=== PATIENT | male | born 1965 | race Caucasian/White ===

== ENCOUNTER 2016-10-16 18:47 | Emergency (ER) | payer MEDICARE ==
[~2016-10-16] VITALS: Ht 180.3 cm; Wt 215.5 kg
[~2016-10-16 18:47] MED LIST: ALB0.5V INH; ALBU17AE23 INH; ALBU2.5V4 IH; ALBU2.5V52 INH; ALPR.5T PO; AMOX500C2 PO; AMOX875T2 PO; AMPI250C11 PO; ANTI14DR4 OT; AZIT-21 PO; AZIT250T PO; AZIT500T PO; BENZ-13 PO; BENZ200C25 PO; CARB15DR87 OT; CEPH500C PO; CIPR-17 PO; CIPR500T4 PO; CLIN300C3 PO; DIPH25CA79 PO; DIPH25TA82 PO; DOXY100C2 PO; DOXYCYCLINE 100 MG; EFFEXOR 75 MG PO; FAMO-119 PO; FAMO40TA72 PO; FEXO1TAB49 PO; FLUC100T PO; FLUC100T6 PO; FLUT1DIS28 IH; FURO20TA4 PO; FURO40TA4 PO; GFN600TCR PO; HYDR-3583 PO; HYDR-3812 PO; HYDR-757 PO; HYDROCODONE; LIRA0.6P SQ; LOSA1TAB23 PO; LOSA1TAB70 PO; METF500T4 PO; METFORMIN 500 MG; METH4TAB PO; METR500T PO; MOME15CR17 TP; MPR22T TOP; MULT-35 PO; NAPR220C11 PO; NAPR220T76; NYST30PO9 TP; PRD20T PO; PRD50T PO; PRED10TA22 PO; PRED20TA PO; RT-ALBUINH IH; SLMFT1E; SLMFT1E INH; SULF1TAB38 PO; SULFAMETHOXAZOLE; TRIMETHOPRIM; VENL150C PO; VENL150C98 PO; VITAMIN D; XANAX 0.5 MG PO
[2016-10-16] MEDS ORDERED: cloNIDine 0.2 MG (CATAPRES) TAB PO ONE (19:15)
[2016-10-16] MEDS ORDERED: RT-ALBUTEROL/IPRATROPIUM 3 ML (DUONEB) VIAL INH ONE (19:15)
--- NOTE | 2016-10-16 19:15 | ED Cough/URI ---
General Chief Complaint: Respiratory Problems Stated Complaint: COUGH, FEVER, DIARRHEA, SOB Source: patient Exam Limitations: no limitations History of Present Illness Time seen by provider: 19:13 Initial Comments To ER with a productive cough for 3 days, unmeasured fever but chills, diarrhea , shortness of breath. He's also had wheezing, generalized body aches. He states that he was recently kicked off of some version of his Medicare which has caused him difficulty in affording his losartan. His blood pressure is 183/ 111. Timing/Duration: just prior to arrival Severity/Quality: moderate Associated Symptoms: cough, nasal congestion, wheezing Allergies and Home Medications Allergies Coded Allergies: azithromycin (Verified Allergy, Intermediate, Hives, 03/31/15) Home Medications Albuterol Sulfate 2.5 Mg/3 Ml Vial.neb, 2.5 MG IH Q6H PRN for SHORTNESS OF BREATH, (Reported) Albuterol Sulfate 8.5 Gm Hfa.aer.ad, 2 PUFF IH Q4H PRN for SHORTNESS OF BREATH, #1 Ref 0 Prescribed by: NELSON LUGO on 02/16/162042 Amlodipine Besylate 5 Mg Tablet, 5 MG PO DAILY, #10 Prescribed by: CAMILLE TITUS on 10/16/16 2005 Amoxicillin 875 Mg Tablet, 875 MG PO BID, #20 Prescribed by: FUENTES YING on 05/25/162116 Hydrocodone/Acetaminophen 1 Each Tablet, 1 TAB PO Q6H PRN for SEVERE PAIN, #10 Prescribed by: DIONY DEL TORO on 03/15/16 1328 Levofloxacin 750 Mg Tablet, 750 MG PO DAILY, #5 Prescribed by: CAMILLE TITUS on 10/16/162002 Liraglutide 0.6 Mg/0.1 Ml Pen.injctr, 0.6 MG SQ DAILY, #1 Ref 5 Prescribed by: BETHANIE CAN on 04/08/15 0938 Losartan/Hydrochlorothiazide 1 Each Tablet, 1 TAB PO DAILY, (Reported) Methylprednisolone 4 Mg Tab.ds.pk, 4 MG PO UD, #1 Prescribed by: FUENTES YING on 05/25/162116 Mometasone Furoate 15 Gm Cream..g., 0 TP TID, #1 Prescribed by: FUENTES YING on 05/25/162117 Multivitamin 1 Each Tablet, 1 TAB PO DAILY, (Reported) Prednisone 20 Mg Tab, 20 MG PO DAILY PRN for SHORTNESS OF BREATH, (Reported) Venlafaxine HCl 150 Mg Cap.er.24h, 150 MG PO DAILY, (Reported) Constitutional: see HPI, chills, fever EENTM: see HPI Respiratory: see HPI, cough, short of breath, wheezing Cardiovascular: no symptoms reported Genitourinary: no symptoms reported Musculoskeletal: no symptoms reported Past Pxxonhh-Vnjaqe-Euoihp Hx Patient Social History Recent Foreign Travel: No Contact w/Someone Who Travel: No Recent Hopitalizations: No Immunizations Up To Date Tetanus Booster (TDap): Less than 5yrs Date of Pneumonia Vaccine: Mar 29, 2010 Date of Influenza Vaccine: Mar 31, 2015 Seasonal Allergies Seasonal Allergies: No Surgeries HX Surgeries: Yes (rectal abcess, l arm, urethral) Surgeries: Orthopedic, Rectal Respiratory Hx Respiratory Disorders: Yes (sarcoidosis) Respiratory Disorders: Sleep Apnea, COPD Cardiovascular Hx Cardiac Disorders: Yes Cardiac Disorders: Chronic Edema/Swelling, Hypertension Neurological Hx Neurological Disorders: Yes Neurological Disorders: Neuropathy Reproductive System Hx Reproductive Disorders: No Sexually Transmitted Disease: No HIV/AIDS: No Genitourinary Hx Genitourinary Disorders: No Gastrointestinal Hx Gastrointestinal Disorders: Yes Gastrointestinal Disorders: Gastroesophageal Reflux, Chronic Constipation Musculoskeletal Hx Musculoskeletal Disorders: Yes (SARCOIDOSIS) Musculoskeletal Disorders: Arthritis Endocrine Hx Endocrine Disorders: Yes (morbid obesity) Endocrine Disorders: Diabetes, Non-Insulin dep HEENT HX ENT Disorders: Yes HEENT Disorders: Tonsilitis Loss of Vision: Denies Hearing Impairment: Denies Cancer Hx Cancer: No Psychosocial Hx Psychiatric Problems: Yes Behavioral Health Disorders: Anxiety Integumentary HX Skin/Integumentary Disorder: No Blood Transfusions Hx Blood Disorders: No Family Medical History Significant Family History: No Pertinent Family Hx Family Medial History: Congestive heart failure 03 FATHER, Onset:20's - 25 Family history: Asthma 09 SISTER, Onset:20's - 25 Family history: Cardiovascular disease 03 FATHER, Onset:20's - 25 Family history: Hypertension 03 MOTHER, Onset:40's - 50 Family history: Thyroid disorder 03 MOTHER, Onset:50's - 60 Heart disease 03 FATHER, Onset:20's - 25 History of - respiratory disease 03 MOTHER, Onset:50's - 60 Physical Exam Vital Signs Vital Sign - Last 12Hours 10/16/16 19:09 Temp 96.8 Pulse 88 Resp 20 B/P (MAP) 186/111 Pulse Ox 96 O2 Delivery Room Air Capillary Refill : General Appearance: WD/WN, no apparent distress, obese Eyes: Bilateral Eye EOMI, Bilateral Eye Normal Inspection, Bilateral Eye PERRL HEENT: PERRL/EOMI, normal ENT inspection Neck: non-tender, full range of motion Respiratory: no respiratory distress, no accessory muscle use Cardiovascular: regular rate, rhythm, no murmur Gastrointestinal: normal bowel sounds, non tender, soft Neurologic/Psychiatric: alert, normal mood/affect, oriented x 3 Skin: normal color, warm/dry Progress/Results/Core Measures Results/Orders Lab Results Laboratory Tests Test 10/16/16 19:26 Range/Units White Blood Count 12.0 H 4.3-11.0 10^3/uL Red Blood Count 5.13 4.35-5.85 10^6/uL Hemoglobin 13.2 L 13.3-17.7 G/DL Hematocrit 41 40-54 % Mean Corpuscular Volume 79 L 80-99 FL Mean Corpuscular Hemoglobin 26 25-34 PG Mean Corpuscular Hemoglobin Concent 32 32-36 G/DL Red Cell Distribution Width 13.6 10.0-14.5 % Platelet Count 254 130-400 10^3/uL Mean Platelet Volume 10.3 7.4-10.4 FL Neutrophils (%) (Auto) 71 42-75 % Lymphocytes (%) (Auto) 18 12-44 % Monocytes (%) (Auto) 5 0-12 % Eosinophils (%) (Auto) 6 0-10 % Basophils (%) (Auto) 0 0-10 % Neutrophils # (Auto) 8.5 H 1.8-7.8 X 10^3 Lymphocytes # (Auto) 2.2 1.0-4.0 X 10^3 Monocytes # (Auto) 0.6 0.0-1.0 X 10^3 Eosinophils # (Auto) 0.7 H 0.0-0.3 10^3/uL Basophils # (Auto) 0.1 0.0-0.1 10^3/uL Sodium Level 138 135-145 MMOL/L Potassium Level 3.7 3.6-5.0 MMOL/L Chloride Level 102 98-107 MMOL/L Carbon Dioxide Level 26 21-32 MMOL/L Anion Gap 10 5-14 MMOL/L Blood Urea Nitrogen 9 7-18 MG/DL Creatinine 0.97 0.60-1.30 MG/DL Estimat Glomerular Filtration Rate > 60 BUN/Creatinine Ratio 9 Glucose Level 186 H 70-105 MG/DL Calcium Level 9.1 8.5-10.1 MG/DL My Orders Orders - CAMILLE TITUS APRN Clonidine Tablet (Catapres Tablet) (10/16/16 19:15) Albuterol/Ipra Inhalation Soln (Duoneb I (10/16/16 19:15) Svn Sm Volume Nebulizer Rt-Rfs (10/16/16 19:12) Cbc With Automated Diff (10/16/16 19:12) Basic Metabolic Panel (10/16/16 19:12) Saline Lock/Iv-Start (10/16/16 19:12) Chest Pa/Lat (2 View) (10/16/16 19:12) Ceftriaxone Injection (Rocephin Injectio (10/16/16 20:00) Medications Given in ED Current Medications Medications Dose Ordered Sig/Ceci Route Start Time Stop Time Status Last Admin Dose Admin Albuterol/ Ipratropium 3 ml ONCE ONCE INH 10/16/16 19:15 10/16/16 19:16 DC 10/16/16 19:25 3 ML Clonidine HCl 0.2 mg ONCE ONCE PO 10/16/16 19:15 10/16/16 19:16 DC 10/16/16 19:32 0.2 MG Vital Signs/I&O Vital Sign - Last 12Hours 10/16/16 10/16/16 19:09 19:25 Temp 96.8 Pulse 88 Resp 20 B/P (MAP) 186/111 Pulse Ox 96 95 O2 Delivery Room Air Departure Communication Progress Notes 2009-complete resolution of wheezing and shortness of breath with 1 DuoNeb treatment. Patient does report a history of COPD. He does have a nebulizer at home and does have an adequate supply of albuterol for this. We will give Rocephin here, then Levaquin at home. Blood pressure down to 162/104. Impression Impression: Primary Impression: Pneumonia Additional Impression: Hypertension Disposition: HOME, SELF-CARE Condition: Stable Departure-Patient Inst. Decision time for Depature: 20:02 Referrals: BETHANIE CAN DO (PCP/Family) Primary Care Physician Patient Instructions: Pneumonia, Adult (DC) Add. Discharge Instructions: 1. Antibiotics as directed 2. Return to ER for any concerns 3. Follow-up with your doctor later this week All discharge instructions reviewed with patient and/or family. Voiced understanding. Scripts Amlodipine Besylate (Norvasc) 5 Mg Tablet 5 MG PO DAILY, #10 TAB Prov: CAMILLE TITUS APRN 10/16/16 Levofloxacin (Levaquin) 750 Mg Tablet 750 MG PO DAILY, #5 TAB Prov: CAMILLE TITUS APRN 10/16/16 CAMILLE TITUS APRN October 16, 2016 19:15
[2016-10-16 19:35] LABS: BASOPHILS # (AUTO) 0.1 10^3/uL (0.0-0.1); BASOPHILS % (AUTO) 0 % (0-10); EOSINOPHILS # (AUTO) 0.7 10^3/uL (0.0-0.3); EOSINOPHILS % (AUTO) 6 % (0-10); LYMPHOCYTES # (AUTO) 2.2 X 10^3 (1.0-4.0); LYMPHOCYTES % (AUTO) 18 % (12-44); MEAN CORPUSCULAR HEMOGLOBIN 26 PG (25-34); MEAN CORPUSCULAR HGB CONC 32 G/DL (32-36); MEAN CORPUSCULAR VOLUME 79 FL (80-99); MEAN PLATELET VOLUME 10.3 FL (7.4-10.4); MONOCYTES # (AUTO) 0.6 X 10^3 (0.0-1.0); MONOCYTES % (AUTO) 5 % (0-12); NEUTROPHILS # (AUTO) 8.5 X 10^3 (1.8-7.8); NEUTROPHILS % (AUTO) 71 % (42-75); PLATELET COUNT 254 10^3/uL (130-400); RED BLOOD COUNT 5.13 10^6/uL (4.35-5.85); RED CELL DISTRIBUTION WIDTH 13.6 % (10.0-14.5)
--- NOTE | 2016-10-16 19:50 | Diagnostic Imaging Report ---
INDICATION: Cough and congestion. DISCUSSION: Two views of the chest were obtained, comparison 03/14/2016. Mild alveolar infiltrates are noted within the bilateral lung bases which could be seen with early pneumonia, pulmonary edema, or atelectasis. No pleural fluid or pneumothorax. Stable normal heart size. No osseous abnormality. IMPRESSION: 1. Subtle infiltrates within the bilateral lung bases, right greater than left. Dictated by: Dictated on workstation # [id number]
[2016-10-16 19:53] LABS: ANION GAP 10 MMOL/L (5-14); BLOOD UREA NITROGEN 9 MG/DL (7-18); BUN/CREATININE RATIO 9; CALCIUM 9.1 MG/DL (8.5-10.1); CARBON DIOXIDE 26 MMOL/L (21-32); CHLORIDE 102 MMOL/L (98-107); CREATININE SERUM 0.97 MG/DL (0.60-1.30); GFR ESTIMATED > 60; GLUCOSE 186 MG/DL (70-105); POTASSIUM 3.7 MMOL/L (3.6-5.0); SODIUM 138 MMOL/L (135-145)
[2016-10-16] MEDS ORDERED: cefTRIAXone INJECTION 1,000 MG in NS (IVPB) 50 ML IV ONE (20:00)
[2016-10-16] MEDS ORDERED: LEVO750T9 PO (20:03)
[2016-10-16] MEDS ORDERED: AMLO5TAB4 PO (20:05)
[2016-10-16 20:19] VITALS: BP 164/104
== END 2016-10-16 20:19 | disposition home or self-care (01) ==
LOC: EDUNIT# 18:47 → ER 18:48
DX: J18.9 Pneumonia, unspecified organism (principal); I10 Essential (primary) hypertension; J44.9 Chronic obstructive pulmonary disease, unspecified; E11.9 Type 2 diabetes mellitus without complications; E66.01 Morbid (severe) obesity due to excess calories; Z79.84 Long term (current) use of oral hypoglycemic drugs; Z79.899 Other long term (current) drug therapy
CPT/HCPCS: 36415; 71020; 80048; 85025; 94640; 96374

== ENCOUNTER → 2016-11-20 | Outpatient (CLI) | payer MEDICARE ==
[~2016-11-20] MED LIST changes: +AMLO5TAB4 PO; +LEVO750T9 PO
== END ==
LOC: CARD 11:25
PROVIDERS: ATTEND Nurse Practitioner Family
DX: Z00.01 Encounter for general adult medical examination with abnormal findings (principal); I10 Essential (primary) hypertension; R01.1 Cardiac murmur, unspecified
CPT/HCPCS: 93306

== ENCOUNTER 2017-08-22 12:24 | Emergency (ER) | payer MEDICARE ==
[~2017-08-22] VITALS: Ht 180.3 cm; Wt 205.0 kg
[~2017-08-22 12:24] MED LIST changes: +ACHD5005 PO; -HYDR-3812 PO; -LOSA1TAB70 PO
--- NOTE | 2017-08-22 13:03 | ED EENT ---
History of Present Illness General Chief Complaint: Oral/Throat Problems Stated Complaint: SORE THROAT,FEVER Nursing Triage Note: C/O THROAT Source: patient Exam Limitations: no limitations History of Present Illness Date Seen by Provider: Aug 22, 2017 Time Seen by Provider: 12:42 Initial Comments 51-year-old male patient presents to the emergency department with complaints of a sore throat beginning today. Also c/o a generalized pruritic rash x6-8 months. Denies changes in foods, lotions, soaps, medications,etc... Location: throat Prearrival Treatment: no prearrival treatment Modifying Factors: Worse With Other (throat pain worse with swallowing) Allergies and Home Medications Allergies Coded Allergies: azithromycin (Verified Allergy, Intermediate, Hives, 03/31/15) Home Medications Albuterol Sulfate 2.5 Mg/3 Ml Vial.neb, 2.5 MG IH Q6H PRN for SHORTNESS OF BREATH, (Reported) Albuterol Sulfate 8.5 Gm Hfa.aer.ad, 2 PUFF IH Q4H PRN for SHORTNESS OF BREATH Prescribed by: NELSON LUGO on 02/16/162042 Amlodipine Besylate 5 Mg Tablet, 5 MG PO DAILY Prescribed by: CAMILLE TITUS on 10/16/162004 Hydrocodone Bit/Acetaminophen 1 Each Tablet, 1 TAB PO Q6H PRN for SEVERE PAIN Prescribed by: DIONY DEL TORO on 03/15/16 132 Liraglutide 0.6 Mg/0.1 Ml Pen.injctr, 0.6 MG SQ DAILY Prescribed by: BETHANIE CAN on 04/08/15 0938 Losartan/Hydrochlorothiazide 1 Each Tablet, 1 TAB PO DAILY, (Reported) Methylprednisolone 4 Mg Tab.ds.pk, 4 MG PO UD Prescribed by: FUENTES YING on 05/25/162116 Mometasone Furoate 15 Gm Cream..g., 0 TP TID Prescribed by: FUENTES YING on 05/25/162117 Multivitamin 1 Each Tablet, 1 TAB PO DAILY, (Reported) Permethrin 60 Gm Cream..g., 60 GM TP UD apply as directed x1 per the systems programmer. Repeat in 10-14 days. Prescribed by: NELSON LUGO on 08/22/17 1337 Prednisone 20 Mg Tab, 20 MG PO DAILY PRN for SHORTNESS OF BREATH, (Reported) Prednisone 20 Mg Tab, 40 MG PO DAILY Prescribed by: NELSON LUGO on 08/22/17 1337 Venlafaxine HCl 150 Mg Cap.er.24h, 150 MG PO DAILY, (Reported) Patient Home Medication List Home Medication List Reviewed: Yes Review of Systems Constitutional: No chills, No fever, No malaise Eyes: No Symptoms Reported Ears: No Symptoms Reported Nose: denies congestion, denies pain, denies clear discharge, denies purulent discharge, denies serosanguinous discharge Mouth: no symptoms reported Throat: pain, denies swelling, denies neck stiffness, denies hoarse, denies aphonia, denies muffled, painful swallowing, denies difficulty with fluids Respiratory: no symptoms reported Cardiovascular: no symptoms reported Gastrointestinal: no symptoms reported Musculoskeletal: no symptoms reported Skin: see HPI, pruritus, rash Neurological: No Symptoms Reported Immunological/Allergic: no symptoms reported All Other Systems Reviewed Negative Unless Noted: Yes (Negative excepted noted.) Past Xqhfywo-Defjer-Gvbtor Hx Patient Social History Alcohol Use: Denies Use Recreational Drug Use: No Smoking Status: Never a Smoker 2nd Hand Smoke Exposure: No Recent Foreign Travel: No Contact w/Someone Who Travel: No Recent Infectious Disease Expo: No Recent Hopitalizations: No Immunizations Up To Date Tetanus Booster (TDap): Less than 5yrs Date of Pneumonia Vaccine: Mar 29, 2010 Date of Influenza Vaccine: Mar 31, 2015 Seasonal Allergies Seasonal Allergies: No Surgeries History of Surgeries: Yes (rectal abcess, urethral) Surgeries: Orthopedic, Rectal Respiratory History of Respiratory Disorde: Yes (sarcoidosis) Respiratory Disorders: Sleep Apnea, COPD Currently Using CPAP: Yes Currently Using BIPAP: No Cardiovascular History of Cardiac Disorders: Yes Cardiac Disorders: Chronic Edema/Swelling, Hypertension Neurological History of Neurological Disord: Yes Neurological Disorders: Neuropathy Reproductive System Hx Reproductive Disorders: No Sexually Transmitted Disease: No HIV/AIDS: No Genitourinary History of Genitourinary Disor: No Gastrointestinal History of Gastrointestinal Di: Yes (h/o multiple perirectal abscesses.) Gastrointestinal Disorders: Gastroesophageal Reflux, Chronic Constipation Musculoskeletal History of Musculoskeletal Dis: Yes (SARCOIDOSIS) Musculoskeletal Disorders: Arthritis Endocrine History of Endocrine Disorders: Yes (morbid obesity) Endocrine Disorders: Diabetes, Non-Insulin dep HEENT History of HEENT Disorders: No HEENT Disorders: Tonsilitis Loss of Vision: Denies Hearing Impairment: Denies Cancer History of Cancer: No Psychosocial History of Psychiatric Problem: Yes Behavioral Health Disorders: Anxiety Integumentary History of Skin or Integumenta: Yes Skin/Integumentary Disorders: Pruritis (rash and pruritis x 6-8 months) Blood Transfusions History of Blood Disorders: No Reviewed Nursing Assessment Reviewed/Agree w Nursing PMH: Yes Family Medical History Significant Family History: No Pertinent Family Hx Family Medial History: Congestive heart failure 03 FATHER, Onset: Family history: Asthma 09 SISTER, Onset:20 Family history: Cardiovascular disease 03 FATHER, Onset: Family history: Hypertension 03 MOTHER, Onset:40's - 50 Family history: Thyroid disorder 03 MOTHER, Onset:50 Heart disease 03 FATHER, Onset: History of - respiratory disease 03 MOTHER, Onset:50 Physical Exam Vital Signs Vital Signs - First Documented 08/22/17 12:35 Pulse 79 Resp 18 B/P (MAP) 161/99 (119) Pulse Ox 98 General Appearance: no apparent distress, obese, other (unkempt.) Eyes: bilateral eye normal inspection, bilateral eye PERRL, bilateral eye EOMI Ears: bilateral ear auricle normal, bilateral ear canal normal, bilateral ear TM normal Nose: normal inspection Mouth/Throat: normal mouth inspection, No excessive drooling, No tonsillar exudate, No tonsillar swelling, No trismus, No uvula swelling, No voice changes , other ((+) pharyngeal erythema) Neck: non-tender, full range of motion, supple, normal inspection Cardiovascular: regular rate, rhythm, no murmur Respiratory: lungs clear, normal breath sounds, no respiratory distress, no accessory muscle use Neurologic/Psychiatric: alert, normal mood/affect, oriented x 3 Skin: normal color, warm/dry, rash (generalized scabs and exoriations. ) Progress/Results/Core Measures Results/Orders Lab Results Laboratory Tests Test 08/22/17 12:55 Range/Units Group A Streptococcus Screen NEGATIVE NEGATIVE My Orders Orders - NELSON LUGO Rapid Strep A Screen (08/22/17 12:56) Vital Signs/I&O Vital Sign - Last 12Hours 08/22/17 08/22/17 12:35 13:59 Pulse 79 79 Resp 18 18 B/P (MAP) 161/99 (119) 161/99 (119) Pulse Ox 98 98 Blood Pressure Mean: 119 Departure Communication (Admissions) Progress Notes Laboratory findings discussed with the patient. Plan for discharge to home. Patient to follow-up with his primary care provider if no improvement in symptoms. Impression Impression: Primary Impression: Acute viral pharyngitis Additional Impression: Rash in adult Disposition: 01 HOME, SELF-CARE Condition: Improved Departure-Patient Inst. Decision time for Depature: 13:07 Referrals: [facility] (PCP/Family) Primary Care Physician Patient Instructions: Viral Pharyngitis (DC) Add. Discharge Instructions: All discharge instructions reviewed with patient and/or family. Voiced understanding. Medications as instructed. Tylenol Extra Strength over-the- counter as directed for pain. Ibuprofen 800 mg by mouth every 8 hours as needed for pain. Zzot-les-culonfy throat lozenges and Chloraseptic spray for throat pain as instructed by the systems programmer's. Warm salt water gargles as needed. Follow-up with your family practitioner for recheck as an outpatient if no improvement in symptoms. Return to the emergency department for worsened symptoms or any other concerns. Scripts Permethrin (Permethrin) 60 Gm Cream..g. 60 GM TP UD, #2 TUBE 0 Refills apply as directed x1 per the systems programmer. Repeat in 10-14 days. Prov: NELSON LUGO 08/22/17 Prednisone (Prednisone) 20 Mg Tab 40 MG PO DAILY, #10 TAB 0 Refills Prov: NELSON LUGO 08/22/17 NELSON LUGO Aug 22, 2017 13:03
[2017-08-22] MEDS ORDERED: PERM60CR4 TP (13:37)
[2017-08-22] MEDS ORDERED: PRD20T PO (13:37)
[2017-08-22 13:59] VITALS: BP 161/99
== END 2017-08-22 13:59 | disposition home or self-care (01) ==
LOC: EDUNIT# 12:24 → ER 12:26
DX: J02.8 Acute pharyngitis due to other specified organisms (principal); R21 Rash and other nonspecific skin eruption; F41.9 Anxiety disorder, unspecified; E11.40 Type 2 diabetes mellitus with diabetic neuropathy, unspecified; E66.01 Morbid (severe) obesity due to excess calories; K21.9 Gastro-esophageal reflux disease without esophagitis; R60.0 Localized edema; I10 Essential (primary) hypertension; J44.9 Chronic obstructive pulmonary disease, unspecified; G47.30 Sleep apnea, unspecified; Z79.52 Long term (current) use of systemic steroids; Z88.1 Allergy status to other antibiotic agents; Z87.2 Personal history of diseases of the skin and subcutaneous tissue; Z98.890 Other specified postprocedural states
CPT/HCPCS: 87430; 99282

== ENCOUNTER 2017-09-10 02:06 | Emergency (ER) | payer MEDICARE ==
[~2017-09-10] VITALS: Ht 180.3 cm; Wt 205.0 kg
[~2017-09-10 02:06] MED LIST changes: -METF500T4 PO; +METF500T5 PO; +PERM60CR4 TP
[2017-09-10] MEDS ORDERED: RT-epiNEPHrine (RACEMIC) 2.25% 0.5 ML VIAL ONE (02:16)
[2017-09-10] MEDS ORDERED: RT-ALBUTEROL/IPRATROPIUM 3 ML (DUONEB) VIAL ONE (02:16)
[2017-09-10] MEDS ORDERED: ROSU10TA PO (02:19)
[2017-09-10] MEDS ORDERED: GABA-486 PO (02:19)
--- NOTE | 2017-09-10 02:25 | ED Respiratory ---
General Chief Complaint: Allergic Reaction Stated Complaint: SWOLLEN LIPS Source: patient Exam Limitations: no limitations History of Present Illness Date Seen by Provider: Sep 10, 2017 Time Seen by Provider: 02:12 Initial Comments The patient presents to the ER by private conveyance with a chief complaint that he has swollen lips and tonight was getting bad enough he is having a hard time breathing through his mouth and swallowing his own secretions. He is still able to talk. He says this started a couple days ago and is progressively gotten worse. He is not on any new medications nor has he eaten anything unusual or anything he might be allergic to. He has not changed any soaps, detergents or other new fabrics. He does not have a history of angioedema ever occurring before. He says he is not on lisinopril but he does take losartan and has been on this for many years. He is not having any constitutional symptoms, earaches, fever, chills, nausea, vomiting, shortness of breath but he does have a history of COPD. Allergies and Home Medications Allergies Coded Allergies: azithromycin (Verified Allergy, Intermediate, Hives, 03/31/15) Home Medications Epinephrine 0.3 Mg/0.3 Ml Auto.injct, 0.3 MG IJ Q30M PRN for DYSPNEA Prescribed by: SABINA YANG on 09/10/17 0242 Losartan/Hydrochlorothiazide 1 Each Tablet, 1 TAB PO DAILY, (Reported) Venlafaxine HCl 150 Mg Cap.er.24h, 150 MG PO DAILY, (Reported) Patient Home Medication List Home Medication List Reviewed: Yes Review of Systems Constitutional: No chills, No fever, No malaise, No weakness EENTM: No ear discharge, No ear pain, No eye pain, No epistaxis, No nose congestion, No nose pain Respiratory: No cough, No hemoptysis, No short of breath, No stridor; wheezing Cardiovascular: No chest pain; edema (chronic lymphedema); No palpitations Gastrointestinal: No abdominal pain, No constipation, No diarrhea, No nausea, No vomiting Genitourinary: No discharge, No dysuria Musculoskeletal: No back pain, No joint pain Past Vphixfn-Bxezzs-Zuhtww Hx Patient Social History Alcohol Use: Denies Use Recreational Drug Use: No Smoking Status: Never a Smoker 2nd Hand Smoke Exposure: No Recent Foreign Travel: No Contact w/Someone Who Travel: No Recent Hopitalizations: No Immunizations Up To Date Tetanus Booster (TDap): Less than 5yrs Date of Pneumonia Vaccine: Mar 29, 2010 Date of Influenza Vaccine: Mar 31, 2015 Seasonal Allergies Seasonal Allergies: No Past Medical History Surgeries: Yes (rectal abcess, urethral) Orthopedic, Rectal Respiratory: Yes (sarcoidosis) Sleep Apnea, COPD Currently Using CPAP: Yes Currently Using BIPAP: No Cardiac: Yes Chronic Edema/Swelling, Hypertension Neurological: Yes Neuropathy Reproductive Disorders: No Sexually Transmitted Disease: No HIV/AIDS: No Genitourinary: No Gastrointestinal: Yes (h/o multiple perirectal abscesses.) Gastroesophageal Reflux, Chronic Constipation Musculoskeletal: Yes (SARCOIDOSIS) Arthritis Endocrine: Yes (morbid obesity) Diabetes, Non-Insulin dep HEENT: No Tonsilitis Loss of Vision: Denies Hearing Impairment: Denies Cancer: No Psychosocial: Yes Anxiety Integumentary: Yes Pruritis Blood Disorders: No Family Medical History Congestive heart failure 03 FATHER, Onset:20's - 25 Family history: Asthma 09 SISTER, Onset:20's - 25 Family history: Cardiovascular disease 03 FATHER, Onset:20's - 25 Family history: Hypertension 03 MOTHER, Onset:40's - 50 Family history: Thyroid disorder 03 MOTHER, Onset:50's - 60 Heart disease 03 FATHER, Onset:20's - 25 History of - respiratory disease 03 MOTHER, Onset:50's - 60 No Pertinent Family Hx Physical Exam Vital Signs Vital Signs - First Documented 09/10/17 02:10 Temp 97.4 Pulse 115 Resp 22 B/P (MAP) 132/91 (105) Pulse Ox 96 O2 Delivery Room Air Capillary Refill : General Appearance: WD/WN, no apparent distress Eyes: Bilateral Eye Normal Inspection, Bilateral Eye PERRL, Bilateral Eye EOMI HEENT: PERRL/EOMI, normal ENT inspection, TMs normal, other (tongue may be mildly enlarged however his upper and lower lips are both very swollen without any area of induration, discharge or fluctuance to indicate an abscess.) Neck: non-tender, full range of motion, supple, normal inspection Respiratory: chest non-tender, no respiratory distress, no accessory muscle use , decreased breath sounds, wheezing (few scattered bilaterally), other (there is no stridor.) Cardiovascular: normal peripheral pulses, regular rate, rhythm, no edema Gastrointestinal: normal bowel sounds, non tender, soft Extremities: non-tender, normal capillary refill, pedal edema Neurologic/Psychiatric: no motor/sensory deficits, alert, normal mood/affect, oriented x 3 Skin: other (edema bilateral lips of the face without evidence of abscess, induration or fluctuance.) Progress/Results/Core Measures Suspected Sepsis SIRS Temperature: Pulse: Respiratory Rate: Blood Pressure / Mean: Results/Orders My Orders Orders - SABINA YANG Methylprednisolone Sod Succ (Solu-Medrol (09/10/17 02:30) Diphenhydramine Injection (Benadryl Inje (09/10/17 02:30) Rt Epinephrine (Racemic Epinephrine 2.25 (09/10/17 02:30) Svn Sm Volume Nebulizer Rt-Rfs (09/10/17 02:16) Albuterol/Ipra Inhalation Soln (Duoneb I (09/10/17 02:30) Famotidine Tablet (Pepcid Tablet) (09/10/17 02:30) Loratadine Tablet (Claritin Tablet) (09/10/17 02:30) Rt Epinephrine (Racemic Epinephrine 2.25 (09/10/17 02:16) Albuterol/Ipra Inhalation Soln (Duoneb I (09/10/17 02:16) Medications Given in ED Current Medications Medications Dose Ordered Sig/Ceci Route Start Time Stop Time Status Last Admin Dose Admin Albuterol/ Ipratropium 3 ml ONCE ONCE INH 09/10/17 02:30 09/10/17 02:31 DC 09/10/17 02:31 3 ML Diphenhydramine HCl 25 mg ONCE ONCE IM 09/10/17 02:30 09/10/17 02:31 DC 09/10/17 02:25 25 MG Epinephrine 0.5 ml ONCE ONCE INH 09/10/17 02:30 09/10/17 02:31 DC 09/10/17 02:31 0.5 ML Famotidine 20 mg ONCE ONCE PO 09/10/17 02:30 09/10/17 02:31 DC 09/10/17 02:25 20 MG Loratadine 10 mg ONCE ONCE PO 09/10/17 02:30 09/10/17 02:31 DC 09/10/17 02:25 10 MG Methylprednisolone Sodium Succinate 125 mg ONCE ONCE IM 09/10/17 02:30 09/10/17 02:31 DC 09/10/17 02:25 125 MG Vital Signs/I&O 09/10/17 09/10/17 02:10 02:23 Temp 97.4 Pulse 115 Resp 22 B/P (MAP) 132/91 (105) Pulse Ox 96 96 O2 Delivery Room Air Room Air Capillary Refill : Progress Note #1: Time: 02:26 Progress Note Is not having stridor necessary but he says having a difficult time breathing through his mouth and he does have some wheezes so in addition to a DuoNeb we' ll give him some racemic epinephrine by nebulizer. We will give him some steroid , Benadryl, Zyrtec, Pepcid and reevaluate. With no new exposures suspected losartan may be the possible cause. We have encouraged him to not take his losartan until he has followed up with his primary care provider. Progress Note #2: Time: 03:02 Progress Note On reexamination the patient is no longer having any wheezing. He is able to breathe through his mouth and nose easily swallow secretions with minimal difficulty. He still has swelling in his lips. We will observe him for a short while and then allow him to go home as long as he is not getting any worse. Departure Impression Primary Impression: Angio-edema Qualified Codes: T78.3XXA - Angioneurotic edema, initial encounter Disposition: 01 HOME, SELF-CARE Condition: Improved Departure-Patient Inst. Decision time for Depature: 03:02 Referrals: [facility] [place] Primary Care Physician Patient Instructions: Anaphylaxis (DC) Add. Discharge Instructions: It is not entirely clear what has caused the swelling in your lips but it does appear to be an allergic reaction to something. If your symptoms get worse take a Benadryl 25 mg tablet and return to the ER. A prescription for an epinephrine pen has been sent to the pharmacy for you to potato picker and have on hand in case your swelling gets to the point where you are having difficulty breathing then you should inject herself with one of the pins on your way to the ER. For the next week you can take one tablet of Zyrtec, cetirizine or Claritin, loratadine daily. The steroids should kick in and about a day or so. Follow-up with your primary care provider this week or the next. Discontinue the use of your losartan until you've seen your provider and they would like you to restart it. All discharge instructions reviewed with patient and/or family. Voiced understanding. Scripts Epinephrine (Epipen 2-Satnam) 0.3 Mg/0.3 Ml Auto.injct 0.3 MG IJ Q30M PRN for DYSPNEA, #1 EACH 0 Refills Prov: SABINA YANG 09/10/17 Copy Copies To 1: GENE RAMOS DO SABINA YANG Sep 10, 2017 02:25
[2017-09-10] MEDS ORDERED: RT-ALBUTEROL/IPRATROPIUM 3 ML (DUONEB) VIAL INH ONE (02:30)
[2017-09-10] MEDS ORDERED: LORATADINE (CLARITIN) 10 MG TAB PO ONE (02:30)
[2017-09-10] MEDS ORDERED: diphenhydrAMINE 50 MG/ML INJ (BENADRYL) IM ONE (02:30)
[2017-09-10] MEDS ORDERED: RT-epiNEPHrine (RACEMIC) 2.25% 0.5 ML VIAL INH ONE (02:30)
[2017-09-10] MEDS ORDERED: FAMOTIDINE 20 MG (PEPCID) TABLET PO ONE (02:30)
[2017-09-10] MEDS ORDERED: methylPREDNISolone 125 MG (Solu-MEDROL) VIAL IM ONE (02:30)
[2017-09-10] MEDS ORDERED: EPIN0.3P3 IJ (02:42)
[2017-09-10 03:07] VITALS: BP 99/47
== END 2017-09-10 03:07 | disposition home or self-care (01) ==
LOC: EDUNIT# 02:06 → ER 02:08
DX: T78.3XXA Angioneurotic edema, initial encounter (principal); K21.9 Gastro-esophageal reflux disease without esophagitis; E66.01 Morbid (severe) obesity due to excess calories; J44.9 Chronic obstructive pulmonary disease, unspecified; G47.30 Sleep apnea, unspecified; I10 Essential (primary) hypertension; E11.40 Type 2 diabetes mellitus with diabetic neuropathy, unspecified; F41.9 Anxiety disorder, unspecified; Z87.2 Personal history of diseases of the skin and subcutaneous tissue; Z87.09 Personal history of other diseases of the respiratory system; Z87.19 Personal history of other diseases of the digestive system; Z68.44 Body mass index [BMI] 60.0-69.9, adult
CPT/HCPCS: 94640; 96372; 99284

== ENCOUNTER 2018-06-27 21:36 | Emergency (ER) | payer MEDICARE ==
[~2018-06-27] VITALS: Ht 180.3 cm; Wt 204.1 kg
[~2018-06-27 21:36] MED LIST changes: -BENZ-13 PO; +BENZ100C18 PO; +EPIN0.3P3 IJ; +GABA-486 PO; +HYDR-4226 PO; -HYDR-757 PO; +METF-397 PO; -METF500T5 PO; +ROSU10TA PO
--- OUTSIDE RECORDS SUMMARY | 2018-06-27 21:41 | XMS REPORT ---
Author Author ISAACANGELIQUE Organization [facility] Address [address] [place] [address] Care Team Providers Care Neurophysiology Tech Name Role Phone GRAYANGELIQUE Olivo Unavailable PROBLEMS Type Condition ICD9-CM Code LNO11-GD Code Onset Dates Condition Status SNOMED Code Problem Type 2 diabetes mellitus with hyperglycemia E11.65 Active 04124311 Problem Anxiety disorder, unspecified F41.9 Active 984857576 Problem Balanitis N48.1 Active 08142641 Problem Low HDL (under 40) E78.6 Active 604591156 Problem Elevated serum creatinine R79.89 Active 871674920 Problem Elevated LDL cholesterol level E78.00 Active 995099359 Problem Seasonal allergic rhinitis, unspecified trigger J30.2 Active 241775993 Problem Polyneuropathy associated with underlying disease G63 Active 694570934 Problem Cardiac murmur R01.1 Active 61417138 Problem Personal history of sarcoidosis Z86.2 Active 260067285 Problem Essential hypertension I10 Active 52513376 Problem Morbid obesity due to excess calories E66.01 Active 912463455 ALLERGIES No Information ENCOUNTERS Encounter Location Date Diagnosis [place] [address] [place] [address]759- 2887 Nov, Polyneuropathy associated with underlying disease G63 [facility] [id number] [place] [address] 91546- 8072 Oct, [facility] [address] [place] [id number] [place] [address] 72610- 6273 September, [place] [address] [place] [address] [id number] [place] [address] 61758- 9982 Aug, Essential hypertension I10 ; Anxiety disorder, unspecified F41.9 ; Type 2 diabetes mellitus with hyperglycemia E11.65 ; Seasonal allergic rhinitis, unspecified trigger J30.2 ; Polyneuropathy associated with underlying disease G63 and BMI 60.0-69.9, adult Z68.44 [place] [address] [place] [address] 21519- 3688 Aug, [place] [address] [place] [address] [id number] [place] [address] 30345- 3314 Aug, Anxiety disorder, unspecified F41.9 [place] [address] [id number] [place] [address] 39322- 0622 Jul, [place] [address] [place] [address] [id number] [place] [address] 56738- 8117 May, Type 2 diabetes mellitus with hyperglycemia E11.65 ; Essential hypertension I10 ; Morbid obesity due to excess calories E66.01 ; Elevated LDL cholesterol level E78.00 ; Polyneuropathy associated with underlying disease G63 ; BMI 60.0-69.9, adult Z68.44 ; Anxiety disorder, unspecified F41.9 and Encounter for immunization Z23 [place] [address] [id number] [place] [address] 41345- 8189 Apr, [facility] [id number] [place] [address] [phone] Apr, Dental examination Z01.20 [place] [address] [place] [address] [id number] [place] [address] 47088- 0115 Mar, BMI 60.0-69.9, adult Z68.44 [place] [address] [place] [address] [id number] [place] [address] 72795- 2616 Feb, Type 2 diabetes mellitus with hyperglycemia E11.65 ; Essential hypertension I10 ; Morbid obesity due to excess calories E66.01 ; Elevated serum creatinine R79.89 and Polyneuropathy associated with underlying disease G63 [place] [address] [address] [id number] [place] [address] 10505- 0327 Jan, [place] [address] [place] [id number] [place] [address] 59016- 5441 Jan, Elevated serum creatinine R79.89 [place] [address] [place] [address] Jan, Type 2 diabetes mellitus with hyperglycemia E11.65 [place] [address], [place] [address] Jan, Anxiety disorder, unspecified F41.9 [place] [address] [address] Jan, [place] [address] [place] [id number] [place] [address] 61047- 4820 Jan, Type 2 diabetes mellitus with hyperglycemia E11.65 [place] [address] [place] [address] 34969- 4280 Nov, [place] [address] [place] [id number] [place] [address] 66975- 5053 Nov, Type 2 diabetes mellitus with hyperglycemia E11.65 [place] [address] [place] [id number] [place] [address] 83321- 9011 Nov, [place] [address] [address] Nov, Type 2 diabetes mellitus with hyperglycemia E11.65 ; Essential hypertension I10 ; Low HDL (under 40) E78.6 ; Morbid obesity due to excess calories E66.01 ; Allergic contact dermatitis, unspecified trigger L23.9 and Dietary counseling Z71.3 [place] [address] [address] Nov, [place] [address] [address] Oct, Morbid obesity due to excess calories E66.01 ; Essential hypertension I10 ; Cardiac murmur R01.1 and Personal history of sarcoidosis Z86.2 [place] [address] [address] 13 Oct, 2016 Encounter for routine adult health examination with abnormal findings Z00.01 ; Morbid obesity due to excess calories E66.01 ; Essential hypertension I10 ; Balanitis N48.1 ; Anxiety disorder, unspecified F41.9 ; Cardiac murmur R01.1 and Personal history of sarcoidosis Z86.2 [facility] [address] [facility] [id number] [place] [address] September, Atypical pneumonia J18.9 and Essential hypertension I10 IMMUNIZATIONS No Known Immunizations SOCIAL HISTORY Never Assessed REASON FOR VISIT Requesting refill PLAN OF CARE VITAL SIGNS MEDICATIONS Unknown Medications RESULTS No Results PROCEDURES No Known procedures INSTRUCTIONS MEDICATIONS ADMINISTERED No Known Medications MEDICAL (GENERAL) HISTORY Type Description Date Medical History chronic bronchitis Medical History pre -diabetec Medical History asthma Medical History sarcoidosis- Dx by Dr. Hancock in [place]- in 1989 Medical History ASCVD risk factor 9.5% Medical History Echo 10/2016--EF 50-55% Medical History COPD Surgical History left wrist and elbow surgery Surgical History lipoma removed from left leg Surgical History perirectal abscess removed Hospitalization History for COPD Hospitalization History for Pneumonia Hospitalization History mediastinoscopy and bronchoscopy in 1989 Hospitalization History [facility] [place]- Sore Throat and Fever 08/22/2017
--- OUTSIDE RECORDS SUMMARY | 2018-06-27 21:41 | XMS REPORT ---
Author Author ISAACANGELIQUE Organization [facility] Address [address] [place] [address] Care Team Providers Care Donkey Doctor Name Role Phone ANGELIQUE GRAY Unavailable PROBLEMS Type Condition ICD9-CM Code UPX75-IZ Code Onset Dates Condition Status SNOMED Code Problem Type 2 diabetes mellitus with hyperglycemia E11.65 Active 46019760 Problem Anxiety disorder, unspecified F41.9 Active 386185835 Problem Balanitis N48.1 Active 08514499 Problem Low HDL (under 40) E78.6 Active 899145007 Problem Elevated serum creatinine R79.89 Active 418139369 Problem Elevated LDL cholesterol level E78.00 Active 687047555 Problem Seasonal allergic rhinitis, unspecified trigger J30.2 Active 578680735 Problem Polyneuropathy associated with underlying disease G63 Active 423293500 Problem Cardiac murmur R01.1 Active 96489838 Problem Personal history of sarcoidosis Z86.2 Active 557777540 Problem Essential hypertension I10 Active 33314391 Problem Morbid obesity due to excess calories E66.01 Active 165432971 ALLERGIES No Information ENCOUNTERS Encounter Location Date Diagnosis [place] [address] [place] [address] 29713- 1144 Nov, Polyneuropathy associated with underlying disease G63 [facility] [address] [place] [address] 21578- 3561 Oct, [facility] [address] [place] [id number] [place] [address] 60972- 1619 September, [place] [address] [place] [id number] [place] [address] 84079- 6110 Aug, Essential hypertension I10 ; Anxiety disorder, unspecified F41.9 ; Type 2 diabetes mellitus with hyperglycemia E11.65 ; Seasonal allergic rhinitis, unspecified trigger J30.2 ; Polyneuropathy associated with underlying disease G63 and BMI 60.0-69.9, adult Z68.44 [place] [address] [place] [address] 99426- 9620 Aug, [place] [address] [place] [id number] [place] [address] 50066- 9338 Aug, Anxiety disorder, unspecified F41.9 [place] [address] [place] [id number] [place] [address] 03928- 4187 Jul, [place] [address] [place] [id number] [place] [address] 25704- 6157 May, Type 2 diabetes mellitus with hyperglycemia E11.65 ; Essential hypertension I10 ; Morbid obesity due to excess calories E66.01 ; Elevated LDL cholesterol level E78.00 ; Polyneuropathy associated with underlying disease G63 ; BMI 60.0-69.9, adult Z68.44 ; Anxiety disorder, unspecified F41.9 and Encounter for immunization Z23 [place] [address] [place] [id number] [place] [address] 86896- 0668 Apr, [facility] [address] [id number] [place] [address] [phone] Apr, Dental examination Z01.20 [place] [address] [place] [id number] [place] [address] 05621- 5805 Mar, BMI 60.0-69.9, adult Z68.44 [place] [address] [place] [id number] [place] [address] 75079- 3421 Feb, Type 2 diabetes mellitus with hyperglycemia E11.65 ; Essential hypertension I10 ; Morbid obesity due to excess calories E66.01 ; Elevated serum creatinine R79.89 and Polyneuropathy associated with underlying disease G63 [place] [address] [place] [id number] [place] [address] 21523- 2068 Jan, [place] [address] [place] [id number] [place] [address] 91504- 8325 Jan, Elevated serum creatinine R79.89 [place] [address] [place] [address] 8472 Jan, Type 2 diabetes mellitus with hyperglycemia E11.65 [place] [address] [place] [address] Jan, Anxiety disorder, unspecified F41.9 [place] [address] [place] [address] 0[address] Jan, [place] [address] [place] [id number] [place] [address] 33910- 4181 Jan, Type 2 diabetes mellitus with hyperglycemia E11.65 [place] [address] [place] [address] 71221- 9801 Nov, [place] [address] [place] [id number] [place] [address] 91924- 6627 Nov, Type 2 diabetes mellitus with hyperglycemia E11.65 [place] [address] [place] [id number] [place] [address] 05984- 6041 Nov, [place] [address] [address] Nov, Type 2 diabetes mellitus with hyperglycemia E11.65 ; Essential hypertension I10 ; Low HDL (under 40) E78.6 ; Morbid obesity due to excess calories E66.01 ; Allergic contact dermatitis, unspecified trigger L23.9 and Dietary counseling Z71.3 [place] [address] [place] [address] Nov, [place] [address] [place] [address] Oct, Morbid obesity due to excess calories E66.01 ; Essential hypertension I10 ; Cardiac murmur R01.1 and Personal history of sarcoidosis Z86.2 [place] [address] [place] [address] 13 Oct, 2016 Encounter for routine adult health examination with abnormal findings Z00.01 ; Morbid obesity due to excess calories E66.01 ; Essential hypertension I10 ; Balanitis N48.1 ; Anxiety disorder, unspecified F41.9 ; Cardiac murmur R01.1 and Personal history of sarcoidosis Z86.2 [facility] [address] [facility] [id number] [place] [address] September, Atypical pneumonia J18.9 and Essential hypertension I10 IMMUNIZATIONS No Known Immunizations SOCIAL HISTORY Never Assessed REASON FOR VISIT Refill request PLAN OF CARE VITAL SIGNS MEDICATIONS Medication Instructions Dosage Frequency Start Date End Date Duration Status Gabapentin 100 mg Orally 3 times a day 2 capsule 8h Feb, 30 days Active RESULTS No Results PROCEDURES No Known procedures INSTRUCTIONS MEDICATIONS ADMINISTERED No Known Medications MEDICAL (GENERAL) HISTORY Type Description Date Medical History chronic bronchitis Medical History pre -diabetec Medical History asthma Medical History sarcoidosis- Dx by Dr. Hancock in [place]- in 1989 Medical History ASCVD risk factor 9.5% Medical History Echo 10/2016--EF 50-55% Medical History COPD Surgical History left wrist and elbow surgery Surgical History lipoma removed from left leg Surgical History perirectal abscess removed Hospitalization History for COPD Hospitalization History for Pneumonia Hospitalization History mediastinoscopy and bronchoscopy in 1989 Hospitalization History [facility] [place]- Sore Throat and Fever 08/22/2017
--- OUTSIDE RECORDS SUMMARY | 2018-06-27 21:41 | XMS REPORT ---
Author Author ISAACELVISANGELIQUE Organization [facility] Address [address] [place] [address] Care Team Providers Care Hair Spinner Name Role Phone GRAYANGELIQUE Olivo Unavailable PROBLEMS Type Condition ICD9-CM Code [id number] Code Onset Dates Condition Status SNOMED Code Problem Type 2 diabetes mellitus with hyperglycemia E11.65 Active 86291443 Problem Anxiety disorder, unspecified F41.9 Active 402565246 Problem Balanitis N48.1 Active 48418142 Problem Low HDL (under 40) E78.6 Active 729967658 Problem Elevated serum creatinine R79.89 Active 349699764 Problem Elevated LDL cholesterol level E78.00 Active 236090419 Problem Seasonal allergic rhinitis, unspecified trigger J30.2 Active 140213941 Problem Polyneuropathy associated with underlying disease G63 Active 833543702 Problem Cardiac murmur R01.1 Active 69165451 Problem Personal history of sarcoidosis Z86.2 Active 380917111 Problem Essential hypertension I10 Active 39498422 Problem Morbid obesity due to excess calories E66.01 Active 736051818 ALLERGIES No Information ENCOUNTERS Encounter Location Date Diagnosis [place] [id number] [place] [address] 46848- 2264 Dec, [facility] [address] [place] [address] 39717- 5990 Nov, Polyneuropathy associated with underlying disease G63 [facility] [address] [place] [id number] [place] [address] 34282- 9370 Oct, [facility] [id number] [place] [address] 63857- 7674 September, [facility] [id number] [place] [address] 99429- 2584 Aug, Essential hypertension I10 ; Anxiety disorder, unspecified F41.9 ; Type 2 diabetes mellitus with hyperglycemia E11.65 ; Seasonal allergic rhinitis, unspecified trigger J30.2 ; Polyneuropathy associated with underlying disease G63 and BMI 60.0-69.9, adult Z68.44 [place] [address] [id number] [place] [address] 74068- 4342 Aug, [place] [address] [address] [id number] [place] [address] 53012- 0319 Aug, Anxiety disorder, unspecified F41.9 [place] [address] [place] [id number] [place] [address] 64585- 8451 Jul, [place] [address] 10440- 1814 May, Type 2 diabetes mellitus with hyperglycemia E11.65 ; Essential hypertension I10 ; Morbid obesity due to excess calories E66.01 ; Elevated LDL cholesterol level E78.00 ; Polyneuropathy associated with underlying disease G63 ; BMI 60.0-69.9, adult Z68.44 ; Anxiety disorder, unspecified F41.9 and Encounter for immunization Z23 [place] [id number] [place] [address] 61998- 9565 Apr, [facility] [address] [place] [id number] [place] [address] [phone] Apr, Dental examination Z01.20 [place] [id number] [place] [address] 80974- 4199 Mar, BMI 60.0-69.9, adult Z68.44 [place] [address] [address] [id number] [place] [address] 55532- 3820 Feb, Type 2 diabetes mellitus with hyperglycemia E11.65 ; Essential hypertension I10 ; Morbid obesity due to excess calories E66.01 ; Elevated serum creatinine R79.89 and Polyneuropathy associated with underlying disease G63 [place] [address] [place] [id number] [place] [address] 74204- 6295 Jan, [facility] [address] 96774- 9075 Jan, Elevated serum creatinine R79.89 [place] [address] [address] 0889 Jan, Type 2 diabetes mellitus with hyperglycemia E11.65 [place] [address] [address] 3[address] Jan, Anxiety disorder, unspecified F41.9 [place] [address] [place] [id number] [place] [address] 75189- 2646 Jan, [place] [address] [place] [address] 35892- 8856 Jan, Type 2 diabetes mellitus with hyperglycemia E11.65 [place] [address] [place] [id number] [place] [address] 47740- 6443 Nov, [place] [address] [place] [id number] [place] [address] 49700- 9793 Nov, Type 2 diabetes mellitus with hyperglycemia E11.65 [place] [address] [address] 3861 Nov, [place] [address] [place] [id number] [place] [address] 25750- 4847 Nov, Type 2 diabetes mellitus with hyperglycemia E11.65 ; Essential hypertension I10 ; Low HDL (under 40) E78.6 ; Morbid obesity due to excess calories E66.01 ; Allergic contact dermatitis, unspecified trigger L23.9 and Dietary counseling Z71.3 [place] [address] [address] 5522 Nov, [place] [address] [place] [id number] [place] [address] 15011- 7457 Oct, Morbid obesity due to excess calories E66.01 ; Essential hypertension I10 ; Cardiac murmur R01.1 and Personal history of sarcoidosis Z86.2 [place] [address] [address] 9458 13 Oct, 2016 Encounter for routine adult health examination with abnormal findings Z00.01 ; Morbid obesity due to excess calories E66.01 ; Essential hypertension I10 ; Balanitis N48.1 ; Anxiety disorder, unspecified F41.9 ; Cardiac murmur R01.1 and Personal history of sarcoidosis Z86.2 [facility] [address] [facility] [id number] [place] [address] September, Atypical pneumonia J18.9 and Essential hypertension I10 IMMUNIZATIONS No Known Immunizations SOCIAL HISTORY Never Assessed REASON FOR VISIT Requests return call PLAN OF CARE VITAL SIGNS MEDICATIONS Unknown Medications RESULTS No Results PROCEDURES No Known procedures INSTRUCTIONS MEDICATIONS ADMINISTERED No Known Medications MEDICAL (GENERAL) HISTORY Type Description Date Medical History chronic bronchitis Medical History pre -diabetec Medical History asthma Medical History sarcoidosis- Dx by Dr. Hancock in [place]- in 1989 Medical History ASCVD risk factor 9.5% Medical History Echo 10/2016--EF 50-55% Medical History COPD Surgical History left wrist and elbow surgery Surgical History lipoma removed from left leg Surgical History perirectal abscess removed Hospitalization History for COPD Hospitalization History for Pneumonia Hospitalization History mediastinoscopy and bronchoscopy in 1989 Hospitalization History [facility] [place]- Sore Throat and Fever 08/22/2017
--- OUTSIDE RECORDS SUMMARY | 2018-06-27 21:41 | XMS REPORT ---
Author Author EDWARD KELLER [facility] Address [address] [place] [address] Care Team Providers Care Estimator And Drafter Name Role Phone TIM KELLERTA Unavailable PROBLEMS Type Condition ICD9-CM Code GZA27-LY Code Onset Dates Condition Status SNOMED Code Problem Type 2 diabetes mellitus with hyperglycemia E11.65 Active 59101590 Problem Anxiety disorder, unspecified F41.9 Active 084669970 Problem Balanitis N48.1 Active 90328149 Problem Low HDL (under 40) E78.6 Active 006607590 Problem Elevated serum creatinine R79.89 Active 915937177 Problem Elevated LDL cholesterol level E78.00 Active 445343369 Problem Seasonal allergic rhinitis, unspecified trigger J30.2 Active 768860052 Problem Polyneuropathy associated with underlying disease G63 Active 748032542 Problem Cardiac murmur R01.1 Active 28141635 Problem Personal history of sarcoidosis Z86.2 Active 839088048 Problem Essential hypertension I10 Active 21318581 Problem Morbid obesity due to excess calories E66.01 Active 791698328 ALLERGIES Substance Reaction Event Type Date Status Azithromycin hives Drug Allergy Mar, Active ENCOUNTERS Encounter Location Date Diagnosis [facility] [address] [place] [address] 45330- 0291 Mar, Bronchitis J40 and BMI 60.0-69.9, adult Z68.44 [facility] [address] [place] [address] 51961- 8578 Feb, Anxiety disorder, unspecified F41.9 and Essential hypertension I10 [facility] [address] [place] [address] 68915- 5831 Nov, Polyneuropathy associated with underlying disease G63 [facility] [address] [place] [address] 74307- 5041 Oct, [place] [address] [place] [address] 26008- 3139 September, [place] [id number] [place] [address] 41293- 2314 Aug, Essential hypertension I10 ; Anxiety disorder, unspecified F41.9 ; Type 2 diabetes mellitus with hyperglycemia E11.65 ; Seasonal allergic rhinitis, unspecified trigger J30.2 ; Polyneuropathy associated with underlying disease G63 and BMI 60.0-69.9, adult Z68.44 [place] [address] [place] [id number] [place] [address] 47062- 6664 Aug, [place] [id number] [place] [address] 17168- 7476 Aug, Anxiety disorder, unspecified F41.9 [place] [id number] [place] [address] 27784- 5806 Jul, [place] [id number] [place] [address] 47062- 2331 May, Type 2 diabetes mellitus with hyperglycemia E11.65 ; Essential hypertension I10 ; Morbid obesity due to excess calories E66.01 ; Elevated LDL cholesterol level E78.00 ; Polyneuropathy associated with underlying disease G63 ; BMI 60.0-69.9, adult Z68.44 ; Anxiety disorder, unspecified F41.9 and Encounter for immunization Z23 [place] [id number] [place] [address] 83742- 3788 Apr, [facility] [address] [place] [address] [phone] Apr, Dental examination Z01.20 [place] [id number] [place] [address] 94502- 5685 Mar, BMI 60.0-69.9, adult Z68.44 [address] [place] [address] 86211- 7271 Feb, Type 2 diabetes mellitus with hyperglycemia E11.65 ; Essential hypertension I10 ; Morbid obesity due to excess calories E66.01 ; Elevated serum creatinine R79.89 and Polyneuropathy associated with underlying disease G63 [place] [address] [place] [address] 34554- 1795 Jan, [facility] [address] [id number] [place] [address] 97450- 1019 Jan, Elevated serum creatinine R79.89 [place] [address] [place] [id number] [place] [address] 20607- 2957 Jan, Type 2 diabetes mellitus with hyperglycemia E11.65 [place] [address] [place] [address] 07388- 9500 Jan, Anxiety disorder, unspecified F41.9 [place] [address] [place] [id number] [place] [address] 92736- 6808 Jan, [place] [address] [place] [id number] [place] [address] 71777- 9265 Jan, Type 2 diabetes mellitus with hyperglycemia E11.65 [place] [address] [place] [id number] [place] [address] 45849- 0239 Nov, [place] [address] [place] [id number] [place] [address] 62665- 3795 Nov, Type 2 diabetes mellitus with hyperglycemia E11.65 [place] [address] [place] [address] 06209- 4526 Nov, [place] [address] [place] [id number] [place] [address] 63874- 9496 Nov, Type 2 diabetes mellitus with hyperglycemia E11.65 ; Essential hypertension I10 ; Low HDL (under 40) E78.6 ; Morbid obesity due to excess calories E66.01 ; Allergic contact dermatitis, unspecified trigger L23.9 and Dietary counseling Z71.3 [place] [address] [place] [address] 35511- 2018 Nov, [place] [address] [place] [id number] [place] [address] 00340- 9511 Oct, Morbid obesity due to excess calories E66.01 ; Essential hypertension I10 ; Cardiac murmur R01.1 and Personal history of sarcoidosis Z86.2 [facility] [address] [facility] [id number] [place] [address]- 164[address] 13 Oct, 2016 Encounter for routine adult health examination with abnormal findings Z00.01 ; Morbid obesity due to excess calories E66.01 ; Essential hypertension I10 ; Balanitis N48.1 ; Anxiety disorder, unspecified F41.9 ; Cardiac murmur R01.1 and Personal history of sarcoidosis Z86.2 [facility] [address] [facility] [id number] [place] [address] September, Atypical pneumonia J18.9 and Essential hypertension I10 IMMUNIZATIONS No Known Immunizations SOCIAL HISTORY Never Assessed REASON FOR VISIT Wet cough, chills, diaphoresis x 2 days. [email or web address] PL[facility] OF CARE Activity Details Follow Up if not improving with PCP or reg follow up Reason:cough VITAL SIGNS Height 71 in 2018-04-17 Weight 460 lbs 2018-04-17 Temperature 98.3 degrees Fahrenheit 2018-04-17 Heart Rate 92 bpm 2018-04-17 Respiratory Rate 32 2018-04-17 BMI 64.15 kg/m2 2018-04-17 Blood pressure systolic 134 mmHg 2018-04-17 Blood pressure diastolic 80 mmHg 2018-04-17 MEDICATIONS Medication Instructions Dosage Frequency Start Date End Date Duration Status MethylPREDNISolone 4 MG Orally as directed as directed Mar, Active Xanax XR 0.5 MG Orally as directed Active Flonase 50 MCG/ACT Nasally Once a day 1 spray in each nostril 24h 18 Aug, 2017 30 day(s) Active Glucocard Expression Test - In Vitro 2 times a day as directed 12h Nov, Active Gabapentin 100 mg Orally 3 times a day 2 capsule 8h 10 Feb, 2017 30 days Active Januvia 25 MG TAKE ONE TABLET BY MOUTH ONCE DAILY 90 Active Albuterol Sulfate HFA Active Pen Iro[place]ois 30G X 5 MM as directed 12h Jan, Active Venlafaxine HCl ER 150 MG TAKE ONE CAPSULE BY MOUTH ONCE DAILY WITH FOOD Active Victoza 18 MG/3ML INJECT 1.2 MG SUBCUTANEOUSLY ONCE DAILY 45 Active Advil Active Lisinopril-Hydrochlorothiazide 20-25 MG Orally Once a day 1 tablet 24h Aug, 90 days Active Effexor XR 150 mg Orally Once a day 1 capsule with food 24h Active RESULTS No Results PROCEDURES Procedure Date Ordered Result Body Site [facility] VISIT ESTABLISHED PATIENT Apr 17, 2018 INSTRUCTIONS MEDICATIONS ADMINISTERED No Known Medications MEDICAL (GENERAL) HISTORY Type Description Date Medical History chronic bronchitis Medical History pre -diabetec Medical History asthma Medical History sarcoidosis- Dx by Dr. Hancock in [place]- in 1989 Medical History ASCVD risk factor 9.5% Medical History Echo 10/2016--EF 50-55% Medical History COPD Surgical History left wrist and elbow surgery Surgical History lipoma removed from left leg Surgical History perirectal abscess removed Hospitalization History for COPD Hospitalization History for Pneumonia Hospitalization History mediastinoscopy and bronchoscopy in 1989 Hospitalization History ED [employer]- Sore Throat and Fever 08/22/2017 Hospitalization History [facility] ED- Swollen Lips 09/10/2017
--- OUTSIDE RECORDS SUMMARY | 2018-06-27 21:41 | XMS REPORT | Clinical Summary ---
Author Author [facility] Organization [facility] Address Unknown Phone Unavailable Care Team Providers Care Activity Director Name Role Phone Meliton Woodson MD Unavailable Source Comments Some departments are not documenting in the electronic medical record. If you do not see the information that you expected, contact Release of Information in the Health Information Management department at [phone] for further assistance in locating additional records.[facility] Allergies Comments Active Allergy Reactions Severity Noted Date Azithromycin HIVES Medium 08/31/2016 Medications End Date Status Medication Sig Dispensed Refills Start Date Active venlafaxine XR (EFFEXOR Take 150 mg 0 XR) 150 mg capsule by mouth daily. Take with food. Active losartan-hydrochlorothiaz Take 1 Tab by 0 felisa (HYZAAR) 100-25 mg mouth every tablet morning. Active ALPRAZOLAM (XANAX PO) Take 0.5 mg 0 by mouth as Needed. Active prednisone (DELTASONE) 10 Take 10 mg by 0 mg tablet mouth as Needed. Active clobetasol (TEMOVATE) Apply BID 60 g 1 0.05 % topical 7 creamIndications: Phimosis Active Problems Problem Noted Date Phimosis 09/03/2016 Last Assessment & Plan: Clobetasol cream Follow-up with Dr. Woodson in 3 months Family history of prostate cancer 09/03/2016 Last Assessment & Plan: Hold on PSA testing at this time Family History Medical History Relation Name Comments Cancer Maternal Grandmother Cancer Other Diabetes Other Stroke Paternal Grandmother Relation Name Status Comments Maternal Grandmother Other Paternal Grandmother Social History Date Tobacco Use Types Packs/Day Years Used Never Smoker Alcohol Use Drinks/Week oz/Week Comments Yes 0 Standard 0.0 drinks or equivalent Sex Assigned at Date Recorded Not on file Industry Job Start Date Occupation Not on file Not on file Not on file Travel End Travel History Travel Start No recent travel history available. Last Filed Vital Signs Time Taken Vital Sign Reading 08/31/2016 8:50 AM CDT Blood Pressure 148/72 08/31/2016 8:50 AM CDT Pulse 102 - Temperature - - Respiratory Rate - - Oxygen Saturation - - Inhaled Oxygen - Concentration 08/31/2016 8:50 AM CDT Weight 215.9 kg (476 lb) 08/31/2016 8:50 AM CDT Height 180.3 cm (5' 11") 08/31/2016 8:50 AM CDT Body Mass Index 66.39 Plan of Treatment Health Maintenance Due Date Last Done Comments PHYSICAL (COMPREHENSIVE) 1973 EXAM HIV SCREENING 1981 DTAP/TDAP VACCINES (1 - 1984 Tdap) COLORECTAL CANCER 2016 SCREENING SHINGLES RECOMBINANT 2016 VACCINE (1 of 2) INFLUENZA VACCINE 12/26/2017 Results Not on filefrom Last 3 Months
--- OUTSIDE RECORDS SUMMARY | 2018-06-27 21:42 | XMS REPORT ---
Author Author ANGELIQUE GRAY Organization [facility] Address [address] [place] [address] Care Team Providers Care Training Development Specialist Name Role Phone GRAYANGELIQUE Olivo Unavailable PROBLEMS Type Condition ICD9-CM Code [id number] Code Onset Dates Condition Status SNOMED Code Problem Type 2 diabetes mellitus with hyperglycemia E11.65 Active 28513075 Problem Anxiety disorder, unspecified F41.9 Active 121092897 Problem Balanitis N48.1 Active 93912871 Problem Low HDL (under 40) E78.6 Active 617660868 Problem Elevated serum creatinine R79.89 Active 903627633 Problem Elevated LDL cholesterol level E78.00 Active 509616657 Problem Seasonal allergic rhinitis, unspecified trigger J30.2 Active 229890578 Problem Polyneuropathy associated with underlying disease G63 Active 400497141 Problem Cardiac murmur R01.1 Active 73018977 Problem Personal history of sarcoidosis Z86.2 Active 727375006 Problem Essential hypertension I10 Active 67305175 Problem Morbid obesity due to excess calories E66.01 Active 154104858 ALLERGIES No Information ENCOUNTERS Encounter Location Date Diagnosis [place] [address] [place] [address] 53219- 8991 September, [facility] [address] [place] [id number] [place] [address] 10656- 2673 Aug, Essential hypertension I10 ; Anxiety disorder, unspecified F41.9 ; Type 2 diabetes mellitus with hyperglycemia E11.65 ; Seasonal allergic rhinitis, unspecified trigger J30.2 ; Polyneuropathy associated with underlying disease G63 and BMI 60.0-69.9, adult Z68.44 [facility] [address] [place] [address] 57168- 1183 Aug, [place] [address] [place] [id number] [place] [address] 17107- 7575 Aug, Anxiety disorder, unspecified F41.9 [facility] [address] [place] [id number] [place] [address] 97488- 5607 Jul, [place] [address] [place] [id number] [place] [address] 55244- 5353 May, Type 2 diabetes mellitus with hyperglycemia E11.65 ; Essential hypertension I10 ; Morbid obesity due to excess calories E66.01 ; Elevated LDL cholesterol level E78.00 ; Polyneuropathy associated with underlying disease G63 ; BMI 60.0-69.9, adult Z68.44 ; Anxiety disorder, unspecified F41.9 and Encounter for immunization Z23 [place] [address] [place] [id number] [place] [address] 54412- 4809 Apr, [facility] [address] [place] [id number] [place] [address] [id number] Apr, Dental examination Z01.20 [place] [address] [place] [id number] [place] [address] 75456- 6889 Mar, BMI 60.0-69.9, adult Z68.44 [place] [address] [place] [id number] [place] [address] 06537- 3844 Feb, Type 2 diabetes mellitus with hyperglycemia E11.65 ; Essential hypertension I10 ; Morbid obesity due to excess calories E66.01 ; Elevated serum creatinine R79.89 and Polyneuropathy associated with underlying disease G63 [place] [address] [place] [id number] [place] [address] 08427- 1961 Jan, [place] [address] [place] [id number] [place] [address] 88508- 5336 Jan, Elevated serum creatinine R79.89 [place] [address] [place] [id number] [place] [address] 00807- 8718 Jan, Type 2 diabetes mellitus with hyperglycemia E11.65 [place] [address] [place] [id number] [place] [address] 19747- 3827 Jan, Anxiety disorder, unspecified F41.9 [place] [address], [place] [address]- 6181 Jan, [place] [address] [place] [id number] [place] [address] 07567- 7263 Jan, Type 2 diabetes mellitus with hyperglycemia E11.65 [place] [address] [place] [id number] [place] [address] 35784- 4032 Nov, [place] [address] [place] [id number] [place] [address] 47999- 0583 Nov, Type 2 diabetes mellitus with hyperglycemia E11.65 [place] [address] [place] [id number] [place] [address] 44648- 1998 Nov, [place] [address] [place] [id number] [place] [address] 93407- 4089 Nov, Type 2 diabetes mellitus with hyperglycemia E11.65 ; Essential hypertension I10 ; Low HDL (under 40) E78.6 ; Morbid obesity due to excess calories E66.01 ; Allergic contact dermatitis, unspecified trigger L23.9 and Dietary counseling Z71.3 [place] [address] [place] [id number] [place] [address] 68371- 8696 Nov, [place] [address] [place] [id number] [place] [address] 35200- 4973 Oct, Morbid obesity due to excess calories E66.01 ; Essential hypertension I10 ; Cardiac murmur R01.1 and Personal history of sarcoidosis Z86.2 [place] [address], [place] [address] 6763 Oct, Encounter for routine adult health examination with abnormal findings Z00.01 ; Morbid obesity due to excess calories E66.01 ; Essential hypertension I10 ; Balanitis N48.1 ; Anxiety disorder, unspecified F41.9 ; Cardiac murmur R01.1 and Personal history of sarcoidosis Z86.2 [facility] [address], [place] [address] September, Atypical pneumonia J18.9 and Essential hypertension I10 IMMUNIZATIONS No Known Immunizations SOCIAL HISTORY Never Assessed REASON FOR VISIT per lab results PLAN OF CARE VITAL SIGNS MEDICATIONS Unknown Medications RESULTS No Results PROCEDURES No Known procedures INSTRUCTIONS MEDICATIONS ADMINISTERED No Known Medications MEDICAL (GENERAL) HISTORY Type Description Date Medical History chronic bronchitis Medical History pre -diabetec Medical History asthma Medical History sarcoidosis- Dx by Dr. Hancock in [place]- in 1989 Medical History ASCVD risk factor 9.5% Medical History Echo 10/2016--EF 50-55% Medical History COPD Surgical History left wrist and elbow surgery Surgical History lipoma removed from left leg Surgical History perirectal abscess removed Hospitalization History for COPD Hospitalization History for Pneumonia Hospitalization History mediastinoscopy and bronchoscopy in 1989 Hospitalization History [facility] [place]- Sore Throat and Fever 08/22/2017
--- OUTSIDE RECORDS SUMMARY | 2018-06-27 21:42 | XMS REPORT ---
Author Author JULIANA MEJIA Organization [facility] Address [address] [place] [address] Care Team Providers Care Certified Surgical Technologist Name Role Phone JULIANA MEJIA Unavailable PROBLEMS Type Condition ICD9-CM Code WOR67-UY Code Onset Dates Condition Status SNOMED Code Problem Type 2 diabetes mellitus with hyperglycemia E11.65 Active 41701263 Problem Anxiety disorder, unspecified F41.9 Active 093580298 Problem Balanitis N48.1 Active 76340716 Problem Low HDL (under 40) E78.6 Active 842448694 Problem Elevated serum creatinine R79.89 Active 675970376 Problem Elevated LDL cholesterol level E78.00 Active 920701186 Problem Seasonal allergic rhinitis, unspecified trigger J30.2 Active 601490213 Problem Polyneuropathy associated with underlying disease G63 Active 296952882 Problem Cardiac murmur R01.1 Active 42135480 Problem Personal history of sarcoidosis Z86.2 Active 907595860 Problem Essential hypertension I10 Active 74820947 Problem Morbid obesity due to excess calories E66.01 Active 108400024 ALLERGIES Substance Reaction Event Type Date Status Azithromycin hives Drug Allergy Aug, Active ENCOUNTERS Encounter Location Date Diagnosis [facility] [id number] [place] [address] 46652- 4346 Dec, [facility] [id number] [place] [address] 76926- 2678 Nov, Polyneuropathy associated with underlying disease G63 [facility] [id number] [place] [address] 96589- 6230 Oct, [facility] [id number] [place] [address] 88036- 5009 September, [facility] [id number] [place] [address] 95835- 0233 Aug, Essential hypertension I10 ; Anxiety disorder, unspecified F41.9 ; Type 2 diabetes mellitus with hyperglycemia E11.65 ; Seasonal allergic rhinitis, unspecified trigger J30.2 ; Polyneuropathy associated with underlying disease G63 and BMI 60.0-69.9, adult Z68.44 [place] [id number] [place] [address] 05589- 3936 Aug, [place] [address] [address] Aug, Anxiety disorder, unspecified F41.9 [place] [address] 9[address]16- 8316 Jul, [place] [address] 22[address]- 2666 May, Type 2 diabetes mellitus with hyperglycemia E11.65 ; Essential hypertension I10 ; Morbid obesity due to excess calories E66.01 ; Elevated LDL cholesterol level E78.00 ; Polyneuropathy associated with underlying disease G63 ; BMI 60.0-69.9, adult Z68.44 ; Anxiety disorder, unspecified F41.9 and Encounter for immunization Z23 [address] [address] Apr, [facility] [id number] [place] [id number] Apr, Dental examination Z01.[address] 82502- 2178 Mar, BMI 60.0-69.9, adult Z68.44 [place] [id number] [place] [address] 44843- 2564 Feb, Type 2 diabetes mellitus with hyperglycemia E11.65 ; Essential hypertension I10 ; Morbid obesity due to excess calories E66.01 ; Elevated serum creatinine R79.89 and Polyneuropathy associated with underlying disease G63 [place] [id number] [place] [address] 84323- 4891 Jan, [place] [address] [address] Jan, Elevated serum creatinine R79.89 [place] [id number] [place] [address] 90163- 2552 Jan, Type 2 diabetes mellitus with hyperglycemia E11.65 [place] [address] [place] [address] 67024- 6041 Jan, Anxiety disorder, unspecified F41.9 [place] [id number] [place] [address] 00148- 8356 Jan, [place] [id number] [place] [address] 29244- 9804 Jan, Type 2 diabetes mellitus with hyperglycemia E11.65 [place] [id number] [place] [address] 18144- 7288 Nov, [place] [id number] [place] [address] 94312- 3838 Nov, Type 2 diabetes mellitus with hyperglycemia E11.65 [place] [address] [place] [address] 06099- 5026 Nov, [place] [address] [place] [address] 98704- 7425 Nov, Type 2 diabetes mellitus with hyperglycemia E11.65 ; Essential hypertension I10 ; Low HDL (under 40) E78.6 ; Morbid obesity due to excess calories E66.01 ; Allergic contact dermatitis, unspecified trigger L23.9 and Dietary counseling Z71.3 [place] [address] [address] Nov, [place] [id number] [place] [address] 39772- 9993 Oct, Morbid obesity due to excess calories E66.01 ; Essential hypertension I10 ; Cardiac murmur R01.1 and Personal history of sarcoidosis Z86.2 [place] [address] [place] [address] 58759- 5714 13 Oct, 2016 Encounter for routine adult health examination with abnormal findings Z00.01 ; Morbid obesity due to excess calories E66.01 ; Essential hypertension I10 ; Balanitis N48.1 ; Anxiety disorder, unspecified F41.9 ; Cardiac murmur R01.1 and Personal history of sarcoidosis Z86.2 [facility] [address] [facility] [id number] [address] September, Atypical pneumonia J18.9 and Essential hypertension I10 IMMUNIZATIONS No Known Immunizations SOCIAL HISTORY Never Assessed REASON FOR VISIT ER followup/blood pressure -- shannan gilbert PLAN OF CARE Activity Details Follow Up 10/11 w/ PCP Reason:DM VITAL SIGNS Height 71 in 2017-09-12 Weight 459.0 lbs 2017-09-12 Temperature 98.0 degrees Fahrenheit 2017-09-12 Heart Rate 88 bpm 2017-09-12 Respiratory Rate 24 2017-09-12 BMI 64.01 kg/m2 2017-09-12 Blood pressure systolic 146 mmHg 2017-09-12 Blood pressure diastolic 92 mmHg 2017-09-12 MEDICATIONS Medication Instructions Dosage Frequency Start Date End Date Duration Status Victoza 18 MG/3ML Subcutaneous Once a day 1.2mg 24h Active Januvia 25 MG Orally Once a day 1 tablet 24h Nov, Active Flonase 50 MCG/ACT Nasally Once a day 1 spray in each nostril 24h Aug, 30 day(s) Active Pen [place] 30G X 5 MM as directed 12h Jan, Active Albuterol Sulfate HFA Active Lisinopril-Hydrochlorothiazide 20-25 MG Orally Once a day 1 tablet 24h Aug, 90 days Active Xanax XR 0.5 MG Orally as directed Active Gabapentin 100 mg Orally 3 times a day 2 capsule 8h 10 Feb, 2017 Active Advil Active Glucocard Expression Test - In Vitro 2 times a day as directed 12h Nov, Active Effexor XR 150 MG Orally Once a day 1 capsule with food 24h Active Venlafaxine HCl ER 150 MG TAKE ONE CAPSULE BY MOUTH ONCE DAILY WITH FOOD Active RESULTS No Results PROCEDURES Procedure Date Ordered Result Body Site [facility] VISIT ESTABLISHED PATIENT September 12, 2017 INSTRUCTIONS MEDICATIONS ADMINISTERED No Known Medications MEDICAL (GENERAL) HISTORY Type Description Date Medical History chronic bronchitis Medical History pre -diabetec Medical History asthma Medical History sarcoidosis- Dx by Dr. Hancock in [place]- in 1989 Medical History ASCVD risk factor 9.5% Medical History Echo 10/2016--EF 50-55% Medical History COPD Surgical History left wrist and elbow surgery Surgical History lipoma removed from left leg Surgical History perirectal abscess removed Hospitalization History for COPD Hospitalization History for Pneumonia Hospitalization History mediastinoscopy and bronchoscopy in 1989 Hospitalization History [facility] [place]- Sore Throat and Fever 08/22/2017
--- OUTSIDE RECORDS SUMMARY | 2018-06-27 21:42 | XMS REPORT ---
Author Author ANGELIQUE GRAY Organization [facility] [place] Address [address] [place] [address] Care Team Providers Care Sound Tester Name Role Phone GRAYANGELIQUE Olivo Unavailable PROBLEMS Type Condition ICD9-CM Code [id number] Code Onset Dates Condition Status SNOMED Code Problem Type 2 diabetes mellitus with hyperglycemia E11.65 Active 60682930 Problem Anxiety disorder, unspecified F41.9 Active 905418361 Problem Balanitis N48.1 Active 09665762 Problem Low HDL (under 40) E78.6 Active 953670390 Problem Elevated serum creatinine R79.89 Active 346529448 Problem Elevated LDL cholesterol level E78.00 Active 651639869 Problem Seasonal allergic rhinitis, unspecified trigger J30.2 Active 685720804 Problem Polyneuropathy associated with underlying disease G63 Active 326395184 Problem Cardiac murmur R01.1 Active 24536991 Problem Personal history of sarcoidosis Z86.2 Active 900525586 Problem Essential hypertension I10 Active 73321457 Problem Morbid obesity due to excess calories E66.01 Active 375527145 ALLERGIES No Information ENCOUNTERS Encounter Location Date Diagnosis [place] [address] [place] [address] 95095- 8717 Oct, [facility] [place] [id number] [place] [address] 17300- 5215 September, [place] [id number] [place] [address] 52688- 4127 Aug, Essential hypertension I10 ; Anxiety disorder, unspecified F41.9 ; Type 2 diabetes mellitus with hyperglycemia E11.65 ; Seasonal allergic rhinitis, unspecified trigger J30.2 ; Polyneuropathy associated with underlying disease G63 and BMI 60.0-69.9, adult Z68.44 [place] [id number] [place] [address] 28700- 9990 Aug, [facility] [place] [address] [address] Aug, Anxiety disorder, unspecified F41.9 [facility] [place] [address] [place] [address] 72821- 4537 Jul, [facility] [place] [id number] [place] [address] 58134- 6854 May, Type 2 diabetes mellitus with hyperglycemia E11.65 ; Essential hypertension I10 ; Morbid obesity due to excess calories E66.01 ; Elevated LDL cholesterol level E78.00 ; Polyneuropathy associated with underlying disease G63 ; BMI 60.0-69.9, adult Z68.44 ; Anxiety disorder, unspecified F41.9 and Encounter for immunization Z23 [place] [address] [address]- [address] Apr, [facility] [id number] [place] [address] [id number] Apr, Dental examination Z01.20 [place] [id number] [place] [address] 74956- 0218 Mar, BMI 60.0-69.9, adult Z68.44 [facility] [place] [address] [address]- [address] Feb, Type 2 diabetes mellitus with hyperglycemia E11.65 ; Essential hypertension I10 ; Morbid obesity due to excess calories E66.01 ; Elevated serum creatinine R79.89 and Polyneuropathy associated with underlying disease G63 [facility] [place] [address] [address]- 4[address] Jan, [place] [id number] [place] [address] 33797- 6150 Jan, Elevated serum creatinine R79.89 [place] [address] [address]- 0287 Jan, Type 2 diabetes mellitus with hyperglycemia E11.65 [place] [id number] [address]- 1265 Jan, Anxiety disorder, unspecified F41.9 [place] [address] [place] [address] 94640- 6339 Jan, [facility] [place] [id number] [place] [address] 54192- 4246 Jan, Type 2 diabetes mellitus with hyperglycemia E11.65 [place] [id number] [place] [address] 12677- 1200 Nov, [place] [id number] [place] [address] 39235- 5931 Nov, Type 2 diabetes mellitus with hyperglycemia E11.65 [place] [id number] [place] [address] 96007- 4917 Nov, [place] [id number] [place] [address] 98207- 4447 Nov, Type 2 diabetes mellitus with hyperglycemia E11.65 ; Essential hypertension I10 ; Low HDL (under 40) E78.6 ; Morbid obesity due to excess calories E66.01 ; Allergic contact dermatitis, unspecified trigger L23.9 and Dietary counseling Z71.3 [place] [address] [place] [address] 63060- 5464 Nov, [place] [address] [place] [address] 97603- 4973 Oct, Morbid obesity due to excess calories E66.01 ; Essential hypertension I10 ; Cardiac murmur R01.1 and Personal history of sarcoidosis Z86.2 [place] [address] [address]- [address] 13 Oct, 2016 Encounter for routine adult health examination with abnormal findings Z00.01 ; Morbid obesity due to excess calories E66.01 ; Essential hypertension I10 ; Balanitis N48.1 ; Anxiety disorder, unspecified F41.9 ; Cardiac murmur R01.1 and Personal history of sarcoidosis Z86.2 [facility] [address] [address] September, Atypical pneumonia J18.9 and Essential hypertension I10 IMMUNIZATIONS No Known Immunizations SOCIAL HISTORY Never Assessed REASON FOR VISIT Phone Call PLAN OF CARE VITAL SIGNS MEDICATIONS Unknown Medications RESULTS No Results PROCEDURES No Known procedures INSTRUCTIONS MEDICATIONS ADMINISTERED No Known Medications MEDICAL (GENERAL) HISTORY Type Description Date Medical History chronic bronchitis Medical History pre -diabetec Medical History asthma Medical History sarcoidosis- Dx by Dr. Hancock in [place]- in 1989 Medical History ASCVD risk factor 9.5% Medical History Echo 10/2016--EF 50-55% Medical History COPD Surgical History left wrist and elbow surgery Surgical History lipoma removed from left leg Surgical History perirectal abscess removed Hospitalization History for COPD Hospitalization History for Pneumonia Hospitalization History mediastinoscopy and bronchoscopy in 1989 Hospitalization History [facility] [place]- Sore Throat and Fever 08/22/2017
--- OUTSIDE RECORDS SUMMARY | 2018-06-27 21:42 | XMS REPORT ---
Author Author ANGELIQUE GRAY Organization [facility] [place] Address [address] [place] [address] Care Team Providers Care Residential Door Installer Name Role Phone GRAYANGELIQUE Olivo Unavailable PROBLEMS Type Condition ICD9-CM Code [id number] Code Onset Dates Condition Status SNOMED Code Problem Elevated LDL cholesterol level E78.00 Active 850083446 Problem Balanitis N48.1 Active 56006227 Problem Type 2 diabetes mellitus with hyperglycemia E11.65 Active 98749075 Problem Low HDL (under 40) E78.6 Active 894827174 Problem Elevated serum creatinine R79.89 Active 945897321 Problem Polyneuropathy associated with underlying disease G63 Active 186409464 Problem Essential hypertension I10 Active 55834454 Problem Personal history of sarcoidosis Z86.2 Active 799923642 Problem Anxiety disorder, unspecified F41.9 Active 335502068 Problem Morbid obesity due to excess calories E66.01 Active 313394168 Problem Cardiac murmur R01.1 Active 64449904 ALLERGIES No Information ENCOUNTERS Encounter Location Date Diagnosis [facility] [place] [id number] [place] [address] 79836- 0063 Jul, [facility] [place] [id number] [place] [address] 36394- 6510 May, Type 2 diabetes mellitus with hyperglycemia E11.65 ; Essential hypertension I10 ; Morbid obesity due to excess calories E66.01 ; Elevated LDL cholesterol level E78.00 ; Polyneuropathy associated with underlying disease G63 ; BMI 60.0-69.9, adult Z68.44 ; Anxiety disorder, unspecified F41.9 and Encounter for immunization Z23 [facility] [place] [id number] [place] [address] 05188- 9722 Apr, [facility] [address] [id number] Apr, Dental examination Z01.20 [place] [address] [address]- [address] Mar, BMI 60.0-69.9, adult Z68.44 [place] [id number] [place] [address] 61694- 2430 Feb, Type 2 diabetes mellitus with hyperglycemia E11.65 ; Essential hypertension I10 ; Morbid obesity due to excess calories E66.01 ; Elevated serum creatinine R79.89 and Polyneuropathy associated with underlying disease G63 [place] [id number] [place] [address] 22465- 4357 Jan, [place] [id number] [place] [address] 74261- 5459 Jan, Elevated serum creatinine R79.89 [place] [id number] [place] [address] 49334- 1381 Jan, Type 2 diabetes mellitus with hyperglycemia E11.65 [place] [address] [place] [address] 11510- 6806 Jan, Anxiety disorder, unspecified F41.9 [place] [id number] [place] [address] 62788- 2254 Jan, [place] [address] [address]- 5161 Jan, Type 2 diabetes mellitus with hyperglycemia E11.65 [place] [id number] [place] [address] 13498- 4696 Nov, [place] [address] [place] [address] 54529- 8481 Nov, Type 2 diabetes mellitus with hyperglycemia E11.65 [place] [address] [address]- [address] Nov, [place] [address] [address]- 6537 Nov, Type 2 diabetes mellitus with hyperglycemia E11.65 ; Essential hypertension I10 ; Low HDL (under 40) E78.6 ; Morbid obesity due to excess calories E66.01 ; Allergic contact dermatitis, unspecified trigger L23.9 and Dietary counseling Z71.3 [facility] [place] [address] [address]- 4105 Nov, [address] [place] [address] 78806- 0100 Oct, Morbid obesity due to excess calories E66.01 ; Essential hypertension I10 ; Cardiac murmur R01.1 and Personal history of sarcoidosis Z86.2 [address] [place] [address] 54998- 7556 13 Oct, 2016 Encounter for routine adult health examination with abnormal findings Z00.01 ; Morbid obesity due to excess calories E66.01 ; Essential hypertension I10 ; Balanitis N48.1 ; Anxiety disorder, unspecified F41.9 ; Cardiac murmur R01.1 and Personal history of sarcoidosis Z86.2 [facility] [address] [address] September, Atypical pneumonia J18.9 and Essential hypertension [...] History sarcoidosis- Dx by Dr. Hancock in [place]- in 1989 Medical History ASCVD risk factor 9.5% Medical History Echo 10/2016--EF 50-55% Medical History COPD Surgical History left wrist and elbow surgery Surgical History lipoma removed from left leg Surgical History perirectal abscess removed Hospitalization History for COPD Hospitalization History for Pneumonia Hospitalization History mediastinoscopy and bronchoscopy in 1989
--- OUTSIDE RECORDS SUMMARY | 2018-06-27 21:42 | XMS REPORT ---
Author Author ANGELIQUE GRAY Organization [facility] Address [address] [place] [address] Care Team Providers Care Freight Booker Name Role Phone GRAYANGELIQUE Olvio Unavailable PROBLEMS Type Condition ICD9-CM Code VML38-EP Code Onset Dates Condition Status SNOMED Code Problem Type 2 diabetes mellitus with hyperglycemia E11.65 Active 38313652 Problem Anxiety disorder, unspecified F41.9 Active 591748600 Problem Balanitis N48.1 Active 02331674 Problem Low HDL (under 40) E78.6 Active 337755797 Problem Elevated serum creatinine R79.89 Active 821885530 Problem Elevated LDL cholesterol level E78.00 Active 020342598 Problem Seasonal allergic rhinitis, unspecified trigger J30.2 Active 821193635 Problem Polyneuropathy associated with underlying disease G63 Active 217456229 Problem Cardiac murmur R01.1 Active 11140243 Problem Personal history of sarcoidosis Z86.2 Active 743830881 Problem Essential hypertension I10 Active 47473649 Problem Morbid obesity due to excess calories E66.01 Active 256493536 ALLERGIES Substance Reaction Event Type Date Status Azithromycin hives Drug Allergy May, Active ENCOUNTERS Encounter Location Date Diagnosis [place] [id number] [address] September, [facility] [address] [place] [address]1285- [address] Aug, Essential hypertension I10 ; Anxiety disorder, unspecified F41.9 ; Type 2 diabetes mellitus with hyperglycemia E11.65 ; Seasonal allergic rhinitis, unspecified trigger J30.2 ; Polyneuropathy associated with underlying disease G63 and BMI 60.0-69.9, adult Z68.44 [facility] [id number] [address] Aug, [facility] [id number] [address] Aug, Anxiety disorder, unspecified F41.9 [facility] [id number] [place] [address] 97207- 3769 Jul, [place] [address] [id number] [place] [address] 48414- 2036 May, Type 2 diabetes mellitus with hyperglycemia E11.65 ; Essential hypertension I10 ; Morbid obesity due to excess calories E66.01 ; Elevated LDL cholesterol level E78.00 ; Polyneuropathy associated with underlying disease G63 ; BMI 60.0-69.9, adult Z68.44 ; Anxiety disorder, unspecified F41.9 and Encounter for immunization Z23 [place] [address] [place] [address] 82991- 2346 Apr, [facility] [id number] [place] [id number] Apr, Dental examination Z01.20 [place] [address] [id number] [place] [address] 93236- 5994 Mar, BMI 60.0-69.9, adult Z68.44 [place] [address] [place] [address] 21383- 8994 Feb, Type 2 diabetes mellitus with hyperglycemia E11.65 ; Essential hypertension I10 ; Morbid obesity due to excess calories E66.01 ; Elevated serum creatinine R79.89 and Polyneuropathy associated with underlying disease G63 [place] [address] [address] Jan, [place] [address] [place] [address] 54490- 4655 Jan, Elevated serum creatinine R79.89 [place] [address] [place] [address] 83790- 3754 Jan, Type 2 diabetes mellitus with hyperglycemia E11.65 [place] [address] [id number] [place] [address] 77725- 4217 Jan, Anxiety disorder, unspecified F41.9 [place] [address] [address] Jan, [place] [address] [place] [address] 37733- 0136 Jan, Type 2 diabetes mellitus with hyperglycemia E11.65 [place] [address] [place] [address] 43382- 0926 Nov, [place] [address] [address] [id number] [place] [address] 41382- 7104 Nov, Type 2 diabetes mellitus with hyperglycemia E11.65 [place] [id number] [place] [address] 23525- 8406 Nov, [place] [address] [id number] [place] [address] 20950- 5680 Nov, Type 2 diabetes mellitus with hyperglycemia E11.65 ; Essential hypertension I10 ; Low HDL (under 40) E78.6 ; Morbid obesity due to excess calories E66.01 ; Allergic contact dermatitis, unspecified trigger L23.9 and Dietary counseling Z71.3 [place] [address] [place] [address] 49561- 6667 Nov, [place] [address] [place] [address] 92869- 7371 Oct, Morbid obesity due to excess calories E66.01 ; Essential hypertension I10 ; Cardiac murmur R01.1 and Personal history of sarcoidosis Z86.2 [place] [address] [address] 13 Oct, 2016 Encounter for routine adult health examination with abnormal findings Z00.01 ; Morbid obesity due to excess calories E66.01 ; Essential hypertension I10 ; Balanitis N48.1 ; Anxiety disorder, unspecified F41.9 ; Cardiac murmur R01.1 and Personal history of sarcoidosis Z86.2 [facility] [address] [address] September, Atypical pneumonia J18.9 and Essential hypertension I10 IMMUNIZATIONS Vaccine Route Administration Date Status FLULAVAL QUAD (6 MO AND UP) 2017 IM Intramuscular May 29, 2017 Administered ZOSTER (ZOSTAVAX) SC Subcutaneous May 29, 2017 Administered SOCIAL HISTORY Never Assessed REASON FOR VISIT Diabetes: follow up, continues to have difficulty with left knee pain marisa alvarez , Needs refill on effexor, Needs new social security form to continue to get Victoza PLAN OF CARE Activity Details Follow Up 3 Months Reason:CHM/DM VITAL SIGNS Height 71 in 2017-05-29 Weight 456.5 lbs 2017-05-29 Temperature 99.2 degrees Fahrenheit 2017-05-29 Heart Rate 80 bpm 2017-05-29 Respiratory Rate 22 2017-05-29 BMI 63.66 kg/m2 2017-05-29 Blood pressure systolic 122 mmHg 2017-05-29 Blood pressure diastolic 74 mmHg 2017-05-29 MEDICATIONS Medication Instructions Dosage Frequency Start Date End Date Duration Status Glucocard Expression Test - In Vitro 2 times a day as directed 12h Nov, 90 days Active Albuterol Sulfate HFA Active Advil Active Victoza 18 MG/3ML Subcutaneous Once a day 1.2mg 24h 30 days Active Losartan Potassium-HCTZ 100-25 MG Orally Once a day 1 tablet 24h Not-Taking Januvia 25 MG Orally Once a day 1 tablet 24h Nov, Active Losartan Potassium-HCTZ 100-25 MG Orally Once a day 1 tablet 24h September, 90 days Active Contrave 8-90 MG Orally Twice a day 1 tab daily x 1 week, 1 tab bid x 1 wk, 2 tabs in evening and 1 in am x 1 week, then 2 tabs bid 12h May, Jun, 30 day(s) Active Pen Jack[place] 30G X 5 MM as directed 12h Jan, Active Xanax XR 0.5 MG Orally as directed Active Effexor XR 150 MG Orally Once a day 1 capsule with food 24h 90 days Active Gabapentin 100 mg Orally 3 times a day 2 capsule 8h 10 Feb, 2017 90 days Active RESULTS No Results PROCEDURES Procedure Date Ordered Result Body Site [facility] VISIT ESTABLISHED PATIENT May 29, 2017 ZOSTER (ZOSTAVAX) May 29, 2017 FLULAVAL QUAD (6 MO AND UP) 2016May 29, 2017 IMMUNIZATION ADMIN, EACH ADD (please include units) May 29, 2017 SINGLE IMMUNIZATION ADMIN May 29, 2017 INSTRUCTIONS MEDICATIONS ADMINISTERED No Known Medications MEDICAL (GENERAL) HISTORY Type Description Date Medical History chronic bronchitis Medical History pre -diabetec Medical History asthma Medical History sarcoidosis- Dx by Dr. Hancock in [place]- in 1989 Medical History ASCVD risk factor 9.5% Medical History Echo 10/2016--EF 50-55% Medical History COPD Surgical History left wrist and elbow surgery Surgical History lipoma removed from left leg Surgical History perirectal abscess removed Hospitalization History for COPD Hospitalization History for Pneumonia Hospitalization History mediastinoscopy and bronchoscopy in 1989 Hospitalization History [facility] [place]- Sore Throat and Fever 08/22/2017
--- OUTSIDE RECORDS SUMMARY | 2018-06-27 21:42 | XMS REPORT ---
Author Author ANGELIQUE GRAY Organization [facility] Address [address] [place] [address] Care Team Providers Care Community Liaison Name Role Phone GRAYANGELIQUE Olivo Unavailable PROBLEMS Type Condition ICD9-CM Code FGH08-EX Code Onset Dates Condition Status SNOMED Code Problem Type 2 diabetes mellitus with hyperglycemia E11.65 Active 05793521 Problem Anxiety disorder, unspecified F41.9 Active 554762243 Problem Balanitis N48.1 Active 23337799 Problem Low HDL (under 40) E78.6 Active 819411170 Problem Elevated serum creatinine R79.89 Active 244303327 Problem Elevated LDL cholesterol level E78.00 Active 379978049 Problem Seasonal allergic rhinitis, unspecified trigger J30.2 Active 113976926 Problem Polyneuropathy associated with underlying disease G63 Active 053626070 Problem Cardiac murmur R01.1 Active 29681914 Problem Personal history of sarcoidosis Z86.2 Active 523747641 Problem Essential hypertension I10 Active 18337292 Problem Morbid obesity due to excess calories E66.01 Active 006564982 ALLERGIES No Information ENCOUNTERS Encounter Location Date Diagnosis [place] [address] [place] [address] 58933[address] September, [facility] [id number] [place] [address] 21962- 7667 Aug, Essential hypertension I10 ; Anxiety disorder, unspecified F41.9 ; Type 2 diabetes mellitus with hyperglycemia E11.65 ; Seasonal allergic rhinitis, unspecified trigger J30.2 ; Polyneuropathy associated with underlying disease G63 and BMI 60.0-69.9, adult Z68.44 [facility] [address] [place] [address] 77022- 1832 Aug, [place] [address] [place] [id number] [place] [address] 17029- 3250 Aug, Anxiety disorder, unspecified F41.9 [facility] [id number] [place] [address] 53651- 6728 Jul, [place] [address] [place] [id number] [place] [address] 62023- 6169 May, Type 2 diabetes mellitus with hyperglycemia E11.65 ; Essential hypertension I10 ; Morbid obesity due to excess calories E66.01 ; Elevated LDL cholesterol level E78.00 ; Polyneuropathy associated with underlying disease G63 ; BMI 60.0-69.9, adult Z68.44 ; Anxiety disorder, unspecified F41.9 and Encounter for immunization Z23 [place] [address] [id number] [place] [address] 83097- 2704 Apr, [facility] [address] [place] [id number] [place] [address] [phone] Apr, Dental examination Z01.20 [place] [address] [place] [id number] [place] [address] 06763- 1671 Mar, BMI 60.0-69.9, adult Z68.44 [place] [address] [id number] [place] [address] 65975- 7036 Feb, Type 2 diabetes mellitus with hyperglycemia E11.65 ; Essential hypertension I10 ; Morbid obesity due to excess calories E66.01 ; Elevated serum creatinine R79.89 and Polyneuropathy associated with underlying disease G63 [place] [address] [id number] [place] [address] 70863- 1521 Jan, [place] [address] [id number] [place] [address] 01748- 4895 Jan, Elevated serum creatinine R79.89 [place] [address] [id number] [place] [address] 75599- 9346 Jan, Type 2 diabetes mellitus with hyperglycemia E11.65 [place] [address] [id number] [place] [address] 81909- 4320 Jan, Anxiety disorder, unspecified F41.9 [place] [address] [address] Jan, [place] [address] [id number] [place] [address] 83367- 8075 Jan, Type 2 diabetes mellitus with hyperglycemia E11.65 [place] [address] [id number] [place] [address] 33475- 0281 Nov, [place] [address] [id number] [place] [address] 67443- 7142 Nov, Type 2 diabetes mellitus with hyperglycemia E11.65 [place] [address] [id number] [place] [address] 51700- 3025 Nov, [place] [address] [id number] [place] [address] 62112- 4206 Nov, Type 2 diabetes mellitus with hyperglycemia E11.65 ; Essential hypertension I10 ; Low HDL (under 40) E78.6 ; Morbid obesity due to excess calories E66.01 ; Allergic contact dermatitis, unspecified trigger L23.9 and Dietary counseling Z71.3 [place] [address] [id number] [place] [address] 86141- 3450 Nov, [place] [address] [id number] [place] [address] 35593- 4569 Oct, Morbid obesity due to excess calories E66.01 ; Essential hypertension I10 ; Cardiac murmur R01.1 and Personal history of sarcoidosis Z86.2 [place] [address], [place] [address] Oct, Encounter for routine adult health examination with abnormal findings Z00.01 ; Morbid obesity due to excess calories E66.01 ; Essential hypertension I10 ; Balanitis N48.1 ; Anxiety disorder, unspecified F41.9 ; Cardiac murmur R01.1 and Personal history of sarcoidosis Z86.2 [facility] [address] [address] September, Atypical pneumonia J18.9 and Essential hypertension I10 IMMUNIZATIONS No Known Immunizations SOCIAL HISTORY Never Assessed REASON FOR VISIT Weight check---[place],[facility] PLAN OF CARE VITAL SIGNS Height 71 in 2017-02-19 Weight 464.7 lbs 2017-02-19 BMI 64.81 kg/m2 2017-02-19 MEDICATIONS Medication Instructions Dosage Frequency Start Date End Date Duration Status Losartan Potassium-HCTZ 100-25 MG Orally Once a day 1 tablet 24h September, 90 days Active Glucocard Expression Test - In Vitro 2 times a day as directed 12h Nov, 90 days Active Xanax XR 0.5 MG Orally as directed Active Effexor XR 150 MG Orally Once a day 1 capsule with food 24h 90 days Active Advil Active Albuterol Sulfate HFA Active Pen [place] 30G X 5 MM as directed 12h Jan, 90 days Active Victoza 18 MG/3ML Subcutaneous Once a day 1.2mg 24h 90 days Active Januvia 25 MG Orally Once a day 1 tablet 24h Nov, 90 days Active RESULTS No Results PROCEDURES No Known procedures INSTRUCTIONS MEDICATIONS ADMINISTERED No Known Medications MEDICAL (GENERAL) HISTORY Type Description Date Medical History chronic bronchitis Medical History pre -diabetec Medical History asthma Medical History sarcoidosis- Dx by Dr. Hancock in [place]- in 1989 Medical History ASCVD risk factor 9.5% Medical History Echo 10/2016--EF 50-55% Medical History COPD Surgical History left wrist and elbow surgery Surgical History lipoma removed from left leg Surgical History perirectal abscess removed Hospitalization History for COPD Hospitalization History for Pneumonia Hospitalization History mediastinoscopy and bronchoscopy in 1989 Hospitalization History ED [place]- Sore Throat and Fever 08/22/2017
--- OUTSIDE RECORDS SUMMARY | 2018-06-27 21:42 | XMS REPORT ---
Author Author ISAACELVISANGELIQUE Organization [facility] Address [address] [place] [address] Care Team Providers Care Data Entry Representative Name Role Phone GRAYANGELIQUE Olivo Unavailable PROBLEMS Type Condition ICD9-CM Code TKF69-QM Code Onset Dates Condition Status SNOMED Code Problem Type 2 diabetes mellitus with hyperglycemia E11.65 Active 72234593 Problem Anxiety disorder, unspecified F41.9 Active 012158117 Problem Balanitis N48.1 Active 04857398 Problem Low HDL (under 40) E78.6 Active 823331808 Problem Elevated serum creatinine R79.89 Active 066637289 Problem Elevated LDL cholesterol level E78.00 Active 405197741 Problem Seasonal allergic rhinitis, unspecified trigger J30.2 Active 652226999 Problem Polyneuropathy associated with underlying disease G63 Active 236452199 Problem Cardiac murmur R01.1 Active 15499897 Problem Personal history of sarcoidosis Z86.2 Active 609840655 Problem Essential hypertension I10 Active 45474817 Problem Morbid obesity due to excess calories E66.01 Active 691874489 ALLERGIES No Information ENCOUNTERS Encounter Location Date Diagnosis [place] [id number] [place] [address] 82314- 4504 Dec, [facility] [address] [place] [address] 90881- 8791 Nov, Polyneuropathy associated with underlying disease G63 [facility] [address] [place] [address] 91666- 1838 Oct, [facility] [id number] [place] [address] 50578- 4526 September, [facility] [id number] [place] [address] 28850- 5587 Aug, Essential hypertension I10 ; Anxiety disorder, unspecified F41.9 ; Type 2 diabetes mellitus with hyperglycemia E11.65 ; Seasonal allergic rhinitis, unspecified trigger J30.2 ; Polyneuropathy associated with underlying disease G63 and BMI 60.0-69.9, adult Z68.44 [place] [id number] [place] [address] 40093- 9979 Aug, [place] [address] [address] [id number] [place] [address] 17616- 1663 Aug, Anxiety disorder, unspecified F41.9 [place] [address] [address] [id number] [place] [address] 06642- 5449 Jul, [place] [address] 18817- 9442 May, Type 2 diabetes mellitus with hyperglycemia E11.65 ; Essential hypertension I10 ; Morbid obesity due to excess calories E66.01 ; Elevated LDL cholesterol level E78.00 ; Polyneuropathy associated with underlying disease G63 ; BMI 60.0-69.9, adult Z68.44 ; Anxiety disorder, unspecified F41.9 and Encounter for immunization Z23 [place] [id number] [place] [address] 62648- 2738 Apr, [facility] [address] [id number] [place] [address] [id number] Apr, Dental examination Z01.20 [place] [id number] [place] [address] 86896- 0020 Mar, BMI 60.0-69.9, adult Z68.44 [place] [id number] [place] [address] 36173- 7849 Feb, Type 2 diabetes mellitus with hyperglycemia E11.65 ; Essential hypertension I10 ; Morbid obesity due to excess calories E66.01 ; Elevated serum creatinine R79.89 and Polyneuropathy associated with underlying disease G63 [place] [address] [id number] [place] [address] 54725- 2216 Jan, [facility] [address] 89338- 2437 Jan, Elevated serum creatinine R79.89 [place] [address] [address]- 1621 Jan, Type 2 diabetes mellitus with hyperglycemia E11.65 [place] [address] [address]- 9172 Jan, Anxiety disorder, unspecified F41.9 [place] [address] [id number] [place] [address] 60765- 1424 Jan, [place] [address] [place] [address] 11636- 7781 Jan, Type 2 diabetes mellitus with hyperglycemia E11.65 [place] [address] [id number] [place] [address] 28483- 6245 Nov, [place] [address] [id number] [place] [address] 71857- 7744 Nov, Type 2 diabetes mellitus with hyperglycemia E11.65 [place] [address] [address]- 4443 Nov, [place] [address] [address] [id number] [place] [address] 21797- 1603 Nov, Type 2 diabetes mellitus with hyperglycemia E11.65 ; Essential hypertension I10 ; Low HDL (under 40) E78.6 ; Morbid obesity due to excess calories E66.01 ; Allergic contact dermatitis, unspecified trigger L23.9 and Dietary counseling Z71.3 [place] [address] [address]- 6827 Nov, [place] [address] [id number] [place] [address] 12440- 4301 Oct, Morbid obesity due to excess calories E66.01 ; Essential hypertension I10 ; Cardiac murmur R01.1 and Personal history of sarcoidosis Z86.2 [place] [address] [address]- [address] 13 Oct, 2016 Encounter for routine adult health examination with abnormal findings Z00.01 ; Morbid obesity due to excess calories E66.01 ; Essential hypertension I10 ; Balanitis N48.1 ; Anxiety disorder, unspecified F41.9 ; Cardiac murmur R01.1 and Personal history of sarcoidosis Z86.2 [facility] [address] [facility] [id number] [place] [address] September, Atypical pneumonia J18.9 and Essential hypertension I10 IMMUNIZATIONS No Known Immunizations SOCIAL HISTORY Never Assessed REASON FOR VISIT med refill PLAN OF CARE VITAL SIGNS MEDICATIONS Unknown Medications RESULTS No Results PROCEDURES No Known procedures INSTRUCTIONS MEDICATIONS ADMINISTERED No Known Medications MEDICAL (GENERAL) HISTORY Type Description Date Medical History chronic bronchitis Medical History pre -diabetec Medical History asthma Medical History sarcoidosis- Dx by Dr. Hancock in [place]- in 1989 Medical History ASCVD risk factor 9.5% Medical History Echo 10/2016--EF 50-55% Medical History COPD Surgical History left wrist and elbow surgery Surgical History lipoma removed from left leg Surgical History perirectal abscess removed Hospitalization History for COPD Hospitalization History for Pneumonia Hospitalization History mediastinoscopy and bronchoscopy in 1989 Hospitalization History [facility] [place]- Sore Throat and Fever 08/22/2017
--- OUTSIDE RECORDS SUMMARY | 2018-06-27 21:42 | XMS REPORT ---
Author Author ANGELIQUE GRAY Organization [facility] Address [address] [place] [address] Care Team Providers Care Superintendent [employer] Name Role Phone GRAYANGELIQUE Olivo Unavailable PROBLEMS Type Condition ICD9-CM Code NGE61-ZA Code Onset Dates Condition Status SNOMED Code Problem Type 2 diabetes mellitus with hyperglycemia E11.65 Active 15733474 Problem Anxiety disorder, unspecified F41.9 Active 913498694 Problem Balanitis N48.1 Active 87063699 Problem Low HDL (under 40) E78.6 Active 111518037 Problem Elevated serum creatinine R79.89 Active 412567914 Problem Elevated LDL cholesterol level E78.00 Active 103159591 Problem Seasonal allergic rhinitis, unspecified trigger J30.2 Active 673562194 Problem Polyneuropathy associated with underlying disease G63 Active 446278624 Problem Cardiac murmur R01.1 Active 33528040 Problem Personal history of sarcoidosis Z86.2 Active 167030706 Problem Essential hypertension I10 Active 43392630 Problem Morbid obesity due to excess calories E66.01 Active 477963772 ALLERGIES No Information ENCOUNTERS Encounter Location Date Diagnosis [place] [id number] [place] [address] 78437- 8766 Oct, [facility] [address] [id number] [place] [address] 74111- 3057 September, [place] [address] [place] [id number] [place] [address] 53211- 1232 Aug, Essential hypertension I10 ; Anxiety disorder, unspecified F41.9 ; Type 2 diabetes mellitus with hyperglycemia E11.65 ; Seasonal allergic rhinitis, unspecified trigger J30.2 ; Polyneuropathy associated with underlying disease G63 and BMI 60.0-69.9, adult Z68.44 [place] [address] [place] [id number] [place] [address] 97242- 4298 Aug, [facility] [id number] [address] Aug, Anxiety disorder, unspecified F41.9 [facility] [address] [place] [address] 91677- 9388 Jul, [facility] [id number] [place] [address] 00559- 0220 May, Type 2 diabetes mellitus with hyperglycemia E11.65 ; Essential hypertension I10 ; Morbid obesity due to excess calories E66.01 ; Elevated LDL cholesterol level E78.00 ; Polyneuropathy associated with underlying disease G63 ; BMI 60.0-69.9, adult Z68.44 ; Anxiety disorder, unspecified F41.9 and Encounter for immunization Z23 [place] [address] [address] Apr, [facility] [id number] [place] [address] [id number] Apr, Dental examination Z01.20 [place] [address] [address] [id number] [place] [address] 29895- 8963 Mar, BMI 60.0-69.9, adult Z68.44 [facility] [address] [address] Feb, Type 2 diabetes mellitus with hyperglycemia E11.65 ; Essential hypertension I10 ; Morbid obesity due to excess calories E66.01 ; Elevated serum creatinine R79.89 and Polyneuropathy associated with underlying disease G63 [facility] [address] [address] Jan, [place] [address] [place] [address] [id number] [place] [address] 88352- 3224 Jan, Elevated serum creatinine R79.89 [place] [address] [address] 6060 Jan, Type 2 diabetes mellitus with hyperglycemia E11.65 [place] [id number] [address] Jan, Anxiety disorder, unspecified F41.9 [place] [address] [place] [address] 16907- 6659 Jan, [facility] [id number] [place] [address] 94034- 4947 Jan, Type 2 diabetes mellitus with hyperglycemia E11.65 [place] [address] [address] [id number] [place] [address] 09675- 7719 Nov, [place] [address] [place] [address] [id number] [place] [address] 05174- 1568 Nov, Type 2 diabetes mellitus with hyperglycemia E11.65 [place] [address] [address] [id number] [place] [address] 75847- 0101 Nov, [place] [address] [address] [id number] [place] [address] 76537- 5790 Nov, Type 2 diabetes mellitus with hyperglycemia E11.65 ; Essential hypertension I10 ; Low HDL (under 40) E78.6 ; Morbid obesity due to excess calories E66.01 ; Allergic contact dermatitis, unspecified trigger L23.9 and Dietary counseling Z71.3 [place] [address] [place] [address] 36615- 9769 Nov, [place] [address] [place] [address] 56457- 2194 Oct, Morbid obesity due to excess calories E66.01 ; Essential hypertension I10 ; Cardiac murmur R01.1 and Personal history of sarcoidosis Z86.2 [place] [address] [address] 13 Oct, 2016 Encounter for routine adult health examination with abnormal findings Z00.01 ; Morbid obesity due to excess calories E66.01 ; Essential hypertension I10 ; Balanitis N48.1 ; Anxiety disorder, unspecified F41.9 ; Cardiac murmur R01.1 and Personal history of sarcoidosis Z86.2 [facility] [address] [address] September, Atypical pneumonia J18.9 and Essential hypertension I10 IMMUNIZATIONS No Known Immunizations SOCIAL HISTORY Never Assessed REASON FOR VISIT medication refill PLAN OF CARE VITAL SIGNS MEDICATIONS Medication Instructions Dosage Frequency Start Date End Date Duration Status Effexor XR 150 MG Orally Once a day 1 capsule with food 24h 90 days Active RESULTS No Results PROCEDURES No Known procedures INSTRUCTIONS MEDICATIONS ADMINISTERED No Known Medications MEDICAL (GENERAL) HISTORY Type Description Date Medical History chronic bronchitis Medical History pre -diabetec Medical History asthma Medical History sarcoidosis- Dx by Dr. Hancock in [place]- in 1989 Medical History ASCVD risk factor 9.5% Medical History Echo 10/2016--EF 50-55% Medical History COPD Surgical History left wrist and elbow surgery Surgical History lipoma removed from left leg Surgical History perirectal abscess removed Hospitalization History for COPD Hospitalization History for Pneumonia Hospitalization History mediastinoscopy and bronchoscopy in 1989 Hospitalization History [facility] [place]- Sore Throat and Fever 08/22/2017
--- OUTSIDE RECORDS SUMMARY | 2018-06-27 21:43 | XMS REPORT ---
Author Author ANGELIQUE GRAY Organization [facility] Address [address] [place] [address] Care Team Providers Care Professor Of Environmental Science Name Role Phone GRAYANGELIQUE Olivo Unavailable PROBLEMS Type Condition ICD9-CM Code PME08-ZA Code Onset Dates Condition Status SNOMED Code Problem Elevated LDL cholesterol level E78.00 Active 365010950 Problem Balanitis N48.1 Active 26089260 Problem Type 2 diabetes mellitus with hyperglycemia E11.65 Active 08787836 Problem Low HDL (under 40) E78.6 Active 284193931 Problem Elevated serum creatinine R79.89 Active 435790204 Problem Polyneuropathy associated with underlying disease G63 Active 856468198 Problem Essential hypertension I10 Active 54482679 Problem Personal history of sarcoidosis Z86.2 Active 815637586 Problem Anxiety disorder, unspecified F41.9 Active 304087653 Problem Morbid obesity due to excess calories E66.01 Active 371258029 Problem Cardiac murmur R01.1 Active 63530606 ALLERGIES No Information ENCOUNTERS Encounter Location Date Diagnosis [facility] [id number] [place] [address] 84520- 1615 Jul, [facility] [id number] [place] [address] 27828- 7586 May, Type 2 diabetes mellitus with hyperglycemia E11.65 ; Essential hypertension I10 ; Morbid obesity due to excess calories E66.01 ; Elevated LDL cholesterol level E78.00 ; Polyneuropathy associated with underlying disease G63 ; BMI 60.0-69.9, adult Z68.44 ; Anxiety disorder, unspecified F41.9 and Encounter for immunization Z23 [facility] [id number] [place] [address] 01680- 9392 Apr, [facility] [address] [id number] Apr, Dental examination Z01.20 [place] [address] [address] 8745 Mar, BMI 60.0-69.9, adult Z68.44 [place] [address] [id number] [place] [address] 16553- 9511 Feb, Type 2 diabetes mellitus with hyperglycemia E11.65 ; Essential hypertension I10 ; Morbid obesity due to excess calories E66.01 ; Elevated serum creatinine R79.89 and Polyneuropathy associated with underlying disease G63 [place] [id number] [place] [address] 30485- 0948 Jan, [place] [id number] [place] [address] 48598- 3183 Jan, Elevated serum creatinine R79.89 [place] [address] [id number] [place] [address] 67666- 2210 Jan, Type 2 diabetes mellitus with hyperglycemia E11.65 [place] [address] [place] [address] 43101- 1818 Jan, Anxiety disorder, unspecified F41.9 [place] [address] [place] [id number] [place] [address] 27763- 6826 Jan, [place] [address] [address]- 0439 Jan, Type 2 diabetes mellitus with hyperglycemia E11.65 [place] [address] [place] [id number] [place] [address] 40808- 6632 Nov, [place] [address] [place] [address] 56175- 3153 Nov, Type 2 diabetes mellitus with hyperglycemia E11.65 [place] [address] [address]- 2057 Nov, [place] [address] [address]- 7920 Nov, Type 2 diabetes mellitus with hyperglycemia E11.65 ; Essential hypertension I10 ; Low HDL (under 40) E78.6 ; Morbid obesity due to excess calories E66.01 ; Allergic contact dermatitis, unspecified trigger L23.9 and Dietary counseling Z71.3 [facility] [address] [address]- 3767 Nov, [address] [place] [address] 55715- 4611 Oct, Morbid obesity due to excess calories E66.01 ; Essential hypertension I10 ; Cardiac murmur R01.1 and Personal history of sarcoidosis Z86.[address] [place] [address] 75726- 0803 13 Oct, 2016 Encounter for routine adult health examination with abnormal findings Z00.01 ; Morbid obesity due to excess calories E66.01 ; Essential hypertension I10 ; Balanitis N48.1 ; Anxiety disorder, unspecified F41.9 ; Cardiac murmur R01.1 and Personal history of sarcoidosis Z86.2 [facility] [address] [address] September, Atypical pneumonia J18.9 and Essential hypertension [...] History sarcoidosis- Dx by Dr. Hancock in [place]- in 1989 Medical History ASCVD risk factor 9.5% Medical History Echo 10/2016--EF 50-55% Medical History COPD Surgical History left wrist and elbow surgery Surgical History lipoma removed from left leg Surgical History perirectal abscess removed Hospitalization History for COPD Hospitalization History for Pneumonia Hospitalization History mediastinoscopy and bronchoscopy in 1989
--- OUTSIDE RECORDS SUMMARY | 2018-06-27 21:43 | XMS REPORT ---
Author Author ANGELIQUE GRAY Organization [facility] Address [address] [place] [address] Care Team Providers Care Art Glass Setter Name Role Phone GRAYANGELIQUE Olivo Unavailable PROBLEMS Type Condition ICD9-CM Code HER45-SF Code Onset Dates Condition Status SNOMED Code Problem Type 2 diabetes mellitus with hyperglycemia E11.65 Active 81223054 Problem Anxiety disorder, unspecified F41.9 Active 470083743 Problem Balanitis N48.1 Active 41788493 Problem Low HDL (under 40) E78.6 Active 962201414 Problem Elevated serum creatinine R79.89 Active 800597374 Problem Elevated LDL cholesterol level E78.00 Active 323916975 Problem Seasonal allergic rhinitis, unspecified trigger J30.2 Active 094943089 Problem Polyneuropathy associated with underlying disease G63 Active 159109918 Problem Cardiac murmur R01.1 Active 15188155 Problem Personal history of sarcoidosis Z86.2 Active 018396888 Problem Essential hypertension I10 Active 22574130 Problem Morbid obesity due to excess calories E66.01 Active 969745091 ALLERGIES No Information ENCOUNTERS Encounter Location Date Diagnosis [place] [address] [place] [address] 24305- 5231 September, [facility] [address] [place] [id number] [place] [address] 57347- 5120 Aug, Essential hypertension I10 ; Anxiety disorder, unspecified F41.9 ; Type 2 diabetes mellitus with hyperglycemia E11.65 ; Seasonal allergic rhinitis, unspecified trigger J30.2 ; Polyneuropathy associated with underlying disease G63 and BMI 60.0-69.9, adult Z68.44 [facility] [address] [place] [address] 38695- 7170 Aug, [place] [address] [place] [id number] [place] [address] 12699- 7077 Aug, Anxiety disorder, unspecified F41.9 [facility] [address] [id number] [place] [address] 29671- 7880 Jul, [place] [address] [place] [id number] [place] [address] 04669- 5655 May, Type 2 diabetes mellitus with hyperglycemia E11.65 ; Essential hypertension I10 ; Morbid obesity due to excess calories E66.01 ; Elevated LDL cholesterol level E78.00 ; Polyneuropathy associated with underlying disease G63 ; BMI 60.0-69.9, adult Z68.44 ; Anxiety disorder, unspecified F41.9 and Encounter for immunization Z23 [place] [address] [place] [id number] [place] [address] 62289- 5403 Apr, [facility] [address] [place] [address] [id number] [place] [address] [id number] Apr, Dental examination Z01.20 [place] [address] [place] [address] [id number] [place] [address] 16078- 8014 Mar, BMI 60.0-69.9, adult Z68.44 [place] [address] [place] [id number] [place] [address] 22903- 5314 Feb, Type 2 diabetes mellitus with hyperglycemia E11.65 ; Essential hypertension I10 ; Morbid obesity due to excess calories E66.01 ; Elevated serum creatinine R79.89 and Polyneuropathy associated with underlying disease G63 [place] [address] [place] [id number] [place] [address] 01227- 9264 Jan, [place] [address] [place] [id number] [place] [address] 30384- 0681 Jan, Elevated serum creatinine R79.89 [place] [address] [address] [id number] [place] [address] 72003- 4569 Jan, Type 2 diabetes mellitus with hyperglycemia E11.65 [place] [address] [place] [id number] [place] [address] 12881- 7125 Jan, Anxiety disorder, unspecified F41.9 [place] [address], [place] [address]- 2331 Jan, [place] [address] [address] [id number] [place] [address] 24329- 6757 Jan, Type 2 diabetes mellitus with hyperglycemia E11.65 [place] [address] [address] [id number] [place] [address] 65452- 2720 Nov, [place] [address] [address] [id number] [place] [address] 89409- 0606 Nov, Type 2 diabetes mellitus with hyperglycemia E11.65 [place] [address] [address] [id number] [place] [address] 65048- 2044 Nov, [place] [address] [address] [id number] [place] [address] 39440- 0301 Nov, Type 2 diabetes mellitus with hyperglycemia E11.65 ; Essential hypertension I10 ; Low HDL (under 40) E78.6 ; Morbid obesity due to excess calories E66.01 ; Allergic contact dermatitis, unspecified trigger L23.9 and Dietary counseling Z71.3 [place] [address] [id number] [place] [address] 38028- 8579 Nov, [place] [address] [address] [id number] [place] [address] 76657- 2795 Oct, Morbid obesity due to excess calories E66.01 ; Essential hypertension I10 ; Cardiac murmur R01.1 and Personal history of sarcoidosis Z86.2 [place] [address], [place] [address]- 6372 Oct, Encounter for routine adult health examination with abnormal findings Z00.01 ; Morbid obesity due to excess calories E66.01 ; Essential hypertension I10 ; Balanitis N48.1 ; Anxiety disorder, unspecified F41.9 ; Cardiac murmur R01.1 and Personal history of sarcoidosis Z86.[address] [facility] [address], [place] [address] September, Atypical pneumonia J18.9 and Essential hypertension [...] History sarcoidosis- Dx by Dr. Hancock in [place]- in 1989 Medical History ASCVD risk factor 9.5% Medical History Echo 10/2016--EF 50-55% Medical History COPD Surgical History left wrist and elbow surgery Surgical History lipoma removed from left leg Surgical History perirectal abscess removed Hospitalization History for COPD Hospitalization History for Pneumonia Hospitalization History mediastinoscopy and bronchoscopy in 1989 Hospitalization History [facility] [place]- Sore Throat and Fever 08/22/2017
--- OUTSIDE RECORDS SUMMARY | 2018-06-27 21:43 | XMS REPORT ---
Author Author AZULEMY JERRY [facility] Address Unknown Care Team Providers Care Sales Order Coordinator Name Role Phone EMY YODER Unavailable PROBLEMS Type Condition ICD9-CM Code [id number] Code Onset Dates Condition Status SNOMED Code Problem Type 2 diabetes mellitus with hyperglycemia E11.65 Active 45365022 Problem Anxiety disorder, unspecified F41.9 Active 958237223 Problem Balanitis N48.1 Active 35686448 Problem Low HDL (under 40) E78.6 Active 981380018 Problem Elevated serum creatinine R79.89 Active 380729014 Problem Elevated LDL cholesterol level E78.00 Active 193557352 Problem Seasonal allergic rhinitis, unspecified trigger J30.2 Active 877992771 Problem Polyneuropathy associated with underlying disease G63 Active 817412037 Problem Cardiac murmur R01.1 Active 99426371 Problem Personal history of sarcoidosis Z86.2 Active 223692438 Problem Essential hypertension I10 Active 26009914 Problem Morbid obesity due to excess calories E66.01 Active 679191101 ALLERGIES Substance Reaction Event Type Date Status Azithromycin hives Drug Allergy Apr, Active ENCOUNTERS Encounter Location Date Diagnosis [place] [id number] [place] [address] 69469- 1354 September, [place] [address] [place] [id number] [place] [address] 26978- 8585 Aug, Essential hypertension I10 ; Anxiety disorder, unspecified F41.9 ; Type 2 diabetes mellitus with hyperglycemia E11.65 ; Seasonal allergic rhinitis, unspecified trigger J30.2 ; Polyneuropathy associated with underlying disease G63 and BMI 60.0-69.9, adult Z68.44 [place] [address] [place] [address] 32143- 2906 Aug, [place] [address] [place] [id number] [place] [address] 21746- 4896 Aug, Anxiety disorder, unspecified F41.9 [facility] [address] [id number] [place] [address] 94049- 6267 Jul, [place] [address] [address] [id number] [place] [address] 60057- 6824 May, Type 2 diabetes mellitus with hyperglycemia E11.65 ; Essential hypertension I10 ; Morbid obesity due to excess calories E66.01 ; Elevated LDL cholesterol level E78.00 ; Polyneuropathy associated with underlying disease G63 ; BMI 60.0-69.9, adult Z68.44 ; Anxiety disorder, unspecified F41.9 and Encounter for immunization Z23 [place] [address] [place] [id number] [place] [address] 17104- 8699 Apr, [facility] [id number] [place] [address] [id number] Apr, Dental examination Z01.20 [place] [address] [place] [address] [id number] [place] [address] 36852- 6684 Mar, BMI 60.0-69.9, adult Z68.44 [place] [address] [place] [id number] [place] [address] 84916- 3046 Feb, Type 2 diabetes mellitus with hyperglycemia E11.65 ; Essential hypertension I10 ; Morbid obesity due to excess calories E66.01 ; Elevated serum creatinine R79.89 and Polyneuropathy associated with underlying disease G63 [place] [address] [place] [id number] [place] [address] 84441- 0510 Jan, [place] [address] [place] [id number] [place] [address] 55128- 9831 Jan, Elevated serum creatinine R79.89 [place] [address] [place] [id number] [place] [address] 80518- 9869 Jan, Type 2 diabetes mellitus with hyperglycemia E11.65 [place] [address] [place] [id number] [place] [address] 73851- 5760 Jan, Anxiety disorder, unspecified F41.9 [place] [address], [place] [address] Jan, [place] [address] [place] [id number] [place] [address] 19660- 4479 Jan, Type 2 diabetes mellitus with hyperglycemia E11.65 [place] [address] [place] [address] 48034- 3196 Nov, [place] [address] [place] [id number] [place] [address] 50097- 2276 Nov, Type 2 diabetes mellitus with hyperglycemia E11.65 [place] [address] [place] [id number] [place] [address] 42657- 6790 Nov, [place] [address] [place] [id number] [place] [address] 73592- 1260 Nov, Type 2 diabetes mellitus with hyperglycemia E11.65 ; Essential hypertension I10 ; Low HDL (under 40) E78.6 ; Morbid obesity due to excess calories E66.01 ; Allergic contact dermatitis, unspecified trigger L23.9 and Dietary counseling Z71.3 [place] [address] [place] [id number] [place] [address] 18371- 4666 Nov, [place] [address] [place] [id number] [place] [address] 91429- 6170 Oct, Morbid obesity due to excess calories E66.01 ; Essential hypertension I10 ; Cardiac murmur R01.1 and Personal history of sarcoidosis Z86.2 [place] [address], [place] [address] Oct, Encounter for routine adult health examination with abnormal findings Z00.01 ; Morbid obesity due to excess calories E66.01 ; Essential hypertension I10 ; Balanitis N48.1 ; Anxiety disorder, unspecified F41.9 ; Cardiac murmur R01.1 and Personal history of sarcoidosis Z86.2 [facility] [address], [place] [address] September, Atypical pneumonia J18.9 and Essential hypertension I10 IMMUNIZATIONS No Known Immunizations SOCIAL HISTORY Never Assessed REASON FOR VISIT STEFANI PLAN OF CARE Activity Details Follow Up 1 Week Reason:TE #8 and #9 VITAL SIGNS Height 71 in 2017-05-08 Blood pressure systolic 128 mmHg 2017-05-08 Blood pressure diastolic 72 mmHg 2017-05-08 MEDICATIONS Medication Instructions Dosage Frequency Start Date End Date Duration Status Glucocard Expression Test - In Vitro 2 times a day as directed 12h Nov, 90 days Active Effexor XR 150 MG Orally Once a day 1 capsule with food 24h 90 days Active Pen [place] 30G X 5 MM as directed 12h Jan, 90 days Active Losartan Potassium-HCTZ 100-25 MG Orally Once a day 1 tablet 24h September, 90 days Active Xanax XR 0.5 MG Orally as directed Active Albuterol Sulfate HFA Active Januvia 25 MG Orally Once a day 1 tablet 24h Nov, 30 days Active Losartan Potassium-HCTZ 100-25 MG Orally Once a day 1 tablet 24h Not-Taking Advil Active Gabapentin 100 mg Orally 3 times a day 1 capsule 8h 10 Feb, 2017 90 days Active Victoza 18 MG/3ML Subcutaneous Once a day 1.2mg 24h 30 days Active RESULTS No Results PROCEDURES Procedure Date Ordered Result Body Site LTD ORAL EVALUATION - PROBLEM FOCUS May 08, 2017 INTRAORL-PERIAPICAL 1 FILM [id number] May 08, 2017 INSTRUCTIONS MEDICATIONS ADMINISTERED No Known Medications MEDICAL (GENERAL) HISTORY Type Description Date Medical History chronic bronchitis Medical History pre -diabetec Medical History asthma Medical History sarcoidosis- Dx by Dr. Hancock in [place]- in 1989 Medical History ASCVD risk factor 9.5% Medical History Echo 10/2016--EF 50-55% Medical History COPD Surgical History left wrist and elbow surgery Surgical History lipoma removed from left leg Surgical History perirectal abscess removed Hospitalization History for COPD Hospitalization History for Pneumonia Hospitalization History mediastinoscopy and bronchoscopy in 1989 Hospitalization History [facility]- Sore Throat and Fever 08/22/2017
--- OUTSIDE RECORDS SUMMARY | 2018-06-27 21:43 | XMS REPORT ---
Author Author ANGELIQUE GRAY Organization [facility] Address [address] [place] [address] Care Team Providers Care Windows Security Engineer Name Role Phone GRAYANGELIQUE Olivo Unavailable PROBLEMS Type Condition ICD9-CM Code [id number] Code Onset Dates Condition Status SNOMED Code Problem Elevated LDL cholesterol level E78.00 Active 007465626 Problem Balanitis N48.1 Active 04598750 Problem Type 2 diabetes mellitus with hyperglycemia E11.65 Active 25992262 Problem Low HDL (under 40) E78.6 Active 146944064 Problem Elevated serum creatinine R79.89 Active 454311655 Problem Polyneuropathy associated with underlying disease G63 Active 169053888 Problem Essential hypertension I10 Active 86060184 Problem Personal history of sarcoidosis Z86.2 Active 165883873 Problem Anxiety disorder, unspecified F41.9 Active 279210331 Problem Morbid obesity due to excess calories E66.01 Active 830611746 Problem Cardiac murmur R01.1 Active 54966848 ALLERGIES No Information ENCOUNTERS Encounter Location Date Diagnosis [facility] [address] [place] [id number] [place] [address] 48371- 4620 Jul, [facility] [address] [place] [id number] [place] [address] 90988- 2307 May, Type 2 diabetes mellitus with hyperglycemia E11.65 ; Essential hypertension I10 ; Morbid obesity due to excess calories E66.01 ; Elevated LDL cholesterol level E78.00 ; Polyneuropathy associated with underlying disease G63 ; BMI 60.0-69.9, adult Z68.44 ; Anxiety disorder, unspecified F41.9 and Encounter for immunization Z23 [facility] [address] [place] [id number] [place] [address] 53928- 1139 Apr, [facility] [address] [id number] Apr, Dental examination Z01.20 [place] [address], [place] [address] Mar, BMI 60.0-69.9, adult Z68.44 [place] [address] [place] [address] [id number] [place] [address] 42161- 1217 Feb, Type 2 diabetes mellitus with hyperglycemia E11.65 ; Essential hypertension I10 ; Morbid obesity due to excess calories E66.01 ; Elevated serum creatinine R79.89 and Polyneuropathy associated with underlying disease G63 [place] [address] [place] [id number] [place] [address] 56879- 9218 Jan, [place] [address] [place] [id number] [place] [address] 63526- 8282 Jan, Elevated serum creatinine R79.89 [place] [address] [place] [id number] [place] [address] 15468- 1250 Jan, Type 2 diabetes mellitus with hyperglycemia E11.65 [place] [address] [place] [address] 25554- 4445 Jan, Anxiety disorder, unspecified F41.9 [place] [address] [place] [address] [id number] [place] [address] 63147- 6853 Jan, [place] [address], [place] [address]- 4036 Jan, Type 2 diabetes mellitus with hyperglycemia E11.65 [place] [address] [place] [id number] [place] [address] 80621- 2846 Nov, [place] [address] [place] [address] 93979- 3596 Nov, Type 2 diabetes mellitus with hyperglycemia E11.65 [place] [address], [place] [address]- 3105 Nov, [place] [address], [place] [address]- 1446 Nov, Type 2 diabetes mellitus with hyperglycemia E11.65 ; Essential hypertension I10 ; Low HDL (under 40) E78.6 ; Morbid obesity due to excess calories E66.01 ; Allergic contact dermatitis, unspecified trigger L23.9 and Dietary counseling Z71.3 [facility] [address], [place] [address]- [address] Nov, [address] [place] [address] 52960- 7644 Oct, Morbid obesity due to excess calories E66.01 ; Essential hypertension I10 ; Cardiac murmur R01.1 and Personal history of sarcoidosis Z86.2 [address] [place] [address] 86254- 8726 13 Oct, 2016 Encounter for routine adult health examination with abnormal findings Z00.01 ; Morbid obesity due to excess calories E66.01 ; Essential hypertension I10 ; Balanitis N48.1 ; Anxiety disorder, unspecified F41.9 ; Cardiac murmur R01.1 and Personal history of sarcoidosis Z86.2 [facility] [address], [place] [address] September, Atypical pneumonia J18.9 and Essential hypertension I10 IMMUNIZATIONS No Known Immunizations SOCIAL HISTORY Never Assessed REASON FOR VISIT lab order PLAN OF CARE VITAL SIGNS MEDICATIONS Unknown Medications RESULTS No Results PROCEDURES No Known procedures INSTRUCTIONS MEDICATIONS ADMINISTERED No Known Medications MEDICAL (GENERAL) HISTORY Type Description Date Medical History chronic bronchitis Medical History pre -diabetec Medical History asthma Medical History sarcoidosis- Dx by Dr. Hancock in [place]- in 1989 Medical History ASCVD risk factor 9.5% Medical History Echo 10/2016--EF 50-55% Medical History COPD Surgical History left wrist and elbow surgery Surgical History lipoma removed from left leg Surgical History perirectal abscess removed Hospitalization History for COPD Hospitalization History for Pneumonia Hospitalization History mediastinoscopy and bronchoscopy in 1989
--- OUTSIDE RECORDS SUMMARY | 2018-06-27 21:43 | XMS REPORT ---
Author Author ANGELIQUE GRAY Organization [facility] Address [address] [place] [address] Care Team Providers Care Loop Cutter Name Role Phone GRAYANGELIQUE Olivo Unavailable PROBLEMS Type Condition ICD9-CM Code [id number] Code Onset Dates Condition Status SNOMED Code Problem Type 2 diabetes mellitus with hyperglycemia E11.65 Active 52132537 Problem Anxiety disorder, unspecified F41.9 Active 266172413 Problem Balanitis N48.1 Active 73007549 Problem Low HDL (under 40) E78.6 Active 265970759 Problem Elevated serum creatinine R79.89 Active 708135809 Problem Elevated LDL cholesterol level E78.00 Active 788259164 Problem Seasonal allergic rhinitis, unspecified trigger J30.2 Active 299894283 Problem Polyneuropathy associated with underlying disease G63 Active 702409099 Problem Cardiac murmur R01.1 Active 43239634 Problem Personal history of sarcoidosis Z86.2 Active 723094073 Problem Essential hypertension I10 Active 43113261 Problem Morbid obesity due to excess calories E66.01 Active 610763968 ALLERGIES No Information ENCOUNTERS Encounter Location Date Diagnosis [place] [address] [place] [address] 37789- 9390 September, [facility] [address] [id number] [place] [address] 51802- 1566 Aug, Essential hypertension I10 ; Anxiety disorder, unspecified F41.9 ; Type 2 diabetes mellitus with hyperglycemia E11.65 ; Seasonal allergic rhinitis, unspecified trigger J30.2 ; Polyneuropathy associated with underlying disease G63 and BMI 60.0-69.9, adult Z68.44 [facility] [address] [place] [address] 15531- 3816 Aug, [place] [address] [place] [id number] [place] [address] 37757- 7636 Aug, Anxiety disorder, unspecified F41.9 [facility] [address] [place] [id number] [place] [address] 59341- 4775 Jul, [place] [address] [place] [id number] [place] [address] 81044- 9925 May, Type 2 diabetes mellitus with hyperglycemia E11.65 ; Essential hypertension I10 ; Morbid obesity due to excess calories E66.01 ; Elevated LDL cholesterol level E78.00 ; Polyneuropathy associated with underlying disease G63 ; BMI 60.0-69.9, adult Z68.44 ; Anxiety disorder, unspecified F41.9 and Encounter for immunization Z23 [place] [address] [place] [id number] [place] [address] 92059- 4825 Apr, [facility] [address] [id number] [place] [address] [id number] Apr, Dental examination Z01.20 [place] [address] [place] [id number] [place] [address] 10936- 6274 Mar, BMI 60.0-69.9, adult Z68.44 [place] [address] [place] [id number] [place] [address] 95700- 5629 Feb, Type 2 diabetes mellitus with hyperglycemia E11.65 ; Essential hypertension I10 ; Morbid obesity due to excess calories E66.01 ; Elevated serum creatinine R79.89 and Polyneuropathy associated with underlying disease G63 [place] [address] [place] [id number] [place] [address] 52735- 1840 Jan, [place] [address] [id number] [place] [address] 39021- 6945 Jan, Elevated serum creatinine R79.89 [place] [address] [place] [id number] [place] [address] 83973- 3584 Jan, Type 2 diabetes mellitus with hyperglycemia E11.65 [place] [address] [place] [id number] [place] [address] 71065- 2142 Jan, Anxiety disorder, unspecified F41.9 [place] [address], [place] [address]- 2778 Jan, [place] [address] [id number] [place] [address] 19063- 8143 Jan, Type 2 diabetes mellitus with hyperglycemia E11.65 [place] [address] [id number] [place] [address] 13748- 6925 Nov, [place] [address] [place] [id number] [place] [address] 04741- 5386 Nov, Type 2 diabetes mellitus with hyperglycemia E11.65 [place] [address] [place] [id number] [place] [address] 46473- 1431 Nov, [place] [address] [place] [id number] [place] [address] 88460- 7414 Nov, Type 2 diabetes mellitus with hyperglycemia E11.65 ; Essential hypertension I10 ; Low HDL (under 40) E78.6 ; Morbid obesity due to excess calories E66.01 ; Allergic contact dermatitis, unspecified trigger L23.9 and Dietary counseling Z71.3 [place] [address] [id number] [place] [address] 24980- 8671 Nov, [place] [address] [place] [id number] [place] [address] 51496- 4971 Oct, Morbid obesity due to excess calories E66.01 ; Essential hypertension I10 ; Cardiac murmur R01.1 and Personal history of sarcoidosis Z86.2 [place] [address], [place] [address] 6751 Oct, Encounter for routine adult health examination with abnormal findings Z00.01 ; Morbid obesity due to excess calories E66.01 ; Essential hypertension I10 ; Balanitis N48.1 ; Anxiety disorder, unspecified F41.9 ; Cardiac murmur R01.1 and Personal history of sarcoidosis Z86.2 [facility] IN [facility] [address], [place] [address] September, Atypical pneumonia J18.9 and Essential hypertension I10 IMMUNIZATIONS No Known Immunizations SOCIAL HISTORY Never Assessed REASON FOR VISIT Weight check PLAN OF CARE VITAL SIGNS Height 71 in 2017-05-25 Weight 457.4 lbs 2017-05-25 BMI 63.79 kg/m2 2017-05-25 MEDICATIONS Unknown Medications RESULTS No Results PROCEDURES No Known procedures INSTRUCTIONS MEDICATIONS ADMINISTERED No Known Medications MEDICAL (GENERAL) HISTORY Type Description Date Medical History chronic bronchitis Medical History pre -diabetec Medical History asthma Medical History sarcoidosis- Dx by Dr. Hancock in [place]- in 1989 Medical History ASCVD risk factor 9.5% Medical History Echo 10/2016--EF 50-55% Medical History COPD Surgical History left wrist and elbow surgery Surgical History lipoma removed from left leg Surgical History perirectal abscess removed Hospitalization History for COPD Hospitalization History for Pneumonia Hospitalization History mediastinoscopy and bronchoscopy in 1989 Hospitalization History [facility] [place]- Sore Throat and Fever 08/22/2017
--- OUTSIDE RECORDS SUMMARY | 2018-06-27 21:43 | XMS REPORT ---
Author Author ANGELIQUE GRAY Organization [facility] Address [address] [place] [address] Care Team Providers Care Receiving Team Member Name Role Phone GRAYANGELIQUE Olivo Unavailable PROBLEMS Type Condition ICD9-CM Code [id number] Code Onset Dates Condition Status SNOMED Code Problem Type 2 diabetes mellitus with hyperglycemia E11.65 Active 57147493 Problem Anxiety disorder, unspecified F41.9 Active 168049820 Problem Balanitis N48.1 Active 44406176 Problem Low HDL (under 40) E78.6 Active 871919423 Problem Elevated serum creatinine R79.89 Active 325343172 Problem Elevated LDL cholesterol level E78.00 Active 086011794 Problem Seasonal allergic rhinitis, unspecified trigger J30.2 Active 534113729 Problem Polyneuropathy associated with underlying disease G63 Active 140840008 Problem Cardiac murmur R01.1 Active 40214096 Problem Personal history of sarcoidosis Z86.2 Active 311203281 Problem Essential hypertension I10 Active 77608456 Problem Morbid obesity due to excess calories E66.01 Active 770854348 ALLERGIES No Information ENCOUNTERS Encounter Location Date Diagnosis [place] [id number] [place] [address] 24818- 8242 September, [facility] [id number] [place] [address] 87724- 3652 Aug, Essential hypertension I10 ; Anxiety disorder, unspecified F41.9 ; Type 2 diabetes mellitus with hyperglycemia E11.65 ; Seasonal allergic rhinitis, unspecified trigger J30.2 ; Polyneuropathy associated with underlying disease G63 and BMI 60.0-69.9, adult Z68.44 [facility] [address] [place] [address] 44562- 0709 Aug, [place] [address] [place] [id number] [place] [address] 16152- 1454 Aug, Anxiety disorder, unspecified F41.9 [facility] [id number] [place] [address] 62493- 4617 Jul, [place] [address] [id number] [place] [address] 35198- 5513 May, Type 2 diabetes mellitus with hyperglycemia E11.65 ; Essential hypertension I10 ; Morbid obesity due to excess calories E66.01 ; Elevated LDL cholesterol level E78.00 ; Polyneuropathy associated with underlying disease G63 ; BMI 60.0-69.9, adult Z68.44 ; Anxiety disorder, unspecified F41.9 and Encounter for immunization Z23 [place] [address] [id number] [place] [address] 22844- 2462 Apr, [facility] [id number] [place] [address] [phone] Apr, Dental examination Z01.20 [place] [address] [id number] [place] [address] 42106- 6196 Mar, BMI 60.0-69.9, adult Z68.44 [place] [address] [id number] [place] [address] 33028- 2587 Feb, Type 2 diabetes mellitus with hyperglycemia E11.65 ; Essential hypertension I10 ; Morbid obesity due to excess calories E66.01 ; Elevated serum creatinine R79.89 and Polyneuropathy associated with underlying disease G63 [place] [address] [id number] [place] [address] 90564- 9465 Jan, [place] [address] [id number] [place] [address] 52961- 5553 Jan, Elevated serum creatinine R79.89 [place] [address] [id number] [place] [address] 56918- 0733 Jan, Type 2 diabetes mellitus with hyperglycemia E11.65 [place] [address] [id number] [place] [address] 93957- 6147 Jan, Anxiety disorder, unspecified F41.9 [place] [address] [address] 7[address] Jan, [place] [address] [id number] [place] [address] 02876- 2555 Jan, Type 2 diabetes mellitus with hyperglycemia E11.65 [place] [address] [address] [id number] [place] [address] 09796- 4649 Nov, [place] [address] [id number] [place] [address] 40154- 9260 Nov, Type 2 diabetes mellitus with hyperglycemia E11.65 [place] [address] [id number] [place] [address] 39848- 0421 Nov, [place] [address] [id number] [place] [address] 61857- 9313 Nov, Type 2 diabetes mellitus with hyperglycemia E11.65 ; Essential hypertension I10 ; Low HDL (under 40) E78.6 ; Morbid obesity due to excess calories E66.01 ; Allergic contact dermatitis, unspecified trigger L23.9 and Dietary counseling Z71.3 [place] [address] [id number] [place] [address] 42904- 8588 Nov, [place] [address] [id number] [place] [address] 77661- 1853 Oct, Morbid obesity due to excess calories E66.01 ; Essential hypertension I10 ; Cardiac murmur R01.1 and Personal history of sarcoidosis Z86.2 [place] [address] [address] Oct, Encounter for routine adult health examination with abnormal findings Z00.01 ; Morbid obesity due to excess calories E66.01 ; Essential hypertension I10 ; Balanitis N48.1 ; Anxiety disorder, unspecified F41.9 ; Cardiac murmur R01.1 and Personal history of sarcoidosis Z86.2 [facility] [address] [address] September, Atypical pneumonia J18.9 and Essential hypertension I10 IMMUNIZATIONS No Known Immunizations SOCIAL HISTORY Never Assessed REASON FOR VISIT Refill request/unable to contact PLAN OF CARE VITAL SIGNS MEDICATIONS Unknown Medications RESULTS No Results PROCEDURES No Known procedures INSTRUCTIONS MEDICATIONS ADMINISTERED No Known Medications MEDICAL (GENERAL) HISTORY Type Description Date Medical History chronic bronchitis Medical History pre -diabetec Medical History asthma Medical History sarcoidosis- Dx by Dr. Hancock in [place]- in 1989 Medical History ASCVD risk factor 9.5% Medical History Echo 10/2016--EF 50-55% Medical History COPD Surgical History left wrist and elbow surgery Surgical History lipoma removed from left leg Surgical History perirectal abscess removed Hospitalization History for COPD Hospitalization History for Pneumonia Hospitalization History mediastinoscopy and bronchoscopy in 1989 Hospitalization History [facility] [place]- Sore Throat and Fever 08/22/2017
--- OUTSIDE RECORDS SUMMARY | 2018-06-27 21:43 | XMS REPORT ---
Author Author SRINIVAS VU Organization [facility] Address [address] [place] [address] Care Team Providers Care Welding Machine Assembler Name Role Phone JERMAIN VUICE Unavailable PROBLEMS Type Condition ICD9-CM Code WGG21-CH Code Onset Dates Condition Status SNOMED Code Problem Elevated LDL cholesterol level E78.00 Active 552174116 Problem Balanitis N48.1 Active 49958671 Problem Type 2 diabetes mellitus with hyperglycemia E11.65 Active 00010740 Problem Low HDL (under 40) E78.6 Active 847032318 Problem Elevated serum creatinine R79.89 Active 522860825 Problem Polyneuropathy associated with underlying disease G63 Active 064036553 Problem Essential hypertension I10 Active 37964649 Problem Personal history of sarcoidosis Z86.2 Active 661479994 Problem Anxiety disorder, unspecified F41.9 Active 367380746 Problem Morbid obesity due to excess calories E66.01 Active 632136348 Problem Cardiac murmur R01.1 Active 44559665 ALLERGIES Substance Reaction Event Type Date Status Azithromycin hives Drug Allergy September, Active SOCIAL HISTORY Never Assessed PLAN OF CARE Activity Details Follow Up prn Reason: VITAL SIGNS Height 71 in 2016-10-17 Weight 482.8 lbs 2016-10-17 Temperature 97.7 degrees Fahrenheit 2016-10-17 Heart Rate 80 bpm 2016-10-17 Respiratory Rate 24 2016-10-17 Oximetry on room air:97 % 2016-10-17 BMI 67.33 kg/m2 2016-10-17 Blood pressure systolic 168 mmHg 2016-10-17 Blood pressure diastolic 106 mmHg 2016-10-17 MEDICATIONS Medication Instructions Dosage Frequency Start Date End Date Duration Status Losartan Potassium-HCTZ 100-25 MG Orally Once a day 1 tablet 24h September, 30 day(s) Active Levofloxacin 750 MG Orally Once a day 1 tablet 24h September, September, 5 days Active Victoza 18 MG/3ML Subcutaneous Once a day 0.2 ml 24h Active Effexor XR 150 MG Orally Once a day 1 capsule with food 24h Active RESULTS No Results PROCEDURES Procedure Date Ordered Result Body Site NEBULIZER TREATMENT 2016-10-17 N/A MEASURE BLOOD OXYGEN LEVEL October 17, 2016 [facility] VISIT NEW PATIENT October 17, 2016 NEB/MDI RX INITIAL October 17, 2016 IMMUNIZATIONS No Known Immunizations MEDICAL (GENERAL) HISTORY Type Description Date Medical History COPD Medical History chronic bronchitis Medical History pre -diabetec Medical History asthma Medical History sarcoidosis- Dx by Dr. Hancock in [place]- in 1989 Medical History ASCVD risk factor 9.5% Medical History Echo 10/2016--EF 50-55% Surgical History left wrist and elbow surgery Surgical History lipoma removed from left leg Surgical History perirectal abscess removed Hospitalization History for COPD Hospitalization History for Pneumonia Hospitalization History mediastinoscopy and bronchoscopy in 1989
--- OUTSIDE RECORDS SUMMARY | 2018-06-27 21:43 | XMS REPORT ---
Author Author ANGELIQUE GRAY Organization [facility] Address [address] [place] [address] Care Team Providers Care Knife Sharpener Name Role Phone GRAYANGELIQUE Olivo Unavailable PROBLEMS Type Condition ICD9-CM Code EPK93-WR Code Onset Dates Condition Status SNOMED Code Problem Type 2 diabetes mellitus with hyperglycemia E11.65 Active 00622775 Problem Anxiety disorder, unspecified F41.9 Active 663335992 Problem Balanitis N48.1 Active 03044536 Problem Low HDL (under 40) E78.6 Active 338159634 Problem Elevated serum creatinine R79.89 Active 991121074 Problem Elevated LDL cholesterol level E78.00 Active 369726186 Problem Seasonal allergic rhinitis, unspecified trigger J30.2 Active 082013915 Problem Polyneuropathy associated with underlying disease G63 Active 896312258 Problem Cardiac murmur R01.1 Active 47828381 Problem Personal history of sarcoidosis Z86.2 Active 703893233 Problem Essential hypertension I10 Active 57720342 Problem Morbid obesity due to excess calories E66.01 Active 271643635 ALLERGIES No Information ENCOUNTERS Encounter Location Date Diagnosis [place] [address] [place] [address] 63366- 7083 September, [facility] [address] [id number] [place] [address] 48522- 8465 Aug, Essential hypertension I10 ; Anxiety disorder, unspecified F41.9 ; Type 2 diabetes mellitus with hyperglycemia E11.65 ; Seasonal allergic rhinitis, unspecified trigger J30.2 ; Polyneuropathy associated with underlying disease G63 and BMI 60.0-69.9, adult Z68.44 [facility] [address] [place] [address] 98940- 8921 Aug, [place] [address] [place] [id number] [place] [address] 84531- 3087 Aug, Anxiety disorder, unspecified F41.9 [facility] [id number] [place] [address] 51794- 4969 Jul, [place] [address] [place] [address] [id number] [place] [address] 33514- 0099 May, Type 2 diabetes mellitus with hyperglycemia E11.65 ; Essential hypertension I10 ; Morbid obesity due to excess calories E66.01 ; Elevated LDL cholesterol level E78.00 ; Polyneuropathy associated with underlying disease G63 ; BMI 60.0-69.9, adult Z68.44 ; Anxiety disorder, unspecified F41.9 and Encounter for immunization Z23 [place] [address] [place] [id number] [place] [address] 48876- 7037 Apr, [facility] [id number] [place] [address] [phone] Apr, Dental examination Z01.20 [place] [address] [address] [id number] [place] [address] 17608- 9981 Mar, BMI 60.0-69.9, adult Z68.44 [place] [address] [place] [address] [id number] [place] [address] 76626- 5216 Feb, Type 2 diabetes mellitus with hyperglycemia E11.65 ; Essential hypertension I10 ; Morbid obesity due to excess calories E66.01 ; Elevated serum creatinine R79.89 and Polyneuropathy associated with underlying disease G63 [place] [address] [address] [id number] [place] [address] 35587- 6232 Jan, [place] [address] [place] [address] [id number] [place] [address] 49666- 8039 Jan, Elevated serum creatinine R79.89 [place] [address] [place] [id number] [place] [address] 59317- 1625 Jan, Type 2 diabetes mellitus with hyperglycemia E11.65 [place] [address] [place] [id number] [place] [address] 52600- 1117 Jan, Anxiety disorder, unspecified F41.9 [place] [address] [address]- 7499 Jan, [place] [address] [place] [id number] [place] [address] 59361- 3853 Jan, Type 2 diabetes mellitus with hyperglycemia E11.65 [place] [address] [place] [id number] [place] [address] 37157- 3145 Nov, [place] [address] [address] [id number] [place] [address] 49813- 3254 Nov, Type 2 diabetes mellitus with hyperglycemia E11.65 [place] [address] [id number] [place] [address] 38787- 0712 Nov, [place] [address] [address] [id number] [place] [address] 83948- 6544 Nov, Type 2 diabetes mellitus with hyperglycemia E11.65 ; Essential hypertension I10 ; Low HDL (under 40) E78.6 ; Morbid obesity due to excess calories E66.01 ; Allergic contact dermatitis, unspecified trigger L23.9 and Dietary counseling Z71.3 [place] [address] [place] [id number] [place] [address] 45691- 5856 Nov, [place] [address] [place] [address] [id number] [place] [address] 02152- 6974 Oct, Morbid obesity due to excess calories E66.01 ; Essential hypertension I10 ; Cardiac murmur R01.1 and Personal history of sarcoidosis Z86.2 [place] [address] [address]- 7093 Oct, Encounter for routine adult health examination with abnormal findings Z00.01 ; Morbid obesity due to excess calories E66.01 ; Essential hypertension I10 ; Balanitis N48.1 ; Anxiety disorder, unspecified F41.9 ; Cardiac murmur R01.1 and Personal history of sarcoidosis Z86.2 [facility] [address] [address] September, Atypical pneumonia J18.9 and Essential hypertension I10 IMMUNIZATIONS No Known Immunizations SOCIAL HISTORY Never Assessed REASON FOR VISIT PALS PLAN OF CARE VITAL SIGNS MEDICATIONS Medication Instructions Dosage Frequency Start Date End Date Duration Status Victoza 18 MG/3ML Subcutaneous Once a day 1.2mg 24h 90 days Active Pen [place] 30G X 5 MM as directed 12h Jan, 90 days Active Januvia 25 MG Orally Once a day 1 tablet 24h Nov, 90 days Active RESULTS No Results PROCEDURES No Known procedures INSTRUCTIONS MEDICATIONS ADMINISTERED No Known Medications MEDICAL (GENERAL) HISTORY Type Description Date Medical History chronic bronchitis Medical History pre -diabetec Medical History asthma Medical History sarcoidosis- Dx by Dr. Hancock in [place]- in 1989 Medical History ASCVD risk factor 9.5% Medical History Echo 10/2016--EF 50-55% Medical History COPD Surgical History left wrist and elbow surgery Surgical History lipoma removed from left leg Surgical History perirectal abscess removed Hospitalization History for COPD Hospitalization History for Pneumonia Hospitalization History mediastinoscopy and bronchoscopy in 1989 Hospitalization History [facility] [place]- Sore Throat and Fever 08/22/2017
--- OUTSIDE RECORDS SUMMARY | 2018-06-27 21:43 | XMS REPORT ---
Author Author ANGELIQUE GRAY Organization [facility] Address [address] [place] [address] Care Team Providers Care Assistant Shift Supervisor Name Role Phone GRAYANGELIQUE Olivo Unavailable PROBLEMS Type Condition ICD9-CM Code VAT51-JV Code Onset Dates Condition Status SNOMED Code Problem Type 2 diabetes mellitus with hyperglycemia E11.65 Active 02037680 Problem Anxiety disorder, unspecified F41.9 Active 364672963 Problem Balanitis N48.1 Active 98781110 Problem Low HDL (under 40) E78.6 Active 440827724 Problem Elevated serum creatinine R79.89 Active 718367640 Problem Elevated LDL cholesterol level E78.00 Active 087755552 Problem Seasonal allergic rhinitis, unspecified trigger J30.2 Active 182307920 Problem Polyneuropathy associated with underlying disease G63 Active 342356591 Problem Cardiac murmur R01.1 Active 79696959 Problem Personal history of sarcoidosis Z86.2 Active 604268243 Problem Essential hypertension I10 Active 32588225 Problem Morbid obesity due to excess calories E66.01 Active 463984460 ALLERGIES No Information ENCOUNTERS Encounter Location Date Diagnosis [place] [address] [place] [address] 24084- 4100 September, [facility] [id number] [place] [address] 30815- 2224 Aug, Essential hypertension I10 ; Anxiety disorder, unspecified F41.9 ; Type 2 diabetes mellitus with hyperglycemia E11.65 ; Seasonal allergic rhinitis, unspecified trigger J30.2 ; Polyneuropathy associated with underlying disease G63 and BMI 60.0-69.9, adult Z68.44 [facility] [address] [place] [address] 83016- 9589 Aug, [place] [address] [id number] [place] [address] 25072- 4690 Aug, Anxiety disorder, unspecified F41.9 [facility] [id number] [place] [address] 54237- 7773 Jul, [place] [id number] [place] [address] 77812- 0447 May, Type 2 diabetes mellitus with hyperglycemia E11.65 ; Essential hypertension I10 ; Morbid obesity due to excess calories E66.01 ; Elevated LDL cholesterol level E78.00 ; Polyneuropathy associated with underlying disease G63 ; BMI 60.0-69.9, adult Z68.44 ; Anxiety disorder, unspecified F41.9 and Encounter for immunization Z23 [place] [id number] [place] [address] 40741- 5067 Apr, [facility] [id number] [place] [address] [phone] Apr, Dental examination Z01.20 [place] [address] [id number] [place] [address] 50101- 7552 Mar, BMI 60.0-69.9, adult Z68.44 [place] [address] [id number] [place] [address] 67121- 5617 Feb, Type 2 diabetes mellitus with hyperglycemia E11.65 ; Essential hypertension I10 ; Morbid obesity due to excess calories E66.01 ; Elevated serum creatinine R79.89 and Polyneuropathy associated with underlying disease G63 [place] [id number] [place] [address] 31196- 7833 Jan, [place] [id number] [place] [address] 35540- 4672 Jan, Elevated serum creatinine R79.89 [place] [id number] [place] [address] 41125- 1980 Jan, Type 2 diabetes mellitus with hyperglycemia E11.65 [place] [id number] [place] [address] 79141- 4339 Jan, Anxiety disorder, unspecified F41.9 [place] [address] [address]- 9167 Jan, [place] [id number] [place] [address] 46469- 7262 Jan, Type 2 diabetes mellitus with hyperglycemia E11.65 [place] [address] [id number] [place] [address] 52603- 6077 Nov, [place] [id number] [place] [address] 89571- 1881 Nov, Type 2 diabetes mellitus with hyperglycemia E11.65 [place] [id number] [place] [address] 50929- 5661 Nov, [place] [id number] [place] [address] 75887- 6685 Nov, Type 2 diabetes mellitus with hyperglycemia E11.65 ; Essential hypertension I10 ; Low HDL (under 40) E78.6 ; Morbid obesity due to excess calories E66.01 ; Allergic contact dermatitis, unspecified trigger L23.9 and Dietary counseling Z71.3 [place] [id number] [place] [address] 03458- 4540 Nov, [place] [id number] [place] [address] 56702- 4501 Oct, Morbid obesity due to excess calories E66.01 ; Essential hypertension I10 ; Cardiac murmur R01.1 and Personal history of sarcoidosis Z86.2 [place] [address] [address]- 7158 Oct, Encounter for routine adult health examination with abnormal findings Z00.01 ; Morbid obesity due to excess calories E66.01 ; Essential hypertension I10 ; Balanitis N48.1 ; Anxiety disorder, unspecified F41.9 ; Cardiac murmur R01.1 and Personal history of sarcoidosis Z86.2 [facility] [address] [address] September, Atypical pneumonia J18.9 and Essential hypertension I10 IMMUNIZATIONS No Known Immunizations SOCIAL HISTORY Never Assessed REASON FOR VISIT Lab (walk-in) PLAN OF CARE VITAL SIGNS MEDICATIONS Unknown Medications RESULTS Name Result Date Reference Range MICROALBUMIN, URINE (IN HOUSE) MICROALBUMIN Lot # [id number] Exp date 02/24/18 Clarity clear Color dark yellow ALB 30 CRE 200 A:C (IN HOUSE) <30 Control Control Lot # [id number] Exp date 12/25/17 CMP 2017-01-26 Glucose, Serum 106 65-99 BUN 16 6-24 Creatinine, Serum 1.29 0.76-1.27 eGFR If NonAfricn Am 64 >59 eGFR If Africn Am 74 >59 BUN/Creatinine Ratio 12 9-20 Sodium, Serum 137 134-144 Potassium, Serum 3.9 3.5-5.2 Chloride, Serum 95 96-106 Carbon Dioxide, Total 29 18-29 Calcium, Serum 9.2 8.7-10.2 Protein, Total, Serum 7.2 6.0-8.5 Albumin, Serum 3.7 3.5-5.5 Globulin, Total 3.5 1.5-4.5 A/G Ratio 1.1 1.2-2.2 Bilirubin, Total 0.3 0.0-1.2 Alkaline Phosphatase, S 67 39-117 AST (SGOT) 14 0-40 ALT (SGPT) 13 0-44 PROCEDURES Procedure Date Ordered Result Body Site MICROALBUMIN, SEMIQUANT Jan 26, 2017 LAB NOT BILLED BY [facility] Jan 26, 2017 VENIPUNCT, ROUTINE* Jan 26, 2017 INSTRUCTIONS MEDICATIONS ADMINISTERED No Known Medications MEDICAL (GENERAL) HISTORY Type Description Date Medical History chronic bronchitis Medical History pre -diabetec Medical History asthma Medical History sarcoidosis- Dx by Dr. Hancock in [place]- in 1989 Medical History ASCVD risk factor 9.5% Medical History Echo 10/2016--EF 50-55% Medical History COPD Surgical History left wrist and elbow surgery Surgical History lipoma removed from left leg Surgical History perirectal abscess removed Hospitalization History for COPD Hospitalization History for Pneumonia Hospitalization History mediastinoscopy and bronchoscopy in 1989 Hospitalization History [facility] [place]- Sore Throat and Fever 08/22/2017
--- OUTSIDE RECORDS SUMMARY | 2018-06-27 21:44 | XMS REPORT ---
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 Name Role Phone GRAYANGELIQUE Olivo Unavailable PROBLEMS Type Condition ICD9-CM Code XLH50-XB Code Onset Dates Condition Status SNOMED Code Problem Elevated LDL cholesterol level E78.00 Active 589503409 Problem Balanitis N48.1 Active 76618123 Problem Type 2 diabetes mellitus with hyperglycemia E11.65 Active 28049151 Problem Low HDL (under 40) E78.6 Active 239461844 Problem Elevated serum creatinine R79.89 Active 235152400 Problem Polyneuropathy associated with underlying disease G63 Active 492097075 Problem Essential hypertension I10 Active 89322055 Problem Personal history of sarcoidosis Z86.2 Active 037610824 Problem Anxiety disorder, unspecified F41.9 Active 146804095 Problem Morbid obesity due to excess calories E66.01 Active 273228758 Problem Cardiac murmur R01.1 Active 73541451 ALLERGIES No Information ENCOUNTERS Encounter Location Date Diagnosis [facility] [place] [id number] [place] [address] May, Type 2 diabetes mellitus with hyperglycemia E11.65 ; Essential hypertension I10 ; Morbid obesity due to excess calories E66.01 ; Elevated LDL cholesterol level E78.00 ; Polyneuropathy associated with underlying disease G63 ; BMI 60.0-69.9, adult Z68.44 ; Anxiety disorder, unspecified F41.9 and Encounter for immunization Z23 [facility] [place] [id number] [place] [address] Apr, [facility] [id number] [place] [phone] Apr, Dental examination Z01.20 [facility] [place] [id number] [place] [address] Mar, BMI 60.0-69.9, adult Z68.44 [place] [address] [place] [address]2565- [address] Feb, Type 2 diabetes mellitus with hyperglycemia E11.65 ; Essential hypertension I10 ; Morbid obesity due to excess calories E66.01 ; Elevated serum creatinine R79.89 and Polyneuropathy associated with underlying disease G63 [place] [id number] [place] [address]- [address] Jan, [place] [id number] [place] [address] 33822- 47[address] Jan, Elevated serum creatinine R79.89 [place] [id number] [place] [address] 56205- 6402 Jan, Type 2 diabetes mellitus with hyperglycemia E11.65 [place] [id number] [place] [address] 52799- 2638 Jan, Anxiety disorder, unspecified F41.9 [place] [id number] [place] [address] 82999- 4184 Jan, [place] [id number] [place] [address] 58922- [address]60 Jan, Type 2 diabetes mellitus with hyperglycemia E11.65 [place] [id number] [place] [address] 93112- 9265 Nov, [place] [id number] [place] [address] 65745- 7636 Nov, Type 2 diabetes mellitus with hyperglycemia E11.65 [place] [address] [place] [address] 35778- 3502 Nov, [place] [address] [place] [address] 75421- 4753 Nov, Type 2 diabetes mellitus with hyperglycemia E11.65 ; Essential hypertension I10 ; Low HDL (under 40) E78.6 ; Morbid obesity due to excess calories E66.01 ; Allergic contact dermatitis, unspecified trigger L23.9 and Dietary counseling Z71.3 [facility] [place] [id number] [address] Nov, [place] [id number] [place] [address] [phone] Oct, Morbid obesity due to excess calories E66.01 ; Essential hypertension I10 ; Cardiac murmur R01.1 and Personal history of sarcoidosis Z86.2 [place] [address] [place] [address] 78125- [address] 13 Oct, 2016 Encounter for routine adult health examination with abnormal findings Z00.01 ; Morbid obesity due to excess calories E66.01 ; Essential hypertension I10 ; Balanitis N48.1 ; Anxiety disorder, unspecified F41.9 ; Cardiac murmur R01.1 and Personal history of sarcoidosis Z86.2 [facility] [id number] [address] September, Atypical pneumonia J18.9 and Essential hypertension I10 IMMUNIZATIONS No Known Immunizations SOCIAL HISTORY Never Assessed REASON FOR VISIT Lab (walk-in) PLAN OF CARE VITAL SIGNS MEDICATIONS No Known Medications RESULTS No Results PROCEDURES Procedure Date Ordered Result Body Site LAB NOT BILLED BY [facility] November 16, 2016 GLYCATED HEMOGLOBIN TEST November 16, 2016 VENIPUNCT, ROUTINE* November 16, 2016 INSTRUCTIONS MEDICATIONS ADMINISTERED No Known Medications MEDICAL (GENERAL) HISTORY Type Description Date Medical History chronic bronchitis Medical History pre -diabetec Medical History asthma Medical History sarcoidosis- Dx by Dr. Hancock in [place]- in 1989 Medical History ASCVD risk factor 9.5% Medical History Echo 10/2016--EF 50-55% Medical History COPD Surgical History left wrist and elbow surgery Surgical History lipoma removed from left leg Surgical History perirectal abscess removed Hospitalization History for COPD Hospitalization History for Pneumonia Hospitalization History mediastinoscopy and bronchoscopy in 1989
--- OUTSIDE RECORDS SUMMARY | 2018-06-27 21:48 | XMS REPORT | Continuity of Care Document ---
Author Author [facility] Organization [facility] Address Unknown Phone Unavailable Allergies Active Description Code Type Severity Reaction Onset Reported/Identified Relationship to Patient Clinical Status Yes No Known Drug Allergies [id number] Drug Allergy Mild N/A 07/10/2009 Yes No Known Drug Allergies [id number] Drug Allergy Unknown N/A 03/30/2015 Yes azithromycin [id number] Drug Allergy Moderate Hives 03/31/2015 Medications There is no data. Problems Date Dx Coded Attending Type Code Diagnosis Diagnosed By 08/31/2010 Ot 041.4 E. COLI INFECT NOS 08/31/2010 Ot 250.00 DIAB KENNETH WO COMPL, TYPE II OR UNSPEC TY 08/31/2010 Ot 278.01 MORBID OBESITY 08/31/2010 Ot 566 ANAL RECTAL ABSCESS 08/31/2010 Ot 780.57 UNSPECIFIED SLEEP APNEA 08/31/2010 Ot V85.41 BODY MASS INDEX 40.0-44.9, ADULT 11/02/2010 Ot 916.4 INSECT BITE HIP LEG 11/02/2010 Ot E000.8 OTHER EXTERNAL CAUSE STATUS 11/02/2010 Ot E849.0 ACCIDENT IN HOME 11/02/2010 Ot E906.4 NONVENOM ARTHROPOD BITE 12/11/2010 Ot 041.00 BACTERIAL INFEC DUE TO UNSPECIFIED STREP 12/11/2010 Ot 041.11 METHICILLIN SUSCEPTIBLE STAPHYLOCOCCUS A 12/11/2010 Ot 041.4 E. COLI INFECT NOS 12/11/2010 Ot 041.6 PROTEUS INFECTION NOS 12/11/2010 Ot 135 SARCOIDOSIS 12/11/2010 Ot 250.60 DIAB W NEURO MANIFEST, TYPE II OR UNSPEC 12/11/2010 Ot 278.01 MORBID OBESITY 12/11/2010 Ot 311 DEPRESSIVE DISORDER NEC 12/11/2010 Ot 357.2 NEUROPATHY IN DIABETES 12/11/2010 Ot 493.90 ASTHMA, UNSPECIFIED 12/11/2010 Ot 682.2 CELLULITIS OF TRUNK 12/11/2010 Ot 780.57 UNSPECIFIED SLEEP APNEA 12/11/2010 Ot V85.43 BODY MASS INDEX 50.0-59.9, ADULT 04/11/2011 Ot 135 SARCOIDOSIS 04/11/2011 Ot 250.00 DIAB KENNETH WO COMPL, TYPE II OR UNSPEC TY 04/11/2011 Ot 278.01 MORBID OBESITY 04/11/2011 Ot 300.00 ANXIETY STATE NOS 04/11/2011 Ot 311 DEPRESSIVE DISORDER NEC 04/11/2011 Ot 327.23 OBSTRUCTIVE SLEEP APNEA (ADULT) (PEDIATR 04/11/2011 Ot 338.4 CHRONIC PAIN SYNDROME 04/11/2011 Ot 466.0 ACUTE BRONCHITIS 04/11/2011 Ot 493.90 ASTHMA, UNSPECIFIED 04/11/2011 Ot 704.8 HAIR DISEASES NEC 04/11/2011 Ot 786.59 CHEST PAIN NEC 04/11/2011 Ot V12.04 PERSONAL HIST OF METHICILLIN RESISTANT S 04/11/2011 Ot V85.43 BODY MASS INDEX 50.0-59.9, ADULT 12/03/2011 Ot 300.00 ANXIETY STATE NOS 12/03/2011 Ot V68.1 ISSUE REPEAT PRESCRIPT 04/04/2012 Ot 466.0 ACUTE BRONCHITIS 04/04/2012 Ot 786.05 SHORTNESS OF BREATH 05/12/2012 Ot 133.0 SCABIES 05/12/2012 Ot 782.1 NONSPECIF SKIN ERUPT NEC 05/19/2012 Ot 784.2 SWELLING IN HEAD NECK 05/19/2012 Ot 995.1 ANGIONEUROTIC EDEMA 10/22/2012 JOE MONTOYA, GARY [place] Ot 380.4 IMPACTED CERUMEN 05/30/2013 BETHANIE CAN DO Ot 038.9 SEPTICEMIA NOS 05/30/2013 BETHANIE CAN DO Ot 135 SARCOIDOSIS 05/30/2013 BETHANIE CAN DO Ot 250.60 DIAB W NEURO MANIFEST, TYPE II OR UNSPEC 05/30/2013 BETHANIE CAN DO Ot 278.01 MORBID OBESITY 05/30/2013 BETHANIE CAN DO Ot 285.9 ANEMIA NOS 05/30/2013 BETHANIE CAN DO Ot 311 DEPRESSIVE DISORDER NEC 05/30/2013 BETHANIE CAN DO Ot 327.23 OBSTRUCTIVE SLEEP APNEA (ADULT) (PEDIATR 05/30/2013 BETHANIE CAN DO Ot 357.2 NEUROPATHY IN DIABETES 05/30/2013 BETHANIE CAN DO Ot 401.9 HYPERTENSION NOS 05/30/2013 BETHANIE CAN DO Ot 493.92 ASTHMA, UNSPECIFIED, W (ACUTE) EXACERBAT 05/30/2013 BETHANIE CAN DO Ot 680.9 CARBUNCLE NOS 05/30/2013 BETHANIE CAN DO Ot 682.2 CELLULITIS OF TRUNK 05/30/2013 BETHANIE CAN DO Ot 682.6 CELLULITIS OF LEG 05/30/2013 BETHANIE CAN DO Ot 995.91 SEPSIS 05/30/2013 BETHANIE CAN DO, Ot V04.81 ND FOR PROPHYLACTIC VACCIN AND INOCULATI 05/30/2013 BETHANIE CAN DO, Ot V12.04 PERSONAL HIST OF METHICILLIN RESISTANT S 05/30/2013 BETHANIE CAN DO, Ot V85.44 BODY MASS INDEX 60.0-69.9, ADULT 04/13/2014 RUPALI MONTOYA, ANT Jimenez Ot 465.9 ACUTE URI NOS 04/13/2014 ANT ZAPIEN MD Ot 709.9 SKIN DISORDER NOS 04/13/2014 ANT ZAPIEN MD Ot 786.2 COUGH 10/23/2014 NELSON PADILLA Ot 388.70 10/23/2014 NELSON PADILLA Ot 465.9 01/29/2015 FUENTES YING DO Ot 784.2 03/26/2015 CAMILLE TITUS APRN Ot S89.92XA UNSPECIFIED INJURY OF LEFT LOWER LEG, IN 03/26/2015 CAMILLE TITUS APRN Ot W01.0XXA FALL SAME LEV FROM SLIP/TRIP W/O STRIKE 03/26/2015 CAMILLE TITUS APRN Ot Y99.8 OTHER EXTERNAL CAUSE STATUS 03/28/2015 WILLARD SANTIAGO MD, Ot J06.9 ACUTE UPPER RESPIRATORY INFECTION, UNSPE 03/28/2015 WILLARD SANTIAGO MD, Ot J40 BRONCHITIS, NOT SPECIFIED ACUTE OR CH 03/31/2015 BETHANIE CAN DO Ot B37.2 CANDIDIASIS OF SKIN AND NAIL 03/31/2015 BETHANIE CAN DO, Ot D86.9 SARCOIDOSIS, UNSPECIFIED 03/31/2015 BETHANIE CAN DO Ot E11.9 TYPE 2 DIABETES MELLITUS WITHOUT COMPLIC 03/31/2015 BETHANIE CAN DO Ot E66.01 MORBID (SEVERE) OBESITY DUE TO EXCESS CA 03/31/2015 BETHANIE CAN DO, Ot F32.9 MAJOR DEPRESSIVE DISORDER, SINGLE EPISOD 03/31/2015 BETHANIE CAN DO, Ot G47.33 OBSTRUCTIVE SLEEP APNEA (ADULT) (PEDIATR 03/31/2015 BETHANIE CAN DO Ot I10 ESSENTIAL (PRIMARY) HYPERTENSION 03/31/2015 BETHANIE CAN DO, Ot J40 BRONCHITIS, NOT SPECIFIED ACUTE OR CH 03/31/2015 BETHANIE CAN DO Ot L50.0 ALLERGIC URTICARIA 03/31/2015 BETHANIE CAN DO, Ot M19.90 UNSPECIFIED OSTEOARTHRITIS, UNSPECIFIED 03/31/2015 BETHANIE CAN DO, Ot Z23 ENCOUNTER FOR IMMUNIZATION 03/31/2015 BETHANIE CAN DO, Ot Z68.44 BODY MASS INDEX (BMI) 60.0-69.9, ADULT 04/08/2015 BETHANIE CAN DO, Ot B37.2 CANDIDIASIS OF SKIN AND NAIL 04/08/2015 BETHANIE CAN DO, Ot D86.9 SARCOIDOSIS, UNSPECIFIED 04/08/2015 BETHANIE CAN DO Ot E11.65 TYPE 2 DIABETES MELLITUS WITH HYPERGLYCE 04/08/2015 BETHANIE CAN DO Ot E66.01 MORBID (SEVERE) OBESITY DUE TO EXCESS CA 04/08/2015 BETHANIE CAN DO, Ot F32.9 MAJOR DEPRESSIVE DISORDER, SINGLE EPISOD 04/08/2015 BETHANIE CAN DO, Ot G47.33 OBSTRUCTIVE SLEEP APNEA (ADULT) (PEDIATR 04/08/2015 BETHANIE CAN DO Ot I10 ESSENTIAL (PRIMARY) HYPERTENSION 04/08/2015 BETHANIE CAN DO, Ot J40 BRONCHITIS, NOT SPECIFIED ACUTE OR CH 04/08/2015 BETHANIE CAN DO, Ot L50.0 ALLERGIC URTICARIA 04/08/2015 BETHANIE CAN DO, Ot M19.90 UNSPECIFIED OSTEOARTHRITIS, UNSPECIFIED 04/08/2015 BETHANIE CAN DO, Ot T36.3X5A ADVERSE EFFECT OF MACROLIDES, INITIAL EN 04/08/2015 BETHANIE CAN DO, Ot T38.0X5A ADVERSE EFFECT OF GLUCOCORT/SYNTH ANALOG 08/08/2015 IAM MONTOYA, BAUTISTA Fowler Ot D86.9 SARCOIDOSIS, UNSPECIFIED 08/08/2015 IAM MONTOYA, BAUTISTA S Ot E11.9 TYPE 2 DIABETES MELLITUS WITHOUT COMPLIC 08/08/2015 IAM MONTOYA, BAUTISTA Fowler Ot J44.9 CHRONIC OBSTRUCTIVE PULMONARY DISEASE, U 08/08/2015 IAM MONTOYA, BAUTISTA S Ot L50.0 ALLERGIC URTICARIA 08/08/2015 IAM MONTOYA, BAUTISTA Fowler Ot N48.1 BALANITIS 08/10/2015 IAM MONTOYA, BAUTISTA S Ot D86.9 08/10/2015 IAM MONTOYA, BAUTISTA S Ot E11.9 08/10/2015 IAM MONTOYA, BAUTISTA Fowler Ot J44.9 08/10/2015 IAM MONTOYA, BAUTISTA S Ot L50.0 08/10/2015 IAM MONTOYA, BAUTISTA S Ot N48.1 09/02/2015 IAM MONTOYA, BAUTISTA S Ot D86.9 09/02/2015 IAM MONTOYA, BAUTISTA Fowler Ot E11.9 09/02/2015 IAM MONTOYA, BAUTISTA Fowler Ot J44.9 09/02/2015 IAM MONTOYA, BAUTISTA Fowler Ot L50.0 09/02/2015 IAM MONTOYA, BAUTISTA Fowler Ot N48.1 10/27/2015 Ot 566 12/14/2015 PHYLLIS MELVIN MD Ot B37.2 CANDIDIASIS OF SKIN AND NAIL 12/14/2015 PHYLLIS MELVIN MD Ot E11.9 TYPE 2 DIABETES MELLITUS WITHOUT COMPLIC 12/14/2015 PHYLLIS MELVIN MD Ot E66.01 MORBID (SEVERE) OBESITY DUE TO EXCESS CA 12/14/2015 PHYLLIS MELVIN MD Ot M25.561 PAIN IN RIGHT KNEE 12/15/2015 PHYLLIS MELVIN MD Ot B37.2 CANDIDIASIS OF SKIN AND NAIL 12/15/2015 PHYLLIS MELVIN MD Ot E11.9 TYPE 2 DIABETES MELLITUS WITHOUT COMPLIC 12/15/2015 PHYLLIS MELVIN MD Ot E66.01 MORBID (SEVERE) OBESITY DUE TO EXCESS CA 12/15/2015 PHYLLIS MELVIN MD Ot M25.561 PAIN IN RIGHT KNEE 02/16/2016 NELSON PADILLA Ot E11.9 TYPE 2 DIABETES MELLITUS WITHOUT COMPLIC 02/16/2016 NELSON PADILLA Ot I10 ESSENTIAL (PRIMARY) HYPERTENSION 02/16/2016 BRITTNEY PA, NELSON L Ot J02.9 ACUTE PHARYNGITIS, UNSPECIFIED 02/16/2016 NELSON PADILLA Ot J20.9 ACUTE BRONCHITIS, UNSPECIFIED 02/16/2016 NELSON PADILLA Ot J44.9 CHRONIC OBSTRUCTIVE PULMONARY DISEASE, U 02/16/2016 NELSON PADILLA Ot R09.81 NASAL CONGESTION 02/16/2016 NELSON PADILLA Ot Z79.899 OTHER FORM WORKER (CURRENT) DRUG THERAPY 02/17/2016 NELSON PADILLA Ot E11.9 TYPE 2 DIABETES MELLITUS WITHOUT COMPLIC 02/17/2016 NELSON PADILLA Ot I10 ESSENTIAL (PRIMARY) HYPERTENSION 02/17/2016 NELSON PADILLA Ot J02.9 ACUTE PHARYNGITIS, UNSPECIFIED 02/17/2016 NELSON PADILLA Ot J20.9 ACUTE BRONCHITIS, UNSPECIFIED 02/17/2016 NELSON PADILLA Ot J44.9 CHRONIC OBSTRUCTIVE PULMONARY DISEASE, U 02/17/2016 NELSON PADILLA Ot R09.81 NASAL CONGESTION 02/17/2016 NELSON PADILLA Ot Z79.899 OTHER FORM WORKER (CURRENT) DRUG THERAPY 02/17/2016 CAMILLE TITUS APRN Ot E11.9 TYPE 2 DIABETES MELLITUS WITHOUT COMPLIC 02/17/2016 CAMILLE TITUS APRN Ot I10 ESSENTIAL (PRIMARY) HYPERTENSION 02/17/2016 CAMILLE TITUS APRN Ot J44.0 CHRONIC OBSTRUCTIVE PULMON DISEASE W ACU 02/17/2016 CAMILLE TITUS APRN Ot L50.0 ALLERGIC URTICARIA 02/17/2016 CAMILLE TITUS APRN Ot R22.0 LOCALIZED SWELLING, MASS AND LUMP, HEAD 02/17/2016 CAMILLE TITUS APRN Ot T78.40XA ALLERGY, UNSPECIFIED, INITIAL ENCOUNTER 02/17/2016 CAMILLE TITUS APRN Ot Z79.899 OTHER FORM WORKER (CURRENT) DRUG THERAPY 02/18/2016 CAMILLE TITUS APRN Ot E11.9 TYPE 2 DIABETES MELLITUS WITHOUT COMPLIC 02/18/2016 CAMILLE TITUS APRN Ot I10 ESSENTIAL (PRIMARY) HYPERTENSION 02/18/2016 CAMILLE TITUS APRN Ot J44.0 CHRONIC OBSTRUCTIVE PULMON DISEASE W ACU 02/18/2016 TITUS, PETER J PETROLEUM SAMPLER Ot L50.0 ALLERGIC URTICARIA 02/18/2016 CAMILLE TITUS PETROLEUM SAMPLER Ot R22.0 LOCALIZED SWELLING, MASS AND LUMP, HEAD 02/18/2016 CAMILLE TITUS PETROLEUM SAMPLER Ot T78.40XA ALLERGY, UNSPECIFIED, INITIAL ENCOUNTER 02/18/2016 CAMILLE TITUS APRN Ot Z79.899 OTHER FORM WORKER (CURRENT) DRUG THERAPY 02/18/2016 CAMILLE TITUS PETROLEUM SAMPLER Ot E11.9 TYPE 2 DIABETES MELLITUS WITHOUT COMPLIC 02/18/2016 CAMILLE TITUS PETROLEUM SAMPLER Ot I10 ESSENTIAL (PRIMARY) HYPERTENSION 02/18/2016 CAMILLE TITUS PETROLEUM SAMPLER Ot J44.0 CHRONIC OBSTRUCTIVE PULMON DISEASE W ACU 02/18/2016 CAMILLE TITUS APRN Ot L50.0 ALLERGIC URTICARIA 02/18/2016 CAMILLE TITUS PETROLEUM SAMPLER Ot R22.0 LOCALIZED SWELLING, MASS AND LUMP, HEAD 02/18/2016 CAMILLE TITUS APRN Ot T78.40XA ALLERGY, UNSPECIFIED, INITIAL ENCOUNTER 02/18/2016 CAMILLE TITUS PETROLEUM SAMPLER Ot Z79.899 OTHER [facility]DC (CURRENT) DRUG THERAPY 02/23/2016 CAMILLE TITUS PETROLEUM SAMPLER Ot E11.9 TYPE 2 DIABETES MELLITUS WITHOUT COMPLIC 02/23/2016 CAMILLE TITUS PETROLEUM SAMPLER Ot I10 ESSENTIAL (PRIMARY) HYPERTENSION 02/23/2016 CAMILLE TITUS PETROLEUM SAMPLER Ot J44.0 CHRONIC OBSTRUCTIVE PULMON DISEASE W ACU 02/23/2016 CAMILLE TIUTS APRN Ot L50.0 ALLERGIC URTICARIA 02/23/2016 CAMILLE TITUS PETROLEUM SAMPLER Ot R22.0 LOCALIZED SWELLING, MASS AND LUMP, HEAD 02/23/2016 CAMILLE TITUS PETROLEUM SAMPLER Ot T78.40XA ALLERGY, UNSPECIFIED, INITIAL ENCOUNTER 02/23/2016 CAMILLE TITUS PETROLEUM SAMPLER Ot Z79.899 OTHER FORM WORKER (CURRENT) DRUG THERAPY 03/15/2016 WILLARD SANTIAGO MD Ot D86.9 SARCOIDOSIS, UNSPECIFIED 03/15/2016 WILLARD SANTIAGO MD Ot E11.9 TYPE 2 DIABETES MELLITUS WITHOUT COMPLIC 03/15/2016 WILLARD SANTIAGO MD Ot E66.01 MORBID (SEVERE) OBESITY DUE TO EXCESS CA 03/15/2016 WILLARD SANTIAGO MD Ot G47.33 OBSTRUCTIVE SLEEP APNEA (ADULT) (PEDIATR 03/15/2016 WILLARD SANTIAGO MD Ot G89.29 OTHER CHRONIC PAIN 03/15/2016 WILLARD SANTIAGO MD Ot I10 ESSENTIAL (PRIMARY) HYPERTENSION 03/15/2016 WILLARD SANTIAGO MD Ot J44.9 CHRONIC OBSTRUCTIVE PULMONARY DISEASE, U 03/15/2016 WILLARD SANTIAGO MD Ot K21.9 GASTRO-ESOPHAGEAL REFLUX DISEASE WITHOUT 03/15/2016 WILLARD SANTIAGO MD Ot M79.661 PAIN IN RIGHT LOWER LEG 03/15/2016 WILLARD SANTIAGO MD, Ot M79.662 PAIN IN LEFT LOWER LEG 03/15/2016 WILLARD SANTIAGO MD Ot R06.00 DYSPNEA, UNSPECIFIED 03/15/2016 WILLARD SANTIAGO MD Ot R07.9 CHEST PAIN, UNSPECIFIED 03/15/2016 WILLARD SANTIAGO MD Ot Z23 ENCOUNTER FOR IMMUNIZATION 03/15/2016 WILLARD SANTIAGO MD Ot Z68.44 BODY MASS INDEX (BMI) 60.0-69.9, ADULT 05/25/2016 STEPAN DO, FUENTES K Ot E66.01 MORBID (SEVERE) OBESITY DUE TO EXCESS CA 05/25/2016 STEPAN DO, FUENTES K Ot I10 ESSENTIAL (PRIMARY) HYPERTENSION 05/25/2016 STEPAN DO, FUENTES K Ot J02.9 ACUTE PHARYNGITIS, UNSPECIFIED 05/25/2016 STEPAN DO FUENTES K Ot J44.9 CHRONIC OBSTRUCTIVE PULMONARY DISEASE, U 05/25/2016 STEPAN DO, FUENTES K Ot L30.9 DERMATITIS, UNSPECIFIED 05/25/2016 STEPAN DO, FUENTES K Ot Z79.899 OTHER FORM WORKER (CURRENT) DRUG THERAPY 05/26/2016 STEPAN DO, FUENTES K Ot E66.01 MORBID (SEVERE) OBESITY DUE TO EXCESS CA 05/26/2016 STEPAN DO, FUENTES K Ot I10 ESSENTIAL (PRIMARY) HYPERTENSION 05/26/2016 STEPAN DO, FUNETES K Ot J02.9 ACUTE PHARYNGITIS, UNSPECIFIED 05/26/2016 STEPAN DO, FUENTES K Ot J44.9 CHRONIC OBSTRUCTIVE PULMONARY DISEASE, U 05/26/2016 STEPAN DO, FUENTES K Ot L30.9 DERMATITIS, UNSPECIFIED 05/26/2016 FUENTES YING DO Ot Z79.899 OTHER [facility] (CURRENT) DRUG THERAPY 05/27/2016 FUENTES YING DO Ot E66.01 MORBID (SEVERE) OBESITY DUE TO EXCESS CA 05/27/2016 FUENTES YING DO Ot I10 ESSENTIAL (PRIMARY) HYPERTENSION 05/27/2016 FUENTES YING DO Ot J02.9 ACUTE PHARYNGITIS, UNSPECIFIED 05/27/2016 STEPAN FUENTES WATT Ot J44.9 CHRONIC OBSTRUCTIVE PULMONARY DISEASE, U 05/27/2016 FUENTES YING DO Ot L30.9 DERMATITIS, UNSPECIFIED 05/27/2016 FUENTES YING DO Ot Z79.899 OTHER FORM WORKER (CURRENT) DRUG THERAPY 05/28/2016 Ot 566 ANAL RECTAL ABSCESS 05/28/2016 Ot 569.42 ANAL OR RECTAL PAIN 10/16/2016 CAMILLE TITUS APRN Ot E11.9 TYPE 2 DIABETES MELLITUS WITHOUT COMPLIC 10/16/2016 CAMILLE TITUS APRN Ot E66.01 MORBID (SEVERE) OBESITY DUE TO EXCESS CA 10/16/2016 CAMILLE TITUS APRN Ot I10 ESSENTIAL (PRIMARY) HYPERTENSION 10/16/2016 CAMILLE TITUS APRN Ot J18.9 PNEUMONIA, UNSPECIFIED ORGANISM 10/16/2016 CAMILLE TITUS APRN Ot J44.9 CHRONIC OBSTRUCTIVE PULMONARY DISEASE, U 10/16/2016 CAMILLE TITUS APRN Ot R05 COUGH 10/16/2016 CAMILLE TITUS APRN Ot Z79.84 FORM WORKER (CURRENT) USE OF ORAL HYPOGLYC 10/16/2016 CAMILLE TITUS APRN Ot Z79.899 OTHER FORM WORKER (CURRENT) DRUG THERAPY 10/18/2016 CAMILLE TITUS APRN Ot E11.9 TYPE 2 DIABETES MELLITUS WITHOUT COMPLIC 10/18/2016 CAMILLE TITUS APRN Ot E66.01 MORBID (SEVERE) OBESITY DUE TO EXCESS CA 10/18/2016 CAMILLE TITUS APRN Ot I10 ESSENTIAL (PRIMARY) HYPERTENSION 10/18/2016 CAMILLE TITUS APRN Ot J18.9 PNEUMONIA, UNSPECIFIED ORGANISM 10/18/2016 CAMILLE TITUS APRN Ot J44.9 CHRONIC OBSTRUCTIVE PULMONARY DISEASE, U 10/18/2016 CAMILLE ITTUS APRN Ot R05 COUGH 10/18/2016 CAMILLE TITUS PETROLEUM SAMPLER Ot Z79.84 FDC (CURRENT) USE OF ORAL HYPOGLYC 10/18/2016 CAMILLE TITUS PETROLEUM SAMPLER Ot Z79.899 OTHER FDC (CURRENT) DRUG THERAPY 12/14/2016 ANGELIQUE GRAY PETROLEUM SAMPLER Ot I10 ESSENTIAL (PRIMARY) HYPERTENSION 12/14/2016 ANGELIQUE GRAY PETROLEUM SAMPLER Ot R01.1 CARDIAC MURMUR, UNSPECIFIED 12/14/2016 ANGELIQUE GRAY PETROLEUM SAMPLER Ot Z00.01 ENCOUNTER FOR GENERAL ADULT MEDICAL EXAM 12/26/2016 Ot 566 ANAL RECTAL ABSCESS 12/26/2016 Ot 569.42 ANAL OR RECTAL PAIN 02/25/2017 Ot 566 ANAL RECTAL ABSCESS 02/25/2017 Ot 569.42 ANAL OR RECTAL PAIN 08/22/2017 NELSON PADILLA Ot E11.40 TYPE 2 DIABETES MELLITUS WITH DIABETIC N 08/22/2017 NELSON PADILLA Ot E66.01 MORBID (SEVERE) OBESITY DUE TO EXCESS CA 08/22/2017 NELSON PADILLA Ot F41.9 ANXIETY DISORDER, UNSPECIFIED 08/22/2017 NELSON PADILLA Ot G47.30 SLEEP APNEA, UNSPECIFIED 08/22/2017 NELSON PADILLA Ot I10 ESSENTIAL (PRIMARY) HYPERTENSION 08/22/2017 NELSON PADILLA Ot J02.8 ACUTE PHARYNGITIS DUE TO OTHER SPECIFIED 08/22/2017 NELSON PADILLA Ot J44.9 CHRONIC OBSTRUCTIVE PULMONARY DISEASE, U 08/22/2017 NELSON PADILLA Ot K21.9 GASTRO-ESOPHAGEAL REFLUX DISEASE WITHOUT 08/22/2017 NELSON PADILLA Ot R07.0 PAIN IN THROAT 08/22/2017 NELSON PADILLA Ot R21 RASH AND OTHER NONSPECIFIC SKIN ERUPTION 08/22/2017 NELSON PADILLA Ot R60.0 LOCALIZED EDEMA 08/22/2017 NELSON PADILLA Ot Z79.52 FORM WORKER (CURRENT) USE OF SYSTEMIC STER 08/22/2017 NELSON PADILLA Ot Z87.2 PERSONAL HISTORY OF DISEASES OF THE SKIN 08/22/2017 NELSON PADILLA Ot Z88.1 ALLERGY STATUS TO OTHER ANTIBIOTIC AGENT 08/22/2017 NELSON PADILLA Ot Z98.890 OTHER SPECIFIED POSTPROCEDURAL STATES 08/24/2017 NELSON PADILLA Ot E11.40 TYPE 2 DIABETES MELLITUS WITH DIABETIC N 08/24/2017 NELSON PADILLA Ot E66.01 MORBID (SEVERE) OBESITY DUE TO EXCESS CA 08/24/2017 NELSON PADILLA Ot F41.9 ANXIETY DISORDER, UNSPECIFIED 08/24/2017 NELSON PADILLA Ot G47.30 SLEEP APNEA, UNSPECIFIED 08/24/2017 NELSON PADILLA Ot I10 ESSENTIAL (PRIMARY) HYPERTENSION 08/24/2017 NELSON PADILLA Ot J02.8 ACUTE PHARYNGITIS DUE TO OTHER SPECIFIED 08/24/2017 NELSON PADILLA Ot J44.9 CHRONIC OBSTRUCTIVE PULMONARY DISEASE, U 08/24/2017 NELSON PADILLA Ot K21.9 GASTRO-ESOPHAGEAL REFLUX DISEASE WITHOUT 08/24/2017 NELSON PADILLA Ot R07.0 PAIN IN THROAT 08/24/2017 NELSON PADILLA Ot R21 RASH AND OTHER NONSPECIFIC SKIN ERUPTION 08/24/2017 NELSON PADILLA Ot R60.0 LOCALIZED EDEMA 08/24/2017 NELSON PADILLA Ot Z79.52 FORM WORKER (CURRENT) USE OF SYSTEMIC STER 08/24/2017 NELSON PADILLA Ot Z87.2 PERSONAL HISTORY OF DISEASES OF THE SKIN 08/24/2017 NELSON PADILLA Ot Z88.1 ALLERGY STATUS TO OTHER ANTIBIOTIC AGENT 08/24/2017 NELSON PADILLA Ot Z98.890 OTHER SPECIFIED POSTPROCEDURAL STATES 09/10/2017 ANGELIQUE GRAY APRN Ot I10 ESSENTIAL (PRIMARY) HYPERTENSION 09/10/2017 ANGELIQUE GRAY PETROLEUM SAMPLER Ot R01.1 CARDIAC MURMUR, UNSPECIFIED 09/10/2017 ANGELIQUE GRAY APRN Ot Z00.01 ENCOUNTER FOR GENERAL ADULT MEDICAL EXAM 09/10/2017 SABINA YANG MD Ot E11.40 TYPE 2 DIABETES MELLITUS WITH DIABETIC N 09/10/2017 SABINA YANG MD Ot E66.01 MORBID (SEVERE) OBESITY DUE TO EXCESS CA 09/10/2017 SABINA YANG MD Ot F41.9 ANXIETY DISORDER, UNSPECIFIED 09/10/2017 SABINA YANG MD Ot G47.30 SLEEP APNEA, UNSPECIFIED 09/10/2017 SABINA YANG MD Ot I10 ESSENTIAL (PRIMARY) HYPERTENSION 09/10/2017 SABINA YANG MD Ot J44.9 CHRONIC OBSTRUCTIVE PULMONARY DISEASE, U 09/10/2017 SABINA YANG MD Ot K21.9 GASTRO-ESOPHAGEAL REFLUX DISEASE WITHOUT 09/10/2017 SABINA YANG MD Ot R22.0 LOCALIZED SWELLING, MASS AND LUMP, HEAD 09/10/2017 SABINA YANG MD Ot T78.3XXA ANGIONEUROTIC EDEMA, INITIAL ENCOUNTER 09/10/2017 SABINA YANG MD Ot Z68.44 BODY MASS INDEX (BMI) 60.0-69.9, ADULT 09/10/2017 SABINA YANG MD Ot Z87.09 PERSONAL HISTORY OF OTHER DISEASES OF 09/10/2017 SABINA YANG MD Ot Z87.19 PERSONAL HISTORY OF OTHER DISEASES OF 09/10/2017 SABINA YANG MD Ot Z87.2 PERSONAL HISTORY OF DISEASES OF THE SKIN 09/12/2017 SABINA YANG MD Ot E11.40 TYPE 2 DIABETES MELLITUS WITH DIABETIC N 09/12/2017 SABINA YANG MD Ot E66.01 MORBID (SEVERE) OBESITY DUE TO EXCESS CA 09/12/2017 SABINA YANG MD Ot F41.9 ANXIETY DISORDER, UNSPECIFIED 09/12/2017 SABINA YANG MD Ot G47.30 SLEEP APNEA, UNSPECIFIED 09/12/2017 SABINA YANG MD Ot I10 ESSENTIAL (PRIMARY) HYPERTENSION 09/12/2017 SABINA YANG MD Ot J44.9 CHRONIC OBSTRUCTIVE PULMONARY DISEASE, U 09/12/2017 SABINA YANG MD Ot K21.9 GASTRO-ESOPHAGEAL REFLUX DISEASE WITHOUT 09/12/2017 SABINA YANG MD Ot R22.0 LOCALIZED SWELLING, MASS AND LUMP, HEAD 09/12/2017 SABINA YANG MD Ot T78.3XXA ANGIONEUROTIC EDEMA, INITIAL ENCOUNTER 09/12/2017 SABINA YANG MD Ot Z68.44 BODY MASS INDEX (BMI) 60.0-69.9, ADULT 09/12/2017 SABINA YANG MD Ot Z87.09 PERSONAL HISTORY OF OTHER DISEASES OF 09/12/2017 CELIA MONTOYA, SABINA Moreno Ot Z87.19 PERSONAL HISTORY OF OTHER DISEASES OF 09/12/2017 CELIA MONTOYA, SABINA Moreno Ot Z87.2 PERSONAL HISTORY OF DISEASES OF THE SKIN Procedures Code Description Performed By Performed On 48.81 PERIRECTAL INCISION 08/28/2010 86.04 12/09/2010 Results Test Result Range Complete blood count (CBC) with automated white blood cell (WBC) differential - 02/16/16 19:36 Blood leukocytes automated count (number/volume) 12.9 10*3/uL 4.3-11.0 Blood erythrocytes automated count (number/volume) 5.18 10*6/uL 4.35-5.85 Venous blood hemoglobin measurement (mass/volume) 13.2 g/dL 13.3-17.7 Blood hematocrit (volume fraction) 41 % 40-54 Automated erythrocyte mean corpuscular volume 79 [foz_us] 80-99 Automated erythrocyte mean corpuscular hemoglobin (mass per erythrocyte) 26 pg 25-34 Automated erythrocyte mean corpuscular hemoglobin concentration measurement ( mass/volume) 32 g/dL 32-36 Automated erythrocyte distribution width ratio 14.7 % 10.0-14.5 Automated blood platelet count (count/volume) 274 10*3/uL 130-400 Automated blood platelet mean volume measurement 10.0 [foz_us] 7.4-10.4 Automated blood neutrophils/100 leukocytes 79 % 42-75 Automated blood lymphocytes/100 leukocytes 11 % 12-44 Blood monocytes/100 leukocytes 6 % 0-12 Automated blood eosinophils/100 leukocytes 5 % 0-10 Automated blood basophils/100 leukocytes 0 % 0-10 Blood neutrophils automated count (number/volume) 10.2 10*3 1.8-7.8 Blood lymphocytes automated count (number/volume) 1.4 10*3 1.0-4.0 Blood monocytes automated count (number/volume) 0.7 10*3 0.0-1.0 Automated eosinophil count 0.6 10*3/uL 0.0-0.3 Automated blood basophil count (count/volume) 0.0 10*3/uL 0.0-0.1 Comprehensive metabolic panel - 02/16/16 19:36 Serum or plasma sodium measurement (moles/volume) 138 mmol/L 135-145 Serum or plasma potassium measurement (moles/volume) 3.7 mmol/L 3.6-5.0 Serum or plasma chloride measurement (moles/volume) 103 mmol/L 98-107 Carbon dioxide 24 mmol/L 21-32 Serum or plasma anion gap determination (moles/volume) 11 mmol/L 5-14 Serum or plasma urea nitrogen measurement (mass/volume) 10 mg/dL 7-18 Serum or plasma creatinine measurement (mass/volume) 1.06 mg/dL 0.60-1.30 Serum or plasma urea nitrogen/creatinine mass ratio 9 NRG Serum or plasma creatinine measurement with calculation of estimated glomerular filtration rate > NRG Serum or plasma glucose measurement (mass/volume) 175 mg/dL 70-105 Serum or plasma calcium measurement (mass/volume) 9.3 mg/dL 8.5-10.1 Serum or plasma total bilirubin measurement (mass/volume) 0.4 mg/dL 0.1-1.0 Serum or plasma alkaline phosphatase measurement (enzymatic activity/volume) 68 U/L 40-136 Serum or plasma aspartate aminotransferase measurement (enzymatic activity/ volume) 11 U/L 5-34 Serum or plasma alanine aminotransferase measurement (enzymatic activity/volume ) 11 U/L 0-55 Serum or plasma protein measurement (mass/volume) 7.5 g/dL 6.4-8.2 Serum or plasma albumin measurement (mass/volume) 3.7 g/dL 3.2-4.5 Serum or plasma C reactive protein measurement (mass/volume) - 02/16/16 19:36 Serum or plasma C reactive protein measurement (mass/volume) 2.61 mg /dL 0.00-0.50 Complete blood count (CBC) with automated white blood cell (WBC) differential - 02/17/16 15:33 Blood leukocytes automated count (number/volume) 18.0 10*3/uL 4.3-11.0 Blood erythrocytes automated count (number/volume) 5.46 10*6/uL 4.35-5.85 Venous blood hemoglobin measurement (mass/volume) 14.1 g/dL 13.3-17.7 Blood hematocrit (volume fraction) 43 % 40-54 Automated erythrocyte mean corpuscular volume 79 [foz_us] 80-99 Automated erythrocyte mean corpuscular hemoglobin (mass per erythrocyte) 26 pg 25-34 Automated erythrocyte mean corpuscular hemoglobin concentration measurement ( mass/volume) 33 g/dL 32-36 Automated erythrocyte distribution width ratio 14.9 % 10.0-14.5 Automated blood platelet count (count/volume) 294 10*3/uL 130-400 Automated blood platelet mean volume measurement 9.9 [foz_us] 7.4-10.4 Automated blood neutrophils/100 leukocytes 93 % 42-75 Automated blood lymphocytes/100 leukocytes 4 % 12-44 Blood monocytes/100 leukocytes 2 % 0-12 Automated blood eosinophils/100 leukocytes 1 % 0-10 Automated blood basophils/100 leukocytes 0 % 0-10 Blood neutrophils automated count (number/volume) 16.7 10*3 1.8-7.8 Blood lymphocytes automated count (number/volume) 0.8 10*3 1.0-4.0 Blood monocytes automated count (number/volume) 0.3 10*3 0.0-1.0 Automated eosinophil count 0.1 10*3/uL 0.0-0.3 Automated blood basophil count (count/volume) 0.0 10*3/uL 0.0-0.1 Whole blood basic metabolic panel - 02/17/16 15:33 Serum or plasma sodium measurement (moles/volume) 136 mmol/L 135-145 Serum or plasma potassium measurement (moles/volume) 4.4 mmol/L 3.6-5.0 Serum or plasma chloride measurement (moles/volume) 101 mmol/L 98-107 Carbon dioxide 22 mmol/L 21-32 Serum or plasma anion gap determination (moles/volume) 13 mmol/L 5-14 Serum or plasma urea nitrogen measurement (mass/volume) 12 mg/dL 7-18 Serum or plasma creatinine measurement (mass/volume) 1.06 mg/dL 0.60-1.30 Serum or plasma urea nitrogen/creatinine mass ratio 11 NRG Serum or plasma creatinine measurement with calculation of estimated glomerular filtration rate > NRG Serum or plasma glucose measurement (mass/volume) 160 mg/dL 70-105 Serum or plasma calcium measurement (mass/volume) 9.8 mg/dL 8.5-10.1 Blood manual differential performed detection - 02/17/16 15:33 Blood monocytes/100 leukocytes 1 % NRG Manual blood segmented neutrophils/100 leukocytes 90 % NRG Blood band neutrophils/100 leukocytes 1 % NRG Manual blood lymphocytes/100 leukocytes 7 % NRG Manual eosinophils/100 leukocytes in nose 0 % NRG Manual blood basophils/100 leukocytes 1 % NRG Blood erythrocyte morphology finding identification NORMAL NRG Complete blood count (CBC) with automated white blood cell (WBC) differential - 03/14/16 19:12 Blood leukocytes automated count (number/volume) 9.6 10*3/uL 4.3-11.0 Blood erythrocytes automated count (number/volume) 4.76 10*6/uL 4.35-5.85 Venous blood hemoglobin measurement (mass/volume) 12.4 g/dL 13.3-17.7 Blood hematocrit (volume fraction) 38 % 40-54 Automated erythrocyte mean corpuscular volume 80 [foz_us] 80-99 Automated erythrocyte mean corpuscular hemoglobin (mass per erythrocyte) 26 pg 25-34 Automated erythrocyte mean corpuscular hemoglobin concentration measurement ( mass/volume) 33 g/dL 32-36 Automated erythrocyte distribution width ratio 14.8 % 10.0-14.5 Automated blood platelet count (count/volume) 270 10*3/uL 130-400 Automated blood platelet mean volume measurement 9.8 [foz_us] 7.4-10.4 Automated blood neutrophils/100 leukocytes 69 % 42-75 Automated blood lymphocytes/100 leukocytes 19 % 12-44 Blood monocytes/100 leukocytes 6 % 0-12 Automated blood eosinophils/100 leukocytes 6 % 0-10 Automated blood basophils/100 leukocytes 0 % 0-10 Blood neutrophils automated count (number/volume) 6.7 10*3 1.8-7.8 Blood lymphocytes automated count (number/volume) 1.8 10*3 1.0-4.0 Blood monocytes automated count (number/volume) 0.6 10*3 0.0-1.0 Automated eosinophil count 0.5 10*3/uL 0.0-0.3 Automated blood basophil count (count/volume) 0.0 10*3/uL 0.0-0.1 Comprehensive metabolic panel - 03/14/16 19:12 Serum or plasma sodium measurement (moles/volume) 138 mmol/L 135-145 Serum or plasma potassium measurement (moles/volume) 3.7 mmol/L 3.6-5.0 Serum or plasma chloride measurement (moles/volume) 99 mmol/L 98-107 Carbon dioxide 30 mmol/L 21-32 Serum or plasma anion gap determination (moles/volume) 9 mmol/L 5-14 Serum or plasma urea nitrogen measurement (mass/volume) 11 mg/dL 7-18 Serum or plasma creatinine measurement (mass/volume) 0.95 mg/dL 0.60-1.30 Serum or plasma urea nitrogen/creatinine mass ratio 12 NRG Serum or plasma creatinine measurement with calculation of estimated glomerular filtration rate > NRG Serum or plasma glucose measurement (mass/volume) 107 mg/dL 70-105 Serum or plasma calcium measurement (mass/volume) 9.4 mg/dL 8.5-10.1 Serum or plasma total bilirubin measurement (mass/volume) 0.3 mg/dL 0.1-1.0 Serum or plasma alkaline phosphatase measurement (enzymatic activity/volume) 66 U/L 40-136 Serum or plasma aspartate aminotransferase measurement (enzymatic activity/ volume) 11 U/L 5-34 Serum or plasma alanine aminotransferase measurement (enzymatic activity/volume ) 13 U/L 0-55 Serum or plasma protein measurement (mass/volume) 6.9 g/dL 6.4-8.2 Serum or plasma albumin measurement (mass/volume) 3.5 g/dL 3.2-4.5 Magnesium - 03/14/16 19:12 Magnesium 1.8 mg/dL 1.8-2.4 Serum or plasma troponin i.cardiac measurement (mass/volume) - 03/14/16 19:12 Serum or plasma troponin i.cardiac measurement (mass/volume) < ng/ mL <0.30 PT panel in platelet poor plasma by coagulation assay - 03/14/16 19:12 Prothrombin time (PT) in platelet poor plasma by coagulation assay 13.7 s 12.2-14.7 INR in platelet poor plasma or blood by coagulation assay 1.1 0.8-1.4 Activated partial thromboplastin time (aPTT) in platelet poor plasma bycoagulation assay - 03/14/16 19:12 Activated partial thromboplastin time (aPTT) in platelet poor plasma bycoagulation assay 31 s 24-35 Serum or plasma C reactive protein measurement (mass/volume) - 03/14/16 19:12 Serum or plasma C reactive protein measurement (mass/volume) 1.70 mg /dL 0.00-0.50 Fibrin D-dimer FEU measurement in platelet poor plasma (mass/volume) - 19:12 Fibrin D-dimer FEU measurement in platelet poor plasma (mass/volume) 1.07 ug/mL 0.00-0.49 Myoglobin, serum - 03/14/16 19:12 Myoglobin, serum 35.6 ng/mL 10.0-92.0 Lipase - 03/14/16 19:12 Lipase 34 U/L 8-78 Serum or plasma lithium measurement (moles/volume) - 03/14/16 19:12 BNP level 24.0 pg/mL <100.0 Serum or plasma troponin i.cardiac measurement (mass/volume) - 03/15/16 00:30 Serum or plasma troponin i.cardiac measurement (mass/volume) < ng/ mL <0.30 Lipid 1996 panel - 03/15/16 03:30 Serum or plasma triglyceride measurement (mass/volume) 80 mg/dL <150 Serum or plasma cholesterol measurement (mass/volume) 126 mg/dL < 200 Serum or plasma cholesterol in HDL measurement (mass/volume) 26 mg/ dL 40-60 Cholesterol in LDL [mass/volume] in serum or plasma by direct assay 88 mg/dL 1-129 Serum or plasma cholesterol in VLDL measurement (mass/volume) 16 mg/ dL 5-40 Capillary blood glucose measurement by glucometer (mass/volume) - 03/15/16 09: 55 Capillary blood glucose measurement by glucometer (mass/volume) 134 mg/dL 70-110 Capillary blood glucose measurement by glucometer (mass/volume) - 03/15/16 12: 12 Capillary blood glucose measurement by glucometer (mass/volume) 158 mg/dL 70-110 Streptococcus pyogenes antigen detection - 05/25/16 20:49 Streptococcus pyogenes antigen detection NEGATIVE NEGATIVE Bacterial throat culture - 05/25/16 20:49 Bacterial throat culture [facility] Complete blood count (CBC) with automated white blood cell (WBC) differential - 10/16/16 19:26 Blood leukocytes automated count (number/volume) 12.0 10*3/uL 4.3-11.0 Blood erythrocytes automated count (number/volume) 5.13 10*6/uL 4.35-5.85 Venous blood hemoglobin measurement (mass/volume) 13.2 g/dL 13.3-17.7 Blood hematocrit (volume fraction) 41 % 40-54 Automated erythrocyte mean corpuscular volume 79 [foz_us] 80-99 Automated erythrocyte mean corpuscular hemoglobin (mass per erythrocyte) 26 pg 25-34 Automated erythrocyte mean corpuscular hemoglobin concentration measurement ( mass/volume) 32 g/dL 32-36 Automated erythrocyte distribution width ratio 13.6 % 10.0-14.5 Automated blood platelet count (count/volume) 254 10*3/uL 130-400 Automated blood platelet mean volume measurement 10.3 [foz_us] 7.4-10.4 Automated blood neutrophils/100 leukocytes 71 % 42-75 Automated blood lymphocytes/100 leukocytes 18 % 12-44 Blood monocytes/100 leukocytes 5 % 0-12 Automated blood eosinophils/100 leukocytes 6 % 0-10 Automated blood basophils/100 leukocytes 0 % 0-10 Blood neutrophils automated count (number/volume) 8.5 10*3 1.8-7.8 Blood lymphocytes automated count (number/volume) 2.2 10*3 1.0-4.0 Blood monocytes automated count (number/volume) 0.6 10*3 0.0-1.0 Automated eosinophil count 0.7 10*3/uL 0.0-0.3 Automated blood basophil count (count/volume) 0.1 10*3/uL 0.0-0.1 Whole blood basic metabolic panel - 10/16/16 19:26 Serum or plasma sodium measurement (moles/volume) 138 mmol/L 135-145 Serum or plasma potassium measurement (moles/volume) 3.7 mmol/L 3.6-5.0 Serum or plasma chloride measurement (moles/volume) 102 mmol/L 98-107 Carbon dioxide 26 mmol/L 21-32 Serum or plasma anion gap determination (moles/volume) 10 mmol/L 5-14 Serum or plasma urea nitrogen measurement (mass/volume) 9 mg/dL 7-18 Serum or plasma creatinine measurement (mass/volume) 0.97 mg/dL 0.60-1.30 Serum or plasma urea nitrogen/creatinine mass ratio 9 NRG Serum or plasma creatinine measurement with calculation of estimated glomerular filtration rate > NRG Serum or plasma glucose measurement (mass/volume) 186 mg/dL 70-105 Serum or plasma calcium measurement (mass/volume) 9.1 mg/dL 8.5-10.1 CBC With Differential/Platelet - 11/16/16 10:47 WBC 9.0 x10E3/uL 3.4-10.8 RBC 5.18 x10E6/uL 4.14-5.80 Hemoglobin 13.1 g/dL 12.6-17.7 Hematocrit 40.9 % 37.5-51.0 MCV 79 fL 79-97 MCH 25.3 pg 26.6-33.0 MCHC 32.0 g/dL 31.5-35.7 RDW 14.0 % 12.3-15.4 Platelets 292 x10E3/uL 150-379 Neutrophils 67 % Lymphs 22 % Monocytes 5 % Eos 5 % Basos 1 % Neutrophils (Absolute) 6.0 x10E3/uL 1.4-7.0 Lymphs (Absolute) 2.0 x10E3/uL 0.7-3.1 Monocytes(Absolute) 0.4 x10E3/uL 0.1-0.9 Eos (Absolute) 0.5 x10E3/uL 0.0-0.4 Baso (Absolute) 0.1 x10E3/uL 0.0-0.2 Immature Granulocytes 0 % Immature Grans (Abs) 0.0 x10E3/uL 0.0-0.1 Comp. Metabolic Panel (14) - 11/16/16 10:47 Glucose, Serum 275 mg/dL 65-99 BUN 13 mg/dL 6-24 Creatinine, Serum 1.00 mg/dL 0.76-1.27 eGFR If NonAfricn Am 88 mL/min/1.73 >59 eGFR If Africn Am 102 mL/min/1.73 >59 BUN/Creatinine Ratio 13 9-20 Sodium, Serum 135 mmol/L 134-144 Potassium, Serum 3.7 mmol/L 3.5-5.2 Chloride, Serum 92 mmol/L 96-106 Carbon Dioxide, Total 27 mmol/L 18-29 Calcium, Serum 9.0 mg/dL 8.7-10.2 Protein, Total, Serum 7.0 g/dL 6.0-8.5 Albumin, Serum 3.6 g/dL 3.5-5.5 Globulin, Total 3.4 g/dL 1.5-4.5 A/G Ratio 1.1 1.2-2.2 Bilirubin, Total 0.3 mg/dL 0.0-1.2 Alkaline Phosphatase, S 82 IU/L 39-117 AST (SGOT) 14 IU/L 0-40 ALT (SGPT) 8 IU/L 0-44 Lipid Panel - 11/16/16 10:47 Cholesterol, Total 166 mg/dL 100-199 Triglycerides 144 mg/dL 0-149 HDL Cholesterol 34 mg/dL >39 VLDL Cholesterol Efren 29 mg/dL 5-40 LDL Cholesterol Calc 103 mg/dL 0-99 Hemoglobin A1c - 11/16/16 10:47 Hemoglobin A1c 8.9 % 4.8-5.6 Thyroid [place] Profile - 11/16/16 10:47 TSH 0.838 uIU/mL 0.450-4.500 Magnesium, Serum - 11/16/16 10:47 Magnesium, Serum 1.8 mg/dL 1.6-2.3 Comp. Metabolic Panel (14) - 12/05/16 12:13 Glucose, Serum 186 mg/dL 65-99 BUN 23 mg/dL 6-24 Creatinine, Serum 1.81 mg/dL 0.76-1.27 eGFR If NonAfricn Am 43 mL/min/1.73 >59 eGFR If Africn Am 49 mL/min/1.73 >59 BUN/Creatinine Ratio 13 9-20 Sodium, Serum 134 mmol/L 134-144 Potassium, Serum 4.1 mmol/L 3.5-5.2 Chloride, Serum 93 mmol/L 96-106 Carbon Dioxide, Total 20 mmol/L 18-29 Calcium, Serum 9.6 mg/dL 8.7-10.2 Protein, Total, Serum 7.1 g/dL 6.0-8.5 Albumin, Serum 3.9 g/dL 3.5-5.5 Globulin, Total 3.2 g/dL 1.5-4.5 A/G Ratio 1.2 1.2-2.2 Bilirubin, Total 0.7 mg/dL 0.0-1.2 Alkaline Phosphatase, S 72 IU/L 39-117 AST (SGOT) 17 IU/L 0-40 ALT (SGPT) 17 IU/L 0-44 Comp. Metabolic Panel (14) - 01/26/17 13:51 Glucose, Serum 106 mg/dL 65-99 BUN 16 mg/dL 6-24 Creatinine, Serum 1.29 mg/dL 0.76-1.27 eGFR If NonAfricn Am 64 mL/min/1.73 >59 eGFR If Africn Am 74 mL/min/1.73 >59 BUN/Creatinine Ratio 12 9-20 Sodium, Serum 137 mmol/L 134-144 Potassium, Serum 3.9 mmol/L 3.5-5.2 Chloride, Serum 95 mmol/L 96-106 Carbon Dioxide, Total 29 mmol/L 18-29 Calcium, Serum 9.2 mg/dL 8.7-10.2 Protein, Total, Serum 7.2 g/dL 6.0-8.5 Albumin, Serum 3.7 g/dL 3.5-5.5 Globulin, Total 3.5 g/dL 1.5-4.5 A/G Ratio 1.1 1.2-2.2 Bilirubin, Total 0.3 mg/dL 0.0-1.2 Alkaline Phosphatase, S 67 IU/L 39-117 AST (SGOT) 14 IU/L 0-40 ALT (SGPT) 13 IU/L 0-44 CMP - 01/26/17 13:51 Glucose, Serum 106 mg/dL 65-99 BUN 16 mg/dL 6-24 Creatinine, Serum 1.29 mg/dL 0.76-1.27 eGFR If NonAfricn Am 64 mL/min/1.73 >59 eGFR If Africn Am 74 mL/min/1.73 >59 BUN/Creatinine Ratio 12 9-20 Sodium, Serum 137 mmol/L 134-144 Potassium, Serum 3.9 mmol/L 3.5-5.2 Chloride, Serum 95 mmol/L 96-106 Carbon Dioxide, Total 29 mmol/L 18-29 Calcium, Serum 9.2 mg/dL 8.7-10.2 Protein, Total, Serum 7.2 g/dL 6.0-8.5 Albumin, Serum 3.7 g/dL 3.5-5.5 Globulin, Total 3.5 g/dL 1.5-4.5 A/G Ratio 1.1 1.2-2.2 Bilirubin, Total 0.3 mg/dL 0.0-1.2 Alkaline Phosphatase, S 67 IU/L 39-117 AST (SGOT) 14 IU/L 0-40 ALT (SGPT) 13 IU/L 0-44 Comp. Metabolic Panel (14) - 03/06/17 11:51 Glucose, Serum 132 mg/dL 65-99 BUN 19 mg/dL 6-24 Creatinine, Serum 1.01 mg/dL 0.76-1.27 eGFR If NonAfricn Am 86 mL/min/1.73 >59 eGFR If Africn Am 100 mL/min/1.73 >59 BUN/Creatinine Ratio 19 9-20 Sodium, Serum 139 mmol/L 134-144 Potassium, Serum 4.2 mmol/L 3.5-5.2 Chloride, Serum 101 mmol/L 96-106 Carbon Dioxide, Total 28 mmol/L 18-29 Calcium, Serum 9.1 mg/dL 8.7-10.2 Protein, Total, Serum 7.0 g/dL 6.0-8.5 Albumin, Serum 3.4 g/dL 3.5-5.5 Globulin, Total 3.6 g/dL 1.5-4.5 A/G Ratio 0.9 1.2-2.2 Bilirubin, Total 0.2 mg/dL 0.0-1.2 Alkaline Phosphatase, S 66 IU/L 39-117 AST (SGOT) 12 IU/L 0-40 ALT (SGPT) 11 IU/L 0-44 CMP - 03/06/17 11:51 Glucose, Serum 132 mg/dL 65-99 BUN 19 mg/dL 6-24 Creatinine, Serum 1.01 mg/dL 0.76-1.27 eGFR If NonAfricn Am 86 mL/min/1.73 >59 eGFR If Africn Am 100 mL/min/1.73 >59 BUN/Creatinine Ratio 19 9-20 Sodium, Serum 139 mmol/L 134-144 Potassium, Serum 4.2 mmol/L 3.5-5.2 Chloride, Serum 101 mmol/L 96-106 Carbon Dioxide, Total 28 mmol/L 18-29 Calcium, Serum 9.1 mg/dL 8.7-10.2 Protein, Total, Serum 7.0 g/dL 6.0-8.5 Albumin, Serum 3.4 g/dL 3.5-5.5 Globulin, Total 3.6 g/dL 1.5-4.5 A/G Ratio 0.9 1.2-2.2 Bilirubin, Total 0.2 mg/dL 0.0-1.2 Alkaline Phosphatase, S 66 IU/L 39-117 AST (SGOT) 12 IU/L 0-40 ALT (SGPT) 11 IU/L 0-44 Streptococcus pyogenes antigen detection - 08/22/17 12:55 Streptococcus pyogenes antigen detection NEGATIVE NEGATIVE Bacterial throat culture - 08/22/17 12:55 Bacterial throat culture NBS NRG Encounters ACCT No. Visit Date/Time Discharge Status Pt. Type Provider Facility Loc./Unit Complaint [id number] 09/10/2017 02:08:00 09/10/2017 03:07:00 DIS Emergency SABINA YANG MD [facility] ER SWOLLEN LIPS [id number] 08/22/2017 12:26:00 08/22/2017 13:59:00 DIS Emergency NELSON PADILLA [facility] ER SORE THROAT,FEVER [id number] 11/20/2016 11:25:00 11/20/2016 23:59:59 CLS Outpatient ANGELIQUE GRAY PETROLEUM SAMPLER [facility] CARD ESSENTIAL HTN I10, CARDIAC MURMUR R01.1 [id number] 10/16/2016 18:48:00 10/16/2016 20:19:00 DIS Emergency CAMILLE TITUS APRN [facility] ER COUGH, FEVER, DIARRHEA, SOB [id number] 05/25/2016 19:21:00 05/25/2016 21:37:00 DIS Emergency FUENTES YING DO [facility] ER SWOLLEN THROAT [id number] 03/14/2016 21:53:00 03/15/2016 14:30:00 DIS Inpatient JACK MONTOYA, WILLARD Singh [facility] ICU CP,ELEVATED D-DIMER [id number] 02/17/2016 15:25:00 02/17/2016 18:08:00 DIS Emergency CAMILLE TITUS APRN [facility] ER SWOLLEN FACE,BRONCHITIS [id number] 02/16/2016 18:34:00 02/16/2016 21:16:00 DIS Emergency NELSON PADILLA [facility] ER THROAT PAIN [id number] 12/13/2015 23:58:00 12/14/2015 01:36:00 DIS Emergency PHYLLIS MELVIN MD [facility] ER KNEE DOWN NUMBNESS, RASH/PAIN [id number] 08/08/2015 14:46:00 08/08/2015 17:54:00 DIS Emergency IAM MONTOYA, BAUTISTA Fowler [facility] ER FACIAL SWELLING/ALLERGIC REACTION [id number] 04/07/2015 06:00:00 04/08/2015 11:07:00 DIS Inpatient BETHANIE CAN DO [facility] 4TH HYPOGLYCEMIA,ACUTE RENAL INSUFFICIENCY [id number] 03/30/2015 11:53:00 03/31/2015 12:10:00 DIS Inpatient BETHANIE CAN DO [facility] 4TH REACTION TO MEDICATION [id number] 03/28/2015 12:28:00 03/28/2015 14:15:00 DIS Emergency WILLARD SANTIAGO MD [facility] ER SOA COUGHING [id number] 03/26/2015 11:11:00 03/26/2015 12:35:00 DIS Emergency CAMILLE TITUS APRN [facility] ER FALL/LEFT KNEE PAIN [id number] 01/29/2015 02:28:00 01/29/2015 03:48:00 DIS Emergency FUENTES YING DO [facility] ER [id number] 10/23/2014 20:21:00 10/23/2014 21:09:00 DIS Emergency NELSON PADILLA [facility] ER [id number] 04/13/2014 00:23:00 04/13/2014 00:54:00 DIS Emergency ANT ZAPIEN MD [facility] ER COUGH, CHILLS [id number] 05/23/2013 08:33:00 05/30/2013 13:20:00 DIS Inpatient BETHANIE CAN DO [facility] 4TH CELLULITIS [id number] 10/22/2012 23:12:00 10/22/2012 23:51:00 DIS Emergency GARY DIAZ MD [facility] ER WAX IN EARS [id number] 06/27/2018 21:37:00 ACT Emergency CAMILLE TITUS APRN [facility] ER THROAT PAIN,COUGH,CHILLS [id number] 05/19/2012 13:43:00 Document Registration [id number] 05/12/2012 21:57:00 Document Registration [id number] 04/04/2012 00:11:00 Document Registration [id number] 12/02/2011 23:11:00 Document Registration [id number] 04/09/2011 03:21:00 Document Registration [id number] 12/09/2010 12:53:00 Document Registration [id number] 11/01/2010 23:19:00 Document Registration [id number] 08/26/2010 18:16:00 Document Registration [id number] 08/25/2010 19:20:00 Document Registration [id number] 07/06/2007 18:35:00 Document Registration [id number] 11/17/2016 14:10:00 Document Registration [id number] 01/27/2017 08:07:00 Document Registration [id number] 12/06/2016 09:11:00 Document Registration [id number] 03/07/2017 10:09:00 Document Registration [id number] 04/17/2018 13:40:00 04/17/2018 23:59:59 [facility] ANGELIQUE GRAY [facility] [id number] 03/06/2017 10:00:00 Document Registration [id number] 01/26/2017 13:40:00 Document Registration
[2018-06-27] MEDS ORDERED: CEFU500T63 PO (21:53)
--- NOTE | 2018-06-27 21:53 | ED General ---
General Stated Complaint: THROAT PAIN,COUGH,CHILLS Source of Information: Patient Exam Limitations: No Limitations History of Present Illness Date Seen by Provider: Jun 27, 2018 Time Seen by Provider: 21:50 Initial Comments To ER with sore throat, chills, nonproductive cough, nausea and diarrhea that started last night. Timing/Duration: 1-2 Days Severity: Moderate Associated Systoms: Cough, Fever/Chills, Malaise, Nausea/Vomiting Allergies and Home Medications Allergies Coded Allergies: azithromycin (Verified Allergy, Intermediate, Hives, 03/31/15) Home Medications Epinephrine 0.3 Mg/0.3 Ml Auto.injct, 0.3 MG IJ Q30M PRN for DYSPNEA Prescribed by: SABINA YANG on 09/10/17 0242 Losartan/Hydrochlorothiazide 1 Each Tablet, 1 TAB PO DAILY, (Reported) Venlafaxine HCl 150 Mg Cap.er.24h, 150 MG PO DAILY, (Reported) Patient Home Medication List Home Medication List Reviewed: Yes Review of Systems Review of Systems Constitutional: see HPI, chills, fever, malaise EENTM: throat pain Respiratory: see HPI, cough Cardiovascular: no symptoms reported Gastrointestinal: diarrhea, nausea Genitourinary: no symptoms reported Musculoskeletal: no symptoms reported Skin: no symptoms reported Psychiatric/Neurological: No Symptoms Reported Past Rhynjuy-Pysubr-Fwxaws Hx Patient Social History 2nd Hand Smoke Exposure: No Recent Foreign Travel: No Contact w/Someone Who Travel: No Recent Hopitalizations: No Immunizations Up To Date Tetanus Booster (TDap): Less than 5yrs Date of Pneumonia Vaccine: Mar 29, 2010 Date of Influenza Vaccine: Mar 31, 2015 Seasonal Allergies Seasonal Allergies: No Past Medical History Surgeries: Yes (rectal abcess, urethral) Orthopedic, Rectal Respiratory: Yes (sarcoidosis) Sleep Apnea, COPD Currently Using CPAP: Yes Currently Using BIPAP: No Cardiac: Yes Chronic Edema/Swelling, Hypertension Neurological: Yes Neuropathy Reproductive Disorders: No Sexually Transmitted Disease: No HIV/AIDS: No Genitourinary: No Gastrointestinal: Yes (h/o multiple perirectal abscesses.) Gastroesophageal Reflux, Chronic Constipation Musculoskeletal: Yes (SARCOIDOSIS) Arthritis Endocrine: Yes (morbid obesity) Diabetes, Non-Insulin dep HEENT: No Tonsilitis Loss of Vision: Denies Hearing Impairment: Denies Cancer: No Psychosocial: Yes Anxiety Integumentary: Yes Pruritis Blood Disorders: No Family Medical History Congestive heart failure 03 FATHER, Onset:20's - Family history: Asthma 09 SISTER, Onset:20's - 25 Family history: Cardiovascular disease 03 FATHER, Onset:20's - 25 Family history: Hypertension 03 MOTHER, Onset:40's - 50 Family history: Thyroid disorder 03 MOTHER, Onset:50's - 60 Heart disease 03 FATHER, Onset:20's - 25 History of - respiratory disease 03 MOTHER, Onset:50's - 60 No Pertinent Family Hx Physical Exam Vital Signs Capillary Refill : Height, Weight, BMI Height: 5'11.00" Weight: 452lbs. 0oz. 205.013719gm; 65.5 BMI Method:Stated General Appearance: No Apparent Distress, Chronically ill, Obese Eyes: Bilateral Eye Normal Inspection, Bilateral Eye PERRL, Bilateral Eye EOMI HEENT: PERRL/EOMI, Tonsillar Enlargement (both tonsils are somewhat large, the left is asymmetrically larger than the right. However the soft palate just anterior to the tonsil itself is without erythema. There is no uvular deviation. There is some lymphadenopathy mostly on the left. There is no hot potato voice.), Other (tympanic membrane obscured by cerumen bilaterally) Neck: Full Range of Motion, Normal Inspection, Lymphadenopathy (L) Respiratory: No Accessory Muscle Use, No Respiratory Distress Cardiovascular: Regular Rate, Rhythm, Normal Peripheral Pulses Gastrointestinal: Normal Bowel Sounds, Non Tender, Soft Neurologic/Psychiatric: Alert, Oriented x3, No Motor/Sensory Deficits Skin: Normal Color, Warm/Dry Progress/Results/Core Measures Suspected Sepsis SIRS Temperature: Pulse: Respiratory Rate: Blood Pressure / Mean: Results/Orders My Orders Orders - CAMILLE TITUS APRN Chest Pa/Lat (2 View) (06/27/18 21:40) Influenza A And B Antigens (06/27/18 21:40) Rapid Strep A Screen (06/27/18 21:40) Amoxicillin/Clavulanate Tablet (Augmenti (06/27/18 22:00) Dexamethasone Injection (Decadron Inject (06/27/18 22:00) Vital Signs/I&O Capillary Refill : Departure Impression Primary Impression: Tonsillitis Disposition: 01 HOME, SELF-CARE Condition: Stable Departure-Patient Inst. Decision time for Depature: 21:52 Referrals: [facility] (PCP/Family) Primary Care Physician Patient Instructions: Sore Throat in Adults Add. Discharge Instructions: 1. Antibiotics as directed. Return to ER for any worsening swelling or pain in the throat, high fevers. Follow-up with your doctor next week for recheck. Antibiotics as directed. Scripts Cefuroxime Axetil (Cefuroxime) 500 Mg Tablet 500 MG PO BID, #14 TAB Prov: CAMILLE TITUS APRN 06/27/18 Work/School Note: Work Release Form Date Seen in the Emergency Department: Jun 27, 2018 Return to Work: Jun 29, 2018 CAMILLE TITUS APRN Jun 27, 2018 21:53
[2018-06-27] MEDS ORDERED: AUGMENTIN 875 MG TAB (AMOXICILLIN/CLAVULANATE) PO SCH (22:00)
[2018-06-27] MEDS ORDERED: DEXAMETHASONE 10 MG/ML (DECADRON) 1 ML VIAL IM ONE (22:00)
[2018-06-27 22:32] VITALS: BP 0/0
--- NOTE | 2018-06-28 07:13 | Diagnostic Imaging Report ---
INDICATION: Throat pain, cough. TECHNIQUE: Two view chest 9:57 PM CORRELATION STUDY: 10/16/2016 FINDINGS: Heart size and mediastinum configuration stable. Lung ceballos remain relatively clear. Mild degenerative changes with mild bridging osteophyte thoracic spine. IMPRESSION: 1. No radiographic evidence for acute abnormality of the chest. Dictated by: Dictated on workstation # [id number]
== END 2018-06-27 22:32 | disposition home or self-care (01) ==
LOC: EDUNIT# 21:36 → ER 21:37
DX: J03.90 Acute tonsillitis, unspecified (principal); G47.30 Sleep apnea, unspecified; J44.9 Chronic obstructive pulmonary disease, unspecified; I10 Essential (primary) hypertension; K21.9 Gastro-esophageal reflux disease without esophagitis; E11.40 Type 2 diabetes mellitus with diabetic neuropathy, unspecified; E66.01 Morbid (severe) obesity due to excess calories; F41.9 Anxiety disorder, unspecified; Z87.19 Personal history of other diseases of the digestive system; Z88.1 Allergy status to other antibiotic agents; Z98.890 Other specified postprocedural states; Z82.49 Family history of ischemic heart disease and other diseases of the circulatory system; Z68.44 Body mass index [BMI] 60.0-69.9, adult
CPT/HCPCS: 71046; 87430; 87804

== ENCOUNTER 2018-10-27 22:57 | Emergency (ER) | payer MEDICARE ==
[~2018-10-27] VITALS: Ht 180.3 cm; Wt 204.1 kg
[~2018-10-27 22:57] MED LIST changes: +CEFU500T63 PO; -ROSU10TA PO; +ROSU10TA22 PO
--- OUTSIDE RECORDS SUMMARY | 2018-10-27 23:03 | XMS REPORT | Clinical Summary ---
Author Author [facility] Organization [facility] Address Unknown Phone Unavailable Care Team Providers Care Regulatory Scientist Name Role Phone Meliton Woodson MD Unavailable Source Comments Some departments are not documenting in the electronic medical record. If you d o not see the information that you expected, contact Release of Information in [facility] [employer] Information Management department at [phone] for further assistan ce in locating additional records.[facility] Allergies Comments Active Allergy Reactions Severity Noted [...] 2016 VACCINE (1 of 2) INFLUENZA VACCINE 02/25/2019 Results Not on filefrom Last 3 Months
--- NOTE | 2018-10-27 23:36 | ED Integumentary General ---
General Chief Complaint: General Problems/Pain Stated Complaint: UTI Source: patient Exam Limitations: no limitations History of Present Illness Date Seen by Provider: Oct 27, 2018 Time Seen by Provider: 22:57 Initial Comments Patient presents to ER by private conveyance with chief complaint of painful skin. His is because of his weight and he urinates he cannot get his penis out and therefore just urinates on himself and when it hits his skin he says it sierra. He says he has a little bit of stinging when he urinates in the urethra. No fevers or chills but he has had nausea and vomiting and diarrhea for the past week and his been using Pepto-Bismol and Imodium to control it. He has a history of chronic Balantitis and has not been on antibiotics or had any powders prescribed. Allergies and Home Medications Allergies Coded Allergies: azithromycin (Verified Allergy, Intermediate, Hives, 03/31/15) Home Medications Cefuroxime Axetil 500 Mg Tablet, 500 MG PO BID Prescribed by: CAMILLE TITUS on 06/27/18 2153 Epinephrine 0.3 Mg/0.3 Ml Auto.injct, 0.3 MG IJ Q30M PRN for DYSPNEA Prescribed by: SABINA YANG on 09/10/17 0242 Losartan/Hydrochlorothiazide 1 Each Tablet, 1 TAB PO DAILY, (Reported) Venlafaxine HCl 150 Mg Cap.er.24h, 150 MG PO DAILY, (Reported) Patient Home Medication List Home Medication List Reviewed: Yes Review of Systems Review of Systems Constitutional: No chills, No diaphoresis EENTM: No ear discharge, No ear pain Respiratory: No cough, No short of breath Cardiovascular: No chest pain, No edema Gastrointestinal: No abdominal pain, No constipation, No diarrhea Genitourinary: No discharge; dysuria Past Bnuiiez-Puowcz-Jbgmwa Hx Patient Social History Alcohol Use: Denies Use Recreational Drug Use: No Smoking Status: Never a Smoker 2nd Hand Smoke Exposure: No Recent Foreign Travel: No Contact w/Someone Who Travel: No Recent Hopitalizations: No Immunizations Up To Date Tetanus Booster (TDap): Less than 5yrs Date of Pneumonia Vaccine: Mar 29, 2010 Date of Influenza Vaccine: Mar 31, 2015 Seasonal Allergies Seasonal Allergies: No Past Medical History Surgeries: Yes (rectal abcess, urethral) Orthopedic, Rectal Respiratory: Yes (sarcoidosis) Sleep Apnea, COPD Currently Using CPAP: Yes Currently Using BIPAP: No Cardiac: Yes Chronic Edema/Swelling, Hypertension Neurological: Yes Neuropathy Reproductive Disorders: No Sexually Transmitted Disease: No HIV/AIDS: No Genitourinary: No Gastrointestinal: Yes (h/o multiple perirectal abscesses.) Gastroesophageal Reflux, Chronic Constipation Musculoskeletal: Yes (SARCOIDOSIS) Arthritis Endocrine: Yes (morbid obesity) Diabetes, Non-Insulin dep HEENT: No Tonsilitis Loss of Vision: Denies Hearing Impairment: Denies Cancer: No Psychosocial: Yes Anxiety Integumentary: Yes Pruritis Blood Disorders: No Family Medical History Congestive heart failure 03 FATHER, Onset:20's - Family history: Asthma 09 SISTER, Onset:20's - 25 Family history: Cardiovascular disease 03 FATHER, Onset:20's - Family history: Hypertension 03 MOTHER, Onset:40's - 50 Family history: Thyroid disorder 03 MOTHER, Onset:50's - 60 Heart disease 03 FATHER, Onset:20's - 25 History of - respiratory disease 03 MOTHER, Onset:50's - 60 No Pertinent Family Hx Physical Exam Vital Signs Vital Signs - First Documented 10/27/18 23:05 Temp 98.1 Pulse 97 Resp 18 B/P (MAP) 138/95 (109) Capillary Refill : General Appearance: WD/WN, no apparent distress HEENT: normal ENT inspection, pharynx normal Neck: full range of motion, normal inspection Cardiovascular: normal peripheral pulses, regular rate, rhythm Respiratory: no respiratory distress, no accessory muscle use Extremities: normal range of motion, normal capillary refill Skin: other (moist, macerated, superficial breakdown under the pannus and left medial thigh approximately size of a quarter. pannus approximately 15 cm wide by 4 cm at the greatest diameter.) Progress/Results/Core Measures Results/Orders Lab Results Laboratory Tests Test 10/27/18 23:53 Range/Units Urine Color YELLOW Urine Clarity CLEAR Urine pH 5 5-9 Urine Specific [place] 1.020 1.016-1.022 Urine Protein 2+ H NEGATIVE Urine Glucose (UA) NEGATIVE NEGATIVE Urine Ketones NEGATIVE NEGATIVE Urine Nitrite NEGATIVE NEGATIVE Urine Bilirubin NEGATIVE NEGATIVE Urine Urobilinogen NORMAL NORMAL MG/DL Urine Leukocyte Esterase 2+ H NEGATIVE Urine RBC (Auto) 1+ H NEGATIVE Urine RBC 0-2 /HPF Urine WBC 0-2 /HPF Urine Squamous Epithelial Cells 5-10 /HPF Urine Crystals NONE /LPF Urine Bacteria TRACE /HPF Urine Casts PRESENT /LPF Urine Hyaline Casts 0-2 H /LPF Urine Mucus MODERATE H /LPF Urine Culture Indicated NO My Orders Orders - SABINA YANG Ua Culture If Indicated (10/27/18 23:09) Vital Signs/I&O 10/27/18 23:05 Temp 98.1 Pulse 97 Resp 18 B/P (MAP) 138/95 (109) Progress Progress Note : Time: 23:35 Progress Note Patient has some minor excoriations and maceration of the skin under his pannus as well as a little bit on his left inner thigh. The scrotum appears to be intact. Penis is withdrawn and there is some rotation swelling looks to be chronic in the skin surrounding the penis but the glans cannot be assessed. Plan to put him on nystatin powder and teach him about driving his skin. We can Recommend him for referral to urology but for now we need to get his skin under control. He's going to try and produce a urine specimen for UA. Departure Impression Primary Impression: Yeast infection of the skin Disposition: 01 HOME, SELF-CARE Condition: Stable Departure-Patient Inst. Referrals: [facility] (PCP/Family) Primary Care Physician LINDY FONSECA MD Patient Instructions: Fungal Skin Rash (DC) Add. Discharge Instructions: Keep the skin very dry. Use Tylenol as and sprinkle a light dusting of the nystatin powder under your belly and between your thighs 4 times a day for the next 2 weeks. Follow-up this week with primary care for reevaluation see whether or not he w ould benefit from a wound care consult. If you have concerns about balanitis you can follow-up with urology by calling for an appointment. If your urine grows out bacteria we'll call off antibiotics for you. All discharge instructions reviewed with patient and/or family. Voiced understanding. Scripts Ondansetron (Ondansetron Odt) 4 Mg Tab.rapdis 4 MG PO Q6H PRN for NAUSEA/VOMITING, #8 TAB 0 Refills Prov: SABINA YANG 10/28/18 Cephalexin (Keflex) 500 Mg Capsule 500 MG PO QID for 7 Days, #28 CAP 0 Refills Prov: SABINA YANG 10/28/18 Nystatin (Nystatin) 1 Each Powder.ea. 1 EACH MC QID for 14 Days, #1 UNIT 0 Refills Prov: SABINA YANG 10/28/18 SABINA YANG Oct 27, 2018 23:36
[2018-10-28 00:12] LABS: CLARITY,URINE CLEAR; COLOR,URINE YELLOW; PH,URINE 5 (5-9)
[2018-10-28 00:13] LABS: BACTERIA,URINE TRACE /HPF; BILIRUBIN,URINE NEGATIVE (NEGATIVE); GLUCOSE, URINE (UA) NEGATIVE (NEGATIVE); KETONES,URINE NEGATIVE (NEGATIVE); LEUKOCYTE ESTERASE ,URINE 2+ (NEGATIVE); NITRITE,URINE NEGATIVE (NEGATIVE); PROTEIN,URINE 2+ (NEGATIVE); RBC,URINE 0-2 /HPF; UROBILINOGEN,URINE NORMAL (NORMAL); WBC,URINE 0-2 /HPF
[2018-10-28 00:14] LABS: HYALINE CASTS, URINE 0-2 /LPF
[2018-10-28] MEDS ORDERED: ONDA4TAB11 PO (00:28)
[2018-10-28] MEDS ORDERED: NYST1POW22 MC (00:28)
[2018-10-28] MEDS ORDERED: CEPH-507 PO (00:28)
[2018-10-28 00:35] VITALS: BP 100/74
== END 2018-10-28 00:35 | disposition home or self-care (01) ==
LOC: EDUNIT# 22:57 → ER 22:59
DX: B37.2 Candidiasis of skin and nail (principal); G47.30 Sleep apnea, unspecified; J44.9 Chronic obstructive pulmonary disease, unspecified; I10 Essential (primary) hypertension; E11.40 Type 2 diabetes mellitus with diabetic neuropathy, unspecified; K21.9 Gastro-esophageal reflux disease without esophagitis; E66.01 Morbid (severe) obesity due to excess calories; F41.9 Anxiety disorder, unspecified; D86.9 Sarcoidosis, unspecified; Z98.890 Other specified postprocedural states; Z88.1 Allergy status to other antibiotic agents; Z82.49 Family history of ischemic heart disease and other diseases of the circulatory system; Z87.19 Personal history of other diseases of the digestive system
CPT/HCPCS: 81000; 99282

== ENCOUNTER 2019-12-02 19:22 | Emergency (ER) | payer MEDICARE ==
[~2019-12-02] VITALS: Ht 180 cm; Wt 207.3 kg
[~2019-12-02 19:22] MED LIST changes: +CEPH-507 PO; -MOME15CR17 TP; +MOME15CR8 TP; +NYST1POW22 MC; +ONDA4TAB11 PO
[2019-12-02 19:40] VITALS: BP 141/96
[2019-12-02] MEDS ORDERED: cefTRIAXone 1,000 MG/2.86 ml vial (IM ONLY) IM STA (19:44)
[2019-12-02] MEDS ORDERED: ACETAMINOPHEN 500 MG TAB (TYLENOL) PO ONE (19:45)
[2019-12-02] MEDS ORDERED: LIDOCAINE 1% INJ 20 ML 20 ML VIAL INJ ONE (19:45)
--- NOTE | 2019-12-02 19:52 | ED Integumentary General ---
General Chief Complaint: General Problems/Pain Stated Complaint: RECTAL ABCESS, FEVER Nursing Triage Note: Pt to RM 7 via WC with c/o rectal pain. PT states he has Hx of pararectal abscesses. Source: patient Exam Limitations: no limitations History of Present Illness Date Seen by Provider: Dec 02, 2019 Time Seen by Provider: 19:30 Initial Comments Patient presents ER by private conveyance from home with chief complaint of the past day or so feeling increasing pain and swelling at the lower portion of his rectum. He says he had an abscess there in the past and Dr. Streeter had to jey it. He is not having any fevers chills nausea vomiting diarrhea or constipation. He did call [facility] and they put him on antibiotics today. He was told they got worse to come out here. He is not taking anything for the pain. No warm compresses Tylenol or ibuprofen etc. Allergies and Home Medications Allergies Coded Allergies: azithromycin (Verified Allergy, Intermediate, Hives, 03/31/15) Home Medications Cefuroxime Axetil 500 Mg Tablet, 500 MG PO BID Prescribed by: CAMILLE TITUS on 06/27/182152 Cephalexin 500 Mg Capsule, 500 MG PO QID Prescribed by: SABINA YANG on 10/28/18 0028 Epinephrine 0.3 Mg/0.3 Ml Auto.injct, 0.3 MG IJ Q30M PRN for DYSPNEA Prescribed by: SABINA YANG on 09/10/17 0242 Losartan/Hydrochlorothiazide 1 Each Tablet, 1 TAB PO DAILY, (Reported) Nystatin 1 Each Powder.ea., 1 EACH MC QID Prescribed by: SABINA YANG on 10/28/188 Ondansetron 4 Mg Tab.rapdis, 4 MG PO Q6H PRN for NAUSEA/VOMITING Prescribed by: SABINA YANG on 10/28/18 0028 Venlafaxine HCl 150 Mg Cap.er.24h, 150 MG PO DAILY, (Reported) Patient Home Medication List Home Medication List Reviewed: Yes Review of Systems Review of Systems Constitutional: No chills, No diaphoresis EENTM: No ear discharge, No ear pain Respiratory: No cough, No short of breath Cardiovascular: No chest pain, No edema Gastrointestinal: No abdominal pain, No nausea Genitourinary: No discharge, No dysuria All Other Systems Reviewed Negative Unless Noted: Yes Past Njskaxa-Gqpunh-Iugfew Hx Patient Social History Alcohol Use: Denies Use Recreational Drug Use: No Smoking Status: Never a Smoker 2nd Hand Smoke Exposure: No Recent Foreign Travel: No Contact w/Someone Who Travel: No Recent Infectious Disease Expo: No Recent Hopitalizations: No Immunizations Up To Date Tetanus Booster (TDap): Less than 5yrs Date of Pneumonia Vaccine: Mar 29, 2010 Date of Influenza Vaccine: Mar 31, 2015 Seasonal Allergies Seasonal Allergies: No Past Medical History Surgeries: Yes (rectal abcess, urethral) Orthopedic, Rectal Respiratory: Yes (sarcoidosis) Sleep Apnea, COPD Currently Using CPAP: Yes Currently Using BIPAP: No Cardiac: Yes Chronic Edema/Swelling, Hypertension Neurological: Yes Neuropathy Reproductive Disorders: No Sexually Transmitted Disease: No HIV/AIDS: No Genitourinary: No Gastrointestinal: Yes (h/o multiple perirectal abscesses.) Gastroesophageal Reflux, Chronic Constipation Musculoskeletal: Yes (SARCOIDOSIS) Arthritis Endocrine: Yes (morbid obesity) Diabetes, Non-Insulin dep HEENT: No Tonsilitis Loss of Vision: Denies Hearing Impairment: Denies Cancer: No Psychosocial: Yes Anxiety Integumentary: Yes Pruritis Blood Disorders: No Family Medical History Congestive heart failure 03 FATHER, Onset:20's - 25 Family history: Asthma 09 SISTER, Onset:20's - 25 Family history: Cardiovascular disease 03 FATHER, Onset:20's - 25 Family history: Hypertension 03 MOTHER, Onset:40's - 50 Family history: Thyroid disorder 03 MOTHER, Onset:50's - 60 Heart disease 03 FATHER, Onset:20's - 25 History of - respiratory disease 03 MOTHER, Onset:50's - 60 No Pertinent Family Hx Physical Exam Vital Signs Vital Signs - First Documented 12/02/19 19:40 Temp 37.0 Pulse 98 Resp 21 B/P (MAP) 141/96 (111) Pulse Ox 98 O2 Delivery Room Air Capillary Refill : Less Than 3 Seconds General Appearance: WD/WN, mild distress HEENT: PERRL/EOMI, normal ENT inspection, TMs normal Neck: full range of motion, supple, normal inspection Cardiovascular: normal peripheral pulses, regular rate, rhythm Respiratory: lungs clear, normal breath sounds, no respiratory distress, no accessory muscle use Gastrointestinal: normal bowel sounds, non tender, soft Skin: normal color, warm/dry, other (skin of the posterior portion of his perineum is mildly tender on the left side without erythema, induration or fluctuance palpable. No mass could be palpated. No evidence of pointing.) Progress/Results/Core Measures Results/Orders My Orders Orders - SABINA YANG Ceftriaxone For Im Use (Rocephin For Im (12/02/19 19:44) Lidocaine 1% Inj 20 Ml (Xylocaine 1% Inj (12/02/19 19:45) Acetaminophen Tablet (Tylenol Tablet) (12/02/19 19:45) Vital Signs/I&O 12/02/19 19:40 Temp 37.0 Pulse 98 Resp 21 B/P (MAP) 141/96 (111) Pulse Ox 98 O2 Delivery Room Air Blood Pressure Mean: 111 Progress Progress Note : Time: 19:49 Progress [address] We did place bedside ultrasound on the soft tissue and could not find any fluid collection to be lanced. Suspect he may have the beginnings of cellulitis or even an abscess however it is not mature enough to drain at this time. Plan to changes antibiotics up and have him follow-up in 2-3 days with general surgery. Departure Impression Primary Impression: Abscess or cellulitis of perineum Disposition: 01 HOME, SELF-CARE Condition: Stable Departure-Patient Inst. Decision time for Depature: 19:50 Referrals: RISSA HATHAWAY DAVID F MD (PCP/Family) Primary Care Physician Patient Instructions: Cellulitis (Skin Infection), Adult (DC) Add. Discharge Instructions: There may be an abscess that shows up in the next few days but there is not anything I can drain today. Stop taking the antibiotics prescribed and start taking the Bactrim DS one tablet twice a day for the next week. Plan to follow up in 2-[address] Hathaway, General Surgery for reexamination of your perineum. Return to the ER sooner if you begin to experience fevers, vomiting or other worrisome symptoms. Apply a warm, moist washcloth to the area every 1-2 hours as needed for pain relief. Tylenol 1000 mg every 8 hours as necessary for pain. Ibuprofen 600 mg every 8 hours as necessary for pain. If you still have severe, intractable pain you may use one tablet of hydrocodone every 6 hours as necessary. Hydrocodone will cause drowsiness and constipation. Do not mix with alcohol. Constipation can be treated with MiraLAX 1 capful in 6- 8 ounces of water 2 or 3 times a day as necessary. All discharge instructions reviewed with patient and/or family. Voiced understanding. Scripts Hydrocodone/Acetaminophen (Hydrocodone-Acetamin 5-325 mg) 1 Each Tablet 1 EACH PO Q6H PRN for PAIN-BREAKTHROUGH, #8 TAB 0 Refills Prov: SABINA YANG 12/02/19 Sulfamethoxazole/Trimethoprim (Bactrim Ds Tablet) 1 Each Tablet 1 EACH PO BID for 7 Days, #14 TAB 0 Refills Prov: SABINA YANG 12/02/19 Work/School Note: Work Release Form Date Seen in the Emergency Department: Dec 02, 2019 Return to Work: Dec 08, 2019 Restrictions: No Restrictions Copy Copies To 1: RISSA HATHAWAY DO SABINA YANG Dec 02, 2019 19:52
[2019-12-02] MEDS ORDERED: HYDR-83 PO (19:54)
[2019-12-02] MEDS ORDERED: SULF1TAB35 PO (19:54)
[2019-12-05] MEDS ORDERED: CEFD300C3 PO (11:38)
== END 2019-12-02 20:02 | disposition home or self-care (01) ==
LOC: EDUNIT# 19:22 → ER 19:24
DX: L03.315 Cellulitis of perineum (principal); L02.215 Cutaneous abscess of perineum; I10 Essential (primary) hypertension; E11.40 Type 2 diabetes mellitus with diabetic neuropathy, unspecified; E66.01 Morbid (severe) obesity due to excess calories; F41.9 Anxiety disorder, unspecified; Z88.1 Allergy status to other antibiotic agents; Z82.49 Family history of ischemic heart disease and other diseases of the circulatory system; Z68.44 Body mass index [BMI] 60.0-69.9, adult
CPT/HCPCS: 99284

== ENCOUNTER 2019-12-03 10:27 | Inpatient (IN) | payer MEDICARE ==
[~2019-12-03] VITALS: Ht 180.3 cm; Wt 204.1 kg
[~2019-12-03 10:27] MED LIST changes: +HYDR-83 PO; +SULF1TAB35 PO
--- NOTE | 2019-12-03 11:06 | ED Integumentary General ---
General Chief Complaint: Skin/Wound Problems Stated Complaint: ABSCESS, SEEN LAST NIGHT Nursing Triage Note: TO ED PER W/C REPORTS HAS ABSCESS IN BUTTOCKS AREA WAS GIVEN IM REPORTS PAIN AND THINKS THAT HE SURG. ON IT. Source: patient Exam Limitations: no limitations History of Present Illness Date Seen by Provider: Dec 03, 2019 Time Seen by Provider: 11:05 Initial Comments This 89 pound gentleman presents to ER with concerns for perirectal abscess because of perirectal pain and swelling for 2 days. He was seen here last night, no fluid collection was seen on bedside ultrasound, antibiotics were initiated. Comes back today with worsening pain. Timing/Duration: constant Severity: moderate Associated Symptoms: denies symptoms Allergies and Home Medications Allergies Coded Allergies: azithromycin (Verified Allergy, Intermediate, Hives, 03/31/15) Home Medications Cefuroxime Axetil 500 Mg Tablet, 500 MG PO BID Prescribed by: CAMILLE TITUS on 06/27/182152 Cephalexin 500 Mg Capsule, 500 MG PO QID Prescribed by: SABINA YANG on 10/28/1827 Epinephrine 0.3 Mg/0.3 Ml Auto.injct, 0.3 MG IJ Q30M PRN for DYSPNEA Prescribed by: SABINA YANG on 09/10/17 0242 Hydrocodone/Acetaminophen 1 Each Tablet, 1 EACH PO Q6H PRN for PAIN-BREAKTHROUGH Prescribed by: SABINA YANG on 12/02/191953 Losartan/Hydrochlorothiazide 1 Each Tablet, 1 TAB PO DAILY, (Reported) Nystatin 1 Each Powder.ea., 1 EACH MC QID Prescribed by: SABINA YANG on 10/28/1827 Ondansetron 4 Mg Tab.rapdis, 4 MG PO Q6H PRN for NAUSEA/VOMITING Prescribed by: SABINA YANG on 10/28/1827 Sulfamethoxazole/Trimethoprim 1 Each Tablet, 1 EACH PO BID Prescribed by: SABINA YANG on 12/02/191953 Venlafaxine HCl 150 Mg Cap.er.24h, 150 MG PO DAILY, (Reported) Patient Home Medication List Home Medication List Reviewed: Yes Review of Systems Review of Systems Constitutional: see HPI EENTM: see HPI Respiratory: no symptoms reported Cardiovascular: no symptoms reported Musculoskeletal: no symptoms reported Skin: see HPI Psychiatric/Neurological: No Symptoms Reported Endocrine: No Symptoms Reported Hematologic/Lymphatic: No Symptoms Reported Past Gtuxwpg-Rtzvso-Bebsha Hx Patient Social History Alcohol Use: Denies Use Recreational Drug Use: No 2nd Hand Smoke Exposure: No Recent Foreign Travel: No Contact w/Someone Who Travel: No Recent Infectious Disease Expo: No Recent Hopitalizations: No Immunizations Up To Date Tetanus Booster (TDap): Less than 5yrs Date of Pneumonia Vaccine: Mar 29, 2010 Date of Influenza Vaccine: Mar 31, 2015 Seasonal Allergies Seasonal Allergies: No Past Medical History Surgeries: Yes (rectal abcess, urethral) Orthopedic, Rectal Respiratory: Yes (sarcoidosis) Sleep Apnea, COPD Currently Using CPAP: Yes Currently Using BIPAP: No Cardiac: Yes Chronic Edema/Swelling, Hypertension Neurological: Yes Neuropathy Reproductive Disorders: No Sexually Transmitted Disease: No HIV/AIDS: No Genitourinary: No Gastrointestinal: Yes (h/o multiple perirectal abscesses.) Gastroesophageal Reflux, Chronic Constipation Musculoskeletal: Yes (SARCOIDOSIS) Arthritis Endocrine: Yes (morbid obesity) Diabetes, Non-Insulin dep HEENT: No Tonsilitis Loss of Vision: Denies Hearing Impairment: Denies Cancer: No Psychosocial: Yes Anxiety Integumentary: Yes Pruritis Blood Disorders: No Family Medical History Congestive heart failure 03 FATHER, Onset:20's - 25 Family history: Asthma 09 SISTER, Onset:20's - 25 Family history: Cardiovascular disease 03 FATHER, Onset:20's - 25 Family history: Hypertension 03 MOTHER, Onset:40's - 50 Family history: Thyroid disorder 03 MOTHER, Onset:50's - 60 Heart disease 03 FATHER, Onset:20's - 25 History of - respiratory disease 03 MOTHER, Onset:50's - 60 No Pertinent Family Hx Physical Exam Vital Signs Vital Signs - First Documented 12/03/19 10:29 Temp 37.2 Pulse 91 Resp 18 B/P (MAP) 144/87 (106) O2 Delivery Room Air Capillary Refill : Less Than 3 Seconds General Appearance: WD/WN, no apparent distress HEENT: PERRL/EOMI, normal ENT inspection Respiratory: no respiratory distress, no accessory muscle use Neurologic/Psychiatric: alert, normal mood/affect, oriented x 3 Skin: normal color, warm/dry Skin Problem Character: other (there is some perineal induration anterior to the anus without obvious fluctuance. Will have ultrasound, reevaluate this to see if there is any fluid collection that can be drained.) Progress/Results/Core Measures Results/Orders Lab Results Laboratory Tests Test 12/03/19 11:29 Range/Units White Blood Count 15.2 H 4.3-11.0 10^3/uL Red Blood Count 4.79 4.35-5.85 10^6/uL Hemoglobin 12.5 L 13.3-17.7 G/DL Hematocrit 39 L 40-54 % Mean Corpuscular Volume 81 80-99 FL Mean Corpuscular Hemoglobin 26 25-34 PG Mean Corpuscular Hemoglobin Concent 32 32-36 G/DL Red Cell Distribution Width 14.2 10.0-14.5 % Platelet Count 238 130-400 10^3/uL Mean Platelet Volume 10.1 7.4-10.4 FL Neutrophils (%) (Auto) 80 H 42-75 % Lymphocytes (%) (Auto) 9 L 12-44 % Monocytes (%) (Auto) 7 0-12 % Eosinophils (%) (Auto) 4 0-10 % Basophils (%) (Auto) 0 0-10 % Neutrophils # (Auto) 12.2 H 1.8-7.8 X 10^3 Lymphocytes # (Auto) 1.4 1.0-4.0 X 10^3 Monocytes # (Auto) 1.0 0.0-1.0 X 10^3 Eosinophils # (Auto) 0.5 H 0.0-0.3 10^3/uL Basophils # (Auto) 0.1 0.0-0.1 10^3/uL Sodium Level 135 135-145 MMOL/L Potassium Level 4.1 3.6-5.0 MMOL/L Chloride Level 100 98-107 MMOL/L Carbon Dioxide Level 23 21-32 MMOL/L Anion Gap 12 5-14 MMOL/L Blood Urea Nitrogen 12 7-18 MG/DL Creatinine 1.10 0.60-1.30 MG/DL Estimat Glomerular Filtration Rate > 60 BUN/Creatinine Ratio 11 Glucose Level 135 H 70-105 MG/DL Lactic Acid Level 0.92 0.50-2.00 MMOL/L Calcium Level 9.5 8.5-10.1 MG/DL My Orders Orders - CAMILLE TITUS [employer] Cbc With Automated Diff (12/03/19 10:46) Basic Metabolic Panel (12/03/19 10:46) Ed Iv/Invasive Line Start (12/03/19 10:46) Us Soft Tissue Unlisted [id number] (12/03/19 10:57) Hydrocodone/Apap 5/325 Tablet (Lortab 5 (12/03/19 11:15) Fentanyl Injection (Sublimaze Injection (12/03/19 11:30) Piperacillin Sodium/Tazobactam (Zosyn Vi (12/03/19 11:30) Blood Culture (12/03/19 11:18) Lactic Acid Analyzer (12/03/19 11:18) Lidocaine/Epi 2% 1:100,000 (Xylocaine/Ep (12/03/19 11:30) Manual Differential (12/03/19 11:29) Fentanyl Injection (Sublimaze Injection (12/03/19 12:15) Medications Given in ED Current Medications Medications Dose Ordered Sig/Ceci Route Start Time Stop Time Status Last Admin Dose Admin Fentanyl Citrate 50 mcg ONCE ONCE IVP 12/03/19 11:30 12/03/19 11:31 DC 12/03/19 11:32 50 MCG Vital Signs/I&O 12/03/19 10:29 Temp 37.2 Pulse 91 Resp 18 B/P (MAP) 144/87 (106) O2 Delivery Room Air Blood Pressure Mean: 106 Departure Communication (Admissions) Time/Spoke to Admitting Phy: 12:[address] Jin and Dr. Renteria, we'll admit. Family Conversation NAME: REYNOLD BOGGS MED REC#: [id number] PT STATUS: REG ER : 1965 PHYSICIAN: CAMILLE TITUS APRN ADMIT DATE: 12/03/19/ER Draft Date of Exam:12/03/19 SOFT TISSUE UNLISTED [id number] INDICATION: Redness and swelling of the perineum. TECHNIQUE: Multiple Real-time grayscale sonographic images were obtained of the perineum. CORRELATION STUDY: None. FINDINGS: Imaging over the area of concern demonstrates a somewhat elongated complex multiseptated predominantly fluid collection to be present. This measures approximately 7.7 x 4.5 x 3.9 cm. A definitive fistulous connection does not appear to be present. IMPRESSION: Complex fluid collection of the perineum. This finding is nonspecific but does raise concern for a potential abscess. Consideration for CT imaging of the pelvis, preferably with contrast, would be recommended to exclude potential fistula or hernia defect. Dictated on workstation # [id number] Dict: 12/03/19 1130 Trans: 12/03/19 1134 [id number] Interpreted by: JIM HERNANDEZ DO Electronically signed by: [id number]-ultrasound does show fluid collection rather large. I spoke with Dr. Jin he'll be over to see the patient. Patient would like a phone so that he can notify his mom with whom he lives that he will likely be admitted and his who lives in the [facility]. 1221-Dr. Jin has been here to see the patient, he discussed risks of the bedside incision and drainage of perianal/perirectal abscess which patient and agrees with. We did this, a very large amount of foul-smelling purulent material expressed. Wound cavity was irrigated with saline and packed with half-inch plain gauze Impression Primary Impression: Perineal abscess Disposition: ADMITTED INPATIENT Condition: Stable Admissions Decision to Admit Reason: Admit from ER (General) Decision to Admit/Date: Dec 03, 2019 Time/Decision to Admit Time: 12:25 Departure-Patient Inst. Referrals: ACE CARTER MD (PCP/Family) Primary Care Physician CAMILLE TITUS APRN Dec 03, 2019 11:06
[2019-12-03] MEDS ORDERED: HYDROcodone/APAP 5 MG/325 MG (LORTAB) TAB PO ONE (11:15)
[2019-12-03] MEDS ORDERED: PIPERACILLIN SODIUM/TAZOBACTAM 4.5 GM in NS (IVPB) 100 ML IV ONE (11:30)
[2019-12-03] MEDS ORDERED: fentaNYL INJECTION 100 MCG/2 ML AMP IVP ONE ×2 (11:30→12:15)
[2019-12-03] MEDS ORDERED: LIDOCAINE/EPI 2% 1:100,00 (XYLOCAINE) 20 ML VIAL INJ ONE (11:30)
--- NOTE | 2019-12-03 11:34 | Diagnostic Imaging Report ---
INDICATION: Redness and swelling of the perineum. TECHNIQUE: Multiple Real-time grayscale sonographic images were obtained of the perineum. CORRELATION STUDY: None. FINDINGS: Imaging over the area of concern demonstrates a somewhat elongated complex multiseptated predominantly fluid collection to be present. This measures approximately 7.7 x 4.5 x 3.9 cm. A definitive fistulous connection does not appear to be present. IMPRESSION: Complex fluid collection of the perineum. This finding is nonspecific but does raise concern for a potential abscess. Consideration for CT imaging of the pelvis, preferably with contrast, would be recommended to exclude potential fistula or hernia defect. Dictated by: Dictated on workstation # [id number]
[2019-12-03 11:39] LABS: BASOPHILS # (AUTO) 0.1 10^3/uL (0.0-0.1); BASOPHILS % (AUTO) 0 % (0-10); EOSINOPHILS # (AUTO) 0.5 10^3/uL (0.0-0.3); EOSINOPHILS % (AUTO) 4 % (0-10); HEMATOCRIT 39 % (40-54); HEMOGLOBIN 12.5 G/DL (13.3-17.7); LYMPHOCYTES # (AUTO) 1.4 X 10^3 (1.0-4.0); LYMPHOCYTES % (AUTO) 9 % (12-44); MEAN CORPUSCULAR HEMOGLOBIN 26 PG (25-34); MEAN CORPUSCULAR HGB CONC 32 G/DL (32-36); MEAN CORPUSCULAR VOLUME 81 FL (80-99); MEAN PLATELET VOLUME 10.1 FL (7.4-10.4); MONOCYTES % (AUTO) 7 % (0-12); NEUTROPHILS # (AUTO) 12.2 X 10^3 (1.8-7.8); NEUTROPHILS % (AUTO) 80 % (42-75); PLATELET COUNT 238 10^3/uL (130-400); RED CELL DISTRIBUTION WIDTH 14.2 % (10.0-14.5); WHITE BLOOD COUNT 15.2 10^3/uL (4.3-11.0)
[2019-12-03 11:55] LABS: CHLORIDE 100 MMOL/L (98-107); POTASSIUM 4.1 MMOL/L (3.6-5.0); SODIUM 135 MMOL/L (135-145)
[2019-12-03 11:56] LABS: CALCIUM 9.5 MG/DL (8.5-10.1)
[2019-12-03 11:57] LABS: GLUCOSE 135 MG/DL (70-105)
[2019-12-03 11:58] LABS: CARBON DIOXIDE 23 MMOL/L (21-32)
--- NOTE | 2019-12-03 12:00 | NUR ---
DR HATHAWAY HERE TO ROOM TO DO I&D OF BUTTOCKS. CULTURE OBTAINED AND SENT TO LAB
[2019-12-03 12:01] LABS: GFR ESTIMATED > 60
--- NOTE | 2019-12-03 12:01 | NUR ---
LAB HERE TO DRAW BLOOD CULTURE
[2019-12-03 12:02] LABS: BUN/CREATININE RATIO 11
--- NOTE | 2019-12-03 12:26 | NUR ---
LAB REMANS HERE TO OBTAIN BLOOD CULTURE.
--- NOTE | 2019-12-03 12:34 | NUR ---
CON'T TO WAIT ON LAB TO OBTAIN 2ND BLOOD CULTURE.
[2019-12-03 12:42] LABS: BAND NEUTROPHILS 0 %; NEUTROPHILS % (MANUAL) 86 %
[2019-12-03 12:43] LABS: BASOPHILS % (MANUAL) 1 %; EOSINOPHILS % (MANUAL) 5 %; LYMPHOCYTES % (MANUAL) 5 %; MONOCYTES % (MANUAL) 3 %; RBC MORPH NORMAL
--- NOTE | 2019-12-03 13:07 | Consultation - Surgery ---
History of Present Illness History of Present Illness Patient Consulted On(fatoumata/time) 12/03/19 13:07 Date Seen by Provider: Dec 03, 2019 Time Seen by Provider: 12:00 History of Present Illness consult requested for perirectal abscess by Dr. Renteria. 53 year old male to er with history of multiple perirectal abscesses, he has had about 8 incision and drainages previously he states. Patient states he has been having issues since about the november. Discomfort in the perirectal area. Slight swelling and started having increasing pain yesterday and was seen in the emergency dept. He was started on antibiotics, but now having increasing pain and u/s showing complex abscess. Denies fever swets chills shortness of breath or chest pain WBC 15 k Unable to get CT scan due to patient size. Allergies and Home Medications Allergies Coded Allergies: azithromycin (Verified Allergy, Intermediate, Hives, 03/31/15) Home Medications Cefuroxime Axetil 500 Mg Tablet, 500 MG PO BID Prescribed by: CAMILLE TITUS on 06/27/182152 Cephalexin 500 Mg Capsule, 500 MG PO QID Prescribed by: SABINA YANG on 10/28/1827 Epinephrine 0.3 Mg/0.3 Ml Auto.injct, 0.3 MG IJ Q30M PRN for DYSPNEA Prescribed by: SABINA YANG on 09/10/17241 Hydrocodone/Acetaminophen 1 Each Tablet, 1 EACH PO Q6H PRN for PAIN-BREAKTHROUGH Prescribed by: SABINA YANG on 12/02/191953 Losartan/Hydrochlorothiazide 1 Each Tablet, 1 TAB PO DAILY, (Reported) Nystatin 1 Each Powder.ea., 1 EACH MC QID Prescribed by: SABINA YANG on 10/28/1827 Ondansetron 4 Mg Tab.rapdis, 4 MG PO Q6H PRN for NAUSEA/VOMITING Prescribed by: SABINA YANG on 10/28/1827 Sulfamethoxazole/Trimethoprim 1 Each Tablet, 1 EACH PO BID Prescribed by: SABINA YANG on 12/02/191953 Venlafaxine HCl 150 Mg Cap.er.24h, 150 MG PO DAILY, (Reported) Patient Home Medication List Home Medication List Reviewed: Yes Past Qbksvct-Uafnfw-Pifxbw Hx Patient Social History Alcohol Use: Denies Use Recreational Drug Use: No 2nd Hand Smoke Exposure: No Recent Foreign Travel: No Contact w/Someone Who Travel: No Recent Infectious Disease Expo: No Recent Hopitalizations: No Immunizations Up To Date Tetanus Booster (TDap): Less than 5yrs Date of Pneumonia Vaccine: Mar 29, 2010 Date of Influenza Vaccine: Mar 31, 2015 Seasonal Allergies Seasonal Allergies: No Surgeries History of Surgeries: Yes (rectal abcess, urethral) Surgeries: Orthopedic, Rectal Respiratory History of Respiratory Disorde: Yes (sarcoidosis) Respiratory Disorders: Sleep Apnea, COPD Cardiovascular History of Cardiac Disorders: Yes Cardiac Disorders: Chronic Edema/Swelling, Hypertension Neurological History of Neurological Disord: Yes Neurological Disorders: Neuropathy Reproductive System Hx Reproductive Disorders: No Sexually Transmitted Disease: No HIV/AIDS: No Genitourinary History of Genitourinary Disor: No Gastrointestinal History of Gastrointestinal Di: Yes (h/o multiple perirectal abscesses.) Gastrointestinal Disorders: Gastroesophageal Reflux, Chronic Constipation Musculoskeletal History of Musculoskeletal Dis: Yes (SARCOIDOSIS) Musculoskeletal Disorders: Arthritis Endocrine History of Endocrine Disorders: Yes (morbid obesity) Endocrine Disorders: Diabetes, Non-Insulin dep HEENT History of HEENT Disorders: No HEENT Disorders: Tonsilitis Loss of Vision: Denies Hearing Impairment: Denies Cancer History of Cancer: No Psychosocial History of Psychiatric Problem: Yes Behavioral Health Disorders: Anxiety Integumentary History of Skin or Integumenta: Yes Skin/Integumentary Disorders: Pruritis Blood Transfusions History of Blood Disorders: No Family Medical History Significant Family History: No Pertinent Family Hx Family Medial History: Congestive heart failure 03 FATHER, Onset:20's - 25 Family history: Asthma 09 SISTER, Onset:20's - 25 Family history: Cardiovascular disease 03 FATHER, Onset:20's - 25 Family history: Hypertension 03 MOTHER, Onset:40's - 50 Family history: Thyroid disorder 03 MOTHER, Onset:50's - 60 Heart disease 03 FATHER, Onset:20's - 25 History of - respiratory disease 03 MOTHER, Onset:50's - 60 Review of Systems-General Constitutional: No chills, No diaphoresis EENTM: no symptoms reported; No blurred vision, No vision loss Respiratory: No cough, No dyspnea on exertion Cardiovascular: No chest pain; edema Gastrointestinal: No abdominal pain, No nausea, No vomiting Genitourinary: pain (perirectal) Skin: change in color (erythema perirectal); No rash Psychiatric/Neurological: Denies Anxiety, Denies Depressed All Other Systems Reviewed Negative Unless Noted: Yes (Negative excepted noted.) Physical Exam-General Problems Physical Exam Vital Signs Vital Signs - First Documented 12/03/19 10:29 Temp 37.2 Pulse 91 Resp 18 B/P (MAP) 144/87 (106) O2 Delivery Room Air Capillary Refill : Less Than 3 Seconds General Appearance: no apparent distress (laying in bed) HEENT: PERRL/EOMI, normal ENT inspection Neck: non-tender, supple, normal inspection Respiratory: chest non-tender, no respiratory distress, no accessory muscle use Cardiovascular: regular rate, rhythm; No no edema (b/l lower ext) Gastrointestinal: non tender, soft Rectal: tenderness (large amount of induration, swelling and erythema anterior to anus, fluctuant), other Back: normal inspection, no CVA tenderness Extremities: non-tender, normal inspection, pedal edema Neurologic/Psychiatric: double cut sawyer II-XII nml as tested, no motor/sensory deficits, alert, normal mood/affect, oriented x 3 Skin: normal color (variable pigmentation), warm/dry Lymphatic: no adenopathy Data Review Labs Laboratory Tests 12/03/19 11:29: White Blood Count 15.2H, Red Blood Count 4.79, Hemoglobin 12.5L, Hematocrit 39L, Mean Corpuscular Volume 81, Mean Corpuscular Hemoglobin 26, Mean Corpuscular Hemoglobin Concent 32, Red Cell Distribution Width 14.2, Platelet Count 238, Mean Platelet Volume 10.1, Neutrophils (%) (Auto) 80H, Lymphocytes (%) (Auto) 9L , Monocytes (%) (Auto) 7, Eosinophils (%) (Auto) 4, Basophils (%) (Auto) 0, Neutrophils # (Auto) 12.2H, Lymphocytes # (Auto) 1.4, Monocytes # (Auto) 1.0, Eosinophils # (Auto) 0.5H, Basophils # (Auto) 0.1, Neutrophils % (Manual) 86, Lymphocytes % (Manual) 5, Monocytes % (Manual) 3, Eosinophils % (Manual) 5, Basophils % (Manual) 1, Band Neutrophils 0, Blood Morphology Comment NORMAL, Sodium Level 135, Potassium Level 4.1, Chloride Level 100, Carbon Dioxide Level 23, Anion Gap 12, Blood Urea Nitrogen 12, Creatinine 1.10, Estimat Glomerular Filtration Rate > 60, BUN/Creatinine Ratio 11, Glucose Level 135H, Lactic Acid Level 0.92, Calcium Level 9.5 Assessment/Plan Assessment/Plan Assessment/Plan perirectal abscess leukocytosis morbid obesity patient with u/s showing complex abscess perirectal. unable to get ct scan due to body habitus we discussed risks and benefits of drainage of perirectal abscess which he understands and wishes to proceed. obtain culture need daily irrigation and packing IV abx RISSA HATHAWAY DO Dec 03, 2019 13:07
--- NOTE | 2019-12-03 13:30 | NUR ---
REYNOLD BOGGS admitted to room 417-1, with an admitting diagnosis of Perirectal Abscess, on 12/03/19 from er via w/c, accompanied by er staff.REYNOLD BOGGS introduce to surroundings, call light, bed controls, phone, TV, temperature control, lights, meal times, smoking policy, visitor policy, side rail policy, bathrooms and showers. Patient Rights given to patient in the handbook. REYNOLD BOGGS verbalizes understanding that [facility] is not responsible for the loss or damage to any personal effects or valuables that are kept in the patients posession during their hospitalization. The following Patient Care Plans were discussed with the pt: Discharge Planning, PAIN, HIGH RISK FL VOL DEFICIT, HIGH RISK INFECTION, HIGH RISK INJURY, AND IMP SKIN INTEGRITY. REYNOLD BOGGS verbalizes understanding of Interdisciplinary Patient Education. Patient and/or family were informed about the Rapid Response Team and its purpose. PT CAME TO FLOOR FROM ER WITH SL IN L UPPER ARM -- REPORT FROM TAMMY AT 1329
[2019-12-03 13:43] VITALS: BP 118/59
[2019-12-03] MEDS ORDERED: CATHETER FLUSH 10 ML SYR IV PRN (13:45)
[2019-12-03] MEDS ORDERED: ONDANSETRON 4 MG/2 ML (SDV) Z0FRAN IV PRN (13:45)
[2019-12-03] MEDS ORDERED: ACETAMINOPHEN 325 MG TABLET PO PRN (13:45)
[2019-12-03] MEDS ORDERED: HYDROmorphone 2 MG/ML VIAL (DILAUDID) IV PRN (13:45)
--- OUTSIDE RECORDS SUMMARY | 2019-12-03 14:53 | XMS REPORT ---
Author Author Geovanna CARTER Organization [facility] Address [address] [place] [address] Care Team Providers Care Tangled Yarn Worker Name Role Phone ACE CARTER Unavailable PROBLEMS Type Condition ICD9-CM Code MUZ17-NC Code Onset Dates Condition S tatus SNOMED Code Problem Elevated LDL cholesterol level E78.00 Active 874749910 Problem Low HDL (under 40) E78.6 Active 3 12008704 Problem Type 2 diabetes mellitus with hyperglycemia E11.65 Active 09062228 Problem Morbid obesity due to excess calories E66.01 Active 532026147 Problem Elevated serum creatinine R79.89 Acti ve 241087051 Problem Cardiac murmur R01.1 Active 36787 006 Problem Anxiety disorder, unspecified F41.9 Active 755771377 Problem Essential hypertension I10 Active 91624011 Problem Polyneuropathy in diseases classified elsewhere G6 3 Active 907258846 Problem Personal history of sarcoidosis Z86.2 Active 542807728 Problem Dyslipidemia E78.5 Active 8146654 07 Problem Balanitis N48.1 Active 85763187 Problem Polyneuropathy associated with underlying disease G63 Active 982261581 Problem Seasonal allergic rhinitis, unspecified trigger J3 0.2 Active 377240355 Problem Anxiety F41.9 Active 84942844 Problem Diabetes E11.9 Active 918519408 ALLERGIES No Information ENCOUNTERS Encounter Location Date Diagnosis [address] [id number] Oct, Anxiety disorder, unspecified F41.9 [facility] [address] [id number] [address] [place] [id number] Oct, Dental examination Z01.20 an d Dental caries K02.9 [facility] [address] [facility] [id number] [address] [place] [phone] Oct, [facility] [address] [facility] [id number] [address] [place] [phone] September, Dyslipidemia E78.5 [facility] [address] [facility] [id number] [address] [place] [phone] September, Polyneuropathy in diseases c lassified elsewhere G63 [facility] [address] [facility] [id number] [address] [place] [phone] September, Encounter for Medicare abdon l wellness exam Z00.00 ; Polyneuropathy associated with underlying disease G63 ; Balanitis N48.1 ; Morbid obesity due to excess calories E66.01 ; Type 2 diabetes mellitus with hyperglycemia E11.65 ; Low HDL (under 40) E78.6 ; Elevated LDL cholesterol level E78.00 ; Morbid obesity E66.01 ; Encounter for immunization Z23 and Routine adult health maintenance Z00.00 [place] [address] [place] [id number] [address] [place] [phone] Jul, Essential hypertension I10 [facility] [address] [place] [id number] [address] [place] [phone] Jul, Anxiety disorder, unspecifie d F41.9 [place] [address] [place] [id number] [address] [place] [phone] Jun, Diabetes E11.9 ; Anxiety F41 .9 ; Morbid obesity due to excess calories E66.01 and BMI 60.0-69.9, adult Z68.44 [facility] [address] [place] [phone] Jun, Anxiety disorder, unspecifie d F41.9 and Essential hypertension I10 [facility] [address] [place] [id number] [address] [place] [phone] Mar, Bronchitis J40 and BMI 60.0- 69.9, adult Z68.44 [facility] [address] [place] [id number] [address] [place] [phone] Feb, Anxiety disorder, unspecifie d F41.9 and Essential hypertension I10 [place] [address] [place] [id number] [address] [place] [phone] Nov, Polyneuropathy associated wi th underlying disease G63 [facility] [address] [place] [id number] [address] [place] [phone] Oct, [facility] [address] [place] [id number] [place] [phone] September, [facility] [address] [address] Aug, Essential hypertension I10 ; Anxiety disorder, unspecified F41.9 ; Type 2 diabetes mellitus with hyperglycemia E11.65 ; Seasonal allergic rhinitis, unspecified trigger J30.2 ; Polyneuropathy associated with underlying disease G63 and BMI 60.0-69.9, adult Z68.44 [place] [address] [place] [id number] [address] [place] [phone] Aug, [place] [address] [phone] Aug, Anxiety disorder, unspecifie d F41.9 [place] [address] [place] [phone] Jul, [place] [address] [place] [id number] [address] [place] [phone] May, Type 2 diabetes mellitus wit h hyperglycemia E11.65 ; Essential hypertension I10 ; Morbid obesity due to excess calories E66.01 ; Elevated LDL cholesterol level E78.00 ; Polyneuropathy associated with underlying disease G63 ; BMI 60.0-69.9, adult Z68.44 ; Anxiety disorder, unspecified F41.9 and Encounter for immunization Z23 [facility] [address] [facility] [id number] [address] [place] [phone] Apr, [facility] [address] [facility] [id number] [address] [place] [phone] Apr, Dental examination Z01.20 [facility] [address] [place] [id number] [address] [place] [phone] Mar, BMI 60.0-69.9, adult Z68.44 [place] [address] [facility] [id number] [address] [place] [phone] Feb, Type 2 diabetes mellitus wit h hyperglycemia E11.65 ; Essential hypertension I10 ; Morbid obesity due to excess calories E66.01 ; Elevated serum creatinine R79.89 and Polyneuropathy associated with underlying disease G63 [place] [address] [facility] [id number] [address] [place] [phone] Jan, [place] [address] [facility] [id number] [address] [place] [phone] Jan, Elevated serum creatinine R7 9.89 [place] [address] [facility] [id number] [address] [place] [phone] Jan, Type 2 diabetes mellitus wit h hyperglycemia E11.65 [place] [address] [facility] [id number] [address] [place] [phone] Jan, Anxiety disorder, unspecifie d F41.9 [place] [address] [facility] [id number] [address] [place] [phone] Jan, [place] [address] [facility] [id number] [address] [place] [phone] Jan, Type 2 diabetes mellitus wit h hyperglycemia E11.65 [place] [address] [facility] [id number] [address] [place] [phone] Nov, [place] [address] [facility] [id number] [address] [place] [phone] Nov, Type 2 diabetes mellitus wit h hyperglycemia E11.65 [place] [address] [facility] [id number] [address] [place] [phone] Nov, [place] [address] [facility] [id number] [address] [place] [phone] Nov, Type 2 diabetes mellitus wit h hyperglycemia E11.65 ; Essential hypertension I10 ; Low HDL (under 40) E78.6 ; Morbid obesity due to excess calories E66.01 ; Allergic contact dermatitis, unspecified trigger L23.9 and Dietary counseling Z71.3 [facility] [address] [facility] [id number] [address] [place] [phone] Nov, [place] [address] [facility] [id number] [address] [place] [phone] Oct, Morbid obesity due to excess calories E66.01 ; Essential hypertension I10 ; Cardiac murmur R01.1 and Personal history of sarcoidosis Z86.2 [place] [address] [facility] [id number] [address] [place] [phone] 13 Oct, 2016 Encounter for routine adult health examination with abnormal findings Z00.01 ; Morbid obesity due to excess calories E66.01 ; Essential hypertension I10 ; Balanitis N48.1 ; Anxiety disorder, unspecified F41.9 ; Cardiac murmur R01.1 and Personal history of sarcoidosis Z86.2 [facility] [address] [facility] [id number] [address] [place] [phone] September, Atypical pneumonia J18.9 and Essential hypertension I10 IMMUNIZATIONS No Known Immunizations SOCIAL HISTORY Never Assessed REASON FOR VISIT Medication refill request PLAN OF CARE VITAL SIGNS MEDICATIONS Medication Instructions Dosage Frequency Start Date End Date Duration S tatus Venlafaxine HCl ER 150 MG TAKE ONE CAPSULE BY MOUTH ONCE D AILY WITH FOOD 30 days Active RESULTS No Results PROCEDURES No Known procedures INSTRUCTIONS MEDICATIONS ADMINISTERED No Known Medications MEDICAL (GENERAL) HISTORY Type Description Date Medical History chronic bronchitis Medical History pre -diabetec Medical History asthma Medical History sarcoidosis- Dx by Dr. Hancock in [place]- in 1989 Medical History ASCVD risk factor 9.5% Medical History Echo 10/2016--EF 50-55% Medical History COPD Medical History ER visit for bowelenitits/ hives and swe lling in throat Medical History pt takes loramax for HBP Surgical History left wrist and elbow surgery Surgical History lipoma removed from left leg Surgical History perirectal abscess removed Hospitalization History for COPD Hospitalization History for Pneumonia Hospitalization History mediastinoscopy and bronchoscopy in 1989 Hospitalization History [facility]- Sore Throat and Fev er 08/22/2017 Hospitalization History [facility] ED- Swollen Lips 2017
--- OUTSIDE RECORDS SUMMARY | 2019-12-03 14:53 | XMS REPORT | Clinical Summary ---
Author Author [facility] Organization [facility] Address Unknown Phone Unavailable Care Team Providers Care Dragsaw Operator Name Role Phone Meliton Woodson MD Unavailable Source Comments Some departments are not documenting in the electronic medical record. If you d o not see the information that you expected, contact Release of Information in [facility] [employer] Information Management department at [phone] for further assistan ce in locating additional records.[facility] Allergies Comments Active Allergy Reactions Severity Noted [...] Clobetasol cream Follow-up with Dr. Woodson in [address] [place] [address] Family history of prostate cancer 09/03/2016 Last Assessment & Plan: Hold on PSA testing at this time Family History Medical History Relation Name Comments Cancer Maternal Grandmother Cancer Other Diabetes Other Stroke Paternal Grandmother Relation Name Status Comments Maternal Grandmother Other Paternal Grandmother Social History Date Tobacco Use Types Packs/Day Years Used Never Smoker Drinks/Week oz/Week Comments Alcohol Use 0 Standard drinks or equivalent 0.0 Yes Sex Assigned at Date Recorded Not on file Industry Job Start Date Occupation Not on file Not on file Not on file Travel End Travel History Travel Start No recent travel history available. Last Filed Vital Signs Reading Time Taken Comments Vital Sign 148/72 08/31/2016 8:50 AM CDT Blood Pressure 102 08/31/2016 8:50 AM CDT Pulse - - Temperature - - Respiratory Rate - - Oxygen Saturation - - Inhaled Oxygen Concentration 215.9 kg (476 lb) 08/31/2016 8:50 AM CDT Weight 180.3 cm (5' 11") 08/31/2016 8:50 AM CDT Height 66.39 08/31/2016 8:50 AM CDT Body Mass Index Plan of Treatment Health Maintenance Due Date Last Done Comments HIV SCREENING 1981 DTAP/TDAP VACCINES (1 - 1984 Tdap) HEPATITIS C SCREENING 1984 PHYSICAL (COMPREHENSIVE) 1984 EXAM COLORECTAL CANCER 2016 SCREENING SHINGLES RECOMBINANT 2016 VACCINE (1 of 2) INFLUENZA VACCINE 02/26/2020 Results Not on filefrom Last 3 Months
--- OUTSIDE RECORDS SUMMARY | 2019-12-03 14:53 | XMS REPORT ---
Author Author Geovanna CARTER Organization [facility] Address [address] [place] [address] Care Team Providers Care Veneer Taper Name Role Phone ACE CARTER Unavailable PROBLEMS Type Condition ICD9-CM Code TWT74-DM Code Onset Dates Condition S tatus SNOMED Code Problem Type 2 diabetes mellitus with hyperglycemia E11.65 Active 62852001 Problem Low HDL (under 40) E78.6 Active 3 96455347 Problem Elevated LDL cholesterol level E78.00 Active 432924346 Problem Morbid obesity due to excess calories E66.01 Active 837162808 Problem Elevated serum creatinine R79.89 Acti ve 095777679 Problem Cardiac murmur R01.1 Active 16858 006 Problem Personal history of sarcoidosis Z86.2 Active 910247717 Problem Essential hypertension I10 Active 88661962 Problem Polyneuropathy associated with underlying disease G63 Active 257888642 Problem Seasonal allergic rhinitis, unspecified trigger J3 0.2 Active 841337504 Problem Other chronic pain G89.29 Active 8 3927938 Problem Anxiety disorder, unspecified F41.9 Active 325463849 Problem COPD exacerbation J44.1 Active 19 6533826 Problem Balanitis N48.1 Active 71134256 Problem Diabetes E11.9 Active 476654861 Problem Anxiety F41.9 Active 45344263 Problem Polyneuropathy in diseases classified elsewhere G6 3 Active 270970673 Problem Dyslipidemia E78.5 Active 5562156 07 ALLERGIES No Information ENCOUNTERS Encounter Location Date Diagnosis [facility] [address] [id number] [place] [address] Mar, [facility] [address] [id number] [place] [address] Mar, Follicular acne L70.8 ; Essential hypert ension I10 and Polyneuropathy in diseases classified elsewhere G63 [facility] [address] [facility] [id number] [address] [address] Feb, COPD exacerbation J44.1 [place] [id number] [place] [address] Feb, [place] [address] [address] Feb, Encounter for immunization Z23 [place] [address] [address] Feb, Diabetes E11.9 ; Essential hypertension I10 ; Pain in left knee M25.562 ; Other chronic pain G89.29 and Vesicular dermatitis L30.8 [place] [address] [place] [address] Oct, Anxiety disorder, unspecifie d F41.9 [facility] [address] [facility] [place] [id number] Oct, Dental examination Z01.20 and Dental car ies K02.9 [place] [id number] [place] [address] Oct, [place] [address] [address] September, Dyslipidemia E78.5 [place] [address] [address] September, Polyneuropathy in diseases classified el sewhere G63 [place] [id number] [place] [address] September, Encounter for Medicare annual wellness e xam Z00.00 ; Polyneuropathy associated with underlying disease G63 ; Balanitis N48.1 ; Morbid obesity due to excess calories E66.01 ; Type 2 diabetes mellitus with hyperglycemia E11.65 ; Low HDL (under 40) E78.6 ; Elevated LDL cholesterol level E78.00 ; Morbid obesity E66.01 ; Encounter for immunization Z23 and Routine adult health maintenance Z00.00 [place] [address] [address] Jul, Essential hypertension I10 [place] [address] [address] Jul, Anxiety disorder, unspecified F41.9 [place] [address] [address] Jun, Diabetes E11.9 ; Anxiety F41.9 ; Morbid obesity due to excess calories E66.01 and BMI 60.0-69.9, adult Z68.44 [facility] [address] [facility] [id number] [address] [place] [address] Jun, Anxiety disorder, unspecifie d F41.9 and Essential hypertension I10 [place] [address] [address] Mar, Bronchitis J40 and BMI 60.0-69.9, adult Z68.44 [place] [address] [address] Feb, Anxiety disorder, unspecified F41.9 and Essential hypertension I10 [place] [address] [address] Nov, Polyneuropathy associated with underlyin g disease G63 [place] [address] [address] Oct, [place] [address] [address] September, [place] [address] [address] Aug, Essential hypertension I10 ; Anxiety dis order, unspecified F41.9 ; Type 2 diabetes mellitus with hyperglycemia E11.65 ; Seasonal allergic rhinitis, unspecified trigger J30.2 ; Polyneuropathy associated with underlying disease G63 and BMI 60.0-69.9, adult Z68.44 [place] [address] [address] Aug, [place] [address] [address] Aug, Anxiety disorder, unspecified F41.9 [facility] [id number] [place] [address] Jul, [place] [address] [address] May, Type 2 diabetes mellitus with hyperglyce bacilio E11.65 ; Essential hypertension I10 ; Morbid obesity due to excess calories E66.01 ; Elevated LDL cholesterol level E78.00 ; Polyneuropathy associated with underlying disease G63 ; BMI 60.0-69.9, adult Z68.44 ; Anxiety disorder, unspecified F41.9 and Encounter for immunization Z23 [place] [address] [address] Apr, [facility] [address] [facility] [place] [id number] Apr, Dental examination Z01.20 [place] [address] [address] Mar, BMI 60.0-69.9, adult Z68.44 [place] [address] [address] Feb, Type 2 diabetes mellitus with hyperglyce bacilio E11.65 ; Essential hypertension I10 ; Morbid obesity due to excess calories E66.01 ; Elevated serum creatinine R79.89 and Polyneuropathy associated with underlying disease G63 [place] [address] [address] Jan, [place] [address] [address] Jan, Elevated serum creatinine R79.89 [place] [address] [address] Jan, Type 2 diabetes mellitus with hyperglyce bacilio E11.65 [place] [address] [address] Jan, Anxiety disorder, unspecified F41.9 [facility] [address] [address] Jan, [place] [address] [address] Jan, Type 2 diabetes mellitus with hyperglyce bacilio E11.65 [place] [address] [address] Nov, [place] [address] [address] Nov, Type 2 diabetes mellitus with hyperglyce bacilio E11.65 [place] [address] [address] Nov, [address] [address] Nov, Type 2 diabetes mellitus with hyperglyce bacilio E11.65 ; Essential hypertension I10 ; Low HDL (under 40) E78.6 ; Morbid obesity due to excess calories E66.01 ; Allergic contact dermatitis, unspecified trigger L23.9 and Dietary counseling Z71.[address] [address] Nov, [address] [address] Oct, Morbid obesity due to excess calories E6 6.01 ; Essential hypertension I10 ; Cardiac murmur R01.1 and Personal history of sarcoidosis Z86.2 [place] [id number] [place] [address] 13 Oct, 2016 Encounter for routine adult health exami [facility] with abnormal findings Z00.01 ; Morbid obesity due to excess calories E66.01 ; Essential hypertension I10 ; Balanitis N48.1 ; Anxiety disorder, unspecified F41.9 ; Cardiac murmur R01.1 and Personal history of sarcoidosis Z86.2 [facility] [address] [facility] [id number] [address] [place] [address] September, Atypical pneumonia J18.9 and Essential hypertension I10 IMMUNIZATIONS No Known Immunizations SOCIAL HISTORY Never Assessed REASON FOR VISIT Medication refill PLAN OF CARE VITAL SIGNS MEDICATIONS Medication Instructions Dosage Frequency Start Date End Date Duration S tatus Lisinopril-Hydrochlorothiazide 20-25 MG Orally Once a day 1 tablet 24h Aug, Active Januvia 25 MG TAKE ONE TABLET BY MOUTH ONCE DAILY 30 day(s) Active RESULTS No Results PROCEDURES No Known procedures INSTRUCTIONS MEDICATIONS ADMINISTERED No Known Medications MEDICAL (GENERAL) HISTORY Type Description Date Medical History chronic bronchitis Medical History pre -diabetec Medical History asthma Medical History sarcoidosis- Dx by Dr. Hancock in [place]- in 1989 Medical History ASCVD risk factor [...] and bronchoscopy in 1989 Hospitalization History [facility]- Sore Throat and Fev er 08/22/2017 Hospitalization History [facility] ED- Swollen Lips 2017
--- OUTSIDE RECORDS SUMMARY | 2019-12-03 14:53 | XMS REPORT ---
Author Author [facility] ReferralMD [facility] Emergency Department [place] [facility] Address [address] [place] [address] Care Team Providers Care Wheel Worker Name Role Phone BETHANIE CAN Unavailable GRAY, ANGELIQUE Unavailable GRAY, ANGELIQUE Unavailable GRAY, ANGELIQUE Unavailable GRAY, ANGELIQUE Unavailable GRAY, ANGELIQUE Unavailable GRAY, ANGELIQUE Unavailable EMY YODER Unavailable GRAY, ANGELIQUE Unavailable GRAY, ANGELIQUE Unavailable GRAY, ANGELIQUE Unavailable GRAY, ANGELIQUE Unavailable GRAY, ANGELIQUE Unavailable JULIANA MEJIA Unavailable GRAY, ANGELIQUE Unavailable GRAY, ANGELIQUE Unavailable CAMILLE TITUS APRN Unavailable Unavailable WILLARD SANTIAGO MD Unavailable Unavailable WILLARD SANTIAGO MD Unavailable Unavailable BETHANIE CAN DO Unavailable Unavailable DIONY DEL TORO DO Unavailable Unavailable OLEGARIO MONTOYA, PHYLLIS Maurice Unavailable Unavailable IAM MONTOYA, BAUTISTA Fowler Unavailable Unavailable GRAY, ANGELIQUE Unavailable NELSON PADILLA Unavailable Unavailable STEPAN DOFUENTES Unavailable Unavailable GRAY, ANGELIQUE R [facility]END[facility] IN[facility] Unavailable Unavailable GENE RAMOS Unavailable EDWARD KELLER Unavailable [facility] PCP [phone] JOE MONTOYA, GARY Madera Unavailable Unavailable CINDI MONTOYA, ORLANDO M Unavailable Unavailable RUPALI MONTOYA, ANT Jimenez Unavailable Unavailable TRAV MONTOYA, LIANE M Unavailable Unavailable SESAR MONTOYA, ITZEL [place] Unavailable Unavailable JOE MONTOYA, MARY Maurice Unavailable Unavailable ACE CARTER Unavailable ACE CARTER Unavailable Unavailable SABINA YANG Unavailable Unavailable ACE CARTER Unavailable Unavailable Unavailable SABINA YANG MD Unavailable Unavailable OLEGARIO MONTOYA, PHYLLIS Maurice Unavailable Unavailable CAMILLE TITUS APRN Unavailable Unavailable NELSON PADILLA Unavailable Unavailable Unavailable Unavailable Unavailable Unavailable Unavailable Unavailable Unavailable Unavailable Unavailable Unavailable Allergies The data below is from unstructured sources Allergen Type Severity Reaction Status Last Updated No Known Drug Allergies Active 07/10/09 Allergen Type Severity Reaction Last Updated No Known Drug Allergies 07/10/09 No Information Encounters Encounter Date Encounter Type Encounter Diagnosis Care Provider Facility Start: Emergency department PHYLLIS MELVIN MD [facility] 12-03-2019 patient visit [facility] Start: Emergency department SABINA YANG MD [facility] 12-02-2019 patient visit [facility] End: 12-02-2019 [facility] Start: Patient encounter ACE Александр [facility] 08-10-2019 procedure [facility] Start: Telephone encounter ACE [facility] 04-18-2019 Start: [facility] Other acne ACE CARTER [facility] 04-17-2019 Start: Patient encounter NA [facility] 04-17-2019 procedure [facility] ([id number]) Start: Patient encounter ACE CARTER [facility] 03-26-2019 procedure [facility] ([id number]) Start: [facility] Chronic obstructive [facility] RADHA [facility] 03-26-2019 CARE pulmonary disease CARE with (acute) exacerbation Start: Telephone encounter ACE [facility] 03-21-2019 Start: Patient encounter NA [facility] 02-28-2019 procedure [facility] ([id number]) Start: [facility] for [facility] 02-28-2019 immunization Start: [facility] Type 2 diabetes [facility] 02-28-2019 mellitus without complications Start: Telephone encounter [facility] DON[facility] EMY 11-15-2018 unspecified MAIN End: 11-15-2018 Start: Patient encounter ACE CARTER [facility] 11-05-2018 procedure [facility] ([id number]) Start: [facility] Encounter for dental YASMANI MANRIQUE [facility] 11-05-2018 DENTAL examination and DENTAL cleaning without End: abnormal findings 11-05-2018 Start: Patient encounter ACE CARTER [facility] 11-05-2018 procedure [facility] ([id number]) Start: Telephone encounter ACE [facility] 10-28-2018 End: 10-28-2018 Start: Emergency department SABINA YANG MD [facility] V yulissa Ruiz 10-27-2018 patient visit [facility] End: 10-27-2018 Start: Patient encounter SABINA CHAUDHARI [facility] 10-27-2018 procedure [facility] ([id number]) Start: Telephone encounter Hyperlipidemia, ACE CARTER [facility] 10-22-2018 unspecified End: 10-22-2018 Start: Patient encounter Encounter for general ACE FERNANDEZ [facility] 10-18-2018 procedure adult medical examination without End: abnormal findings 10-18-2018 Start: Telephone encounter Polyneuropathy in ACE CARTER [facility] 10-18-2018 diseases classified elsewhere End: 10-18-2018 Start: Telephone encounter Essential (primary) ACE FERNANDEZ [facility] 08-23-2018 hypertension End: 08-23-2018 Start: Telephone encounter Anxiety disorderACE [facility] 08-16-2018 unspecified End: 08-16-2018 Start: [facility] Type 2 diabetes ACE CARTER [facility] 07-18-2018 mellitus without complications End: 07-18-2018 Start: Telephone encounter Anxiety disorder, [facility] 06-28-2018 unspecified CARE End: 06-28-2018 Start: Emergency department CAMILLE TITUS Not Available ([id number]) 06-27-2018 patient visit End: 06-27-2018 Start: Patient encounter ANGELIQUE Cruz [facility] 04-17-2018 procedure [facility] ([id number]) Start: [facility] Bronchitis, not EDWARD ARIANNA [facility] 04-17-2018 specified as acute or chronic End: 04-17-2018 Start: Telephone encounter Anxiety disorder, GENE RAMOS [facility] 03-06-2018 unspecified End: 03-06-2018 Start: Emergency department 09-10-2017 patient visit End: 09-10-2017 Start: Patient encounter NA NA Not Availab le ([id number]) 09-10-2017 procedure Start: Emergency department NA NA Not Avai lable ([id number]) 08-22-2017 patient visit End: 08-22-2017 Start: Patient encounter 08-22-2017 procedure Start: Emergency department NELSON GROVE VC [facility] 08-22-2017 patient visit [facility] End: 08-22-2017 Start: Patient encounter ANGELIQUE GRAY Not Availab le ([id number]) 11-20-2016 procedure Start: Emergency department CAMILLE TITUS Not Avai lable ([id number]) 10-16-2016 patient visit End: 10-16-2016 Start: Patient encounter CAMILLE TITUS Not Availab le ([id number]) 10-16-2016 procedure Start: Emergency department CAMILLE TITUS APRN [facility] 10-16-2016 patient visit [facility] End: 10-16-2016 Start: Evaluation and WILLARD SANTIAGO MD Not Availabl e ([id number]) 03-14-2016 management of inpatient End: 03-15-2016 Start: Emergency department PHYLLIS MELVIN MD Not Available ([id number]) 12-14-2015 patient visit End: 12-14-2015 Start: Emergency department PHYLLIS MELVIN MD V [facility] 12-13-2015 patient visit [facility] End: 12-13-2015 Start: Evaluation and BETHANIE CAN DO Not Avail able ([id number]) 05-23-2013 management of inpatient End: 05-30-2013 Start: Emergency department WILLARD SANTIAGO MD Not Av ailable ([id number]) 05-19-2012 patient visit End: 05-19-2012 Start: Emergency department GARY DIAZ MD Not [place] ([id number]) 05-12-2012 patient visit End: 05-12-2012 Start: Emergency department PHYLLIS MELVIN MD Not Available ([id number]) 04-04-2012 patient visit End: 04-04-2012 Start: Emergency department GARY DIAZ MD Not [place] ([id number]) 12-03-2011 patient visit End: 12-03-2011 Start: Evaluation and LIANE RAVI MD Not Avai lable ([id number]) 08-26-2010 management of inpatient End: 08-31-2010 Start: Patient encounter FUENTES YING DO Not Availab le ([id number]) 08-25-2010 procedure Patient encounter [facility] procedure [facility] ([id number]) Encounter for general [facility] adult medical Other Phone: [facility] examination without [place] ([id number]) abnormal findings Medical Equipment Procedure Code Equipment Code Equipment Original Equipment Iden tifier Dates Text as directed Start: 02-16-2017 Goals No Information Immunizations Immunizatio Immunization Notes Care Provider Facility n Date 02-28-2019 influenza, high dose NA [facility] seasonal, [facility] preservative-free [facility] ([id number]) 02-28-2019 influenza, seasonal, NA NA [facility] injectable [facility] ([id number]) 02-28-2019 pneumococcal NA [facility] polysaccharide [facility] - vaccine, 23 valent [facility] ([id number]) 10-18-2018 tetanus toxoid, [facility] - toxoid, and acellular [facility] pertussis vaccine, ([id number]) adsorbed 03-15-2016 influenza virus [facility] vaccine, split virus Work Phone: Hospital ([id number]) (incl. purified surface antigen) Interventions No Information Medications Medication Drug Dates Sig Sig (Original) Class(es) (Normalized) Albuterol (Proventil End: Albuterol (Prove ntil Inh) 17 Gm Aerosol, Inh) 17 Gm Aerosol, 2 12-09-2010 2 Puff Respirat ory (Inhalation) As Puff Respiratory Needed Discontinued (Inhalation) (1 source) Albuterol Sulfate End: Albuterol Sulfate ( Proair Hfa) 8.5 Gm (Proair Hfa) 8.5 Gm 03-15-2016 Hfa.aer.ad, 1-2 P uff Respiratory Hfa.aer.ad, 1-2 Puff (Inhalation) Discontinued Respiratory (Inhalation) (1 source) Albuterol Sulfate Start: Albuterol Sulfate ( Proair Hfa) 8.5 Gm (Proair Hfa) 8.5 Gm 02-16-2016 Hfa.aer.ad, 2 Puf f Respiratory Hfa.aer.ad, 2 Puff (Inhalation) Every 4HRS as needed for Respiratory (Inhalation) End: Shortness Of Breath 02/16/16 (1 source) 09-10-2017 Discontinued amLODIPine 5 mg oral Dihydropyr Start: Amlodipin e Besylate (Norvasc) 5 Mg tablet idine 10-16-2016 Tablet, 5 Mg Or al Daily 10/16/16 (1 source) Calcium Discontinued Channel End: Chris 09-10-2017 Ampicillin (Ampicillin End: take 2 capsules Ampic illin (Ampicillin Cap) 250 Mg Cap) 250 Mg Capsule, 2 12-09-2010 by mouth three Capsul e, 2 Each Oral Three Times A Day Each Oral times daily Discontinued (1 source) Antipyrine/Benzocaine Start: Antipyrine/Barrington ocaine (Antipyrine-Benzocaine 10-23-2014 (Antipyrine-Be nzocaine Otic Yaritza) 14 Ml Otic Yaritza) 14 Ml Drops, 4 Drops, 4 Drops Auricular (Otic) Four Drops Auricular (Otic) End: Times Daily as needed for Pain 10/23/14 (1 source) 01-29-2015 Discontinued Bactrim Ds Generic , Not End: Bactrim Ds G eneric , Not Applicable Applicable 01-26-2009 Discontinued (1 source) Carbamide Peroxide Start: Carbamide Peroxide (Debrox) 15 Ml Drops, (Debrox) 15 Ml Drops, 5 10-22-2012 5 Drops Auric ular (Otic) Twice A Day Drops Auricular (Otic) 10/22/12 Discontinued (1 source) End: 05-22-2013 cefuroxime 500 mg oral Cephalospo Start: take 1 tablet C efuroxime Axetil (Cefuroxime) 500 Mg tablet rin 06-27-2018 by mouth twice Tablet 500 Mg ORAL Twice A Day 14 Tab (1 source) Antibacter daily 06/27/18 ial Cephalexin Monohydrate Start: Cephalexin Mon ohydrate (Cephalexin) 500 (Cephalexin) 500 Mg 01-27-2009 Mg Capsule, 1 Eac h Oral Four Times Daily Capsule, 1 Each Oral 01/27/09 Discontinued (1 source) End: 07-10-2009 Clindamycin Hcl (Cleocin Start: Clindamycin Hcl (Cleocin Hcl) 300 Mg Hcl) 300 Mg Capsule, 1 08-25-2010 Capsule, 1 Eac h Oral Four Times Daily Each Oral 08/25/10 Discontinued (1 source) End: 04-09-2011 Doxicycline 100 Mg , Not End: Doxicycline 100 Mg , Not Applicable Applicable 01-26-2009 Discontinued (1 source) Doxycycline Hyclate 100 Start: Doxycycline H yclate 100 Mg Capsule, 1 Mg Capsule, 1 Each Oral 04-04-2012 Each Oral Twi ce A Day 04/04/12 (1 source) Discontinued End: 05-12-2012 [id number] 0.3 ml alpha-Adre Start: Epinephrine ( Epipen 2-Satnam) 0.3 Mg/0.3 Ml EPINEPHrine 1 mg/ml nergic 09-10-2017 Auto.injct 0.3 Mg INTRAVENOUS Every 30 auto-injector Agonist, Minutes as needed f or Dyspnea 1 Each (1 source) beta-Adren 09/10/17 ergic Agonist, Catecholam ine Fexofenadine/Pseudoephed Start: Fexofenadine /Pseudoephedrine (Trini-D rine (Trini-D 12 Hour 10-23-2014 12 Hour Table t) 1 Each Tab.sr.12h, 1 Tablet) 1 Each Each Oral Twice A Day as needed for Tab.sr.12h, 1 Each Oral End: Congestion Discontinued (1 source) 01-29-2015 Hydrocodone 5 , Not End: Hydrocodone 5 , N ot Applicable Applicable 01-26-2009 Discontinued (1 source) levoFLOXacin 750 mg oral Quinolone Start: Levof loxacin (Levaquin) 750 Mg Tablet, tablet Antimicrob 10-16-2016 750 Mg Oral Shirley ly 10/16/16 Discontinued (1 source) ial End: 08-22-2017 Losartan/Hydrochlorothia End: Losartan/Hyd rochlorothiazide zide (Losartan-Hctz 03-30-2015 (Losartan-Hctz 10 0-25 Mg Tab) 1 Each 100-25 Mg Tab) 1 Each Tablet, 1 Tab Oral Daily Di scontinued Tablet, 1 Tab Oral (1 source) Metformin 500 Mg , Not End: Metformin 500 Mg , Not Applicable Applicable 01-26-2009 Discontinued (1 source) Metronidazole (Flagyl End: Metronidazole ( Flagyl 500 Mg) 500 Mg 500 Mg) 500 Mg Tab, 1 04-09-2011 Tab, 1 Each Ora l Every 8HRS Discontinued Each Oral (1 source) Metronidazole 500 Mg End: Metronidazole 50 0 Mg Tablet, 1 Each Oral Tablet, 1 Each Oral 12-09-2010 Three Times A Day Discontinued (1 source) Multivitamin (Daily End: Multivitamin (Shirley ly Multiple Vitamin) 1 Multiple Vitamin) 1 Each 09-10-2017 Each Tablet, 1 Tab Oral Daily Tablet, 1 Tab Oral Discontinued (1 source) Naproxen Sodium (Aleve) End: Naproxen Sodi um (Aleve) 220 Mg Tablet, 220 Mg Tablet, Not 08-26-2010 Not Applicable Dis continued Applicable (1 source) permethrin 50 mg/ml Pyrethroid Start: Permethrin 60 Gm Cream..g., 60 Gm topical cream 08-22-2017 Topical As Directed 08/22/17 (1 source) Discontinued End: 09-10-2017 rosuvastatin calcium 10 HMG-CoA mg oral tablet Reductase (1 source) Inhibitor Salmeterol Start: take 1 puff(s) Salmeterol Xina foate/Fluticasone (Advair Xinafoate/Fluticasone 05-30-2013 by inhalation 100 Mcg /50 Mcg 60's) 1 Disk Inhp, 1 Puff (Advair 100 Mcg/50 Mcg twice daily Respiratory(Inhalation) Twi ce A Day 60's) 1 Disk Inhp, 1 End: 05/30/13 Discont inued Puff 01-29-2015 Respiratory(Inhalation) (1 source) Salmeterol End: take 1 puff(s) Salmeterol Xina foate/Fluticasone (Advair Xinafoate/Fluticasone 04-04-2012 by inhalation 100 Mcg /50 Mcg) 1 Diskus Inhp, 1 Puff (Advair 100 Mcg/50 Mcg) once daily as Respiratory( Inhalation) Daily as needed 1 Diskus Inhp, 1 Puff needed Discontinued Respiratory(Inhalation) (2 sources) End: 08-25-2010 take 1 Salmeterol puff(s) by Xinafoate/Flut inhalation icasone twice (Advair 100 daily Mcg/50 Mcg) 1 Diskus Inhp, 1 Puff Respiratory(In halation) Twice A Day Discontinued Salmeterol End: Salmeterol Xinafoat e/Fluticasone (Advair Xinafoate/Fluticasone 12-09-2010 100 Mcg/50 Mcg) 1 Diskus Inhp, Not (Advair 100 Mcg/50 Mcg) Applicable As Needed Disc ontinued 1 Diskus Inhp, Not Applicable (1 source) Trimethoprim/Sulfamethox Start: Trimethoprim /Sulfamethoxazole (Bactrim azole (Bactrim Ds) 1 Ea 11-02-2010 Ds) 1 Ea Tabl et, 1 Ea Oral Twice A Day Tablet, 1 Ea Oral 11/02/10 Discontinued (1 source) End: 04-09-2011 Venlafaxine Hcl (Effexor Start: Venlafaxine Hcl (Effexor Xr) 150 Mg Xr) 150 Mg Cap.sr.24h, 1 12-02-2011 Cap.sr.24h, 1 Each Oral Daily 12/02/11 Each Oral Discontinued (1 source) End: 05-12-2012 Vitamin D 50,000 Uni , End: Vitamin D 50,0 00 Uni , Not Applicable Not Applicable 01-26-2009 Discontinued (1 source) Payers The data below is from unstructured sources Payer Name Policy Number Subscriber Name Relationship [employer] [id number] Geovanna Zavaleta Self / Same As Patient Plan of Treatment Date Care Activity Detail Author Start: Diagnostic radiography of X-ray of chest, PA a nd [place] [facility] 06-27-2018 chest, combined PA and lateral views [facility] ([id number]) lateral Problems Active Problems Problem Problem Date Last Documented Episodic/Chr Provider Classificati Recorded Date onic on Anal and Abscess of anal and rectal regions Episodic FUENTES STEPAN DO rectal ; Translations: [ANAL RECTA L conditions ABSCESS] (6 sources) Asthma Asthma, unspecified type, with Chronic BETHANIE (acute) exacerbation ; PAMELLA WATT (3 sources) Translations: [Asthma, unsp ecified type, unspecified] Diabetes Type 2 diabetes mellitus without 12-03-2019 Chroni c LIANE mellitus complications ; Translations: BHASKAR NHAUER without [Diabetes mellitus without mention MD complication of complication, type II or (20 sources) unspecified type, not state d as uncontrolled] E Codes: Fall on same level from slipping, Episodic CAMILLE TITUS Fall tripping and stumbling with out (1 source) subsequent striking against object, initial encounter E Codes: Other external cause status Episodic CAMILLE TITUS Unspecified (1 source) Esophageal Gastro-esophageal reflux disease 12-03-2019 Chroni c WILLARD disorders without esophagitis JACK MONTOYA (16 sources) Genitourinar Dysuria 12-03-2019 Episodic SABINA CELIA y symptoms and ill-defined conditions (4 sources) Mood Major depressive disorder, single Chronic BETHANIE disorders episode, unspecified ; PAMELLA WATT (6 sources) Translations: [Depressive d isorder, not elsewhere classified] Osteoarthrit Unspecified osteoarthritis, Chronic BETHANIE is unspecified site PAMELLA WATT (3 sources) 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 12-03-2019 Epi sodic NELSON aftercare steroids BRITTNEY GROVE (5 sources) Other Other retirement (current) drug 12-03-2019 Episodic NELSON aftercare therapy BRITTNEY GROVE (14 sources) Other 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 (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) use of oral 12-03-2019 Episodi c PETER TITUS aftercare hypoglycemic drugs [facility] (4 sources) Other Personal history of other diseases 12-03-2019 Episodic gastrointest of the digestive system inal disorders (8 sources) Other Angioneurotic edema, initial Episodi c injuries and encounter conditions due to external causes (3 sources) Other Unspecified injury of left lower Episodic PETER TITUS injuries and leg, initial encounter conditions due to external causes (1 source) Other lower Personal history of other diseases E pisodic respiratory of the respiratory system disease (3 sources) Other lower Cough 12-03-2019 Episodic PETER TITUS respiratory [facility] disease (4 sources) Other Other chronic pain ; Translations: Chronic WILLARD nervous [ - Other chronic pain G89.29] ABRAHAM ARVIZU MD system disorders (4 sources) Other Chronic pain syndrome Chronic WILLIA M nervous PAMELLA WATT system disorders (1 source) Other Chronic pain ; Translations: [Other Chronic ACE nervous chronic pain] HUERTER system Other Phone: disorders [phone] (1 source) 3 Other Pain in right knee 12-03-2019 Episodic PHYLLIS non-traumati OLEGARIO marcelino joint disorders (7 sources) Other Body Mass Index 60.0-69.9, adult Chronic BETHANIE nutritional; CAN DO endocrine; and metabolic disorders (2 sources) Other Morbid obesity Chronic LIANE nutritional; TRAV endocrine; MD and metabolic disorders (4 sources) Other Body Mass Index 40.0-44.9, adult Chronic LIANE nutritional; EARLENHAUER endocrine; MD and metabolic disorders (1 source) Other Body Mass Index 50.0-59.9, adult Chronic BETHANIE nutritional; CAN DO endocrine; and metabolic disorders (1 source) Other skin Localized swelling, mass and lump, Episodic PETER TITUS disorders head (8 sources) Other skin Personal history of diseases of the 12-03-2019 Epi sodic NELSON disorders skin and subcutaneous tissue BRITTNEY GROVE (8 sources) Other skin Rash and other nonspecific skin 12-03-2019 Episodi c NELSON disorders eruption BRITTNEY GROVE (5 sources) Other upper Pain in throat 12-03-2019 Episodic NELSON respiratory BRITTNEY GROVE disease (6 sources) Residual Sleep apnea, unspecified ; 12-03-2019 Chronic NELSON codes; Translations: [BODY MASS INDEX MART IN PA unclassified (BMI) 60.0-69.9, ADULT] (9 sources) Residual Obstructive sleep apnea (adult) Chronic BETHANIE codes; (pediatric) ; Translations: [BODY S ULLIVAN DO unclassified MASS INDEX (BMI) 60.0-69.9, ADULT] (6 sources) Residual Obstructive sleep apnea Chronic WILL CEDRIC codes; (adult)(pediatric) CAN DO unclassified (3 sources) Residual Unspecified sleep apnea Chronic ZUNILDA E codes; TRAV estradaified (1 source) Residual Localized edema ; Translations: 12-03-2019 Episodi c NELSON codes; [SLEEP APNEA, UNSPECIFIED] BRITTNEY [place] unclassified (5 sources) Residual Other specified postprocedural 12-03-2019 Episodic NELSON codes; states BRITTNEY GROVE unclassified (10 sources) Residual Family history of ischemic heart 12-03-2019 Episod ic PETER TITUS codes; disease and other diseases of the unclassified circulatory system (5 sources) Unclassified COMMUNITY (6 sources) [facility] Work Phone: Past or Other Problems Problem Problem Date Last Documented Episodic/Chr Provider Classificati Recorded Date onic on Acute and Tonsillitis ; Translations: [Acute Episodic CAMILLE TITUS chronic tonsillitis, unspecified] tonsillitis (2 sources) Acute and Acute renal failure syndrome Episodic COMMUNITY unspecified [facility] renal Work Phone: failure [phone] (1 source) 3 Bacterial Personal history of Methicillin Episodic LIANE infection; resistant Staphylococcus aureus ; B ECKENHAUER unspecified Translations: [Escherichia coli [E. MD site coli] infection in conditio ns (4 sources) classified elsewhere and of unspecified site] Deficiency Anemia, unspecified Episodic BETHANIE and other CAN DO anemia (2 sources) Disorders of Dental caries, unspecified ; Episodic ACE teeth and Translations: [ - Dental caries HUE RTER jaw K02.9] Other Phone: (2 sources) [phone] 3 E Codes: Adverse effect of macrolides, Episodic BETHANIE Adverse initial encounter ; Translations: S ROGELIO DO effects of [ADVERSE EFFECT OF GLUCOCOR T/SYNTH medical ANALOG] drugs (3 sources) Fluid and Angioedema Episodic COMMUNITY electrolyte [facility] disorders Work Phone: (1 source) [phone] Other Pain in left lower leg Episodic RODNE Y connective JACK MONTOYA tissue disease (3 sources) Other Pain in right lower leg Episodic RODN EY connective JACK MONTOYA tissue disease (3 sources) Other ear Impacted cerumen Episodic GARY TAYLO R and sense MD organ disorders (4 sources) Other Scabies Episodic GARY JOE infections; MD including parasitic (2 sources) Other Angioneurotic edema, not elsewhere Episodic WILLARD injuries and classified JACK MONTOYA conditions due to external causes (2 sources) Other lower Dyspnea, unspecified Episodic WILLARD respiratory JACK MONTOYA disease (3 sources) Other lower Cough Episodic ANT respiratory BRUEGGEMANN disease (2 sources) Other lower Shortness of breath Episodic PHYLLIS respiratory OLEGARIO disease (2 sources) Other Pain in left knee ; Translations: [ Episodic ACE non-traumati - Pain in left knee M25.562] HUERTE R c joint Other Phone: disorders [phone] (1 source) 3 Other skin Rash and other nonspecific skin Episodic GARY JOE disorders eruption (2 sources) Other skin Swelling, mass, or lump in head and Episodic WILLARD disorders neck JACK MONTOYA (2 sources) Other skin Unspecified disorder of skin and Episodic ANT disorders subcutaneous tissue RUPALI (2 sources) Other skin Other specified diseases of hair Episodic BETHANIE disorders and hair follicles CAN DO (1 source) Other skin Other acne ; Translations: [ - Episodic ACE disorders Follicular acne L70.8] [facility] (1 source) Other Phone: Other upper Nasal congestion Episodic NELSON respiratory BRITTNEY PA disease (3 sources) Septicemia Sepsis ; Translations: [SEPSIS] Episodic BETHANIE (except in CAN DO labor) (4 sources) Procedures Date Procedure Procedure Detail Performing Cl inician Start: [facility] visit, art KELLER 04-17-2018 pt Other Phone: Incision of LIANE RAVI MD perirectal tissue Results Test Name Value Interpreta Reference Facilit Date tion Range y Time laboratory on 2019-12-03 Anion gap 12 mmol/L Negative 5-14 PENDING [Moles/Vol] mmol/L LOCATIO 020 [facility] 07:29-0 ([id number]) 400 Band form 0 % Invalid % PENDING neutrophils/100 WBC Interpreta LOCATIO 020 (Bld) tion Code N [facility] 07:29-0 ([id number]) 400 Basophils (Bld) 0.1 10*3/uL Negative 0.0-0.1 PENDING 12-02 [#/Vol] 10*3/uL LOCATIO 020 [facility] 07:29-0 ([id number]) 400 Basophils/100 WBC 0 % Negative 0-10 % PENDING 12-02 (Bld) LOCATIO 020 [facility] 07:29-0 ([id number]) 400 Basophils/100 WBC 1 % Invalid % PENDING 12-02 (Bld) Interpreta LOCATIO 020 tion Code [facility] 07:29-0 ([id number]) 400 Calcium [Mass/Vol] 9.5 mg/dL Negative 8.5-10.1 PENDING 07-0 8-2 mg/dL LOCATIO 020 [facility] 07:29-0 (38612) 400 Chloride [Moles/Vol] 100 mmol/L Negative 98-107 PENDING 0 7-08-2 mmol/L LOCATIO 020 [facility] 07:29-0 (20951) 400 CO2 [Moles/Vol] 23 mmol/L Negative 21-32 PENDING 07-08-2 mmol/L LOCATIO 020 [facility] 07:29-0 ([id number]) 400 Creatinine 1.10 mg/dL Negative 0.60-1.30 PENDING [Mass/Vol] mg/dL LOCATIO 020 [facility] 07:29-0 (87861) 400 Creatinine and > Invalid PENDING Glomerular Interpreta LOCATIO 020 filtration tion Code [facility] 07:29-0 rate.predicted panel ([id number]) 400 - Serum, Plasma or Blood Eosinophils (Bld) 0.5 10*3/uL High 0.0-0.3 PENDING 12-27 [#/Vol] 10*3/uL LOCATIO 020 [facility] 07:29-0 (93506) 400 Eosinophils/100 WBC 4 % Negative 0-10 % PENDING 12-27 (Bld) LOCATIO 020 [facility] 07:29-0 ([id number]) 400 Eosinophils/100 WBC 5 % Invalid % PENDING 12-27 (Nose) Interpreta LOCATIO 020 tion Code [facility] 07:29-0 ([id number]) 400 Erythrocyte 14.2 % Negative 10.0-14.5 PENDING distribution width % LOCATIO 020 (RBC) [Ratio] N [facility] 07:29-0 (73084) 400 Glucose [Mass/Vol] 135 mg/dL High 70-105 PENDING 07-0 8-2 mg/dL LOCATIO 020 [facility] 07:29-0 (71886) 400 Hematocrit (Bld) 39 % Low 40-54 % PENDING [Volume fraction] LOCATIO 020 [facility] 07:29-0 (67992) 400 Hemoglobin (Bld) 12.5 g/dL Low 13.3-17.7 PENDING [Mass/Vol] g/dL LOCATIO 020 [facility] 07:29-0 (97550) 400 Lactate [Moles/Vol] 0.92 mmol/L Negative 0.50-2.00 PENDING 0 -08-2 mmol/L LOCATIO 020 [facility] 07:29-0 (80632) 400 Lymphocytes (Bld) 1.4 10*3/uL Negative 1.0-4.0 PENDING 12-27 [#/Vol] 10*3 LOCATIO 020 [facility] 07:29-0 (02192) 400 Lymphocytes/100 WBC 9 % Low 12-44 % PENDING 2 (Bld) LOCATIO 020 [facility] 07:29-0 (51884) 400 Lymphocytes/100 WBC 5 % Invalid % PENDING 12-27 (Bld) Interpreta LOCATIO Sosa tion Code [facility] 07:29-0 (56489) 400 MCH (RBC) [Entitic 26 pg Negative 25-34 pg PENDING 07-0 8-2 mass] LOCATIO 020 [facility] 07:29-0 (15936) 400 MCHC (RBC) 32 g/dL Negative 32-36 g/dL PENDING [Mass/Vol] LOCATIO 020 [facility] 07:29-0 (14832) 400 MCV (RBC) [Entitic 81 Negative 80-99 PENDING 07-0 8-2 vol] [foz_us] LOCATIO 020 [facility] 07:29-0 ([id number]) 400 Monocytes (Bld) 1.0 10*3/uL Negative 0.0-1.0 PENDING 12-02 [#/Vol] 10*3 LOCATIO 020 [facility] 07:29-0 (73545) 400 Monocytes/100 WBC 7 % Negative 0-12 % PENDING 12-02 (Bld) LOCATIO 020 [facility] 07:29-0 (16141) 400 Monocytes/100 WBC 3 % Invalid % PENDING 12-022 (Bld) Interpreta LOCATIO 020 tion Code [facility] 07:29-0 (00804) 400 Neutrophils (Bld) 12.2 10*3/uL High 1.8-7.8 PENDING [#/Vol] 10*3 LOCATIO 020 [facility] 07:29-0 (22594) 400 Neutrophils/100 WBC 80 % High 42-75 % PENDING 12-27 (Bld) LOCATIO 020 [facility] 07:29-0 (12121) 400 Platelet mean volume 10.1 Negative 7.4-10.4 PENDING (Bld) [Entitic vol] [foz_us] LOCATIO 020 N [facility] 07:29-0 (06203) 400 Platelets (Bld) 238 10*3/uL Negative 130-400 PENDING 12-02 [#/Vol] 10*3/uL LOCATIO 020 [facility] 07:29-0 (33742) 400 Potassium 4.1 mmol/L Negative 3.6-5.0 PENDING [Moles/Vol] mmol/L LOCATIO 020 [facility] 07:29-0 (09739) 400 RBC (Bld) [#/Vol] 4.79 10*6/uL Negative 4.35-5.85 PENDING 10*6/uL LOCATIO 020 [facility] 07:29-0 (21117) 400 RBC morphology NORMAL Invalid PENDING finding Nom (Bld) Interpreta LOCATIO 020 tion Code N [facility] 07:29-0 (18552) 400 Segmented 86 % Invalid % PENDING neutrophils/100 WBC Interpreta LOCATIO 020 (Bld) tion Code N [facility] 07:29-0 (76666) 400 Sodium [Moles/Vol] 135 mmol/L Negative 135-145 PENDING 12-27 mmol/L LOCATIO 020 [facility] 07:29-0 (51489) 400 Urea nitrogen 12 mg/dL Negative 7-18 mg/dL PENDING [Mass/Vol] LOCATIO 020 [facility] 07:29-0 (97138) 400 Urea 11 mg/mg Invalid PENDING nitrogen/Creatinine Interpreta LOCATIO 020 [Mass ratio] tion Code N [facility] 07:29-0 (16429) 400 WBC (Bld) [#/Vol] 15.2 10*3/uL High 4.3-11.0 PENDING 10*3/uL LOCATIO 020 N [facility] 07:29-0 (59803) 400 not yet categorized on 2019-08-25 OVERALL RESULT: Not detected Normal NOT Communi DETECTED ty [facility] (08044) SARS-CoV-2 RNA: Negative Normal NEGATIVE Communi ty [facility] (64383) Symptom NOT GIVEN Invalid Communi Interpreta ty tion Code [facility] (79054) laboratory on 2019-08-25 SARS coronavirus RNA Negative Normal NEGATIVE Commu ni ANNABELLE+probe Ql (Unsp ty spec) [facility] (73572) Specimen source Nom NOT GIVEN Invalid Communi (Unsp spec) Interpreta ty tion Code [facility] (00944) laboratory on 2019-04-17 Albumin [Mass/Vol] 3.9 g/dL Normal 3.6-5.1 Communi g/dL ty [facility] (34433) Albumin/Globulin 1.2 {ratio} Normal 1.0-2.5 Communi [Mass ratio] (calc) ty [facility] (50095) ALP [Catalytic 55 U/L Normal 40-115 U/L Communi activity/Vol] ty [facility] (92752) ALT [Catalytic 12 U/L Normal 9-46 U/L Communi activity/Vol] ty [facility] (44232) AST [Catalytic 13 U/L Normal 10-35 U/L Communi activity/Vol] ty [facility] (50638) Bilirubin [Mass/Vol] 0.5 mg/dL Normal 0.2-1.2 Commu ni mg/dL ty [facility] (00150) Calcium [Mass/Vol] 9.3 mg/dL Normal 8.6-10.3 Communi mg/dL ty [facility] (05316) Chloride [Moles/Vol] 99 mmol/L Normal 98-110 Commu ni mmol/L ty [facility] (87447) CO2 [Moles/Vol] 30 mmol/L Normal 20-32 Communi mmol/L ty [facility] (91750) Creatinine 1.10 mg/dL Normal 0.70-1.33 Communi [Mass/Vol] mg/dL ty [facility] (76594) GFR/1.73 sq 89 mL/min/{1.73_m2} Normal > OR = 60 Commun i M.predicted among mL/min/1.7 ty blacks MDRD 3m2 Health (S/P/Bld) [Vol [place] rate/Area] [facility] (83971) GFR/1.73 sq 77 mL/min/{1.73_m2} Normal > OR = 60 Commun i M.predicted MDRD mL/min/1.7 ty (S/P/Bld) [Vol 3m2 Health rate/Area] [facility] (71598) Globulin (S) 3.3 g/dL Normal 1.9-3.7 Communi [Mass/Vol] g/dL ty (calc) [facility] (16266) Glucose [Mass/Vol] 102 mg/dL High 65-99 Communi mg/dL ty [facility] (16811) Potassium 3.9 mmol/L Normal 3.5-5.3 Communi [Moles/Vol] mmol/L ty [facility] (66322) Protein [Mass/Vol] 7.2 g/dL Normal 6.1-8.1 Communi g/dL ty [facility] (69664) Sodium [Moles/Vol] 135 mmol/L Normal 135-146 Communi mmol/L ty [facility] (44568) Urea nitrogen 17 mg/dL Normal 7-25 mg/dL Communi [Mass/Vol] ty [facility] (98120) Urea NOT APPLICABLE Invalid 11-16 Communi nitrogen/Creatinine Interpreta (calc) ty [Mass ratio] tion [facility] (64476) not yet categorized on 2019-02-28 Exp date 07/2020 Invalid Communi Interpreta ty tion Code [facility] (72950) Lot 6.2~[id number] Invalid Communi Interpreta ty tion Code [facility] (82326) laboratory on 2018-10-18 Cholesterol 145 mg/dL Normal <200 mg/dL Communi [Mass/Vol] ty [facility] (67809) Cholesterol in HDL 38 mg/dL Low >40 mg/dL Communi [Mass/Vol] ty [facility] (40579) Cholesterol in LDL 89 mg/dL Normal mg/dL Communi [Mass/Vol] (calc) ty [facility] (72052) Cholesterol non HDL 107 mg/dL Normal <130 mg/dL Commun i [Mass/Vol] (calc) ty [facility] (43207) Cholesterol.total/Ch 3.8 {ratio} Normal <5.0 Commu ni olesterol in HDL (calc) ty [Mass ratio] [facility] (11891) Prostate specific Ag 0.2 ng/mL Normal < OR = 4.0 Commu ni [Mass/Vol] ng/mL [facility] (20329) Triglyceride 87 mg/dL Normal <150 mg/dL Communi [Mass/Vol] [facility] (56251) s. pyogenes ag ql (unsp spec) on 2018-06-27 S. pyogenes Ag Ql Negative NEGATIVE [facility] (Unsp spec) on [facility] (95315) laboratory on 2017-03-07 Albumin [Mass/Vol] 3.4 g/dL Low 3.5-5.5 Not 10-1 1-2 g/dL [facility] 017 le 09:55-0 (49498) 400 Albumin/Globulin 0.9 {ratio} Low 1.2-2.2 Not 10-1 1-2 [Mass ratio] [facility] 017 le 09:55-0 (37969) 400 ALP [Catalytic 66 U/L Invalid 39-117 Not 10-11-2 activity/Vol] Interpreta IU/L [facility] 017 tion Code le 09:55-0 (12802) 400 ALT [Catalytic 11 U/L Invalid 0-44 IU/L Not 10-11-2 activity/Vol] Interpreta [facility] 017 tion Code le 09:55-0 (70709) 400 AST [Catalytic 12 U/L Invalid 0-40 IU/L Not 10-11-2 activity/Vol] Interpreta [facility] 017 tion Code le 09:55-0 (83825) 400 Bilirubin [Mass/Vol] 0.2 mg/dL Invalid 0.0-1.2 Not 10 -11-2 Interpreta mg/dL [facility] 017 tion Code le 09:55-0 (83848) 400 Calcium [Mass/Vol] 9.1 mg/dL Invalid 8.7-10.2 Not 10-1 1-2 Interpreta mg/dL [facility] 017 tion Code le 09:55-0 (85256) 400 Chloride [Moles/Vol] 101 mmol/L Invalid 96-106 Not 1 0-11-2 Interpreta mmol/L [facility] 017 tion Code le 09:55-0 (98221) 400 CO2 [Moles/Vol] 28 mmol/L Invalid 18-29 Not 10-11-2 Interpreta mmol/L [facility] 017 tion Code le 09:55-0 (42695) 400 Creatinine 1.01 mg/dL Invalid 0.76-1.27 Not 10-11-2 [Mass/Vol] Interpreta mg/dL [facility] 017 tion Code le 09:55-0 (82228) 400 GFR/1.73 sq 100 mL/min/{1.73_m2} Invalid >59 Not 10-11-2 M.predicted among Interpreta mL/min/1.7 [facility] 017 blacks MDRD tion Code 3 le 09:55-0 (S/P/Bld) [Vol (38425) 400 rate/Area] GFR/1.73 sq 86 mL/min/{1.73_m2} Invalid >59 Not 1 0-11-2 M.predicted among Interpreta mL/min/1.7 [facility] 017 non-blacks MDRD tion Code 3 le 09:55-0 (S/P/Bld) [Vol (61519) 400 rate/Area] Globulin (S) 3.6 g/dL Invalid 1.5-4.5 Not 10-11-2 [Mass/Vol] Interpreta g/dL [facility] 017 tion Code le 09:55-0 (38119) 400 Glucose [Mass/Vol] 132 mg/dL High 65-99 Not 10-1 1-2 mg/dL [facility] 017 le 09:55-0 (91283) 400 Potassium 4.2 mmol/L Invalid 3.5-5.2 Not 10-11-2 [Moles/Vol] Interpreta mmol/L [facility] 017 tion Code le 09:55-0 (58185) 400 Protein [Mass/Vol] 7.0 g/dL Invalid 6.0-8.5 Not 10-1 1-2 Interpreta g/dL [facility] 017 tion Code le 09:55-0 (08911) 400 Sodium [Moles/Vol] 139 mmol/L Invalid 134-144 Not 10- 11-2 Interpreta mmol/L [facility] 017 tion Code le 09:55-0 (83905) 400 Urea nitrogen 19 mg/dL Invalid 6-24 mg/dL Not 10-11-2 [Mass/Vol] Interpreta [facility] 017 tion Code le 09:55-0 (55055) 400 Urea 19 mg/mg Invalid 9-20 Not 10-11-2 nitrogen/Creatinine Interpreta [facility] 017 [Mass ratio] tion Code le 09:55-0 (52703) 400 laboratory on 2016-12-06 Albumin [Mass/Vol] 3.9 g/dL Invalid 3.5-5.5 Not 07- 2-2 Interpreta g/dL [facility] 017 tion Code le 09:56-0 (87574) 400 Albumin/Globulin 1.2 {ratio} Invalid 1.2-2.2 Not 07- 2-2 [Mass ratio] Interpreta [facility] 017 tion Code le 09:56-0 (88382) 400 ALP [Catalytic 72 U/L Invalid 39-117 Not 12-06-2 activity/Vol] Interpreta IU/L [facility] 017 tion Code le 09:56-0 (51097) 400 ALT [Catalytic 17 U/L Invalid 0-44 IU/L Not 12-06-2 activity/Vol] Interpreta [facility] 017 tion Code le 09:56-0 (31749) 400 AST [Catalytic 17 U/L Invalid 0-40 IU/L Not activity/Vol] Interpreta [facility] 017 tion Code le 09:56-0 (18854) 400 Bilirubin [Mass/Vol] 0.7 mg/dL Invalid 0.0-1.2 Not 12-2 Interpreta mg/dL [facility] 017 tion Code le 09:56-0 (08033) 400 Calcium [Mass/Vol] 9.6 mg/dL Invalid 8.7-10.2 Not 07-1 2-2 Interpreta mg/dL [facility] 017 tion Code le 09:56-0 (23904) 400 Chloride [Moles/Vol] 93 mmol/L Low 96-106 Not 12-2 mmol/L [facility] 017 le 09:42-0 (78535) 400 CO2 [Moles/Vol] 20 mmol/L Invalid 18-29 Not 12-06-2 Interpreta mmol/L [facility] 017 tion Code le 09:56-0 (86803) 400 Creatinine 1.81 mg/dL High 0.76-1.27 Not 12-06-2 [Mass/Vol] mg/dL [facility] 017 le 09:56-0 (22112) 400 GFR/1.73 sq 49 mL/min/{1.73_m2} Low >59 Not 0 712-2 M.predicted among mL/min/1.7 [facility] 017 blacks MDRD 3 le 09:56-0 (S/P/Bld) [Vol (18646) 400 rate/Area] GFR/1.73 sq 43 mL/min/{1.73_m2} Low >59 Not 0 12-06-2 M.predicted among mL/min/1.7 [facility] 017 non-blacks MDRD 3 le 09:56-0 (S/P/Bld) [Vol (85437) 400 rate/Area] Globulin (S) 3.2 g/dL Invalid 1.5-4.5 Not 2 [Mass/Vol] Interpreta g/dL [facility] 017 tion Code le 09:56-0 (05304) 400 Glucose [Mass/Vol] 186 mg/dL High 65-99 Not 07-1 2-2 mg/dL [facility] 017 le 09:56-0 (01619) 400 Potassium 4.1 mmol/L Invalid 3.5-5.2 Not 12-06-2 [Moles/Vol] Interpreta mmol/L [facility] 017 tion Code le 09:42-0 (87548) 400 Protein [Mass/Vol] 7.1 g/dL Invalid 6.0-8.5 Not 07-1 2-2 Interpreta g/dL [facility] 017 tion Code le 09:56-0 (12833) 400 Sodium [Moles/Vol] 134 mmol/L Invalid 134-144 Not 07- 12-2 Interpreta mmol/L [facility] 017 tion Code le 09:42-0 (59989) 400 Urea nitrogen 23 mg/dL Invalid 6-24 mg/dL Not [Mass/Vol] Interpreta [facility] 017 tion Code le 09:56-0 (13635) 400 Urea 13 mg/mg Invalid 9-20 Not nitrogen/Creatinine Interpreta [facility] 017 [Mass ratio] tion Code le 09:56-0 (62483) 400 laboratory on 2016-11-17 Albumin [Mass/Vol] 3.6 g/dL Invalid 3.5-5.5 Not 10-27- Interpreta g/dL [facility] 017 tion Code le 09:03-0 (93751) 400 Albumin/Globulin 1.1 {ratio} Low 1.2-2.2 Not 10-27 [Mass ratio] [facility] 017 le 09:03-0 (33767) 400 ALP [Catalytic 82 U/L Invalid 39-117 Not activity/Vol] Interpreta IU/L [facility] 017 tion Code le 09:03-0 (87910) 400 ALT [Catalytic 8 U/L Invalid 0-44 IU/L Not activity/Vol] Interpreta [facility] 017 tion Code le 09:03-0 (59303) 400 AST [Catalytic 14 U/L Invalid 0-40 IU/L Not activity/Vol] Interpreta [facility] 017 tion Code le 09:03-0 (41785) 400 Basophils (Bld) 0.1 10*3/uL Invalid 0.0-0.2 Not 11-17 [#/Vol] Interpreta x10E3/uL [facility] 017 tion Code le 08:21-0 (65325) 400 Basophils/100 WBC 1 % Invalid % Not 11-17 (Bld) Interpreta [facility] 017 tion Code le 08:21-0 (53489) 400 Bilirubin [Mass/Vol] 0.3 mg/dL Invalid 0.0-1.2 Not Interpreta mg/dL [facility] 017 tion Code le 09:03-0 (73826) 400 Calcium [Mass/Vol] 9.0 mg/dL Invalid 8.7-10.2 Not 06-2 3-2 Interpreta mg/dL [facility] 017 tion Code le 09:03-0 (66375) 400 Chloride [Moles/Vol] 92 mmol/L Low 96-106 Not -2 mmol/L [facility] 017 le 07:56-0 (18440) 400 Cholesterol 166 mg/dL Invalid 100-199 Not 11-17-2 [Mass/Vol] Interpreta mg/dL [facility] 017 tion Code le 09:03-0 (40815) 400 Cholesterol in HDL 34 mg/dL Low >39 mg/dL Not -2 3-2 [Mass/Vol] [facility] 017 le 09:03-0 (39656) 400 Cholesterol in LDL 103 mg/dL High 0-99 mg/dL Not 2 [Mass/Vol] [facility] 017 le 09:03-0 (62515) 400 Cholesterol in VLDL 29 mg/dL Invalid 5-40 mg/dL Not [Mass/Vol] Interpreta [facility] 017 tion Code le 09:03-0 (97474) 400 CO2 [Moles/Vol] 27 mmol/L Invalid 18-29 Not Interpreta mmol/L [facility] 017 tion Code le 09:03-0 (82589) 400 Creatinine 1.00 mg/dL Invalid 0.76-1.27 Not [Mass/Vol] Interpreta mg/dL [facility] 017 tion Code le 09:03-0 (28649) 400 Eosinophils (Bld) 0.5 10*3/uL High 0.0-0.4 Not [#/Vol] x10E3/uL [facility] 017 le 08:21-0 (31547) 400 Eosinophils/100 WBC 5 % Invalid % Not (Bld) Interpreta [facility] 017 tion Code le 08:21-0 (66519) 400 Erythrocyte 14.0 % Invalid 12.3-15.4 Not distribution width Interpreta % [facility] 017 (RBC) [Ratio] tion Code le 08:21-0 (49378) 400 GFR/1.73 sq 102 mL/min/{1.73_m2} Invalid >59 Not M.predicted among Interpreta mL/min/1.7 [facility] 017 blacks MDRD tion Code 3 le 09:03-0 (S/P/Bld) [Vol (13074) 400 rate/Area] GFR/1.73 sq 88 mL/min/{1.73_m2} Invalid >59 Not 0 23-2 M.predicted among Interpreta mL/min/1.7 [facility] 017 non-blacks MDRD tion Code 3 le 09:03-0 (S/P/Bld) [Vol (27579) 400 rate/Area] Globulin (S) 3.4 g/dL Invalid 1.5-4.5 Not 11-17-2 [Mass/Vol] Interpreta g/dL [facility] 017 tion Code le 09:03-0 (01342) 400 Glucose [Mass/Vol] 275 mg/dL High 65-99 Not 06-2 3-2 mg/dL [facility] 017 le 09:03-0 (70056) 400 HbA1c (Bld) [Mass 8.9 % High 4.8-5.6 % Not 11-17 -2 fraction] [facility] 017 le 14:18-0 (58244) 400 Hematocrit (Bld) 40.9 % Invalid 37.5-51.0 Not 11-17- 2 [Volume fraction] Interpreta % [facility] 017 tion Code le 08:21-0 (93358) 400 Hemoglobin (Bld) 13.1 g/dL Invalid 12.6-17.7 Not 23- 2 [Mass/Vol] Interpreta g/dL [facility] 017 tion Code le 08:21-0 (75098) 400 Immature 0.0 10*3/uL Invalid 0.0-0.1 Not 23-2 granulocytes (Bld) Interpreta x10E3/uL [facility] 017 [#/Vol] tion Code le 08:21-0 (93459) 400 Immature 0 % Invalid % Not 23-2 granulocytes/100 WBC Interpreta [facility] 017 (Bld) tion Code le 08:21-0 (28510) 400 Lymphocytes (Bld) 2.0 10*3/uL Invalid 0.7-3.1 Not 23-2 [#/Vol] Interpreta x10E3/uL [facility] 017 tion Code le 08:21-0 (50744) 400 Lymphocytes/100 WBC 22 % Invalid % Not 06- 23-2 (Bld) Interpreta [facility] 017 tion Code le 08:21-0 (89139) 400 Magnesium [Mass/Vol] 1.8 mg/dL Invalid 1.6-2.3 Not 2 Interpreta mg/dL [facility] 017 tion Code le 09:11-0 (63374) 400 MCH (RBC) [Entitic 25.3 pg Low 26.6-33.0 Not 06-2 3-2 mass] pg [facility] 017 le 08:21-0 (74229) 400 MCHC (RBC) 32.0 g/dL Invalid 31.5-35.7 Not 11-17-2 [Mass/Vol] Interpreta g/dL [facility] 017 tion Code le 08:21-0 (36068) 400 MCV (RBC) [Entitic 79 fL Invalid 79-97 fL Not 06-2 3-2 vol] Interpreta [facility] 017 tion Code le 08:21-0 (59577) 400 Monocytes (Bld) 0.4 10*3/uL Invalid 0.1-0.9 Not 11-17 [#/Vol] Interpreta x10E3/uL [facility] 017 tion Code le 08:21-0 (21713) 400 Monocytes/100 WBC 5 % Invalid % Not 11-172 (Bld) Interpreta [facility] 017 tion Code le 08:21-0 (18454) 400 Neutrophils (Bld) 6.0 10*3/uL Invalid 1.4-7.0 Not - [#/Vol] Interpreta x10E3/uL [facility] 017 tion Code le 08:21-0 (95887) 400 Neutrophils/100 WBC 67 % Invalid % Not (Bld) Interpreta [facility] 017 tion Code le 08:21-0 (47364) 400 Platelets (Bld) 292 10*3/uL Invalid 150-379 Not 11-17 -2 [#/Vol] Interpreta x10E3/uL [facility] 017 tion Code le 08:21-0 (18043) 400 Potassium 3.7 mmol/L Invalid 3.5-5.2 Not [Moles/Vol] Interpreta mmol/L [facility] 017 tion Code le 07:56-0 (29442) 400 Protein [Mass/Vol] 7.0 g/dL Invalid 6.0-8.5 Not 06-2 3-2 Interpreta g/dL [facility] 017 tion Code le 09:03-0 (37731) 400 RBC (Bld) [#/Vol] 5.18 10*6/uL Invalid 4.14-5.80 Not -2 Interpreta x10E6/uL [facility] 017 tion Code le 08:21-0 (13546) 400 Sodium [Moles/Vol] 135 mmol/L Invalid 134-144 Not 2 Interpreta mmol/L [facility] 017 tion Code le 07:56-0 (48763) 400 Triglyceride 144 mg/dL Invalid 0-149 Not [Mass/Vol] Interpreta mg/dL [facility] 017 tion Code le 09:03-0 (06879) 400 TSH Qn 0.838 Invalid 0.450-4.50 Not Interpreta 0 uIU/mL [facility] 017 tion Code le 11:44-0 (37512) 400 Urea nitrogen 13 mg/dL Invalid 6-24 mg/dL Not [Mass/Vol] Interpreta [facility] 017 tion Code le 09:03-0 (31159) 400 Urea 13 mg/mg Invalid 9-20 Not 11-17-2 nitrogen/Creatinine Interpreta [facility] 017 [Mass ratio] tion Code le 09:03-0 (69800) 400 WBC (Bld) [#/Vol] 9.0 10*3/uL Invalid 3.4-10.8 Not Interpreta x10E3/uL [facility] 017 tion Code le 08:21-0 (10944) 400 Social History The data below is from unstructured sources History Response Recorde d Date/Time Hx Family Cancer Y UNCLE 04/09/11 4:20am Hx Family Breast Cancer N 04/09/11 4:20am Hx Family Lung Cancer Y UNCLE 04/09/11 4:20am Hx Family Colorectal Cancer Y MATERNAL GF 04/09/11 4:20am History Response Recorde d Date/Time Alcohol Use Denies Use 0 10/22/12 11:17pm Recreational Drug Use N 10/22/12 11:17pm Vital Signs Date Time Vital Sign Value Performing Clinician Facil ity 04-17-2018 Body height 180.34 cm [facility] 14:40-0500 Other Phone: [facility] ([id number]) 04-17-2018 Body mass index 64.15 kg/m2 [facility] 14:40-0500 (BMI) [Ratio] Other Phone: [facility] ([id number]) 04-17-2018 Body temperature 98.3 [degF] [facility] 14:40-0500 Other Phone: [facility] ([id number]) 04-17-2018 Body weight 208.66 kg [facility] 14:40-0500 Other Phone: [facility] ([id number]) Functional Status The data below is from unstructured sources Query Response Date Narendra rded Patient Orientation Person Place Time Situation Normal For Age April 08, 2015 12:33pm Comprehension Ability Understands Co ncepts April 07, 2015 6:30am Query Response Date Narendra rded Patient Orientation Person Place Time Situation March 31, 2015 12:35pm Comprehension Ability Understands Co ncepts March 30, 2015 3:10pm Mental Status No Information History general Narrative - Reported Note Date & Note Facility Type History general Narrative - Reported Type Medical chronic bronchitis History Medical pre -diabetec History Medical asthma History Medical sarcoidosis- Dx by Dr. Valentino richardson in [place]- in 1989 History Medical ASCVD risk factor 9.5% History Medical Echo 10/2016--EF 50-55% History Medical COPD History Surgical left wrist and elbow surger y History Surgical lipoma removed from left le g History Surgical perirectal abscess removed History Hospitalizatio for COPD n History Hospitalizatio for Pneumonia n History Hospitalizatio mediastinoscopy and broncho scopy in 1989 n History Hospitalizatio [facility] [place]- Sore Throat and Fever 08/22/2017 n History Hospitalizatio [facility] ED- Swollen Lips 09/11/19 18 n History [facility] ([id number]) History general Narrative - Reported Note Date & Note Facility Type History general Narrative - Reported Type Medical chronic bronchitis History Medical pre -diabetec History Medical asthma History Medical sarcoidosis- Dx by Dr. Valentino richardson in [place]- in 1989 History Medical ASCVD risk factor 9.5% History Medical Echo 10/2016--EF 50-55% History Medical COPD History Medical ER visit for bowelenitits/ hives and swelling in throat History Medical pt takes loramax for HBP History Surgical left wrist and elbow surger y History Surgical lipoma removed from left le g History Surgical perirectal abscess removed History Hospitalizatio for COPD n History Hospitalizatio for Pneumonia n History Hospitalizatio mediastinoscopy and broncho scopy in 1989 n History Hospitalizatio ED [place]- Sore Throat and Fever 08/22/2017 n History Hospitalizatio [facility] ED- Swollen Lips 09/11/19 18 n History [facility] ([id number]) Advance Directives Directive Response Recor ded Date/Time Advance Directives No 8:49pm Health Care Power of Environmental Emergencies Assistant No 02/16/16 8:49pm Organ Donor No 02/16/16 8:49pm Resuscitation Status Full Code 02/16/16 8:49pm Directive Response Recor ded Date/Time Advance Directives No 4:23pm Health Care Power of Environmental Emergencies Assistant No 02/17/16 4:23pm Organ Donor No 02/17/16 4:23pm Resuscitation Status Full Code 02/17/16 4:23pm Directive Response Recor ded Date/Time Advance Directives No 8:23pm Health Care Power of Environmental Emergencies Assistant No 05/25/16 8:23pm Organ Donor No 05/25/16 8:23pm Resuscitation Status Full Code 05/25/16 8:23pm Directive Response Recor ded Date/Time Advance Directives No 3:32pm Health Care Power of Environmental Emergencies Assistant No 08/08/15 3:32pm Organ Donor No 08/08/15 3:32pm Resuscitation Status Full Code 08/08/15 3:32pm Directive Response Recor ded Date/Time Advance Directives No 11:34am Health Care Power of Environmental Emergencies Assistant No 03/26/15 11:34am Organ Donor No 03/26/15 11:34am Resuscitation Status Full Code 03/26/15 11:34am Directive Response Recor ded Date/Time Advance Directives No 12:41pm Health Care Power of Environmental Emergencies Assistant No 03/28/15 12:41pm Organ Donor No 03/28/15 12:41pm Resuscitation Status Full Code 03/28/15 12:41pm Directive Response Recor ded Date/Time Advance Directives No 6:30am Health Care Power of Environmental Emergencies Assistant No 04/07/15 6:30am Organ Donor No 04/07/15 6:30am Resuscitation Status Full Code 04/07/15 6:30am Directive Response Recor ded Date/Time Advance Directives No 1:33pm Health Care Power of Environmental Emergencies Assistant No 03/30/15 1:33pm Organ Donor No 03/30/15 1:33pm Resuscitation Status Full Code 03/30/15 1:33pm Directive Response Recor ded Date/Time Advance Directives No 8:36pm Health Care Power of Environmental Emergencies Assistant No 10/23/14 8:36pm Organ Donor No 10/23/14 8:36pm Resuscitation Status Full Code 10/23/14 8:36pm Directive Response Recor ded Date/Time Advance Directives No 2:33am Health Care Power of Environmental Emergencies Assistant No 01/29/15 2:33am Organ Donor No 01/29/15 2:33am Resuscitation Status Full Code 01/29/15 2:33am Directive Response Recor ded Date Advance Directives N 11:17pm Health Care Power of Environmental Emergencies Assistant N 10/22/12 11:17pm Organ Donor N 10/22/12 1 1:17pm Directive Response Recor ded Date/Time Advance Directives No 12:30am Health Care Power of Environmental Emergencies Assistant No 04/13/14 12:30am Organ Donor No 04/13/14 12:30am Resuscitation Status Full Code 04/13/14 12:30am Directive Response Recor ded Date/Time Advance Directives No 9:44pm Health Care Power of Environmental Emergencies Assistant No 06/27/18 9:44pm Organ Donor No 06/27/18 9:44pm Resuscitation Status Full Code 06/27/18 9:44pm Discharge Instructions No hospital discharge instructions.No hospital discharge instructions.No hospital discharge instructions.No hospital discharge instructions.No hospital discharge instructions.No hospital discharge instructions.No hospital discharge instructions.No hospital discharge instructions.No hospital discharge instructions.No hospital discharge instruction information available. Chief Complaint and Reason for Visit Chief Complaint Cough/Cold/Flu Sympt oms Reason for Visit Tonsillitis Additional Source Comments This clinical document has been generated using [employer] software that has been certified by the Office of the National Coordinator for Health Information Technology (ONC 15.99.04.3023.Diam.[id number]) and the National Committee for Solutions Analyst (NCQA, as an eMeasure certified technology). FOR RECORDS PERTAINING TO PATIENTS WHO ARE OR HAVE BEEN ENROLLED IN A CHEMICAL D EPENDENCY/SUBSTANCE ABUSE PROGRAM, SOME INFORMATION MAY BE OMITTED. This clinica l summary was aggregated from multiple sources. Caution should be exercised in using it in the provision of clinical care. This summary normalizes information from multiple sources, and as a consequence, information in this document may ma terially change the coding, format and clinical context of patient data. In nader tion, data may be omitted in some cases. CLINICAL DECISIONS SHOULD BE BASED ON T HE PRIMARY CLINICAL RECORDS. [employer] provides no warranty or guara ntee of the accuracy or completeness of information in this document.The followi ng information is based on time limited clinical information UNRECOGNIZED CONTENT PROVIDED BELOW FOR UNRECOGNIZED SECTION REASON FOR VISIT Requesting refillRefill requestRequests return callWet cough, chills, diaphoresi s x 2 days. No self-treatment. [email or web address] refill requestMedication r efill
[2019-12-03] MEDS: LACTATED RINGERS 1,000 ML IV SCH ×2 (14:55→22:20)
--- OUTSIDE RECORDS SUMMARY | 2019-12-03 14:55 | XMS REPORT | Continuity of Care Document ---
Author Organization Unknown Address Unknown Phone Unavailable Allergies Active Description Code Type Severity Reaction Onset Reported/Identified Relationship to Patient Clinical Status Yes No Known Drug Allergies [id number] Drug Allergy Mild N/A 07/10/2009 Yes No Known Drug Allergies [id number] Drug Allergy Unknown N/A 03/30/2015 Yes azithromycin [id number] Drug Allergy Moderate Hives 03/31/2015 Medications There is no data. Problems Date Dx Coded Attending Type Code Diagnosis Diagnosed By 08/31/2010 Ot 041.4 E. 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 12/11/2010 Ot 493.90 AST HMA, UNSPECIFIED 12/11/2010 Ot 682.2 CELL ULITIS OF TRUNK 12/11/2010 Ot 780.57 UNS PECIFIED SLEEP APNEA 12/11/2010 Ot V85.43 BOD Y MASS INDEX 50.0-59.9, ADULT 04/11/2011 Ot 135 SARCOI DOSIS 04/11/2011 Ot 250.00 DWAYNE B KENNETH WO COMPL, TYPE II OR UNSPEC TY 04/11/2011 Ot 278.01 MOR BID OBESITY 04/11/2011 Ot 300.00 ANX IETY STATE NOS 04/11/2011 Ot 311 DEPRES SIVE DISORDER NEC 04/11/2011 Ot 327.23 OBS TRUCTIVE SLEEP APNEA (ADULT) (PEDIATR 04/11/2011 Ot 338.4 STIPPLER ALO PAIN SYNDROME 04/11/2011 Ot 466.0 ACUT E BRONCHITIS 04/11/2011 Ot 493.90 AST HMA, UNSPECIFIED 04/11/2011 Ot 704.8 HAIR DISEASES NEC 04/11/[address] PAIN NEC 04/11/2011 Ot 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 4 IMPACTED CERUMEN 05/30/2013 BETHANIE CAN DO Ot [...] OF METHICILLIN RESISTANT S 05/30/2013 BETHANIE CAN DO Ot V85.44 BODY MASS INDEX 60.0-69.9, ADULT 04/13/2014 ANT ZAPIEN MD Ot 465.9 ACUTE URI NOS 04/13/2014 ANT [...] W/O STRIKE 03/26/2015 CAMILLE TITUS APRN Ot Y99 .8 OTHER EXTERNAL CAUSE STATUS 03/28/2015 WILLARD SANTIAGO MD, Ot J06 .9 ACUTE UPPER RESPIRATORY INFECTION, UNSPE 03/28/2015 WILLARD SANTIAGO MD, Ot J40 BRONCHITIS, NOT SPECIFIED ACUTE OR CH 03/31/2015 BETHANIE CAN DO Ot B37.2 CANDIDIASIS OF SKIN AND NAIL 03/31/2015 BETHANIE CAN DO, Ot D86.9 SARCOIDOSIS, UNSPECIFIED 03/31/2015 BETHANIE CAN DO Ot E11.9 TYPE 2 DIABETES MELLITUS WITHOUT COMPLIC 03/31/2015 BETHANIE CAN DO, Ot E66.01 MORBID (SEVERE) OBESITY DUE TO EXCESS CA 03/31/2015 BETHANIE CAN DO, Ot F32.9 MAJOR DEPRESSIVE DISORDER, SINGLE EPISOD 03/31/2015 BETHANIE CAN DO, Ot G47.33 OBSTRUCTIVE SLEEP APNEA (ADULT) (PEDIATR 03/31/2015 BETHANIE CAN DO Ot I10 ESSENTIAL (PRIMARY) HYPERTENSION 03/31/2015 BETHANIE CAN DO, Ot J40 BRONCHITIS, NOT SPECIFIED ACUTE OR CH 03/31/2015 BETHANIE CAN DO, Ot L50.0 ALLERGIC URTICARIA 03/31/2015 BETHANIE CAN DO, Ot M19.90 UNSPECIFIED OSTEOARTHRITIS, UNSPECIFIED 03/31/2015 BETHANIE CAN DO, Ot Z23 ENCOUNTER FOR IMMUNIZATION 03/31/2015 BETHANIE CAN DO, Ot Z68.44 BODY MASS INDEX (BMI) 60.0-69.9, ADULT 04/08/2015 BETHANIE CAN DO, Ot B37.2 CANDIDIASIS OF SKIN AND NAIL 04/08/2015 BETHANIE CAN DO, Ot D86.9 SARCOIDOSIS, UNSPECIFIED 04/08/2015 BETHANIE CNA DO, Ot E11.65 TYPE 2 DIABETES MELLITUS WITH HYPERGLYCE 04/08/2015 BETHANIE CAN DO, Ot E66.01 MORBID (SEVERE) OBESITY DUE TO [...] OF GLUCOCORT/SYNTH ANALOG 08/08/2015 IAM MONTOYA, BAUTISTA Janeth Ot D86. 9 SARCOIDOSIS, UNSPECIFIED 08/08/2015 IAM MONTOYA, BAUTISTA S Ot E11. 9 TYPE 2 DIABETES MELLITUS WITHOUT COMPLIC 08/08/2015 IAM MONTOYA, BAUTISTA Fowler Ot J44. 9 CHRONIC OBSTRUCTIVE PULMONARY DISEASE, U 08/08/2015 IAM MONTOYA, BAUTISTA Fowler Ot L50. 0 ALLERGIC URTICARIA 08/08/2015 IAM MONTOYA, BAUTISTA S Ot N48. 1 BALANITIS 08/10/2015 IAM MONTOYA, BAUTISTA Janeth Ot D86. 9 08/10/2015 IAM MONTOYA, BAUTISTA Fowler Ot E11. 9 08/10/2015 IAM MONTOYA, BAUTISTA Janeth Ot J44. 9 08/10/2015 IAM MONTOYA, BAUTISTA Fowler Ot L50. 0 08/10/2015 IAM MONTOYA, BAUTISTA Fowler Ot N48. 1 09/02/2015 IAM MONTOYA, BAUTISTA Janeth Ot D86. 9 09/02/2015 IAM MONTOYA, BAUTISTA Janeth Ot E11. 9 09/02/2015 IAM MONTOYA, BAUTISTA Janeth Ot J44. 9 09/02/2015 IAM MONTOYA, BAUTISTA Janeth Ot L50. 0 09/02/2015 IAM MONTOYA, BAUTISTA Fowler Ot N48. 1 10/27/2015 Ot 566 12/14/2015 PHYLLIS MELVIN MD [...] MELLITUS WITHOUT COMPLIC 02/16/2016 NELSON PADILLA Ot I 10 ESSENTIAL (PRIMARY) HYPERTENSION 02/16/2016 NELSON PADILLA Ot J02.9 ACUTE PHARYNGITIS, UNSPECIFIED 02/16/2016 NELSON PADILLA Ot J20.9 ACUTE BRONCHITIS, UNSPECIFIED 02/16/2016 NELSON PADILLA Ot J44.9 CHRONIC OBSTRUCTIVE PULMONARY DISEASE, U 02/16/2016 NELSON PADILLA Ot R09.81 NASAL CONGESTION 02/16/2016 NELSON PADILLA Ot Z79.899 OTHER WELDER FITTER (CURRENT) DRUG THERAPY 02/17/2016 NELSON PADILLA Ot E11.9 TYPE 2 DIABETES MELLITUS WITHOUT COMPLIC 02/17/2016 NELSON PADILLA Ot I 10 ESSENTIAL (PRIMARY) HYPERTENSION 02/17/2016 NELSON PADILLA Ot J02.9 ACUTE PHARYNGITIS, UNSPECIFIED 02/17/2016 NELSON PADILLA Ot J20.9 ACUTE BRONCHITIS, UNSPECIFIED 02/17/2016 NELSON PADILLA Ot J44.9 CHRONIC OBSTRUCTIVE PULMONARY DISEASE, U 02/17/2016 NELSON PADILLA Ot R09.81 NASAL CONGESTION 02/17/2016 NELSON PADILLA Ot Z79.899 OTHER WELDER FITTER (CURRENT) DRUG THERAPY 02/17/2016 CAMILLE TITUS APRN Ot E11 .9 TYPE 2 DIABETES MELLITUS WITHOUT COMPLIC 02/17/2016 CAMILLE TITUS AUTO DESIGN CHECKER Ot I10 ESSENTIAL (PRIMARY) HYPERTENSION 02/17/2016 CAMILLE TITUS AUTO DESIGN CHECKER Ot J44 .0 CHRONIC OBSTRUCTIVE PULMON DISEASE W ACU 02/17/2016 CAMILLE TITUS APRN Ot L50 .0 ALLERGIC URTICARIA 02/17/2016 CAMILLE TITUS APRN Ot R22 .0 LOCALIZED SWELLING, MASS AND LUMP, HEAD 02/17/2016 CAMILLE TITUS APRN Ot T78.40XA ALLERGY, UNSPECIFIED, INITIAL ENCOUNTER 02/17/2016 CAMILLE TITUS APRN Ot Z79.899 OTHER DETENTION (CURRENT) DRUG THERAPY 02/18/2016 CAMILLE TITUS APRN Ot E11 .9 TYPE 2 DIABETES MELLITUS WITHOUT COMPLIC 02/18/2016 CAMILLE TITUS AUTO DESIGN CHECKER Ot I10 ESSENTIAL (PRIMARY) HYPERTENSION 02/18/2016 CAMILLE TITUS AUTO DESIGN CHECKER Ot J44 .0 CHRONIC OBSTRUCTIVE PULMON DISEASE W ACU 02/18/2016 CAMILLE TITUS AUTO DESIGN CHECKER Ot L50 .0 ALLERGIC URTICARIA 02/18/2016 CAMILLE TITUS AUTO DESIGN CHECKER Ot R22 .0 LOCALIZED SWELLING, MASS AND LUMP, HEAD 02/18/2016 CAMILLE TITUS AUTO DESIGN CHECKER Ot T78.40XA ALLERGY, UNSPECIFIED, INITIAL ENCOUNTER 02/18/2016 CAMILLE TITUS AUTO DESIGN CHECKER Ot Z79.899 OTHER DETENTION (CURRENT) DRUG THERAPY 02/18/2016 CAMILLE TITUS AUTO DESIGN CHECKER Ot E11 .9 TYPE 2 DIABETES MELLITUS WITHOUT COMPLIC 02/18/2016 CAMILLE TITUS AUTO DESIGN CHECKER Ot I10 ESSENTIAL (PRIMARY) HYPERTENSION 02/18/2016 CAMILLE TITUS APRN Ot J44 .0 CHRONIC OBSTRUCTIVE PULMON DISEASE W ACU 02/18/2016 CAMILLE TITUS AUTO DESIGN CHECKER Ot L50 .0 ALLERGIC URTICARIA 02/18/2016 CAMILLE TITUS AUTO DESIGN CHECKER Ot R22 .0 LOCALIZED SWELLING, MASS AND LUMP, HEAD 02/18/2016 CAMILLE TITUS AUTO DESIGN CHECKER Ot T78.40XA ALLERGY, UNSPECIFIED, INITIAL ENCOUNTER 02/18/2016 CAMILLE TITUS AUTO DESIGN CHECKER Ot Z79.899 OTHER WELDER FITTER (CURRENT) DRUG THERAPY 02/23/2016 CAMILLE TITUS AUTO DESIGN CHECKER Ot E11 .9 TYPE 2 DIABETES MELLITUS WITHOUT COMPLIC 02/23/2016 CAMILLE TITUS AUTO DESIGN CHECKER Ot I10 ESSENTIAL (PRIMARY) HYPERTENSION 02/23/2016 CAMILLE TITUS AUTO DESIGN CHECKER Ot J44 .0 CHRONIC OBSTRUCTIVE PULMON DISEASE W ACU 02/23/2016 CAMILLE TITUS AUTO DESIGN CHECKER Ot L50 .0 ALLERGIC URTICARIA 02/23/2016 CAMILLE TITUS AUTO DESIGN CHECKER Ot R22 .0 LOCALIZED SWELLING, MASS AND LUMP, HEAD 02/23/2016 CAMILLE TITUS AUTO DESIGN CHECKER Ot T78.40XA ALLERGY, UNSPECIFIED, INITIAL ENCOUNTER 02/23/2016 CAMILLE TITUS AUTO DESIGN CHECKER Ot Z79.899 OTHER WELDER FITTER (CURRENT) DRUG THERAPY 03/15/2016 JACK MONTOYA, WILLARD Singh Ot D86 .9 SARCOIDOSIS, UNSPECIFIED 03/15/2016 WILLARD SANTIAGO MD Ot E11 .9 TYPE 2 DIABETES MELLITUS WITHOUT COMPLIC 03/15/2016 WILLARD SANTIAGO MD Ot E66.01 MORBID (SEVERE) OBESITY DUE TO EXCESS CA 03/15/2016 WILLARD SANTIAGO MD Ot G47.33 OBSTRUCTIVE SLEEP APNEA (ADULT) (PEDIATR 03/15/2016 WILLARD SANTIAGO MD Ot G89.29 OTHER CHRONIC PAIN 03/15/2016 WILLARD SANTIAGO MD, Ot I10 ESSENTIAL (PRIMARY) HYPERTENSION 03/15/2016 WILLARD SANTIAGO MD Ot J44 .9 CHRONIC OBSTRUCTIVE PULMONARY DISEASE, U 03/15/2016 WILLARD SANTIAGO MD Ot K21 .9 GASTRO-ESOPHAGEAL REFLUX DISEASE WITHOUT 03/15/2016 WILLARD SANTIAGO MD Ot M79.661 PAIN IN RIGHT LOWER LEG 03/15/2016 WILLARD SANTIAGO MD, Ot M79.662 PAIN IN LEFT LOWER LEG 03/15/2016 WILLARD SANTIAGO MD Ot R06.00 DYSPNEA, UNSPECIFIED 03/15/2016 WILLARD SANTIAGO MD Ot R07 .9 CHEST PAIN, UNSPECIFIED 03/15/2016 WILLARD SANTIAGO MD Ot Z23 ENCOUNTER FOR IMMUNIZATION 03/15/2016 WILLARD SANTIAGO MD Ot Z68.44 BODY MASS INDEX (BMI) 60.0-69.9, ADULT 05/25/2016 STEPAN DO FUENTES K Ot E66.01 MORBID (SEVERE) OBESITY DUE TO EXCESS CA 05/25/2016 STEPAN DO FUENTES K Ot I10 ESSENTIAL (PRIMARY) HYPERTENSION 05/25/2016 MESSI YING DOA K Ot J02.9 ACUTE PHARYNGITIS, UNSPECIFIED 05/25/2016 STEPAN DO FUENTES K Ot J44.9 CHRONIC OBSTRUCTIVE PULMONARY DISEASE, U 05/25/2016 STEPAN DO FUENTES K Ot L30.9 DERMATITIS, UNSPECIFIED 05/25/2016 STEPAN DO FUENTES K Ot Z79.899 OTHER DETENTION (CURRENT) DRUG THERAPY 05/26/2016 STEPAN DO FUENTES K Ot E66.01 MORBID (SEVERE) OBESITY DUE TO EXCESS CA 05/26/2016 STEPAN DO FUENTES K Ot I10 ESSENTIAL (PRIMARY) HYPERTENSION 05/26/2016 STEPAN DO FUENTES K Ot J02.9 ACUTE PHARYNGITIS, UNSPECIFIED 05/26/2016 STEPAN MESSI WATTA Francisco Ot J44.9 CHRONIC OBSTRUCTIVE PULMONARY DISEASE, U 05/26/2016 STEPAN FUENTES WATT Ot L30.9 DERMATITIS, UNSPECIFIED 05/26/2016 STEPAN , FUENTES K Ot Z79.899 OTHER DETENTION (CURRENT) DRUG THERAPY 05/27/2016 STEPAN MESSI WATTA K Ot E66.01 MORBID (SEVERE) OBESITY DUE TO EXCESS CA 05/27/2016 STEPAN DO FUENTES K Ot I10 ESSENTIAL (PRIMARY) HYPERTENSION 05/27/2016 STEPAN MESSI WATTA Francisco Ot J02.9 ACUTE PHARYNGITIS, UNSPECIFIED 05/27/2016 STEPAN MESSI WATTA Francisco Ot J44.9 CHRONIC OBSTRUCTIVE PULMONARY DISEASE, U 05/27/2016 STEPAN FUENTES WATT Ot L30.9 DERMATITIS, UNSPECIFIED 05/27/2016 STEPAN MESSI WATTA Francisco Ot Z79.899 OTHER DETENTION (CURRENT) DRUG THERAPY 05/28/2016 Ot 566 ANAL RECTAL ABSCESS 05/28/2016 Ot 569.42 HUMBERTO OR RECTAL PAIN 10/16/2016 CAMILLE TITUS APRN Ot E11 .9 TYPE 2 DIABETES MELLITUS WITHOUT COMPLIC 10/16/2016 CAMILLE TITUS APRN Ot E66.01 MORBID (SEVERE) OBESITY DUE TO EXCESS CA 10/16/2016 CAMILLE TITUS APRN Ot I10 ESSENTIAL (PRIMARY) HYPERTENSION 10/16/2016 CAMILLE TITUS APRN Ot J18 .9 PNEUMONIA, UNSPECIFIED ORGANISM 10/16/2016 CAMILLE TITUS APRN Ot J44 .9 CHRONIC OBSTRUCTIVE PULMONARY DISEASE, U 10/16/2016 CAMILLE TITUS APRN Ot R05 COUGH 10/16/2016 CAMILLE TITUS APRN Ot Z79.84 WELDER FITTER (CURRENT) USE OF ORAL HYPOGLYC 10/16/2016 CAMILLE TITUS APRN Ot Z79.899 OTHER WELDER FITTER (CURRENT) DRUG THERAPY 10/18/2016 CAMILLE TITUS APRN Ot E11 .9 TYPE 2 DIABETES MELLITUS WITHOUT COMPLIC 10/18/2016 CAMILLE TITUS APRN Ot E66.01 MORBID (SEVERE) OBESITY DUE TO EXCESS CA 10/18/2016 CAMILLE TITUS APRN Ot I10 ESSENTIAL (PRIMARY) HYPERTENSION 10/18/2016 TITUS, PETER J AUTO DESIGN CHECKER Ot J18 .9 PNEUMONIA, UNSPECIFIED ORGANISM 10/18/2016 CAMILLE TITUS AUTO DESIGN CHECKER Ot J44 .9 CHRONIC OBSTRUCTIVE PULMONARY DISEASE, U 10/18/2016 CAMILLE TITUS AUTO DESIGN CHECKER Ot R05 COUGH 10/18/2016 CAMILLE TITUS AUTO DESIGN CHECKER Ot Z79.84 WELDER FITTER (CURRENT) USE OF ORAL HYPOGLYC 10/18/2016 CAMILLE TITUS AUTO DESIGN CHECKER Ot Z79.899 OTHER DETENTION (CURRENT) DRUG THERAPY 12/14/2016 ANGELIQUE GRAY AUTO DESIGN CHECKER Ot I 10 ESSENTIAL (PRIMARY) HYPERTENSION 12/14/2016 ANGELIQUE GRAY AUTO DESIGN CHECKER Ot R01.1 CARDIAC MURMUR, UNSPECIFIED 12/14/2016 ANGELIQUE GRAY AUTO DESIGN CHECKER Ot Z00.01 ENCOUNTER FOR GENERAL ADULT MEDICAL EXAM 12/26/2016 Ot 566 ANAL RECTAL ABSCESS 12/26/2016 Ot 569.42 HUMBERTO OR RECTAL PAIN 02/25/2017 Ot 566 ANAL RECTAL ABSCESS 02/25/2017 Ot 569.42 HUMBERTO OR RECTAL PAIN 08/22/2017 NELSON PADILLA Ot E11.40 TYPE 2 DIABETES MELLITUS WITH DIABETIC N 08/22/2017 NELSON PADILLA Ot E66.01 MORBID (SEVERE) OBESITY DUE TO EXCESS CA 08/22/2017 NELSON PADILLA Ot F41.9 ANXIETY DISORDER, UNSPECIFIED 08/22/2017 NELSON PADILLA Ot G47.30 SLEEP APNEA, UNSPECIFIED 08/22/2017 NELSON PADILLA Ot I 10 ESSENTIAL (PRIMARY) HYPERTENSION 08/22/2017 NELSON PADILLA Ot J02.8 ACUTE PHARYNGITIS DUE TO OTHER SPECIFIED 08/22/2017 NELSON PADILLA Ot J44.9 CHRONIC OBSTRUCTIVE PULMONARY DISEASE, U 08/22/2017 NELSON PADILLA Ot K21.9 GASTRO-ESOPHAGEAL REFLUX DISEASE WITHOUT 08/22/2017 NELSON PADILLA Ot R07.0 PAIN IN THROAT 08/22/2017 NELSON PADILLA Ot R 21 RASH AND OTHER NONSPECIFIC SKIN ERUPTION 08/22/2017 NELSON PADILLA Ot R60.0 LOCALIZED EDEMA 08/22/2017 NELSON PADILLA Ot Z79.52 DETENTION (CURRENT) USE OF SYSTEMIC STER 08/22/2017 NELSON [...] SLEEP APNEA, UNSPECIFIED 08/24/2017 NELSON PADILLA Ot I 10 ESSENTIAL (PRIMARY) HYPERTENSION 08/24/2017 NELSON PADILLA Ot J02.8 ACUTE PHARYNGITIS DUE TO OTHER SPECIFIED 08/24/2017 NELSON PADILLA Ot J44.9 CHRONIC OBSTRUCTIVE PULMONARY DISEASE, U 08/24/2017 NELSON PADILLA Ot K21.9 GASTRO-ESOPHAGEAL REFLUX DISEASE WITHOUT 08/24/2017 NELSON PADILLA Ot R07.0 PAIN IN THROAT 08/24/2017 NELSON PADILLA Ot R 21 RASH AND OTHER NONSPECIFIC SKIN ERUPTION 08/24/2017 NELSON PADILLA Ot R60.0 LOCALIZED EDEMA 08/24/2017 NELSON PADILLA Ot Z79.52 DETENTION (CURRENT) USE OF SYSTEMIC STER 08/24/2017 NELSON PADILLA Ot Z87.2 PERSONAL HISTORY OF DISEASES OF THE SKIN 08/24/2017 NELSON PADILLA Ot Z88.1 ALLERGY STATUS TO OTHER ANTIBIOTIC AGENT 08/24/2017 NELSON PADILLA Ot Z98.890 OTHER SPECIFIED POSTPROCEDURAL STATES 09/10/2017 ANGELIQUE GRAY APRN Ot I 10 ESSENTIAL (PRIMARY) HYPERTENSION 09/10/2017 ANGELIQUE GRAY AUTO DESIGN CHECKER Ot R01.1 CARDIAC MURMUR, UNSPECIFIED 09/10/2017 ANGELIQUE GRAY AUTO DESIGN CHECKER Ot Z00.01 ENCOUNTER FOR GENERAL ADULT MEDICAL EXAM 09/10/2017 CELIA MONTOYA, SABINA Moreno Ot E11. 40 TYPE 2 DIABETES MELLITUS WITH DIABETIC N 09/10/2017 SABINA YANG MD Ot E66. 01 MORBID (SEVERE) OBESITY DUE TO EXCESS CA 09/10/2017 SABINA YANG MD Ot F41. 9 ANXIETY DISORDER, UNSPECIFIED 09/10/2017 SABINA YANG MD Ot G47. 30 SLEEP APNEA, UNSPECIFIED 09/10/2017 SABINA YANG MD Ot I10 ESSENTIAL (PRIMARY) HYPERTENSION 09/10/2017 SABINA YANG MD Ot J44. 9 CHRONIC OBSTRUCTIVE PULMONARY DISEASE, U 09/10/2017 SABINA YANG MD Ot K21. 9 GASTRO-ESOPHAGEAL REFLUX DISEASE WITHOUT 09/10/2017 SABINA YANG MD Ot R22. 0 LOCALIZED SWELLING, MASS AND LUMP, HEAD 09/10/2017 SABINA YANG MD Ot T78.3XXA ANGIONEUROTIC EDEMA, INITIAL ENCOUNTER 09/10/2017 SABINA YANG MD Ot Z68. 44 BODY MASS INDEX (BMI) 60.0-69.9, ADULT 09/10/2017 SABINA YANG MD Ot Z87. 09 PERSONAL HISTORY OF OTHER DISEASES OF TH 09/10/2017 SABINA YANG MD Ot Z87. 19 PERSONAL HISTORY OF OTHER DISEASES OF TH 09/10/2017 SABINA YANG MD Ot Z87. 2 PERSONAL HISTORY OF DISEASES OF THE SKIN 09/12/2017 ASBINA YANG MD Ot E11. 40 TYPE 2 DIABETES MELLITUS WITH DIABETIC N 09/12/2017 SABINA YANG MD Ot E66. 01 MORBID (SEVERE) OBESITY DUE TO EXCESS CA 09/12/2017 SABINA YANG MD Ot F41. 9 ANXIETY DISORDER, UNSPECIFIED 09/12/2017 SAIBNA YANG MD Ot G47. 30 SLEEP APNEA, UNSPECIFIED 09/12/2017 SABINA YANG MD Ot I10 ESSENTIAL (PRIMARY) HYPERTENSION 09/12/2017 SABINA YANG MD Ot J44. 9 CHRONIC OBSTRUCTIVE PULMONARY DISEASE, U 09/12/2017 SABINA YANG MD Ot K21. 9 GASTRO-ESOPHAGEAL REFLUX DISEASE WITHOUT 09/12/2017 SABINA YANG MD Ot R22. 0 LOCALIZED SWELLING, MASS AND LUMP, HEAD 09/12/2017 SABINA YANG MD Ot T78.3XXA ANGIONEUROTIC EDEMA, INITIAL ENCOUNTER 09/12/2017 SABINA YANG MD Ot Z68. 44 BODY MASS INDEX (BMI) 60.0-69.9, ADULT 09/12/2017 SABINA YANG MD, Ot Z87. 09 PERSONAL HISTORY OF OTHER DISEASES OF 09/12/2017 SABINA YANG MD Ot Z87. 19 PERSONAL HISTORY OF OTHER DISEASES OF 09/12/2017 SABINA YANG MD, Ot Z87. 2 PERSONAL HISTORY OF DISEASES OF THE SKIN 06/27/2018 CAMILLE TITUS APRN Ot E11.40 TYPE 2 DIABETES MELLITUS WITH DIABETIC N 06/27/2018 CAMILLE TITUS APRN Ot E66.01 MORBID (SEVERE) OBESITY DUE TO EXCESS CA 06/27/2018 CAMILLE TITUS APRN Ot F41 .9 ANXIETY DISORDER, UNSPECIFIED 06/27/2018 CAMILLE TITUS APRN Ot G47.30 SLEEP APNEA, UNSPECIFIED 06/27/2018 CAMILLE TITUS APRN Ot I10 ESSENTIAL (PRIMARY) HYPERTENSION 06/27/2018 CAMILLE TITUS APRN Ot J03.90 ACUTE TONSILLITIS, UNSPECIFIED 06/27/2018 CAMILLE TITUS APRN Ot J44 .9 CHRONIC OBSTRUCTIVE PULMONARY DISEASE, U 06/27/2018 CAMILLE TITUS APRN Ot K21 .9 GASTRO-ESOPHAGEAL REFLUX DISEASE WITHOUT 06/27/2018 CAMILLE TITUS APRN Ot R07 .0 PAIN IN THROAT 06/27/2018 CAMILLE TITUS APRN Ot Z68.44 BODY MASS INDEX (BMI) 60.0-69.9, ADULT 06/27/2018 CAMILLE TITUS APRN Ot Z82.49 FAMILY HX OF ISCHEM HEART DIS AND OTH DI 06/27/2018 CAMILLE TITUS APRN Ot Z87.19 PERSONAL HISTORY OF OTHER DISEASES OF TH 06/27/2018 CAMILLE TITUS APRN Ot Z88 .1 ALLERGY STATUS TO OTHER ANTIBIOTIC AGENT 06/27/2018 CAMILLE TITUS APRN Ot Z98.890 OTHER SPECIFIED POSTPROCEDURAL STATES 10/28/2018 SABINA YANG MD Ot B37. 2 CANDIDIASIS OF SKIN AND NAIL 10/28/2018 SABINA YANG MD Ot D86. 9 SARCOIDOSIS, UNSPECIFIED 10/28/2018 SABINA YANG MD Ot E11. 40 TYPE 2 DIABETES MELLITUS WITH DIABETIC N 10/28/2018 SABINA YANG MD Ot E66. 01 MORBID (SEVERE) OBESITY DUE TO EXCESS CA 10/28/2018 SABINA YANG MD Ot F41. 9 ANXIETY DISORDER, UNSPECIFIED 10/28/2018 SABINA YANG MD Ot G47. 30 SLEEP APNEA, UNSPECIFIED 10/28/2018 SABINA YANG MD Ot I10 ESSENTIAL (PRIMARY) HYPERTENSION 10/28/2018 SABINA YANG MD Ot J44. 9 CHRONIC OBSTRUCTIVE PULMONARY DISEASE, U 10/28/2018 SABINA YANG MD Ot K21. 9 GASTRO-ESOPHAGEAL REFLUX DISEASE WITHOUT 10/28/2018 SABINA YANG MD Ot R30. 0 DYSURIA 10/28/2018 SABINA YANG MD Ot Z82. 49 FAMILY HX OF ISCHEM HEART DIS AND OTH DI 10/28/2018 SABINA YANG MD Ot Z87. 19 PERSONAL HISTORY OF OTHER DISEASES OF 10/28/2018 SABINA YANG MD Ot Z88. 1 ALLERGY STATUS TO OTHER ANTIBIOTIC AGENT 10/28/2018 SABINA YANG MD Ot Z98.890 OTHER SPECIFIED POSTPROCEDURAL STATES 10/31/2018 SABINA YANG MD Ot B37. 2 CANDIDIASIS OF SKIN AND NAIL 10/31/2018 SABINA YANG MD Ot D86. 9 SARCOIDOSIS, UNSPECIFIED 10/31/2018 SABINA YANG MD Ot E11. 40 TYPE 2 DIABETES MELLITUS WITH DIABETIC N 10/31/2018 SABINA YANG MD Ot E66. 01 MORBID (SEVERE) OBESITY DUE TO EXCESS CA 10/31/2018 SABINA YANG MD Ot F41. 9 ANXIETY DISORDER, UNSPECIFIED 10/31/2018 SABINA YANG MD Ot G47. 30 SLEEP APNEA, UNSPECIFIED 10/31/2018 SABINA YANG MD Ot I10 ESSENTIAL (PRIMARY) HYPERTENSION 10/31/2018 SABINA YANG MD Ot J44. 9 CHRONIC OBSTRUCTIVE PULMONARY DISEASE, U 10/31/2018 SABINA YANG MD Ot K21. 9 GASTRO-ESOPHAGEAL REFLUX DISEASE WITHOUT 10/31/2018 SABINA YANG MD Ot R30. 0 DYSURIA 10/31/2018 SABINA YANG MD Ot Z82. 49 FAMILY HX OF ISCHEM HEART DIS AND OTH DI 10/31/2018 SABINA YANG MD Ot Z87. 19 PERSONAL HISTORY OF OTHER DISEASES OF 10/31/2018 SABINA YNAG MD Ot Z88. 1 ALLERGY STATUS TO OTHER ANTIBIOTIC AGENT 10/31/2018 SABINA YANG MD Ot Z98.890 OTHER SPECIFIED POSTPROCEDURAL STATES 11/02/2018 SABINA YANG MD Ot B37. 2 CANDIDIASIS OF SKIN AND NAIL 11/02/2018 SABINA YANG MD Ot D86. 9 SARCOIDOSIS, UNSPECIFIED 11/02/2018 SABINA YANG MD Ot E11. 40 TYPE 2 DIABETES MELLITUS WITH DIABETIC N 11/02/2018 SABINA YANG MD Ot E66. 01 MORBID (SEVERE) OBESITY DUE TO EXCESS CA 11/02/2018 SABINA YANG MD Ot F41. 9 ANXIETY DISORDER, UNSPECIFIED 11/02/2018 SABINA YANG MD Ot G47. 30 SLEEP APNEA, UNSPECIFIED 11/02/2018 SABINA YANG MD Ot I10 ESSENTIAL (PRIMARY) HYPERTENSION 11/02/2018 SABINA YANG MD Ot J44. 9 CHRONIC OBSTRUCTIVE PULMONARY DISEASE, U 11/02/2018 SABINA YANG MD Ot K21. 9 GASTRO-ESOPHAGEAL REFLUX DISEASE WITHOUT 11/02/2018 SABINA YANG MD Ot R30. 0 DYSURIA 11/02/2018 SABINA YANG MD Ot Z82. 49 FAMILY HX OF ISCHEM HEART DIS AND OTH DI 11/02/2018 SABINA YANG MD Ot Z87. 19 PERSONAL HISTORY OF OTHER DISEASES OF 11/02/2018 SABINA YANG MD Ot Z88. 1 ALLERGY STATUS TO OTHER ANTIBIOTIC AGENT 11/02/2018 SABINA YANG MD Ot Z98.890 OTHER SPECIFIED POSTPROCEDURAL STATES Procedures Code Description Performed By Per willem On 48.81 JOHN RECTAL INCISION 08/28/2010 86.04 12/09/2010 Results Test Result Range Complete blood count (CBC) with automate d white blood cell (WBC) differential - 02/16/16 19:36 Blood leukocytes automated count (number/volume) 12.9 10*3/uL 4.3-11.0 Blood erythrocytes automated count (number/volume) 5.18 10*6/uL 4.35-5.85 Venous blood hemoglobin measurement (mass/volume) 13.2 g/dL 13.3-17.7 Blood hematocrit (volume fraction) 41 % 40-54 Automated erythrocyte mean corpuscular volume 79 [ foz_us] 80-99 Automated erythrocyte mean corpuscular h emoglobin (mass per erythrocyte) 26 pg 25-34 Automated erythrocyte mean corpuscular h emoglobin concentration measurement (mass/volume) 32 g/dL 32-36 Automated erythrocyte distribution width ratio 14. 7 % 10.0- 14.5 Automated blood platelet count (count/volume) 274 10*3/uL [...] 10*3 1.0-4.0 Blood monocytes automated count (number/volume) 0. 7 10*3 0.0-1.0 Automated eosinophil count 0.6 10*3/uL 0 .0-0.3 Automated blood basophil count (count/volume) 0.0 10*3/uL 0.0-0.1 Comprehensive metabolic panel - 02/16/16 19:36 Serum or plasma sodium measurement (moles/volume) 138 mmol/L 135-145 Serum or plasma potassium measurement (moles/volume) 3.7 mmol/L 3.6-5.0 Serum or plasma chloride measurement (moles/volume) 103 mmol/L 98-107 Carbon dioxide 24 mmol/L 21-32 Serum or plasma anion gap determination (moles/volume) 11 mmol/L 5-14 Serum or plasma urea nitrogen measurement (mass/volume ) 10 mg/dL 7-18 Serum or plasma creatinine measurement (mass/volume) 1.06 mg/dL 0.60-1.30 Serum or plasma urea nitrogen/creatinine mass ratio 9 NRG Serum or plasma creatinine measurement w ith calculation of estimated glomerular filtration rate > NRG Serum or plasma glucose measurement (mass/volume) 175 mg/dL 70-105 Serum or plasma calcium measurement (mass/volume) 9.3 mg/dL 8.5-10.1 Serum or plasma total bilirubin measurement (mass/volu me) 0.4 mg/dL 0.1-1.0 Serum or plasma alkaline phosphatase delroy surement (enzymatic activity/volume) 68 U/L 40-136 Serum or plasma aspartate aminotransfera se measurement (enzymatic activity/volume) 11 U/L 5-34 Serum or plasma alanine aminotransferase measurement (enzymatic activity/volume) 11 U/L 0-55 Serum or plasma protein measurement (mass/volume) 7.5 g/dL 6.4-8.2 Serum or plasma albumin measurement (mass/volume) 3.7 g/dL 3.2-4.5 Serum or plasma C reactive protein measu rement (mass/volume) - 02/16/16 19:36 Serum or plasma C reactive protein measurement (mass/v olume) 2.61 mg/dL 0.00-0.50 Complete blood count (CBC) with automate d white blood cell (WBC) differential - 02/17/16 15:33 Blood leukocytes automated count (number/volume) 18.0 10*3/uL 4.3-11.0 Blood erythrocytes automated count (number/volume) 5.46 10*6/uL 4.35-5.85 Venous blood hemoglobin measurement (mass/volume) 14.1 g/dL 13.3-17.7 Blood hematocrit (volume fraction) 43 % 40-54 Automated erythrocyte mean corpuscular volume 79 [ foz_us] 80-99 Automated erythrocyte mean corpuscular h emoglobin (mass per erythrocyte) 26 pg 25-34 Automated erythrocyte mean corpuscular h emoglobin concentration measurement (mass/volume) 33 g/dL 32-36 Automated erythrocyte distribution width ratio 14. 9 % 10.0- 14.5 Automated blood platelet count (count/volume) 294 10*3/uL [...] 10*3 1.0-4.0 Blood monocytes automated count (number/volume) 0. 3 10*3 0.0-1.0 Automated eosinophil count 0.1 10*3/uL 0 .0-0.3 Automated blood basophil count (count/volume) 0.0 10*3/uL 0.0-0.1 Whole blood basic metabolic panel - 01/27 07/13 15:33 Serum or plasma sodium measurement (moles/volume) 136 mmol/L 135-145 Serum or plasma potassium measurement (moles/volume) 4.4 mmol/L 3.6-5.0 Serum or plasma chloride measurement (moles/volume) 101 mmol/L 98-107 Carbon dioxide 22 mmol/L 21-32 Serum or plasma anion gap determination (moles/volume) 13 mmol/L 5-14 Serum or plasma urea nitrogen measurement (mass/volume ) 12 mg/dL 7-18 Serum or plasma creatinine measurement (mass/volume) 1.06 mg/dL 0.60-1.30 Serum or plasma urea nitrogen/creatinine mass ratio 11 NRG Serum or plasma creatinine measurement w ith calculation of estimated glomerular filtration rate > NRG Serum or plasma glucose measurement (mass/volume) 160 mg/dL 70-105 Serum or plasma calcium measurement (mass/volume) 9.8 mg/dL 8.5-10.1 Blood manual differential performed dete ction - 02/17/16 15:33 Blood monocytes/100 leukocytes 1 % NRG Manual blood segmented neutrophils/100 leukocytes 90 % NRG Blood band neutrophils/100 leukocytes 1 % NRG Manual blood lymphocytes/100 leukocytes 7 % NRG Manual eosinophils/100 leukocytes in nose 0 % NRG Manual blood basophils/100 leukocytes 1 % NRG Blood erythrocyte morphology finding identification NORMAL NRG Complete blood count (CBC) with automate d white blood cell (WBC) differential - 03/14/16 19:12 Blood leukocytes automated count (number/volume) 9.6 10*3/uL 4.3-11.0 Blood erythrocytes automated count (number/volume) 4.76 10*6/uL 4.35-5.85 Venous blood hemoglobin measurement (mass/volume) 12.4 g/dL 13.3-17.7 Blood hematocrit (volume fraction) 38 % 40-54 Automated erythrocyte mean corpuscular volume 80 [ foz_us] 80-99 Automated erythrocyte mean corpuscular h emoglobin (mass per erythrocyte) 26 pg 25-34 Automated erythrocyte mean corpuscular h emoglobin concentration measurement (mass/volume) 33 g/dL 32-36 Automated erythrocyte distribution width ratio 14. 8 % 10.0- 14.5 Automated blood platelet count (count/volume) 270 10*3/uL [...] 10*3 1.0-4.0 Blood monocytes automated count (number/volume) 0. 6 10*3 0.0-1.0 Automated eosinophil count 0.5 10*3/uL 0 .0-0.3 Automated blood basophil count (count/volume) 0.0 10*3/uL 0.0-0.1 Comprehensive metabolic panel - 03/14/16 19:12 Serum or plasma sodium measurement (moles/volume) 138 mmol/L 135-145 Serum or plasma potassium measurement (moles/volume) 3.7 mmol/L 3.6-5.0 Serum or plasma chloride measurement (moles/volume) 99 mmol/L 98-107 Carbon dioxide 30 mmol/L 21-32 Serum or plasma anion gap determination (moles/volume) 9 mmol/L 5-14 Serum or plasma urea nitrogen measurement (mass/volume ) 11 mg/dL 7-18 Serum or plasma creatinine measurement (mass/volume) 0.95 mg/dL 0.60-1.30 Serum or plasma urea nitrogen/creatinine mass ratio 12 NRG Serum or plasma creatinine measurement w ith calculation of estimated glomerular filtration rate > NRG Serum or plasma glucose measurement (mass/volume) 107 mg/dL 70-105 Serum or plasma calcium measurement (mass/volume) 9.4 mg/dL 8.5-10.1 Serum or plasma total bilirubin measurement (mass/volu me) 0.3 mg/dL 0.1-1.0 Serum or plasma alkaline phosphatase delroy surement (enzymatic activity/volume) 66 U/L 40-136 Serum or plasma aspartate aminotransfera se measurement (enzymatic activity/volume) 11 U/L 5-34 Serum or plasma alanine aminotransferase measurement (enzymatic activity/volume) 13 U/L 0-55 Serum or plasma protein measurement (mass/volume) 6.9 g/dL 6.4-8.2 Serum or plasma albumin measurement (mass/volume) 3.5 g/dL 3.2-4.5 Magnesium - 03/14/16 19:12 Magnesium 1.8 mg/dL 1.8-2.4 Serum or plasma troponin i.cardiac measu rement (mass/volume) - 03/14/16 19:12 Serum or plasma troponin i.cardiac measurement (mass/v olume) < ng/mL <0.30 PT panel in platelet poor plasma by coag ulation assay - 03/14/16 19:12 Prothrombin time (PT) in platelet poor plasma by coagu lation assay 13.7 s 12.2-14.7 INR in platelet poor plasma or blood by coagulation as say 1.1 0.8-1.4 Activated partial thromboplastin time (a PTT) in platelet poor plasma bycoagulation assay - 03/14/16 19:12 Activated partial thromboplastin time (a PTT) in platelet poor plasma bycoagulation assay 31 s 24-35 Serum or plasma C reactive protein measu rement (mass/volume) - 03/14/16 19:12 Serum or plasma C reactive protein measurement (mass/v olume) 1.70 mg/dL 0.00-0.50 Fibrin D-dimer FEU measurement in platel et poor plasma (mass/volume) - 03/14/16 19:12 Fibrin D-dimer FEU measurement in platelet poor plasma (mass/volume) 1.07 ug/mL 0.00-0.49 Myoglobin, serum - 03/14/16 19:12 Myoglobin, serum 35.6 ng/mL 10.0-92.0 Lipase - 03/14/16 19:12 Lipase 34 U/L 8-78 Serum or plasma lithium measurement (mol es/volume) - 03/14/16 19:12 BNP level 24.0 pg/mL <100.0 Serum or plasma troponin i.cardiac measu rement (mass/volume) - 03/15/16 00:30 Serum or plasma troponin i.cardiac measurement (mass/v olume) < ng/mL <0.30 Lipid 1996 panel - 03/15/16 03:30 Serum or plasma triglyceride measurement (mass/volume) 80 mg/dL <150 Serum or plasma cholesterol measurement (mass/volume) 126 mg/dL < 200 Serum or plasma cholesterol in HDL measurement (mass/v olume) 26 mg/dL 40-60 Cholesterol in LDL [mass/volume] in serum or plasma by direct assay 88 mg/dL 1-129 Serum or plasma cholesterol in VLDL measurement (mass/ volume) 16 mg/dL 5-40 Capillary blood glucose measurement by g lucometer (mass/volume) - 03/15/16 09:55 Capillary blood glucose measurement by glucometer (mas s/volume) 134 mg/dL 70-110 Capillary blood glucose measurement by g lucometer (mass/volume) - 03/15/16 12:12 Capillary blood glucose measurement by glucometer (mas s/volume) 158 mg/dL 70-110 Streptococcus pyogenes antigen detection - 05/25/16 20:49 Streptococcus pyogenes antigen detection NEGATIVE NEGATIVE Bacterial throat culture - 05/25/16 20:4 9 Bacterial throat culture NBS [facility] Complete blood count (CBC) with automate d white blood cell (WBC) differential - 10/16/16 19:26 Blood leukocytes automated count (number/volume) 12.0 10*3/uL 4.3-11.0 Blood erythrocytes automated count (number/volume) 5.13 10*6/uL 4.35-5.85 Venous blood hemoglobin measurement (mass/volume) 13.2 g/dL 13.3-17.7 Blood hematocrit (volume fraction) 41 % 40-54 Automated erythrocyte mean corpuscular volume 79 [ foz_us] 80-99 Automated erythrocyte mean corpuscular h emoglobin (mass per erythrocyte) 26 pg 25-34 Automated erythrocyte mean corpuscular h emoglobin concentration measurement (mass/volume) 32 g/dL 32-36 Automated erythrocyte distribution width ratio 13. 6 % 10.0- 14.5 Automated blood platelet count (count/volume) 254 10*3/uL [...] 10*3 1.0-4.0 Blood monocytes automated count (number/volume) 0. 6 10*3 0.0-1.0 Automated eosinophil count 0.7 10*3/uL 0 .0-0.3 Automated blood basophil count (count/volume) 0.1 10*3/uL 0.0-0.1 Whole blood basic metabolic panel - 09/26 07/14 19:26 Serum or plasma sodium measurement (moles/volume) 138 mmol/L 135-145 Serum or plasma potassium measurement (moles/volume) 3.7 mmol/L 3.6-5.0 Serum or plasma chloride measurement (moles/volume) 102 mmol/L 98-107 Carbon dioxide 26 mmol/L 21-32 Serum or plasma anion gap determination (moles/volume) 10 mmol/L 5-14 Serum or plasma urea nitrogen measurement (mass/volume ) 9 mg/dL 7-18 Serum or plasma creatinine measurement (mass/volume) 0.97 mg/dL 0.60-1.30 Serum or plasma urea nitrogen/creatinine mass ratio 9 NRG Serum or plasma creatinine measurement w ith calculation of estimated glomerular filtration rate > NRG Serum or plasma glucose measurement (mass/volume) 186 mg/dL 70-105 Serum or plasma calcium measurement (mass/volume) 9.1 mg/dL 8.5-10.1 CBC With Differential/Platelet - 7 10:47 WBC 9.0 x10E3/uL 3.4-10.8 RBC 5.18 x10E6/uL 4.14-5.80 Hemoglobin 13.1 g/dL 12.6-17.7 Hematocrit 40.9 % 37.5-51.0 MCV 79 fL 79-97 MCH 25.3 pg 26.6-33.0 MCHC 32.0 g/dL 31.5-35.7 RDW 14.0 % 12.3-15.4 Platelets 292 x10E3/uL 150-379 Neutrophils 67 % Lymphs 22 % Monocytes 5 % Eos 5 % Basos 1 % Neutrophils (Absolute) 6.0 x10E3/uL 1.4- 7.0 Lymphs (Absolute) 2.0 x10E3/uL 0.7-3.1 Monocytes(Absolute) 0.4 x10E3/uL 0.1-0.9 Eos (Absolute) 0.5 x10E3/uL 0.0-0.4 Baso (Absolute) 0.1 x10E3/uL 0.0-0.2 Immature Granulocytes 0 % Immature Grans (Abs) 0.0 x10E3/uL 0.0-0. 1 Comp. Metabolic Panel (14) - 11/16/16 10 :47 Glucose, Serum 275 mg/dL 65-99 BUN 13 mg/dL 6-24 Creatinine, Serum 1.00 mg/dL 0.76-1.27 eGFR If NonAfricn Am 88 mL/min/1.73 >59 eGFR If Africn Am 102 mL/min/1.73 >5 9 BUN/Creatinine Ratio 13 9-20 Sodium, Serum 135 [...] 10:47 Hemoglobin A1c 8.9 % 4.8-5.6 Thyroid [place] Profile - 11/16/16 10:47 TSH 0.838 uIU/mL 0.450-4.500 Magnesium, Serum - 11/16/16 10:47 Magnesium, Serum 1.8 mg/dL 1.6-2.3 Comp. Metabolic Panel (14) - 12/05/16 12 :13 Glucose, Serum 186 mg/dL 65-99 BUN 23 [...] IU/L 0-40 ALT (SGPT) 17 IU/L 0-44 CMP - 01/26/17 13:51 Glucose, [...] 0-44 Comp. Metabolic Panel (14) - 01/26/17 13 :51 Glucose, Serum 106 mg/dL 65-99 BUN 16 [...] ALT (SGPT) 13 IU/L 0-44 CMP - 03/06/17 11:51 Glucose, Serum 132 mg/dL 65-99 BUN 19 mg/dL 6-24 Creatinine, Serum 1.01 mg/dL 0.76-1.27 eGFR If NonAfricn Am 86 mL/min/1.73 >59 eGFR If Africn Am 100 mL/min/1.73 >5 9 BUN/Creatinine Ratio 19 9-20 Sodium, Serum 139 [...] IU/L 0-40 ALT (SGPT) 11 IU/L 0-44 Comp. Metabolic Panel (14) - 03/06/17 11 :51 Glucose, Serum 132 mg/dL 65-99 BUN 19 mg/dL 6-24 Creatinine, Serum 1.01 mg/dL 0.76-1.27 eGFR If NonAfricn Am 86 mL/min/1.73 >59 eGFR If Africn Am 100 mL/min/1.73 >5 9 BUN/Creatinine Ratio 19 9-20 Sodium, Serum 139 [...] NEGATIVE NEGATIVE Bacterial throat culture - 08/22/17 12:5 5 Bacterial throat culture [facility] Streptococcus pyogenes antigen detection - 06/27/18 21:45 Streptococcus pyogenes antigen detection NEGATIVE NEGATIVE Influenza virus A and B antigen detectio n - 06/27/18 21:45 FLU RESULT NEGATIVE FOR INFLUENZA A AND B ANTIGENS BY IA NRG Bacterial throat culture - 06/27/18 21:4 5 Bacterial throat culture NBS NR LIPID PANEL - 10/18/18 09:40 CHOLESTEROL, TOTAL 145 mg/dL <200 HDL CHOLESTEROL 38 mg/dL >40 TRIGLYCERIDES 87 mg/dL <150 LDL-CHOLESTEROL 89 mg/dL (calc) NRG CHOL/HDLC RATIO 3.8 (calc) <5.0 NON HDL CHOLESTEROL 107 mg/dL (calc) <13 0 PSA - 10/18/18 09:40 PSA, TOTAL 0.2 ng/mL < OR = 4.0 Complete urinalysis with reflex to cultu re - 10/27/18 23:53 Urine color determination YELLOW NRG Urine clarity determination CLEAR NR G Urine pH measurement by test strip 5 5-9 Specific gravity of urine by test strip 1.020 1.016-1.022 Urine protein assay by test strip, semi-quantitative 2+ NEGATIVE Urine glucose detection by automated test strip NE GATIVE NEGATIVE Erythrocytes detection in urine sediment by light micr oscopy 1+ NEGATIVE Urine ketones detection by automated test strip NE GATIVE NEGATIVE Urine nitrite detection by test strip NEGATIVE NEGATIVE Urine total bilirubin detection by test strip NEGA TIVE NEGATIVE Urine urobilinogen measurement by automated test strip (mass/volume) NORMAL NORMAL Urine leukocyte esterase detection by dipstick 2+ NEGATIVE Automated urine sediment erythrocyte cou nt by microscopy (number/high power field) [HPF] NRG Automated urine sediment leukocyte count by microscopy (number/high power field) [HPF] NRG Bacteria detection in urine sediment by light microsco py TRACE NRG Squamous epithelial cells detection in u rine sediment by light microscopy 5-10 NRG Crystals detection in urine sediment by light microsco py NONE NRG Casts detection in urine sediment by light microscopy PRESENT NRG Mucus detection in urine sediment by light microscopy MODERATE NRG Complete urinalysis with reflex to culture NO NRG Hyaline casts detection in urine sediment by light josh roscopy 0-2 NRG CMP - 04/17/19 12:09 GLUCOSE 102 mg/dL 65-99 UREA NITROGEN (BUN) 17 mg/dL 7-25 CREATININE 1.10 mg/dL 0.70-1.33 eGFR NON-AFR. SOMALI 77 mL/min/1.73m2 > OR = 60 eGFR 89 mL/min/1.73m2 > OR = 60 BUN/CREATININE RATIO NOT APPLICABLE (calc) 6-22 SODIUM 135 mmol/L 135-146 POTASSIUM 3.9 mmol/L 3.5-5.3 CHLORIDE 99 mmol/L 98-110 CARBON DIOXIDE 30 mmol/L 20-32 CALCIUM 9.3 mg/dL 8.6-10.3 PROTEIN, TOTAL 7.2 g/dL 6.1-8.1 ALBUMIN 3.9 g/dL 3.6-5.1 GLOBULIN 3.3 g/dL (calc) 1.9-3.7 ALBUMIN/GLOBULIN RATIO 1.2 (calc) 1.0-2. 5 BILIRUBIN, TOTAL 0.5 mg/dL 0.2-1.2 ALKALINE PHOSPHATASE 55 U/L 40-115 AST 13 U/L 10-35 ALT 12 U/L 9-46 COVID-19 ([facility]) - 08/25/19 15:08 PATIENT SYMPTOMATIC? NOT GIVEN NRG SOURCE: NOT GIVEN NRG OVERALL RESULT: NOT DETECTED NOT DETE CTED SARS-CoV-2 RNA: NEGATIVE NEGATIVE MADDEN-SARS RNA: NEGATIVE NEGATIVE Complete blood count (CBC) with automate d white blood cell (WBC) differential - 12/03/19 11:29 Blood leukocytes automated count (number/volume) 15.2 10*3/uL 4.3-11.0 Blood erythrocytes automated count (number/volume) 4.79 10*6/uL 4.35-5.85 Venous blood hemoglobin measurement (mass/volume) 12.5 g/dL 13.3-17.7 Blood hematocrit (volume fraction) 39 % 40-54 Automated erythrocyte mean corpuscular volume 81 [ foz_us] 80-99 Automated erythrocyte mean corpuscular h emoglobin (mass per erythrocyte) 26 pg 25-34 Automated erythrocyte mean corpuscular h emoglobin concentration measurement (mass/volume) 32 g/dL 32-36 Automated erythrocyte distribution width ratio 14. 2 % 10.0- 14.5 Automated blood platelet count (count/volume) 238 10*3/uL 130-400 Automated blood platelet mean volume measurement 10.1 [foz_us] 7.4-10.4 Automated blood neutrophils/100 leukocytes 80 % 42-75 Automated blood lymphocytes/100 leukocytes 9 % 12-44 Blood monocytes/100 leukocytes 7 % 0-12 Automated blood eosinophils/100 leukocytes 4 % 0-10 Automated blood basophils/100 leukocytes 0 % 0-10 Blood neutrophils automated count (number/volume) 12.2 10*3 1.8-7.8 Blood lymphocytes automated count (number/volume) 1.4 10*3 1.0-4.0 Blood monocytes automated count (number/volume) 1. 0 10*3 0.0-1.0 Automated eosinophil count 0.5 10*3/uL 0 .0-0.3 Automated blood basophil count (count/volume) 0.1 10*3/uL 0.0-0.1 Whole blood basic metabolic panel - 01/14 11:29 Serum or plasma sodium measurement (moles/volume) 135 mmol/L 135-145 Serum or plasma potassium measurement (moles/volume) 4.1 mmol/L 3.6-5.0 Serum or plasma chloride measurement (moles/volume) 100 mmol/L 98-107 Carbon dioxide 23 mmol/L 21-32 Serum or plasma anion gap determination (moles/volume) 12 mmol/L 5-14 Serum or plasma urea nitrogen measurement (mass/volume ) 12 mg/dL 7-18 Serum or plasma creatinine measurement (mass/volume) 1.10 mg/dL 0.60-1.30 Serum or plasma urea nitrogen/creatinine mass ratio 11 NRG Serum or plasma creatinine measurement w ith calculation of estimated glomerular filtration rate > NRG Serum or plasma glucose measurement (mass/volume) 135 mg/dL 70-105 Serum or plasma calcium measurement (mass/volume) 9.5 mg/dL 8.5-10.1 Blood lactic acid measurement (moles/vol ume) - 12/03/19 11:29 Blood lactic acid measurement (moles/volume) 0.92 mmol/L 0.50-2.00 Manual absolute plasma cell count - 01/14 11:29 Blood monocytes/100 leukocytes 3 % NRG Manual blood segmented neutrophils/100 leukocytes 86 % NRG Blood band neutrophils/100 leukocytes 0 % NRG Manual blood lymphocytes/100 leukocytes 5 % NRG Manual eosinophils/100 leukocytes in nose 5 % NRG Manual blood basophils/100 leukocytes 1 % NRG Blood erythrocyte morphology finding identification NORMAL NRG Encounters ACCT No. Visit Date/Time Discharge Status Pt. Type Provider Facility Loc./Unit Complaint [id number] 12/01/2019 11:10:00 ACT Outpatient EMMA MONTOYA, [facility] [id number] 08/25/2019 14:05:00 Document Registration [id number] 04/17/2019 11:20:00 Document Registration [id number] 10/18/2018 09:00:00 Document Registration [id number] 03/06/2017 10:00:00 Document Registration [id number] 01/26/2017 13:40:00 Document Registration [id number] 11/17/2016 14:10:00 Document Registration [id number] 01/27/2017 08:07:00 Document Registration [id number] 10/27/2018 22:59:00 019 00:35:00 DIS Emergency SABINA YANG MD Via [facility] ER UTI [id number] 06/27/2018 21:37:00 019 22:32:00 DIS Emergency CAMILLE TITUS APRN [facility] ER THROAT PAIN,COUGH,CHILL S [id number] 09/10/2017 02:08:00 018 03:07:00 DIS Emergency SABINA YANG MD [facility] ER SWOLLEN LIPS [id number] 08/22/2017 12:26:00 018 13:59:00 DIS Emergency NELSON PADILLA [facility] ER SORE THROAT,FEVER [id number] 11/20/2016 11:25:00 017 23:59:59 CLS Outpatient ANGELIQUE GRAY APRN [facility] CARD ESSENTIAL HTN I 10,CARDIAC MURMUR R01.1 [id number] 10/16/2016 18:48:00 017 20:19:00 DIS Emergency CAMILLE TITUS APRN [facility] ER COUGH, FEVER, DIARRHEA, SOB [id number] 05/25/2016 19:21:00 016 21:37:00 DIS Emergency FUENTES YING DO a [facility] ER SWOLLEN THROAT [id number] 03/14/2016 21:53:00 016 14:30:00 DIS Inpatient WILLARD SANTIAGO MD [facility] ICU CP,ELEVATED D-DIMER [id number] 02/17/2016 15:25:00 016 18:08:00 DIS Emergency CAMILLE TITUS APRN [facility] ER SWOLLEN FACE,BRONCHITIS [id number] 02/16/2016 18:34:00 016 21:16:00 DIS Emergency NELSON PADILLA [facility] ER THROAT PAIN [id number] 12/13/2015 23:58:00 016 01:36:00 DIS Emergency OLEGARIO MONTOYA, PHYLLIS Maurice [facility] ER KNEE DOWN NUMBN ESS, RASH/PAIN [id number] 08/08/2015 14:46:00 016 17:54:00 DIS Emergency IAM MONTOYA, BAUTISTA Fowler [facility] ER FACIAL SWELLING/ALLERGI C REACTION [id number] 04/07/2015 06:00:00 015 11:07:00 DIS Inpatient BETHANIE CAN DO Via [facility] 4TH HYPOGLYCEMIA,AC [facility]SUFFICIENCY [id number] 03/30/2015 11:53:00 015 12:10:00 DIS Inpatient BETHANIE CAN DO Via [facility] 4TH REACTION TO MED ICATION [id number] 03/28/2015 12:28:00 015 14:15:00 DIS Emergency WILLARD SANTIAGO MD Via [facility] ER SOA COUGHING [id number] 03/26/2015 11:11:00 015 12:35:00 DIS Emergency CAMILLE TITUS APRN [facility] ER FALL/LEFT KNEE PAIN [id number] 01/29/2015 02:28:00 015 03:48:00 DIS Emergency FUENTES YING DO a [facility] ER [id number] 10/23/2014 20:21:00 015 21:09:00 DIS Emergency NELSON PADILLA [facility] ER [id number] 04/13/2014 00:23:00 014 00:54:00 DIS Emergency RUPALI MONTOYA, ANT Jimenez [facility] ER COUGH, CHILLS [id number] 05/23/2013 08:33:00 014 13:20:00 DIS Inpatient BETHANIE CAN DO [facility] 4TH CELLULITIS [id number] 10/22/2012 23:12:00 013 23:51:00 DIS Emergency GARY DIAZ MD [facility] ER WAX IN EARS [id number] 12/03/2019 11:40:00 Document Registration [id number] 05/19/2012 13:43:00 Document Registration [id number] 05/12/2012 21:57:00 Document Registration [id number] 04/04/2012 00:11:00 Document Registration [id number] 12/02/2011 23:11:00 Document Registration [id number] 04/09/2011 03:21:00 Document Registration [id number] 12/09/2010 12:53:00 Document Registration [id number] 11/01/2010 23:19:00 Document Registration [id number] 08/26/2010 18:16:00 Document Registration [id number] 08/25/2010 19:20:00 Document Registration [id number] 07/06/2007 18:35:00 Document Registration [id number] 12/06/2016 09:11:00 Document Registration [id number] 03/07/2017 10:09:00 Document Registration
[2019-12-03] MEDS: metroNIDAZOLE 500MG/100ML IVPB 100 ML IV SCH ×2 (14:56→22:17)
[2019-12-03 15:59] VITALS: BP 111/62
[2019-12-03] MEDS: inSUlin ASPART (NovoLOG) 1 UNIT/0.01 ML (CHARGE PER UNIT) SC SCH ×2 (16:00→20:48)
[2019-12-03] MEDS: PIPERACILLIN/TAZO 4.5 GM/NS 100 ML IV SCH ×2 (18:13)
--- NOTE | 2019-12-03 18:19 | NUR ---
PT REQUESTED HIS GABAPENTIN 650 MG PO Q8HR -- HE GETS HIS MEDS FROM [facility] -- CALLED AND LEFT MESSAGE FOR DR SHAH
[2019-12-03] MEDS: GABAPENTIN 600 MG (NEURONTIN) TAB PO SCH (19:55)
[2019-12-03 20:20] VITALS: BP 101/68
[2019-12-04] VITALS (7 sets, daily range): BP systolic 103–116; BP diastolic 52–73
[2019-12-04] MEDS: PIPERACILLIN/TAZO 4.5 GM/NS 100 ML IV SCH ×6 (02:50→18:23)
[2019-12-04] MEDS: LACTATED RINGERS 1,000 ML IV SCH ×3 (05:25→21:56)
[2019-12-04] MEDS: metroNIDAZOLE 500MG/100ML IVPB 100 ML IV SCH ×3 (05:29→21:55)
[2019-12-04 05:52] LABS: BASOPHILS % (AUTO) 0 % (0-10); EOSINOPHILS # (AUTO) 0.6 10^3/uL (0.0-0.3); EOSINOPHILS % (AUTO) 5 % (0-10); HEMATOCRIT 38 % (40-54); LYMPHOCYTES # (AUTO) 1.6 X 10^3 (1.0-4.0); LYMPHOCYTES % (AUTO) 13 % (12-44); MEAN CORPUSCULAR HEMOGLOBIN 26 PG (25-34); MEAN CORPUSCULAR HGB CONC 32 G/DL (32-36); MEAN CORPUSCULAR VOLUME 81 FL (80-99); MEAN PLATELET VOLUME 10.3 FL (7.4-10.4); MONOCYTES # (AUTO) 0.9 X 10^3 (0.0-1.0); MONOCYTES % (AUTO) 7 % (0-12); NEUTROPHILS # (AUTO) 8.8 X 10^3 (1.8-7.8); NEUTROPHILS % (AUTO) 74 % (42-75); PLATELET COUNT 250 10^3/uL (130-400); RED CELL DISTRIBUTION WIDTH 14.4 % (10.0-14.5)
[2019-12-04 06:14] LABS: ALANINE AMINOTRANSFERASE 24 U/L (0-55); ALBUMIN 3.3 GM/DL (3.2-4.5); ALKALINE PHOSPHATASE 49 U/L (40-136); BILIRUBIN,TOTAL 0.7 MG/DL (0.1-1.0); BUN/CREATININE RATIO 12; CALCIUM 9.3 MG/DL (8.5-10.1); CARBON DIOXIDE 23 MMOL/L (21-32); CHLORIDE 101 MMOL/L (98-107); CREATININE SERUM 1.24 MG/DL (0.60-1.30); GFR ESTIMATED > 60; GLUCOSE 139 MG/DL (70-105); POTASSIUM 3.6 MMOL/L (3.6-5.0); SODIUM 136 MMOL/L (135-145); TOTAL PROTEIN 7.3 GM/DL (6.4-8.2)
[2019-12-04] MEDS: inSUlin ASPART (NovoLOG) 1 UNIT/0.01 ML (CHARGE PER UNIT) SC SCH ×4 (06:19→21:00)
[2019-12-04] MEDS: GABAPENTIN 600 MG (NEURONTIN) TAB PO SCH ×3 (09:06→21:55)
[2019-12-04] MEDS ORDERED: NAPR220C11 PO (10:04)
[2019-12-04] MEDS ORDERED: LISI1TAB26 PO (10:04)
[2019-12-04] MEDS ORDERED: GBPN600T PO (10:04)
[2019-12-04] MEDS ORDERED: DOCU-238 PO (10:04)
[2019-12-04] MEDS ORDERED: AMOX-358 PO (10:04)
--- NOTE | 2019-12-04 10:25 | NUR ---
SPOKE WITH THE PT AND CALLED [facility] TO COMPLETE THE MED REC THE FOLLOWING ARE FILL DATES: 09-16-2019 LISINOPRIL/HCTZ 20/25MG #90/DS 10-21-2019 GABAPENTIN 600MG #90/30DS 11-24-2019 VENLAFAXINE ER 150MG #90/90DS 12-01-2019 AMOX/CLAV 875/125MG #20/10DS OTC MEDS: ALEVE STOOL SOFTENER
--- NOTE | 2019-12-04 11:25 | NUR ---
CM/SS visited with patient for discharge planning. Plan: The patient will discharge home once cultures/sensitivities are done. The patient will be transported via private vehicle by self. Caregivers/Home Health: The patient reports that he has never had home health or private caregivers. Finances: The patient receives monthly assistance through [employer]. He states that it "pays the bills" but not much more. He reports having good supports in the home if assistance is needed. DME: The patient uses a CPAP machine at home. He reported to this ss that it has been running constantly and not shutting down. He states he has had it for about 5-7 years. CM/SS contacted Carlos Manuel from the [facility] to inquire about getting the patient a new one. Carlos Manuel reports Medicare will pay for a new one after 5 years. She stated that the primary care physician will need to see him and write a new script. CM/SS contacted [facility] and made the patient a virtual appointment with Dr. Estrada for December 08 at 2:00 p.m. CM/SS informed the patients primary care nurse and the patient. They verbalized understanding. The patient reports that he does not have any further needs at this time.
--- NOTE | 2019-12-04 11:59 | Progress Note - Surgery ---
Subjective Date Seen by a Provider: Dec 04, 2019 Time Seen by a Provider: 11:54 Subjective/Events-last exam Patient states abscess area feeling much better. Less swollen and not as much discomfort. Denies n/v fever sweats chills shortness of breath or chest pain. WBC down to 12 k. Focused Exam Lactate Level 12/03/19 11:29: Lactic Acid Level 0.92 Objective Exam Vital Signs Date Time Temp Pulse Resp B/P (MAP) Pulse Ox O2 Delivery O2 Flow Rate FiO2 12/04/19 08:00 Room Air 12/04/19 08:00 36.3 71 16 115/66 (82) 96 Room Air 12/04/19 07:12 80 97 21.00 12/04/19 04:00 36.8 80 24 115/73 (87) 97 NIV CPAP 12/04/19 02:34 71 94 21.00 12/04/19 00:33 36.9 83 20 107/73 (84) 94 Room Air 12/03/19 22:05 102 96 21.00 12/03/19 20:20 37.1 92 20 101/68 (79) 96 Room Air 12/03/19 19:50 NIV CPAP 12/03/19 19:25 87 91 21.00 12/03/19 15:59 36.9 87 18 111/62 (78) 97 NIV CPAP 12/03/19 14:22 96 Room Air 12/03/19 13:43 36.6 91 20 118/59 96 Room Air 12/03/19 13:23 84 18 118/86 93 Room Air I & O 12/04/19 07:00 Intake Total 2310 ml Output Total 0 ml Balance 2310 ml Capillary Refill : Less Than 3 Seconds General Appearance: No Apparent Distress, Obese HEENT: PERRL/EOMI Neck: Non Tender, Supple Respiratory: Chest Non Tender, No Accessory Muscle Use, No Respiratory Distress Cardiovascular: Regular Rate, Rhythm; No No Edema Gastrointestinal: non tender, soft Extremity: Non Tender, Pedal Edema Neurologic/Psychiatric: Oriented x3, No Motor/Sensory Deficits, Normal Mood/Affect Skin: Other (minimal erythema perirectal area and induration less) Results Lab Laboratory Tests 12/03/19 16:03: Glucometer 164H 12/03/19 20:27: Glucometer 159H 12/04/19 05:20: White Blood Count 12.0H, Red Blood Count 4.65, Hemoglobin 12.0L, Hematocrit 38L, Mean Corpuscular Volume 81, Mean Corpuscular Hemoglobin 26, Mean Corpuscular Hemoglobin Concent 32, Red Cell Distribution Width 14.4, Platelet Count 250, Mean Platelet Volume 10.3, Neutrophils (%) (Auto) 74, Lymphocytes (%) (Auto) 13, Monocytes (%) (Auto) 7, Eosinophils (%) (Auto) 5, Basophils (%) (Auto) 0, Neutrophils # (Auto) 8.8H, Lymphocytes # (Auto) 1.6, Monocytes # (Auto) 0.9, Eosinophils # (Auto) 0.6H, Basophils # (Auto) 0.0, Sodium Level 136, Potassium Level 3.6, Chloride Level 101, Carbon Dioxide Level 23, Anion Gap 12, Blood Urea Nitrogen 15, Creatinine 1.24, Estimat Glomerular Filtration Rate > 60, BUN/Creatinine Ratio 12, Glucose Level 139H, Calcium Level 9.3, Corrected Calcium 9.9, Total Bilirubin 0.7, Aspartate Amino Transf (AST/SGOT) 22, Alanine Aminotransferase (ALT/SGPT) 24, Alkaline Phosphatase 49, Total Protein 7.3, Albumin 3.3 Microbiology 12/03/19 Gram Stain - Final, Resulted 12/03/19 Wound Culture - Preliminary, Resulted Gram Negative Bacillus 1 Assessment/Plan Assessment/Plan Assessment/Plan perirectal abscess s/p incision and drainage leukocytosis morbid obesity need daily irrigation and packing IV abx Clinical Quality Measures DVT/VTE Risk/Contraindication: Risk Factor Score Per Nursin RFS Level Per Nursing on Admit: 3=High RISSA HATHAWAY DO Dec 04, 2019 11:59
--- NOTE | 2019-12-04 13:36 | OPERATIVE REPORT ---
DATE OF SERVICE: 12/03/2019 PREOPERATIVE DIAGNOSIS: Perirectal abscess. POSTOPERATIVE DIAGNOSIS: Perirectal abscess. PROCEDURE: Incision and drainage of perirectal abscess. SURGEON: Rissa Jin DO ANESTHESIA: A 1% lidocaine with epinephrine 10 mL. COMPLICATIONS: None. INDICATIONS: The patient is a 53-year-old male with a perirectal abscess. He understands risks and benefits of procedure and wished to proceed with procedure. Consent was signed in chart. DESCRIPTION OF PROCEDURE: The patient was placed in the right lateral recumbent position. The area was prepped and draped in sterile fashion. Timeout was performed. Local anesthetic was infiltrated for anesthetic effect. Once anesthetic effect took place, 11 blade scalpel was used to make a skin incision over the area of fluctuance and down through the subcutaneous tissues and a large amount of purulent material erupted. Culture was obtained. All loculations were broken up and the wound was then irrigated with copious amounts of irrigation, abscess cavities perirectal. Once the wound was irrigated and packed, the area was then washed and dried and sterile bandages were applied. The patient tolerated procedure well without any complications. RECOMMENDATIONS: The patient was admitted for IV antibiotics, await cultures and needs daily wound packing. Job ID: [id number] DocumentID: [id number] Dictated Date: 12/04/2019 11:35:28 Peeler Operator Date: 12/04/2019 13:35:57 Dictated By: RISSA JIN DO
--- NOTE | 2019-12-04 16:10 | History & Physical ---
HPI History of Present Illness: 53 yo M that presented with pain and redness in perineal region. CT revealed a perineal abscess and surgery saw patient in ER. Patient states that it had been bothering him for about 2-3 days prior to coming to ER. He has h/o multiple abscesses in this region that have required surgical intervention. Denies h/o DM. 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 Source: patient Exam Limitations: no limitations Date seen by provider: Dec 04, 2019 Time Seen by Provider: 11:05 Attending Physician Bibi Renteria MD PCP Kenny Estrada MD Consult Date of Admission Dec 03, 2019 at 11:44 Home Medications Home Medications Reviewed patient Home Medication Reconciliation performed by pharmacy medication reconciliations line service technician and/or nursing. Patients Allergies have been reviewed. Allergies Coded Allergies: azithromycin (Verified Allergy, Intermediate, Hives, 03/31/15) [id number] Hx Patient Social History Alcohol Use: Denies Use Recreational Drug Use: No 2nd Hand Smoke Exposure: No Recent Foreign Travel: No Contact w/other who traveled: No Recent Hopitalizations: No Recent Infectious Disease Expo: No Physical Abuse Screen: No Sexual Abuse: No Immunizations Up To Date Tetanus Booster (TDap): Less than 5yrs Date of Pneumonia Vaccine: Mar 28, 2020 Date of Influenza Vaccine: Mar 31, 2015 Past Medical History HTN Morbid Obesity Chronic Pain Family Medical History Significant Family History: No Pertinent Family Hx Family History: Congestive heart failure 03 FATHER, Onset:20's - 25 Family history: Asthma 09 SISTER, Onset:20's - 25 Family history: Cardiovascular disease 03 FATHER, Onset:20's - 25 Family history: Hypertension 03 MOTHER, Onset:40's - 50 Family history: Thyroid disorder 03 MOTHER, Onset:50's - 60 Heart disease 03 FATHER, Onset:20's - 25 History of - respiratory disease 03 MOTHER, Onset:50's - 60 Review of Systems ([facility]) Constitutional: No chills, No fever; malaise EENTM: no symptoms reported; No mouth pain, No nose congestion, No nose pain, No throat pain Respiratory: no symptoms reported; No cough, No dyspnea on exertion, No short of breath Cardiovascular: no symptoms reported; No chest pain, No edema, No palpitations Gastrointestinal: no symptoms reported; No abdominal pain, No constipation, No diarrhea, No nausea, No vomiting Genitourinary: no symptoms reported; No dysuria, No frequency, No hematuria Musculoskeletal: back pain, joint pain Skin: rash Psychiatric/Neurological: No Symptoms Reported Reviewed Test Results Reviewed Test Results Lab Laboratory Tests Test 12/03/19 20:27 12/04/19 05:20 Range/Units Glucometer 159 H 70-110 MG/DL White Blood Count 12.0 H 4.3-11.0 10^3/uL Red Blood Count 4.65 4.35-5.85 10^6/uL Hemoglobin 12.0 L 13.3-17.7 G/DL Hematocrit 38 L 40-54 % Mean Corpuscular Volume 81 80-99 FL Mean Corpuscular Hemoglobin 26 25-34 PG Mean Corpuscular Hemoglobin Concent 32 32-36 G/DL Red Cell Distribution Width 14.4 10.0-14.5 % Platelet Count 250 130-400 10^3/uL Mean Platelet Volume 10.3 7.4-10.4 FL Neutrophils (%) (Auto) 74 42-75 % Lymphocytes (%) (Auto) 13 12-44 % Monocytes (%) (Auto) 7 0-12 % Eosinophils (%) (Auto) 5 0-10 % Basophils (%) (Auto) 0 0-10 % Neutrophils # (Auto) 8.8 H 1.8-7.8 X 10^3 Lymphocytes # (Auto) 1.6 1.0-4.0 X 10^3 Monocytes # (Auto) 0.9 0.0-1.0 X 10^3 Eosinophils # (Auto) 0.6 H 0.0-0.3 10^3/uL Basophils # (Auto) 0.0 0.0-0.1 10^3/uL Sodium Level 136 135-145 MMOL/L Potassium Level 3.6 3.6-5.0 MMOL/L Chloride Level 101 98-107 MMOL/L Carbon Dioxide Level 23 21-32 MMOL/L Anion Gap 12 5-14 MMOL/L Blood Urea Nitrogen 15 7-18 MG/DL Creatinine 1.24 0.60-1.30 MG/DL Estimat Glomerular Filtration Rate > 60 BUN/Creatinine Ratio 12 Glucose Level 139 H 70-105 MG/DL Calcium Level 9.3 8.5-10.1 MG/DL Corrected Calcium 9.9 8.5-10.1 MG/DL Total Bilirubin 0.7 0.1-1.0 MG/DL Aspartate Amino Transf (AST/SGOT) 22 5-34 U/L Alanine Aminotransferase (ALT/SGPT) 24 0-55 U/L Alkaline Phosphatase 49 40-136 U/L Total Protein 7.3 6.4-8.2 GM/DL Albumin 3.3 3.2-4.5 GM/DL Physical Exam-([facility]) Physical Exam Vital Signs VS - Last 72 Hours, by Label 12/03/19 12/03/19 12/03/19 12/03/19 10:29 13:23 13:43 14:22 Temp 37.2 36.6 Pulse 91 84 91 Resp 18 18 20 B/P (MAP) 144/87 (106) 118/86 118/59 Pulse Ox 93 96 96 O2 Delivery Room Air Room Air Room Air Room Air 12/03/19 12/03/19 12/03/19 12/03/19 15:59 19:25 19:50 20:20 Temp 36.9 37.1 Pulse 87 87 92 Resp 18 20 B/P (MAP) 111/62 (78) 101/68 (79) Pulse Ox 97 91 96 O2 Delivery NIV CPAP NIV CPAP Room Air O2 Flow Rate 21.00 12/03/19 12/04/19 12/04/19 12/04/19 22:05 00:33 02:34 04:00 Temp 36.9 36.8 Pulse 102 83 71 80 Resp 20 24 B/P (MAP) 107/73 (84) 115/73 (87) Pulse Ox 96 94 94 97 O2 Delivery Room Air NIV CPAP O2 Flow Rate 21.00 21.00 12/04/19 12/04/19 12/04/19 12/04/19 07:12 08:00 08:00 12:00 Temp 36.3 36.2 Pulse 80 71 72 Resp 16 16 B/P (MAP) 115/66 (82) 107/54 (71) Pulse Ox 97 96 97 O2 Delivery Room Air Room Air Room Air O2 Flow Rate 21.00 Capillary Refill : Less Than 3 Seconds General Appearance: WD/WN, no apparent distress, obese (Morbid) HEENT: PERRL/EOMI Neck: non-tender, full range of motion, supple Respiratory: chest non-tender, lungs clear, normal breath sounds, no respiratory distress, no accessory muscle use Cardiovascular: normal peripheral pulses, regular rate, rhythm, no edema, no murmur Gastrointestinal: normal bowel sounds, non tender, soft, no organomegaly Rectal: other (Perineal/perirectal abscess: draining purulent material, mod ttp) Back: no CVA tenderness, no vertebral tenderness Extremities: normal range of motion, normal inspection, no calf tenderness, swelling Neurologic/Psychiatric: 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 as tested, no motor/sensory deficits, alert, normal mood/affect, oriented x 3 Lymphatic: no adenopathy Assessment/Plan Assessment/Plan Admission Status: Inpatient Order (span 2 midnights) Reason for Inpatient Admission: Patient required surgical intervention and needs IV antibiotics until cultures return (1) Perineal abscess Status: Acute Assessment & Plan: - Dr Jin consulted and did I&D on patient, waiting cultures, Zosyn/Flagyl D2 (2) HTN (hypertension) Status: Chronic Assessment & Plan: - Holding home meds as patient is normotensive Qualifiers: Qualified Codes: I10 - Essential (primary) hypertension (3) Chronic pain Status: Chronic Assessment & Plan: - Restarted home Gabapentin Qualifiers: Qualified Codes: G89.4 - Chronic pain syndrome (4) Morbid obesity with BMI of 60.0-69.9, adult Status: Chronic (5) DVT prophylaxis Status: Acute Assessment & Plan: - Lovenox Clinical Quality Measures DVT/VTE Risk/Contraindication: Risk Factor Score Per Nursin RFS Level Per Nursing on Admit: 3=High BIBI RENTERIA MD Dec 04, 2019 16:10
[2019-12-04] MEDS ORDERED: DOCUSATE SODIUM 100 MG (COLACE) CAP PO PRN (16:15)
[2019-12-04] MEDS ORDERED: NAPROXEN 250 MG (NAPROSYN) TABLET PO PRN (16:15)
[2019-12-04] MEDS ORDERED: NON-FORMULARY MEDICATION 1 EA EA (Naproxen Sodium (Aleve) 220 MG) PO PRN (16:15)
--- NOTE | 2019-12-04 17:34 | NUR ---
report given to marisa curry who will assume care of this patient.
[2019-12-04] MEDS ORDERED: VENlafaxine XR 75 MG (EFFEXOR XR) CAP PO SCH (18:00)
[2019-12-04] MEDS ORDERED: NON-FORMULARY MEDICATION 1 EA EA (Venlafaxine HCl (Venlafaxine HCl ER) 150 MG) PO SCH (21:00)
[2019-12-05 03:25] VITALS: BP 99/63
[2019-12-05] MEDS: LACTATED RINGERS 1,000 ML IV SCH (03:34)
[2019-12-05] MEDS: PIPERACILLIN/TAZO 4.5 GM/NS 100 ML IV SCH ×4 (03:34→11:10)
[2019-12-05] MEDS: inSUlin ASPART (NovoLOG) 1 UNIT/0.01 ML (CHARGE PER UNIT) SC SCH ×2 (06:25→11:10)
[2019-12-05 06:26] LABS: BASOPHILS # (AUTO) 0.1 10^3/uL (0.0-0.1); BASOPHILS % (AUTO) 1 % (0-10); EOSINOPHILS # (AUTO) 0.6 10^3/uL (0.0-0.3); EOSINOPHILS % (AUTO) 6 % (0-10); HEMATOCRIT 35 % (40-54); HEMOGLOBIN 11.2 G/DL (13.3-17.7); LYMPHOCYTES # (AUTO) 1.6 X 10^3 (1.0-4.0); LYMPHOCYTES % (AUTO) 17 % (12-44); MEAN CORPUSCULAR HEMOGLOBIN 26 PG (25-34); MEAN CORPUSCULAR HGB CONC 32 G/DL (32-36); MEAN CORPUSCULAR VOLUME 82 FL (80-99); MEAN PLATELET VOLUME 10.3 FL (7.4-10.4); MONOCYTES # (AUTO) 0.7 X 10^3 (0.0-1.0); MONOCYTES % (AUTO) 7 % (0-12); NEUTROPHILS # (AUTO) 6.4 X 10^3 (1.8-7.8); NEUTROPHILS % (AUTO) 69 % (42-75); PLATELET COUNT 260 10^3/uL (130-400); RED CELL DISTRIBUTION WIDTH 14.1 % (10.0-14.5); WHITE BLOOD COUNT 9.3 10^3/uL (4.3-11.0)
[2019-12-05] MEDS: metroNIDAZOLE 500MG/100ML IVPB 100 ML IV SCH (06:30)
[2019-12-05 06:52] LABS: ALBUMIN 3.2 GM/DL (3.2-4.5)
[2019-12-05 06:53] LABS: CHLORIDE 106 MMOL/L (98-107); SODIUM 139 MMOL/L (135-145)
[2019-12-05 06:55] LABS: GLUCOSE 119 MG/DL (70-105); TOTAL PROTEIN 6.9 GM/DL (6.4-8.2)
[2019-12-05 06:56] LABS: CARBON DIOXIDE 23 MMOL/L (21-32)
[2019-12-05 06:57] LABS: BILIRUBIN,TOTAL 0.3 MG/DL (0.1-1.0)
[2019-12-05 06:58] LABS: ALKALINE PHOSPHATASE 44 U/L (40-136)
[2019-12-05 06:59] LABS: CREATININE SERUM 1.15 MG/DL (0.60-1.30); GFR ESTIMATED > 60
[2019-12-05 07:00] LABS: BUN/CREATININE RATIO 14
[2019-12-05 07:01] LABS: ALANINE AMINOTRANSFERASE 19 U/L (0-55)
[2019-12-05 08:00] VITALS: BP 125/65
[2019-12-05] MEDS: GABAPENTIN 600 MG (NEURONTIN) TAB PO SCH (08:31)
--- NOTE | 2019-12-05 11:31 | NUR ---
CM/SS finalized discharge planning. Plan: The patient will discharge home with home health for wound care. Home Health: The patient was provided a patient preference form and chose [facility]. CM/SS contacted Rm from the agency to make referral. No further needs at this time. Patient has appointment with [facility] (see past ss note) to get a new CPAP machine. No further needs at this time.
--- NOTE | 2019-12-05 11:37 | Discharge Summary ---
Discharge Summary Reconcile Patient Problems Problems Reviewed?: Yes Instructions for Patient Via [employer], Assessment/Instructions Perineal Abscess s/p I&D Morbid Obesity MAGDY Physician to follow Patient: Heurter Discharge Diet for Home: Cardiac Diet Hospital Course Date of Admission: Dec 03, 2019 at 11:44 Admission Diagnosis : Family Physician/Provider: Kenny Estrada MD Date of Discharge: 12/05/19 Discharge Diagnosis: Perineal Abscess s/p I&D Morbid Obesity MAGDY Hospital Course: 53 yo M that was admitted with large perineal abscess. Patient was seen by Dr Jin who did an I&D. Patient was placed on IV antibiotics to cover for MRSA due to patient's history. Final Cultures pending but will cover for MRSA. Patient will be d/c on to help with wound care. Labs and Pending Lab Test: Laboratory Tests 12/04/19 16:02: Glucometer 136H 12/04/19 20:19: Glucometer 159H 12/05/19 05:48: White Blood Count 9.3, Red Blood Count 4.31L, Hemoglobin 11.2L, Hematocrit 35L, Mean Corpuscular Volume 82, Mean Corpuscular Hemoglobin 26, Mean Corpuscular H emoglobin Concent 32, Red Cell Distribution Width 14.1, Platelet Count 260, Mean Platelet Volume 10.3, Neutrophils (%) (Auto) 69, Lymphocytes (%) (Auto) 17, Monocytes (%) (Auto) 7, Eosinophils (%) (Auto) 6, Basophils (%) (Auto) 1, Neutrophils # (Auto) 6.4, Lymphocytes # (Auto) 1.6, Monocytes # (Auto) 0.7, Eosinophils # (Auto) 0.6H, Basophils # (Auto) 0.1, Sodium Level 139, Potassium Level 4.0, Chloride Level 106, Carbon Dioxide Level 23, Anion Gap 10, Blood Urea Nitrogen 16, Creatinine 1.15, Estimat Glomerular Filtration Rate > 60, BUN/Creatinine Ratio 14, Glucose Level 119H, Calcium Level 9.0, Corrected Calcium 9.6, Total Bilirubin 0.3, Aspartate Amino Transf (AST/SGOT) 18, Alanine Aminotransferase (ALT/SGPT) 19, Alkaline Phosphatase 44, Total Protein 6.9, Albumin 3.2 12/05/19 06:23: Glucometer 135H 12/05/19 10:45: Glucometer 130H Microbiology 12/03/19 Blood Culture - Preliminary, Resulted No growth 12/03/19 Gram Stain - Final, Complete 12/03/19 Wound Culture - Final, Complete Escherichia coli Home Meds Active Reported Stool Softener (Docusate Sodium) 100 Mg Capsule 100 Mg PO DAILY PRN Aleve (Naproxen Sodium) 220 Mg Capsule 220 Mg PO Q8H PRN Augmentin 875-125 Tablet (Amoxicillin/Potassium Clav) 1 Each Tablet 1 Each PO Q12H 10 Days FILLED 12-01-2019 #20/10 DAY SUPPLY Lisinopril-Hctz 20-25 mg Tab (Lisinopril/Hydrochlorothiazide) 1 Each Tablet 1 Each PO HS Gabapentin 600 Mg Tablet 600 Mg PO TID PRN Venlafaxine HCl ER (Venlafaxine HCl) 150 Mg Cap.er.24h 150 Mg PO HS Consulations Dr Jin, General Surgery Patient Allergies: Coded Allergies: azithromycin (Verified Allergy, Intermediate, Hives, 03/31/15) Height (Feet): 5 Height (Inches): 11.00 Weight (Pounds): 450 Weight (Ounces): 0 New Medications: Cefdinir (Cefdinir) 300 Mg Capsule 300 MG PO BID, #14 CAP Continued Medications: Docusate Sodium (Stool Softener) 100 Mg Capsule 100 MG PO DAILY PRN for CONSTIPATION-1ST LINE, CAP Gabapentin (Gabapentin) 600 Mg Tablet 600 MG PO TID PRN for PAIN-BREAKTHROUGH, TAB Lisinopril/Hydrochlorothiazide (Lisinopril-Hctz 20-25 mg Tab) 1 Each Tablet 1 EACH PO HS, TAB Naproxen Sodium (Aleve) 220 Mg Capsule 220 MG PO Q8H PRN for PAIN-MILD (1-4), CAP Venlafaxine HCl (Venlafaxine HCl ER) 150 Mg Cap.er.24h 150 MG PO HS, CAP Discontinued Medications: Amoxicillin/Potassium Clav (Augmentin 875-125 Tablet) 1 Each Tablet 1 EACH PO Q12H for 10 Days, TAB FILLED 12-01-2019 #20/10 DAY SUPPLY Home Health Need/Face to Face Date of Face to Face: Dec 05, 2019 Clinical Findings: Instability, Wound infection I have seen Pt [id number]: Yes Discharged To: Home Diagnosis/Conditions: See Above Patient is Homebound due to: Lurdes fall risk due to instabilty, Shortness of breath/distress Homebound Status Due to the above stated illness, injury or surgical procedure (medical condition or diagnosis) and associated clinical findings, the patient is homebound because of his/her inability to leave home except with aid of a supportive device and/or person AND leaving the home requires a considerable and taxing effort or is medically contraindicated. Pt req the following assistanc: Aid of another person Home Health Nursing Orders Home Health Services Order: Nursing Services, Wound Care-Eval/Treat Irragation and Packing of perineal wound daily Home Health Infusion Therapy Line Start Date: Dec 03, 2019 Certify Stmt I certify that this patient is under my care and that I, a nurse practitioner or a physician; a human resource assistant working with me, had a face to face encounter that - meets the physician face to face encounter requirements with this patient as dated. Discharge Physical Exam General: Alert, Oriented X3, Cooperative, No Acute Distress Lungs: Clear to Auscultation, Normal Air Movement Heart: Regular Rate, No Murmurs Abdomen: Soft, No Tenderness, No Hepatosplenomegaly Extremities: Other (Chronic venous statis changes) Skin: Other (+ erythema and warmth, draining purulent fluid) Neuro: Normal Speech, Sensation Intact, Cranial Nerves 3-12 NL Psych/Mental Status: Mental Status NL, Mood NL HEATHER SHAH MD Dec 05, 2019 11:37
[2019-12-05] MEDS ORDERED: CEFD300C3 PO (11:38)
--- NOTE | 2019-12-05 11:49 | Progress Note - Surgery ---
Subjective Date Seen by a Provider: Dec 05, 2019 Time Seen by a Provider: 10:03 Subjective/Events-last exam Patient feeling better. Less discomfort. Serosang drainage. Denies n/v fever sweats chills shortness of breath or chest pain. Wanting to go home. Culture Ecoli Focused Exam Lactate Level 12/03/19 11:29: Lactic Acid Level 0.92 Objective Exam Vital Signs Date Time Temp Pulse Resp B/P (MAP) Pulse Ox O2 Delivery O2 Flow Rate FiO2 12/05/19 08:00 37.2 74 18 125/65 (85) 97 Room Air 12/05/19 03:25 36.2 69 18 99/63 (75) NIV Bilevel 21.00 12/04/19 23:30 37.0 81 18 103/52 (69) 95 Room Air 12/04/19 23:29 84 96 21.00 12/04/19 20:00 Room Air 12/04/19 20:00 37.2 78 16 116/57 (76) 93 Room Air 12/04/19 16:00 36.5 72 16 106/73 (84) 96 NIV CPAP 12/04/19 12:00 36.2 72 16 107/54 (71) 97 Room Air I & O 12/05/19 07:00 Intake Total 4450 ml Balance 4450 ml Capillary Refill : Less Than 3 SecondsLess Than 3 Seconds General Appearance: No Apparent Distress, Obese HEENT: PERRL/EOMI Neck: Non Tender, Supple Respiratory: Chest Non Tender, No Accessory Muscle Use, No Respiratory Distress Cardiovascular: Regular Rate, Rhythm; No No Edema Gastrointestinal: normal bowel sounds, non tender, soft Extremity: Non Tender, Pedal Edema Neurologic/Psychiatric: Alert, Oriented x3, No Motor/Sensory Deficits, Normal Mood/Affect Skin: Other (minimal erythema perirectal area and induration less continues to improve) Results Lab Laboratory Tests 12/04/19 16:02: Glucometer 136H 12/04/19 20:19: Glucometer 159H 12/05/19 05:48: White Blood Count 9.3, Red Blood Count 4.31L, Hemoglobin 11.2L, Hematocrit 35L, Mean Corpuscular Volume 82, Mean Corpuscular Hemoglobin 26, Mean Corpuscular Hemoglobin Concent 32, Red Cell Distribution Width 14.1, Platelet Count 260, Mean Platelet Volume 10.3, Neutrophils (%) (Auto) 69, Lymphocytes (%) (Auto) 17, Monocytes (%) (Auto) 7, Eosinophils (%) (Auto) 6, Basophils (%) (Auto) 1, Neutrophils # (Auto) 6.4, Lymphocytes # (Auto) 1.6, Monocytes # (Auto) 0.7, Eosinophils # (Auto) 0.6H, Basophils # (Auto) 0.1, Sodium Level 139, Potassium Level 4.0, Chloride Level 106, Carbon Dioxide Level 23, Anion Gap 10, Blood Urea Nitrogen 16, Creatinine 1.15, Estimat Glomerular Filtration Rate > 60, BUN/Creatinine Ratio 14, Glucose Level 119H, Calcium Level 9.0, Corrected Calcium 9.6, Total Bilirubin 0.3, Aspartate Amino Transf (AST/SGOT) 18, Alanine Aminotransferase (ALT/SGPT) 19, Alkaline Phosphatase 44, Total Protein 6.9, Albumin 3.2 12/05/19 06:23: Glucometer 135H 12/05/19 10:45: Glucometer 130H Microbiology 12/03/19 Blood Culture - Preliminary, Resulted No growth 12/03/19 Gram Stain - Final, Complete 12/03/19 Wound Culture - Final, Complete Escherichia coli Assessment/Plan Assessment/Plan Assessment/Plan perirectal abscess s/p incision and drainage leukocytosis improved morbid obesity need daily irrigation and packing convert to oral abx likely home today Clinical Quality Measures DVT/VTE Risk/Contraindication: Risk Factor Score Per Nursin RFS Level Per Nursing on Admit: 3=High RISSA HATHAWAY DO Dec 05, 2019 11:49
--- NOTE | 2019-12-05 12:19 | Physician Query Clarification ---
"Physician Query-General Query to Physician: The medical record reflects the following clinical scenario: History/Risk factors: Recurrent perineal infections, Elevated Blood sugars Clinical Findings: Admission: HR 90-100, WBC 15. 2 with Perineal abscess Treatment: 4 L IV since admission, IV ABX Question: What condition best reflects the above clinical scenario? Please document response in the Progress notes or Discharge Summary. 1. Sepsis Present on Admission 2. Perineal abscess (as currently documented) 3. Other , with explanation of the clinical findings 4. Clinically undetermined, no explanation for the clinical findings Please remember a lack of response to the above will prompt a phone page by CDI/coding staff In responding to this query, please exercise your independent professional judgment. The purpose of this communication is to more accurately reflect the complexity of your patients condition. The fact that a question is asked does not imply that any particular answer is desired or expected. Thank you for timely response to this clarification. Tuyet Rock, MSN, RN RN Specialist-Clinical Doc Improvement CD -Health Info [facility] [address] [facility] t: [phone] | f: [phone] If you are unable to reach me at my extension, I may be working from home. Please contact me at [phone] PHYSICIAN RESPONSE: Based on the clinical findings in the record, please respond to the query above on this document as an addendum. Physician Response: Physician Response 2 If you have questions please contact: Sanitary Chemist: Ext: Thank you for your time and cooperation. Clinical Quarter Inspector/Sanitary Chemist This is a permanent part of the medical record TUYET ROCK Dec 05, 2019 12:19 HEATHER SHAH MD Dec 05, 2019 15:32"
--- NOTE | 2019-12-05 13:22 | NUR ---
RD ASSESSMENT PMHx: HTN; morbid obesity; COPD; GERD; chronic constipation; DM PT INTERACTION: Pt was awake and pleasant during nutrition assessment. Pt states current appetite is "so-so" and has been this way since admit. Note avg PO intake of 90% x2d, per chart review. Pt states following a regular diet at home, and has no issues with chewing/swallowing food. Pt states no recent issues with nausea, vomiting, constipation, or diarrhea. Note last BM was 12/04, and pt currently on bowel regimen of colace PRN, per chart review. Pt states no recent wt changes. Note unable to determine recent wt hx, per chart review. Pt states current DM management is "pretty good. My avg blood glucose levels are between 120-130." Note unable to determine recent HbA1c, per chart review. Note presence of perineal abscess, per chart review. ABNORMAL NUTRITION-RELATED LAB VALUES LOW: HIGH: glu 119 Est. kcal needs: 1950 kcal | 25 kcal/kg IBW, based on IBW of 78.2 kg (172#) Est. Pro needs: 109 g Pro | 1.4 g Pro/kg IBW, based on IBW of 78.2 kg (172#) PES STATEMENT: Inadequate protein intake (NI-5.6.1) related to increased protein needs as evidenced by presence of wound (perineal abscess) INTERVENTION: Continue with current diet order of CHO 60g/m 3snack diet. Add Ensure HP (vary) to meals TID. Provides 160 kcal and 16 g Pro per serving for perceived benefit to wound healing. Discussed and provided diet education on DM management. Discussed portion control; fiber content; CHO counting; smartphone applications; protein and wound healing. Pt verbalized understanding. Will continue to follow and reassess as pt needs, intake, and status change. MONITOR/EVALUATE: PO Intake; Plan of Care; Hydration Status; Weight Status; Lab Values Jose Maria Flynn, MS, RD, LD
== END 2019-12-05 12:21 | disposition home health service (06) | DRG 580 ==
LOC: EDUNIT# 10:27 → ER 10:28 → 4TH 11:44
PROVIDERS: ADMIT Family Medicine; ATTEND Family Medicine
PROC: 0J9B0ZZ Drainage of Perineum Subcutaneous Tissue and Fascia, Open Approach (ICD-10-PCS; principal; 2019-12-03)
DX: L02.215 Cutaneous abscess of perineum (principal); Z68.44 Body mass index [BMI] 60.0-69.9, adult; E66.01 Morbid (severe) obesity due to excess calories; J44.9 Chronic obstructive pulmonary disease, unspecified; D86.9 Sarcoidosis, unspecified; G47.30 Sleep apnea, unspecified; I10 Essential (primary) hypertension; E11.40 Type 2 diabetes mellitus with diabetic neuropathy, unspecified; K21.9 Gastro-esophageal reflux disease without esophagitis; K59.09 Other constipation; M19.91 Primary osteoarthritis, unspecified site; F41.9 Anxiety disorder, unspecified; G89.4 Chronic pain syndrome
CPT/HCPCS: 10061; 36415; 76999; 80048; 80053; 82962; 83605; 85007; 85025; 85027; 87040; 87070; 87077; 87186; 87205; 94660

== ENCOUNTER 2020-01-20 19:11 | Emergency (ER) | payer MEDICARE ==
[~2020-01-20] VITALS: Ht 180 cm; Wt 209.0 kg
[~2020-01-20 19:11] MED LIST changes: +AMOX-358 PO; +CEFD300C3 PO; +DOCU-238 PO; +GBPN600T PO; +HYDR-3812 PO; -HYDR-83 PO; +LISI1TAB26 PO
--- NOTE | 2020-01-20 19:54 | ED Respiratory ---
General Stated Complaint: BILAT LEG SWELLING / COUGH / SOA Source: patient Exam Limitations: no limitations History of Present Illness Date Seen by Provider: Jan 20, 2020 Time Seen by Provider: 19:35 Initial Comments patient arrives ER by private conveyance from home with chief complaint of shortness of air for the past 3-4 days, productive cough and increased swelling in bilateral legs. He is on lisinopril and hydrochlorothiazide. He has chronic swelling in his legs and sarcoidosis. No fevers or chills. He does take naproxen twice a day for his leg pain. He tried to get in with Dr. Garza his primary care doctor but it was going to be too long so he decided come out here. He does not require oxygen at baseline nor does he smoke or have a history of COPD or asthma. He does have breathing treatments and did try them the last couple nights with minimal relief of his shortness of air. He does not take any other diuretics. No chills sweats. he's never had a pulmonary embolism but he has a sister who is had pulmonary emboli. Echocardiogram [address] Odonnell shows EF 50-60%. History of sarcoidosis, COPD, obstructive sleep apnea, morbid obesity, hypertension. Allergies and Home Medications Allergies Coded Allergies: azithromycin (Verified Allergy, Intermediate, Hives, 03/31/15) Home Medications Cefdinir 300 Mg Capsule, 300 MG PO BID Prescribed by: HEATHER SHAH on 12/05/19 1138 Docusate Sodium 100 Mg Capsule, 100 MG PO DAILY PRN for CONSTIPATION-1ST LINE, (Reported) Gabapentin 600 Mg Tablet, 600 MG PO TID PRN for PAIN-BREAKTHROUGH, (Reported) Levofloxacin 750 Mg Tablet, 750 MG PO DAILY Prescribed by: SABINA YANG on 01/20/20 2254 Lisinopril/Hydrochlorothiazide 1 Each Tablet, 1 EACH PO HS, (Reported) Naproxen Sodium 220 Mg Capsule, 220 MG PO Q8H PRN for PAIN-MILD (1-4), (Reported) Venlafaxine HCl 150 Mg Cap.er.24h, 150 MG PO HS, (Reported) Patient Home Medication List Home Medication List Reviewed: Yes Review of Systems Review of Systems Constitutional: No chills, No diaphoresis EENTM: No ear discharge, No ear pain Respiratory: cough, phlegm, short of breath; No wheezing Cardiovascular: No chest pain; edema; No Hx of Intervention, No palpitations, No syncope, No vascular heart diseas Gastrointestinal: No abdominal pain, No constipation, No diarrhea, No nausea, No vomiting Genitourinary: No decreased output, No discharge Musculoskeletal: No back pain, No gout, No joint pain Skin: No pruritus, No rash Psychiatric/Neurological: Denies Headache, Denies Numbness, Denies Paresthesia All Other Systems Reviewed Negative Unless Noted: Yes Past Mrrinbl-Jmrarh-Ikrevo Hx Patient Social History Alcohol Use: Denies Use Recreational Drug Use: No Smoking Status: Never a Smoker 2nd Hand Smoke Exposure: No Recent Foreign Travel: No Contact w/Someone Who Travel: No Recent Hopitalizations: No Immunizations Up To Date Tetanus Booster (TDap): Less than 5yrs Date of Pneumonia Vaccine: Mar 28, 2020 Date of Influenza Vaccine: Mar 31, 2015 Seasonal Allergies Seasonal Allergies: No Past Medical History Surgeries: Yes (rectal abcess, urethral) Orthopedic, Rectal Respiratory: Yes (sarcoidosis) Sleep Apnea, COPD Currently Using CPAP: Yes Currently Using BIPAP: No Cardiac: Yes Chronic Edema/Swelling, Hypertension Neurological: Yes Neuropathy Reproductive Disorders: No Sexually Transmitted Disease: No HIV/AIDS: No Genitourinary: No Gastrointestinal: Yes (h/o multiple perirectal abscesses.) Gastroesophageal Reflux, Chronic Constipation Musculoskeletal: Yes (SARCOIDOSIS) Arthritis Endocrine: Yes (morbid obesity) Diabetes, Non-Insulin dep HEENT: No Tonsilitis Loss of Vision: Denies Hearing Impairment: Denies Cancer: No Psychosocial: Yes Anxiety Integumentary: Yes Pruritis Blood Disorders: No Family Medical History Congestive heart failure 03 FATHER, Onset:20's - 25 Family history: Asthma 09 SISTER, Onset:20's - 25 Family history: Cardiovascular disease 03 FATHER, Onset:20's - 25 Family history: Hypertension 03 MOTHER, Onset:40's - 50 Family history: Thyroid disorder 03 MOTHER, Onset:50's - 60 Heart disease 03 FATHER, Onset:20's - 25 History of - respiratory disease 03 MOTHER, Onset:50's - 60 No Pertinent Family Hx Physical Exam Vital Signs - First Documented 01/20/20 19:40 Temp 36.2 Pulse 78 Resp 20 B/P (MAP) 146/99 (115) O2 Delivery Room Air Capillary Refill : Height: 5'11.00" Weight: 450lbs. 0oz. [id number]; 64.19 BMI Method:Stated General Appearance: mild distress, obese Eyes: Bilateral Eye Normal Inspection, Bilateral Eye PERRL, Bilateral Eye EOMI HEENT: PERRL/EOMI, pharynx normal Neck: full range of motion, supple, normal inspection Respiratory: lungs clear, no respiratory distress (oxygen saturations 97% on room air.), no accessory muscle use, decreased breath sounds Cardiovascular: normal peripheral pulses, regular rate, rhythm Gastrointestinal: normal bowel sounds, non tender, soft Neurologic/Psychiatric: alert, normal mood/affect, oriented x 3 Skin: warm/dry; No diaphoresis Progress/Results/Core Measures Suspected Sepsis SIRS Temperature: Pulse: Respiratory Rate: Laboratory Tests 01/20/20 20:35: White Blood Count 10.7 Blood Pressure / Mean: Laboratory Tests 01/20/20 20:35: Creatinine 1.13, INR Comment 1.0, Platelet Count 266, Total Bilirubin 0.4 Results/Orders Lab Results Laboratory Tests Test 01/20/20 20:35 Range/Units White Blood Count 10.7 4.3-11.0 10^3/uL Red Blood Count 4.86 4.35-5.85 10^6/uL Hemoglobin 12.5 L 13.3-17.7 G/DL Hematocrit 39 L 40-54 % Mean Corpuscular Volume 81 80-99 FL Mean Corpuscular Hemoglobin 26 25-34 PG Mean Corpuscular Hemoglobin Concent 32 32-36 G/DL Red Cell Distribution Width 14.7 H 10.0-14.5 % Platelet Count 266 130-400 10^3/uL Mean Platelet Volume 10.1 7.4-10.4 FL Neutrophils (%) (Auto) 68 42-75 % Lymphocytes (%) (Auto) 20 12-44 % Monocytes (%) (Auto) 6 0-12 % Eosinophils (%) (Auto) 6 0-10 % Basophils (%) (Auto) 1 0-10 % Neutrophils # (Auto) 7.2 1.8-7.8 X 10^3 Lymphocytes # (Auto) 2.1 1.0-4.0 X 10^3 Monocytes # (Auto) 0.7 0.0-1.0 X 10^3 Eosinophils # (Auto) 0.6 H 0.0-0.3 10^3/uL Basophils # (Auto) 0.1 0.0-0.1 10^3/uL Prothrombin Time 13.6 12.2-14.7 SEC INR Comment 1.0 0.8-1.4 Activated Partial Thromboplast Time 32 24-35 SEC D-Dimer 1.51 H 0.00-0.49 UG/ML Sodium Level 137 135-145 MMOL/L Potassium Level 4.0 3.6-5.0 MMOL/L Chloride Level 101 98-107 MMOL/L Carbon Dioxide Level 30 21-32 MMOL/L Anion Gap 6 5-14 MMOL/L Blood Urea Nitrogen 13 7-18 MG/DL Creatinine 1.13 0.60-1.30 MG/DL Estimat Glomerular Filtration Rate > 60 BUN/Creatinine Ratio 12 Glucose Level 137 H 70-105 MG/DL Calcium Level 9.9 8.5-10.1 MG/DL Corrected Calcium 10.1 8.5-10.1 MG/DL Total Bilirubin 0.4 0.1-1.0 MG/DL Aspartate Amino Transf (AST/SGOT) 13 5-34 U/L Alanine Aminotransferase (ALT/SGPT) 14 0-55 U/L Alkaline Phosphatase 60 40-136 U/L Troponin I < 0.028 <0.028 NG/ML C-Reactive Protein High Sensitivity 1.16 H 0.00-0.50 MG/DL B-Type Natriuretic Peptide 26.4 <100.0 PG/ML Total Protein 7.7 6.4-8.2 GM/DL Albumin 3.7 3.2-4.5 GM/DL Procalcitonin 0.02 <0.10 NG/ML My Orders Orders - SABINA YANG Ekg Tracing (01/20/20 19:45) Continuous Ekg Monitoring (01/20/20 19:45) Troponin I (01/20/20 19:45) BNP (01/20/20 19:45) Hs C Reactive Protein (01/20/20 19:45) Procalcitonin (Pct) (01/20/20 19:45) Cbc With Automated Diff (01/20/20 19:45) Comprehensive Metabolic Panel (01/20/20 19:45) Chest Pa/Lat (2 View) (01/20/20 19:45) Protime With Inr (01/20/20 19:55) Partial Thromboplastin Time (01/20/20 19:55) Fibrin Degradation Products (01/20/20 20:00) Ct Angio Chest W (01/20/20 21:38) Ed Iv/Invasive Line Start (01/20/20 21:38) Ns Iv 1000 Ml (Sodium Chloride 0.9%) (01/20/20 21:38) Iohexol Injection (Omnipaque 350 Mg/Ml 1 (01/20/20 22:45) Ns (Ivpb) (Sodium Chloride 0.9% Ivpb Bag (01/20/20 22:45) Levofloxacin Tablet (Levaquin Tablet) (01/20/20 23:00) Blood Culture (01/20/20 22:50) Ketorolac Injection (Toradol Injection) (01/20/20 23:00) Medications Given in ED Current Medications Medications Dose Ordered Sig/Ceci Route Start Time Stop Time Status Last Admin Dose Admin Iohexol 125 ml ONCE ONCE IV 01/20/20 22:45 01/20/20 22:46 UNV 01/20/20 22:38 125 ML Sodium Chloride 80 ml ONCE ONCE IV 01/20/20 22:45 01/20/20 22:46 UNV 01/20/20 22:37 80 ML Vital Signs/I&O 01/20/20 19:40 Temp 36.2 Pulse 78 Resp 20 B/P (MAP) 146/99 (115) O2 Delivery Room Air Capillary Refill : Progress Note #1: Time: 19:52 Progress Note aseptic vital signs without evidence of shortness of breath on examination. Clear sounding lungs. Sarcoidosis of the lungs?, Pneumonia, bronchitis? fluid overload? Plan to get a couple views chest x-ray. Without any fever or other symptoms COVID-19 seems fairly unlikely. Most likely diagnosis is fluid overload. Well score for pulmonary embolism: 0.0 points. Low risk group: 1.3% chance of PE in an ED population. 1 per criteria. Cannot rule out based on age. We'll get a d-dimer. EKG troponin and BNP. Progress Note #2: Time: 22:51 Progress Note patient patient still has aseptic vital signs are normal oxygen sats. Plan to put him on by mouth Levaquinfor outpatient coverage of possible pneumonia. Encourage him strongly to put on compression stockings and elevate his feet. ECG Initial ECG Impression Date: Jan 20, 2020 Initial ECG Impression Time: 20:06 Initial ECG Rate: 71 Initial ECG Rhythm: Normal Sinus Initial ECG Intervals: QT (470) Initial ECG Impression: Normal, Nonspecific Changes Initial ECG Comparisson: Unchanged Comment nondiagnostic ST depression one half to one block in leads 1, aVL seen on previous EKGs. no clinically relevant ST elevation or depression. Diagnostic Imaging Diagonstic Imaging: Xray Plain Films/CT/US/NM/MRI: chest (2v) Comments NAME: REYNOLD BOGGS [facility] REC#: [id number] PT STATUS: REG ER : 1965 PHYSICIAN: SABINA YANG MD ADMIT DATE: 01/20/20/ER Draft Date of Exam:01/20/20 CHEST PA/LAT (2 VIEW) Clinical Indication: Patient with shortness of air and edema. Exam: Chest x-ray PA and lateral views. Comparisons: Chest x-ray dated 06/27/2018. Findings: Lungs/pleura: There is interval development of subtle airspace opacity involving the right lung base region. Otherwise, the lungs are clear. There is no pneumothorax. There is no pleural effusion. Mediastinum: Unremarkable. Pulmonary vasculature: Unremarkable. Heart: Unremarkable. Bones/extrathoracic soft tissue: There are degenerative spurs involving the thoracic spine. Impression: 1.: There is interval development of subtle airspace opacity in the right lung base. This may represent lung infiltrate. Dictated on workstation # [id number] Dict: 01/20/202115 Trans: 01/20/202125 [facility] [id number] Interpreted by: MARIELENA RANGEL MD Electronically signed by: Reviewed: Reviewed by Me Diagonstic Imaging: CT Plain Films/CT/US/NM/MRI: chest Comments no evidence of acute pulmonary embolus of the subsegmental level. Reviewed: Reviewed Shiloh Baumann Study, Reviewed by Me Departure Impression Primary Impression: Pneumonia, community acquired Qualified Codes: J18.9 - Pneumonia, unspecified organism Disposition: 01 HOME, SELF-CARE Condition: Stable Departure-Patient Inst. Decision time for Depature: 22:50 Referrals: ACE CARTER MD (PCP/Family) Primary Care Physician Patient Instructions: Community-Acquired Pneumonia, Adult (DC) Add. Discharge Instructions: take Levaquin 1 tablet daily for the next 6 days. Plan to follow-up later this week or early next week with your primary care doctor for reevaluation. Obtain and wear compression stockings. Keep your feet elevated above the level of your heart. Scripts Levofloxacin (Levaquin) 750 Mg Tablet 750 MG PO DAILY for 6 Days, #6 TAB 0 Refills Prov: SABINA YANG 01/20/20 Work/School Note: Work Release Form Date Seen in the Emergency Department: Jan 20, 2020 Return to Work: Jan 26, 2020 Restrictions: No Restrictions SABINA YANG Jan 20, 2020 19:54
[2020-01-20 20:43] LABS: BASOPHILS # (AUTO) 0.1 10^3/uL (0.0-0.1); BASOPHILS % (AUTO) 1 % (0-10); EOSINOPHILS # (AUTO) 0.6 10^3/uL (0.0-0.3); EOSINOPHILS % (AUTO) 6 % (0-10); HEMATOCRIT 39 % (40-54); HEMOGLOBIN 12.5 G/DL (13.3-17.7); LYMPHOCYTES # (AUTO) 2.1 X 10^3 (1.0-4.0); LYMPHOCYTES % (AUTO) 20 % (12-44); MEAN CORPUSCULAR HEMOGLOBIN 26 PG (25-34); MEAN CORPUSCULAR HGB CONC 32 G/DL (32-36); MEAN CORPUSCULAR VOLUME 81 FL (80-99); MEAN PLATELET VOLUME 10.1 FL (7.4-10.4); MONOCYTES # (AUTO) 0.7 X 10^3 (0.0-1.0); MONOCYTES % (AUTO) 6 % (0-12); NEUTROPHILS # (AUTO) 7.2 X 10^3 (1.8-7.8); NEUTROPHILS % (AUTO) 68 % (42-75); PLATELET COUNT 266 10^3/uL (130-400); RED CELL DISTRIBUTION WIDTH 14.7 % (10.0-14.5); WHITE BLOOD COUNT 10.7 10^3/uL (4.3-11.0)
[2020-01-20 20:56] LABS: FIBRIN DEGRADATION PRODUCTS 1.51 UG/ML (0.00-0.49); PROTHROMBIN TIME PATIENT 13.6 SEC (12.2-14.7)
[2020-01-20 21:10] LABS: BUN/CREATININE RATIO 12; CARBON DIOXIDE 30 MMOL/L (21-32); CHLORIDE 101 MMOL/L (98-107); CREATININE SERUM 1.13 MG/DL (0.60-1.30); GFR ESTIMATED > 60; SODIUM 137 MMOL/L (135-145)
[2020-01-20 21:11] LABS: ALANINE AMINOTRANSFERASE 14 U/L (0-55); ALBUMIN 3.7 GM/DL (3.2-4.5); ALKALINE PHOSPHATASE 60 U/L (40-136); BILIRUBIN,TOTAL 0.4 MG/DL (0.1-1.0); CALCIUM 9.9 MG/DL (8.5-10.1); GLUCOSE 137 MG/DL (70-105); TOTAL PROTEIN 7.7 GM/DL (6.4-8.2)
--- NOTE | 2020-01-20 21:27 | Diagnostic Imaging Report ---
Clinical Indication: Patient with shortness of air and edema. Exam: Chest x-ray PA and lateral views. Comparisons: Chest x-ray dated 06/27/2018. Findings: Lungs/pleura: There is interval development of subtle airspace opacity involving the right lung base region. Otherwise, the lungs are clear. There is no pneumothorax. There is no pleural effusion. Mediastinum: Unremarkable. Pulmonary vasculature: Unremarkable. Heart: Unremarkable. Bones/extrathoracic soft tissue: There are degenerative spurs involving the thoracic spine. Impression: 1.: There is interval development of subtle airspace opacity in the right lung base. This may represent lung infiltrate. Dictated by: Dictated on workstation # [id number]
[2020-01-20] MEDS ORDERED: NS IV 1000 ML 1,000 ML IV SCH (21:38)
[2020-01-20] MEDS ORDERED: NS 100 ML (IVPB) BAG IV ONE (22:45)
[2020-01-20] MEDS ORDERED: IOHEXOL 350 MG/ML 150 ML (OMNIPAQUE 350) VIAL IV ONE (22:45)
[2020-01-20] MEDS ORDERED: LEVO750T9 PO (22:54)
[2020-01-20] MEDS ORDERED: LEVOFLOXACIN 750 MG TAB (LEVAQUIN) PO ONE (23:00)
[2020-01-20] MEDS ORDERED: KETOROLAC 30 MG/ML VIAL IVP ONE (23:00)
[2020-01-20 23:12] VITALS: BP 128/84
--- NOTE | 2020-01-21 07:28 | Diagnostic Imaging Report ---
PROCEDURE: CT angiography of the chest with contrast. TECHNIQUE: Multiple contiguous axial images were obtained through the chest after uneventful bolus administration of intravenous contrast. 3D reconstructed CTA MIP acquisitions were also performed. Auto Exposure Controls were utilized during the CT exam to meet ALARA standards for radiation dose reduction. INDICATION: Respiratory distress. Chest pain. Comparison with 03/14/2016 CT chest. FINDINGS: There is moderate motion artifact. There is good opacification of pulmonary arteries. No filling defects are demonstrated. No evidence of aortic aneurysm or dissection. The lungs are well-aerated and clear. No mediastinal or hilar adenopathy of pathologic size. No pleural effusions or pericardial effusion. IMPRESSION: No evidence of pulmonary emboli. Study is slightly limited due to respiratory artifact. These findings are concordant with preliminary report. Dictated by: Dictated on workstation # [id number]
== END 2020-01-20 23:12 | disposition home or self-care (01) ==
LOC: EDUNIT# 19:11 → ER 19:12
DX: J18.9 Pneumonia, unspecified organism (principal); E66.01 Morbid (severe) obesity due to excess calories; I10 Essential (primary) hypertension; K59.09 Other constipation; F41.9 Anxiety disorder, unspecified; Z88.1 Allergy status to other antibiotic agents; Z68.44 Body mass index [BMI] 60.0-69.9, adult; Z82.49 Family history of ischemic heart disease and other diseases of the circulatory system
CPT/HCPCS: 36415; 71046; 71275; 80053; 83880; 84145; 84484; 85025; 85379; 85610; 85730; 86141; 87040; 93005

== ENCOUNTER 2020-04-13 07:10 | Emergency (ER) | payer MEDICARE ==
[~2020-04-13] VITALS: Ht 177 cm; Wt 200.0 kg
[~2020-04-13 07:10] MED LIST changes: -HYDR-3812 PO
--- NOTE | 2020-04-13 07:28 | ED Integumentary General ---
General Stated Complaint: PERINEAL ABCESS Source: patient Exam Limitations: no limitations History of Present Illness Date Seen by Provider: Apr 13, 2020 Time Seen by Provider: 07:24 Initial Comments 54-year-old male presents with the "abscess" and appearing ER region. Patient reports that started yesterday. Very painful, he reports no fevers chills nausea or vomiting. He has had these recurrently in the past at least 7 or 8 times. Patient had one drain in the operating room approximately 3-4 months ago. Allergies and Home Medications Allergies Coded Allergies: azithromycin (Verified Allergy, Intermediate, Hives, 03/31/15) Home Medications Cefdinir 300 Mg Capsule, 300 MG PO BID Prescribed by: HEATHER SHAH on 12/05/19 1138 Docusate Sodium 100 Mg Capsule, 100 MG PO DAILY PRN for CONSTIPATION-1ST LINE, (Reported) Doxycycline Hyclate 100 Mg Tablet, 100 MG PO BID Prescribed by: ELSA BARBOUR on 04/13/20 0749 Gabapentin 600 Mg Tablet, 600 MG PO TID PRN for PAIN-BREAKTHROUGH, (Reported) Levofloxacin 750 Mg Tablet, 750 MG PO DAILY Prescribed by: SABINA YANG on 01/20/20 2254 Lisinopril/Hydrochlorothiazide 1 Each Tablet, 1 EACH PO HS, (Reported) Naproxen Sodium 220 Mg Capsule, 220 MG PO Q8H PRN for PAIN-MILD (1-4), (Reported) Venlafaxine HCl 150 Mg Cap.er.24h, 150 MG PO HS, (Reported) Patient Home Medication List Home Medication List Reviewed: Yes Review of Systems Review of Systems Constitutional: No chills EENTM: no symptoms reported Respiratory: no symptoms reported Cardiovascular: no symptoms reported Gastrointestinal: no symptoms reported Genitourinary: no symptoms reported Musculoskeletal: no symptoms reported Skin: see HPI Endocrine: No Symptoms Reported Past Lwbubau-Htdaft-Zqfdao Hx Past Med/Social Hx: Reviewed Nursing Past Med/Soc Hx Patient Social History 2nd Hand Smoke Exposure: No Recent Foreign Travel: No Contact w/Someone Who Travel: No Recent Hopitalizations: No Immunizations Up To Date Tetanus Booster (TDap): Less than 5yrs Date of Pneumonia Vaccine: Mar 28, 2020 Date of Influenza Vaccine: Mar 31, 2015 Seasonal Allergies Seasonal Allergies: No Past Medical History Surgeries: Yes (rectal abcess, urethral) Orthopedic, Rectal Respiratory: Yes (sarcoidosis) Sleep Apnea, COPD Currently Using CPAP: Yes Currently Using BIPAP: No Cardiac: Yes Chronic Edema/Swelling, Hypertension Neurological: Yes Neuropathy Reproductive Disorders: No Sexually Transmitted Disease: No HIV/AIDS: No Genitourinary: No Gastrointestinal: Yes (h/o multiple perirectal abscesses.) Gastroesophageal Reflux, Chronic Constipation Musculoskeletal: Yes (SARCOIDOSIS) Arthritis Endocrine: Yes (morbid obesity) Diabetes, Non-Insulin dep HEENT: No Tonsilitis Loss of Vision: Denies Hearing Impairment: Denies Cancer: No Psychosocial: Yes Anxiety Integumentary: Yes Pruritis Blood Disorders: No Family Medical History Congestive heart failure 03 FATHER, Onset:20's - Family history: Asthma 09 SISTER, Onset:20's - 25 Family history: Cardiovascular disease 03 FATHER, Onset:20 - Family history: Hypertension 03 MOTHER, Onset:40's - 50 Family history: Thyroid disorder 03 MOTHER, Onset:50's - 60 Heart disease 03 FATHER, Onset:20's - 25 History of - respiratory disease 03 MOTHER, Onset:50's - 60 No Pertinent Family Hx Physical Exam Vital Signs Vital Signs - First Documented 04/13/20 07:20 Temp 35.2 Pulse 101 Resp 20 B/P (MAP) 180/105 (130) Capillary Refill : General Appearance: WD/WN, no apparent distress, obese (morbid) Cardiovascular: normal peripheral pulses, regular rate, rhythm Respiratory: lungs clear, normal breath sounds Skin Problem Location: other (perineal ) Skin Problem Character: abscess (induration with no fluctuance at this time), erythema (mild) Progress/Results/Core Measures Results/Orders Vital Signs/I&O 04/13/20 07:20 Temp 35.2 Pulse 101 Resp 20 B/P (MAP) 180/105 (130) Progress Progress Note : Time: 07:50 Progress Note Patient with induration but no flush once or drainable abscess currently. Chart review shows that his last abscess was Escherichia coli resistant to Bactrim. He did have susceptibilities to most other medications. Due to Escherichia coli versus MRSA I will start him on doxycycline. I discussed with Dr. Jin and we will have him follow-up in approximate 2 days in outpatient setting. Patient she warm moist compress. Patient stable only discharged home he should return to the ER if any concerns Departure Impression Primary Impression: Abscess Disposition: HOME, SELF-CARE Condition: Stable Departure-Patient Inst. Referrals: ACE CARTER MD (PCP/Family) Primary Care Physician Patient Instructions: Wound Care (DC), Cellulitis (Skin Infection), Adult (DC) Add. Discharge Instructions: Call Dr. Jin's office for an appointment in 2-3 days for recheck Warm moist compress to affected area Take antibiotics as prescribed Scripts Doxycycline Hyclate (Doxycycline Hyclate) 100 Mg Tablet 100 MG PO BID, #20 TAB 0 Refills Prov: ELSA BARBOUR DO 04/13/20 Work/School Note: Work Release Form Date Seen in the Emergency Department: Apr 13, 2020 Return to Work: Apr 16, 2020 ELSA BARBOUR DO Apr 13, 2020 07:27
[2020-04-13] MEDS ORDERED: DOXY100T2 PO (07:49)
[2020-04-13 08:03] VITALS: BP 180/105
== END 2020-04-13 08:02 | disposition home or self-care (01) ==
LOC: EDUNIT# 07:10 → ER 07:12
DX: L02.215 Cutaneous abscess of perineum (principal); E66.01 Morbid (severe) obesity due to excess calories; F41.9 Anxiety disorder, unspecified; I10 Essential (primary) hypertension; Z88.1 Allergy status to other antibiotic agents; Z82.49 Family history of ischemic heart disease and other diseases of the circulatory system
CPT/HCPCS: 99282

== ENCOUNTER 2020-04-15 08:52 | Inpatient (IN) | payer MEDICARE ==
[~2020-04-15] VITALS: Ht 180.3 cm; Wt 206.0 kg
[~2020-04-15 08:52] MED LIST changes: +DOXY100T2 PO
[2020-04-15] MEDS ORDERED: fentaNYL INJECTION 100 MCG/2 ML AMP IVP ONE (09:45)
[2020-04-15 10:17] LABS: BASOPHILS # (AUTO) 0.1 10^3/uL (0.0-0.1); BASOPHILS % (AUTO) 0 % (0-10); EOSINOPHILS # (AUTO) 0.2 10^3/uL (0.0-0.3); EOSINOPHILS % (AUTO) 1 % (0-10); HEMATOCRIT 38 % (40-54); HEMOGLOBIN 11.9 g/dL (13.3-17.7); LYMPHOCYTES % (AUTO) 4 % (12-44); MEAN CORPUSCULAR HEMOGLOBIN 25 pg (25-34); MEAN CORPUSCULAR HGB CONC 32 g/dL (32-36); MEAN CORPUSCULAR VOLUME 80 fL (80-99); MEAN PLATELET VOLUME 10.3 fL (9.0-12.2); MONOCYTES # (AUTO) 1.8 10^3/uL (0.0-1.0); MONOCYTES % (AUTO) 7 % (0-12); NEUTROPHILS # (AUTO) 20.9 10^3/uL (1.8-7.8); NEUTROPHILS % (AUTO) 87 % (42-75); PLATELET COUNT 247 10^3/uL (130-400); WHITE BLOOD COUNT 24.1 10^3/uL (4.3-11.0)
[2020-04-15] MEDS ORDERED: LIDOCAINE 1% INJ 20 ML 20 ML VIAL ONE (10:18)
[2020-04-15 10:29] LABS: ALBUMIN 3.3 GM/DL (3.2-4.5); CHLORIDE 96 MMOL/L (98-107); POTASSIUM 3.9 MMOL/L (3.6-5.0); SODIUM 130 MMOL/L (135-145)
[2020-04-15 10:30] LABS: CALCIUM 8.7 MG/DL (8.5-10.1)
[2020-04-15 10:31] LABS: GLUCOSE 224 MG/DL (70-105); TOTAL PROTEIN 7.4 GM/DL (6.4-8.2)
[2020-04-15 10:32] LABS: CARBON DIOXIDE 24 MMOL/L (21-32)
[2020-04-15 10:33] LABS: BILIRUBIN,TOTAL 1.7 MG/DL (0.1-1.0)
[2020-04-15 10:35] LABS: ALKALINE PHOSPHATASE 56 U/L (40-136); CREATININE SERUM 1.22 MG/DL (0.60-1.30); GFR ESTIMATED > 60
[2020-04-15 10:36] LABS: BUN/CREATININE RATIO 13
[2020-04-15 10:38] LABS: ALANINE AMINOTRANSFERASE 22 U/L (0-55)
[2020-04-15 10:47] LABS: BAND NEUTROPHILS 3 %; BASOPHILS % (MANUAL) 0 %; EOSINOPHILS % (MANUAL) 1 %; LYMPHOCYTES % (MANUAL) 3 %; MONOCYTES % (MANUAL) 4 %; NEUTROPHILS % (MANUAL) 89 %; RBC MORPH NORMAL
[2020-04-15] MEDS ORDERED: LACTATED RINGERS 1,000 ML IV ONE (11:16)
[2020-04-15] MEDS ORDERED: MEROPENEM 1,000 MG in WATER (STERILE) FOR INJECTION 20 ML IV ONE (11:30)
--- NOTE | 2020-04-15 11:31 | ED General ---
General Chief Complaint: Skin/Wound Problems Stated Complaint: PERINAL ABCESS Nursing Triage Note: Pt c/o perineal abscess. Pt reports being seen in ED and prescribed antibiotics with no relief. Pt is requesting area be lanced and drained Nursing Sepsis Screen: No Definite Risk Source of Information: Patient, Old Records Exam Limitations: No Limitations History of Present Illness Date Seen by Provider: Apr 15, 2020 Time Seen by Provider: 09:25 Initial Comments This 54-year-old gentleman presents to the emergency room with complaints of pe rianal abscess. He was seen a couple of days ago and placed on antibiotics. Symptoms have worsened since then. He has developed nausea, chills, and escalating pain and pressure in the rectal area. It is not yet draining. He is afebrile at present. He reports borderline diabetes. Allergies and Home Medications Allergies Coded Allergies: azithromycin (Verified Allergy, Intermediate, Hives, 03/31/15) Home Medications Cefdinir 300 Mg Capsule, 300 MG PO BID Prescribed by: HEATHER SHAH on 12/05/19 1138 Docusate Sodium 100 Mg Capsule, 100 MG PO DAILY PRN for CONSTIPATION-1ST LINE, (Reported) Doxycycline Hyclate 100 Mg Tablet, 100 MG PO BID Prescribed by: ELSA BARBOUR on 04/13/20 0749 Gabapentin 600 Mg Tablet, 600 MG PO TID PRN for PAIN-BREAKTHROUGH, (Reported) Levofloxacin 750 Mg Tablet, 750 MG PO DAILY Prescribed by: SABINA AYNG on 01/20/20 2254 Lisinopril/Hydrochlorothiazide 1 Each Tablet, 1 EACH PO HS, (Reported) Naproxen Sodium 220 Mg Capsule, 220 MG PO Q8H PRN for PAIN-MILD (1-4), (Reported) Venlafaxine HCl 150 Mg Cap.er.24h, 150 MG PO HS, (Reported) Patient Home Medication List Home Medication List Reviewed: Yes Review of Systems Review of Systems Constitutional: see HPI EENTM: no symptoms reported Respiratory: no symptoms reported Cardiovascular: no symptoms reported Gastrointestinal: see HPI Genitourinary: no symptoms reported Musculoskeletal: no symptoms reported Skin: see HPI Psychiatric/Neurological: No Symptoms Reported Hematologic/Lymphatic: No Symptoms Reported Immunological/Allergic: no symptoms reported Past Fxsfcoe-Jrirdj-Ktbgwq Hx Past Med/Social Hx: Reviewed Nursing Past Med/Soc Hx Patient Social History Alcohol Use: Denies Use Recreational Drug Use: No 2nd Hand Smoke Exposure: No Recent Foreign Travel: No Contact w/Someone Who Travel: No Recent Infectious Disease Expo: No Recent Hopitalizations: No Immunizations Up To Date Tetanus Booster (TDap): Less than 5yrs Date of Pneumonia Vaccine: Mar 28, 2020 Date of Influenza Vaccine: Mar 31, 2015 Seasonal Allergies Seasonal Allergies: No Past Medical History Surgeries: Yes (rectal abcess, urethral) Orthopedic, Rectal Respiratory: Yes (sarcoidosis) Sleep Apnea, COPD Currently Using CPAP: Yes Currently Using BIPAP: No Cardiac: Yes Chronic Edema/Swelling, Hypertension Neurological: Yes Neuropathy Reproductive Disorders: No Sexually Transmitted Disease: No HIV/AIDS: No Genitourinary: No Gastrointestinal: Yes (h/o multiple perirectal abscesses.) Gastroesophageal Reflux, Chronic Constipation Musculoskeletal: Yes (SARCOIDOSIS) Arthritis Endocrine: Yes (morbid obesity) Diabetes, Non-Insulin dep HEENT: No Tonsilitis Loss of Vision: Denies Hearing Impairment: Denies Cancer: No Psychosocial: Yes Anxiety Integumentary: Yes Pruritis Blood Disorders: No Family Medical History Congestive heart failure 03 FATHER, Onset:20's - 25 Family history: Asthma 09 SISTER, Onset:20's - 25 Family history: Cardiovascular disease 03 FATHER, Onset:20's - 25 Family history: Hypertension 03 MOTHER, Onset:40's - 50 Family history: Thyroid disorder 03 MOTHER, Onset:50's - 60 Heart disease 03 FATHER, Onset:20's - 25 History of - respiratory disease 03 MOTHER, Onset:50's - 60 No Pertinent Family Hx Physical Exam Vital Signs Vital Signs - First Documented 04/15/20 08:55 Temp 37.0 Pulse 106 Resp 24 B/P (MAP) 152/93 (112) Pulse Ox 98 O2 Delivery Room Air Capillary Refill : Less Than 3 Seconds Height, Weight, BMI Height: 5'11.00" Weight: 450lbs. 0oz. 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 Large perianal abscess.) Progress/Results/Core Measures Suspected Sepsis Recent Fever Within 48 Hours: No Infection Criteria Present: None New/Unexplained Altered Menta: No Sepsis Screen: No Definite Risk SIRS Temperature: Pulse: 106 Respiratory Rate: 24 Laboratory Tests 04/15/20 10:12: White Blood Count 24.1H Blood Pressure 152 /93 Mean: 112 Laboratory Tests 04/15/20 10:12: Creatinine 1.22, Platelet Count 247, Total Bilirubin 1.7H Results/Orders Lab Results Laboratory Tests Test 04/15/20 10:12 Range/Units White Blood Count 24.1 H 4.3-11.0 10^3/uL Red Blood Count 4.70 4.30-5.52 10^6/uL Hemoglobin 11.9 L 13.3-17.7 g/dL Hematocrit 38 L 40-54 % Mean Corpuscular Volume 80 80-99 fL Mean Corpuscular Hemoglobin 25 25-34 pg Mean Corpuscular Hemoglobin Concent 32 32-36 g/dL Red Cell Distribution Width 14.1 10.0-14.5 % Platelet Count 247 130-400 10^3/uL Mean Platelet Volume 10.3 9.0-12.2 fL Immature Granulocyte % (Auto) 1 % Neutrophils (%) (Auto) 87 H 42-75 % Lymphocytes (%) (Auto) 4 L 12-44 % Monocytes (%) (Auto) 7 0-12 % Eosinophils (%) (Auto) 1 0-10 % Basophils (%) (Auto) 0 0-10 % Neutrophils # (Auto) 20.9 H 1.8-7.8 10^3/uL Lymphocytes # (Auto) 1.0 1.0-4.0 10^3/uL Monocytes # (Auto) 1.8 H 0.0-1.0 10^3/uL Eosinophils # (Auto) 0.2 0.0-0.3 10^3/uL Basophils # (Auto) 0.1 0.0-0.1 10^3/uL Immature Granulocyte # (Auto) 0.1 0.0-0.1 10^3/uL Neutrophils % (Manual) 89 % Lymphocytes % (Manual) 3 % Monocytes % (Manual) 4 % Eosinophils % (Manual) 1 % Basophils % (Manual) 0 % Band Neutrophils 3 % Blood Morphology Comment NORMAL Sodium Level 130 L 135-145 MMOL/L Potassium Level 3.9 3.6-5.0 MMOL/L Chloride Level 96 L 98-107 MMOL/L Carbon Dioxide Level 24 21-32 MMOL/L Anion Gap 10 5-14 MMOL/L Blood Urea Nitrogen 16 7-18 MG/DL Creatinine 1.22 0.60-1.30 MG/DL Estimat Glomerular Filtration Rate > 60 BUN/Creatinine Ratio 13 Glucose Level 224 H 70-105 MG/DL Calcium Level 8.7 8.5-10.1 MG/DL Corrected Calcium 9.3 8.5-10.1 MG/DL Total Bilirubin 1.7 H 0.1-1.0 MG/DL Aspartate Amino Transf (AST/SGOT) 24 5-34 U/L Alanine Aminotransferase (ALT/SGPT) 22 0-55 U/L Alkaline Phosphatase 56 40-136 U/L C-Reactive Protein High Sensitivity 21.53 H 0.00-0.50 MG/DL Total Protein 7.4 6.4-8.2 GM/DL Albumin 3.3 3.2-4.5 GM/DL My Orders Orders - ANT ZAPIEN MD Cbc With Automated Diff (04/15/20 09:31) Comprehensive Metabolic Panel (04/15/20 09:31) Hs C Reactive Protein (04/15/20 09:31) Ed Iv/Invasive Line Start (04/15/20 09:31) Fentanyl Injection (Sublimaze Injection (04/15/20 09:45) Manual Differential (04/15/20 10:12) Lidocaine 1% Inj 20 Ml (Xylocaine 1% Inj (04/15/20 10:18) Lactated Ringers (Lr 1000 Ml Iv Solution (04/15/20 11:16) Meropenem (Merrem 1000 Mg) (04/15/20 11:30) Blood Culture (04/15/20 11:16) Sputum Culture (04/15/20 11:16) Urinalysis (04/15/20 11:16) Urine Culture (04/15/20 11:16) Protime With Inr (04/15/20 11:16) Partial Thromboplastin Time (04/15/20 11:16) Chest 1 View, Ap/Pa Only (04/15/20 11:16) Vital Signs Adult Sepsis Patie Q15M (04/15/20 11:16) Remove Rings In Anticipation O (04/15/20 11:16) Lactic Acid Analyzer (04/15/20 11:16) Medications Given in ED Current Medications Medications Dose Ordered Sig/Ceci Route Start Time Stop Time Status Last Admin Dose Admin Fentanyl Citrate 75 mcg ONCE ONCE IVP 04/15/20 09:45 04/15/20 09:46 DC 04/15/20 10:23 75 MCG Vital Signs/I&O 04/15/20 08:55 Temp 37.0 Pulse 106 Resp 24 B/P (MAP) 152/93 (112) Pulse Ox 98 O2 Delivery Room Air Capillary Refill : Less Than 3 Seconds Blood Pressure Mean: 112 Progress Note : Time: 11:37 Progress Note After patient was seen and examined surgery was consulted due to the very large size of the abscess. Dr. Jin and Dr. Carpenter presented to the ER. Incision and drainage with irrigation and packing was performed. Wound culture was collected and sent. Departure Communication (Admissions) Time/Spoke to Admitting Phy: 11:18 Dr. Milligan Time/Spoke to Consulting Phy: 11:15 Dr. Jin Impression Primary Impression: Sepsis Qualified Codes: A41.9 - Sepsis, unspecified organism Additional Impressions: Perianal abscess Encounter for incision and drainage procedure Disposition: ADMITTED INPATIENT Condition: Improved Admissions Decision to Admit Reason: Admit from ER (General) Decision to Admit/Date: Apr 15, 2020 Time/Decision to Admit Time: 11:15 Departure-Patient Inst. Referrals: ACE CARTER MD (PCP/Family) Primary Care Physician ANT ZAPIEN MD Apr 15, 2020 11:31
[2020-04-15 11:50] LABS: INR 1.2 (0.8-1.4); PROTHROMBIN TIME PATIENT 15.5 SEC (12.2-14.7)
--- NOTE | 2020-04-15 12:47 | Diagnostic Imaging Report ---
INDICATION: Perineal abscess. TIME OF EXAM: 12:44 p.m. COMPARISON: Correlation is made with prior chest from 01/20/2020. FINDINGS: The heart size is normal. The lungs are clear. The pulmonary vascularity is normal. No infiltrates are detected. No effusion or pneumothorax is identified. IMPRESSION: No acute cardiopulmonary process is detected. Dictated by: Dictated on workstation # [id number]
[2020-04-15] MEDS ORDERED: MEROPENEM 1000 MG (MERREM) VIAL IV ONE (12:56)
[2020-04-15] MEDS ORDERED: WATER (STERILE) FOR INJECTION 20 ML ONE (12:56)
--- NOTE | 2020-04-15 13:30 | NUR ---
REYNOLD BOGGS admitted to room 419-1, with an admitting diagnosis of PERIRECTAL ABSCESS, on 04/15/20 from ED via , accompanied by STAFF. REYNOLD BOGGS introduced to surroundings, call light, bed controls, phone, TV, temperature control, lights, meal times, smoking policy, visitor policy, side rail policy, bathrooms and showers. Patient Rights given to patient in the handbook. REYNOLD BOGGS verbalizes understanding that [facility] is not responsible for the loss or damage to any personal effects or valuables that are kept in the patients posession during their hospitalization. The following Patient Care Plans were discussed with the PT: Discharge Planning, PAIN, AND WOUND. REYNOLD BOGGS verbalizes understanding of Interdisciplinary Patient Education. Patient and/or family were informed about the Rapid Response Team and its purpose.
[2020-04-15 13:35] VITALS: BP 101/71
[2020-04-15] MEDS ORDERED: ONDANSETRON 4 MG/2 ML (SDV) Z0FRAN IV PRN (13:45)
[2020-04-15] MEDS ORDERED: CATHETER FLUSH 10 ML SYR IV PRN (13:45)
[2020-04-15] MEDS ORDERED: fentaNYL INJECTION 100 MCG/2 ML AMP IV PRN (13:45)
[2020-04-15] MEDS ORDERED: VANCOMYCIN INJECTION 2,500 MG in NS IV 500 ML 500 ML IV NR (14:30)
--- NOTE | 2020-04-15 14:35 | NUR ---
PTD VANCOMYCIN LABS: 204.1KG, SCr 1.22, CrCl 106.7, BMI 62.8. LOADING DOSE 20MG/KG x 204.1 KG = 4082, ROUNDED DOWN TO 2500MG. MAINT DOSE 15MG/KG x 204.1 = 3062 ~ ROUNDED DOWN 1750MG Q12H PER VANCOMYCIN CALCULATOR RECOMMENDATIONS FOR GOAL TROUGH ~ 16.9. VANCOMYCIN TROUGH DUE 04/16 @ 2300. IF TROUGH >20, HOLD DOSE & NOTIFY PHARMACY FOR ADJUSTMENTS.
[2020-04-15] MEDS: metroNIDAZOLE 500 MG/100 ML IVPB (PRE-MIX) IV SCH ×2 (14:36→21:48)
--- NOTE | 2020-04-15 14:37 | NUR ---
SPOKE WITH THE PT AND CALLED [facility] TO COMPLETE THE MED REC 01-05-2020 LISINOPRIL/HCTZ 20/25MG #90/90DS 03-11-2020 VENLAFAXINE ER 150MG #90/90DS 03-11-2020 GABAPENTIN 600MG #90/30DS DOXYCYCLINE WAS FILLED AT [facility] ON 04-13-2020 #20/10DS OTC MEDS: EARL
[2020-04-15] MEDS: LACTATED RINGERS 1,000 ML IV SCH ×2 (14:40→21:48)
[2020-04-15 14:55] VITALS: BP 101/71
--- NOTE | 2020-04-15 15:29 | Consultation - Surgery ---
LEYDI PAINTING MED STUDENT 04/15/20 1529: History of Present Illness History of Present Illness Patient Consulted On(fatoumata/time) 04/15/20 15:27 Date Seen by Provider: Apr 15, 2020 Time Seen by Provider: 11:30 History of Present Illness Geovanna Zavaleta is a 54 YO male with hx of DM and obesity who presented to the ER with worsening perianal abscess for the past couple of days. Has been taking Abx without improvement and says the pain is worsening. Pt admitted to Dr. Milligan, who consulted surgery. Pt seen and evaluated in the ER. Allergies and Home Medications Allergies Coded Allergies: azithromycin (Verified Allergy, Intermediate, Hives, 04/15/20) Home Medications Doxycycline Hyclate 100 Mg Tablet, 100 MG PO BID Prescribed by: ELSA BARBOUR on 04/13/20 0749 Gabapentin 600 Mg Tablet, 600 MG PO TID PRN for PAIN-BREAKTHROUGH, (Reported) Lisinopril/Hydrochlorothiazide 1 Each Tablet, 1 EACH PO HS, (Reported) Naproxen Sodium 220 Mg Capsule, 220 MG PO Q8H PRN for PAIN-MILD (1-4), (Reported) Venlafaxine HCl 150 Mg Cap.er.24h, 150 MG PO HS, (Reported) Past Ejfuxue-Dcmzlw-Ugvruq Hx Patient Social History Alcohol Use: Denies Use Recreational Drug Use: No Smoking Status: Never a Smoker 2nd Hand Smoke Exposure: No Recent Foreign Travel: No Contact w/Someone Who Travel: No Recent Infectious Disease Expo: Yes (Covid - Feb 27, 2020) Recent Hopitalizations: No Physical Abuse Screen: No Sexual Abuse: No Immunizations Up To Date Tetanus Booster (TDap): Less than 5yrs Date of Pneumonia Vaccine: Mar 28, 2020 Date of Influenza Vaccine: Mar 31, 2015 Seasonal Allergies Seasonal Allergies: No Surgeries History of Surgeries: Yes (rectal abcess, urethral) Surgeries: Orthopedic, Rectal Respiratory History of Respiratory Disorde: Yes (sarcoidosis) Respiratory Disorders: Sleep Apnea, COPD Cardiovascular History of Cardiac Disorders: Yes Cardiac Disorders: Chronic Edema/Swelling, Hypertension Neurological History of Neurological Disord: Yes Neurological Disorders: Neuropathy Reproductive System Hx Reproductive Disorders: No Sexually Transmitted Disease: No HIV/AIDS: No Genitourinary History of Genitourinary Disor: No Gastrointestinal History of Gastrointestinal Di: Yes (h/o multiple perirectal abscesses.) Gastrointestinal Disorders: Gastroesophageal Reflux, Chronic Constipation Musculoskeletal History of Musculoskeletal Dis: Yes (SARCOIDOSIS) Musculoskeletal Disorders: Arthritis Endocrine History of Endocrine Disorders: Yes (morbid obesity) Endocrine Disorders: Diabetes, Non-Insulin dep HEENT History of HEENT Disorders: No HEENT Disorders: Tonsilitis Loss of Vision: Denies Hearing Impairment: Denies Cancer History of Cancer: No Psychosocial History of Psychiatric Problem: Yes Behavioral Health Disorders: Anxiety Integumentary History of Skin or Integumenta: Yes Skin/Integumentary Disorders: Pruritis Blood Transfusions History of Blood Disorders: No Family Medical History Significant Family History: No Pertinent Family Hx Family Medial History: Congestive heart failure 03 FATHER, Onset:20 - Family history: Asthma 09 SISTER, Onset:20 - Family history: Cardiovascular disease 03 FATHER, Onset: Family history: Hypertension 03 MOTHER, Onset:40's - 50 Family history: Thyroid disorder 03 MOTHER, Onset:50 - 60 Heart disease 03 FATHER, Onset: History of - respiratory disease 03 MOTHER, Onset:50s - Review of Systems-General Constitutional: chills; No fever EENTM: No blurred vision, No double vision Respiratory: No cough, No short of breath Cardiovascular: No chest pain, No palpitations Gastrointestinal: nausea; No vomiting Genitourinary: other (perianal abscess) Musculoskeletal: No back pain, No neck pain Skin: No change in color, No change in hair/nails Psychiatric/Neurological: Denies Headache, Denies Numbness All Other Systems Reviewed Negative Unless Noted: Yes Physical Exam-General Problems Physical Exam Vital Signs Vital Signs - First Documented 04/15/20 08:55 Temp 37.0 Pulse 106 Resp 24 B/P (MAP) 152/93 (112) Pulse Ox 98 O2 Delivery Room Air Capillary Refill : Less Than 3 SecondsLess Than 3 Seconds General Appearance: WD/WN, mild distress Eyes: Bilateral Eye Normal Inspection, Bilateral Eye EOMI HEENT: PERRL/EOMI, normal ENT inspection Neck: supple, normal inspection Respiratory: chest non-tender, no respiratory distress, no accessory muscle use Cardiovascular: regular rate, rhythm, no edema Gastrointestinal: non tender, soft, other (obese abdomen) Rectal: other (perianal abscess with erythema and tenderness) Back: normal inspection, no CVA tenderness Extremities: normal inspection, no pedal edema Neurologic/Psychiatric: no motor/sensory deficits, alert, normal mood/affect, oriented x 3 Skin: normal color, warm/dry Lymphatic: no adenopathy Data Review Labs Laboratory Tests 04/15/20 10:12: White Blood Count 24.1H, Red Blood Count 4.70, Hemoglobin 11.9L, Hematocrit 38L, Mean Corpuscular Volume 80, Mean Corpuscular Hemoglobin 25, Mean Corpuscular Hemoglobin Concent 32, Red Cell Distribution Width 14.1, Platelet Count 247, Mean Platelet Volume 10.3, Immature Granulocyte % (Auto) 1, Neutrophils (%) (Auto) 87H, Lymphocytes (%) (Auto) 4L, Monocytes (%) (Auto) 7, Eosinophils (%) (Auto) 1, Basophils (%) (Auto) 0, Neutrophils # (Auto) 20.9H, Lymphocytes # (Auto) 1.0, Monocytes # (Auto) 1.8H, Eosinophils # (Auto) 0.2, Basophils # (Auto) 0.1, Immature Granulocyte # (Auto) 0.1, Neutrophils % (Manual) 89, Lymphocytes % (Manual) 3, Monocytes % (Manual) 4, Eosinophils % (Manual) 1, Basophils % (Manual) 0, Band Neutrophils 3, Blood Morphology Comment NORMAL, Prothrombin Time 15.5H, INR Comment 1.2, Activated Partial Thromboplast Time 34, Sodium Level 130L, Potassium Level 3.9, Chloride Level 96L, Carbon Dioxide Level 24, Anion Gap 10, Blood Urea Nitrogen 16, Creatinine 1.22, Estimat Glomerular Filtration Rate > 60, BUN/Creatinine Ratio 13, Glucose Level 224H, Calcium Level 8.7, Corrected Calcium 9.3, Total Bilirubin 1.7H, Aspartate Amino Transf (AST/SGOT) 24, Alanine Aminotransferase (ALT/SGPT) 22, Alkaline Phosphatase 56, C-Reactive Protein High Sensitivity 21.53H, Total Protein 7.4, Albumin 3.3 04/15/20 11:37: Lactic Acid Level 0.90 Assessment/Plan Assessment/Plan Assessment/Plan perianal abscess sepsis T2DM obesity I&D performed at bedside in ER and packed with iodoform; pt tolerated well and noted improvement in pain wound care medical management Clinical Quality Measures DVT/VTE Risk/Contraindication: Risk Factor Score Per Nursin RFS Level Per Nursing on Admit: 4+=Very High RISSA HATHAWAY DO 04/15/20 2241: History of Present Illness History of Present Illness History of Present Illness Patient is a 54-year-old male with history of multiple perianal abscesses. Patient states that this continued to increase in size over the last several days. He is seen in the emergency department a couple days ago placed on antibiotics and was to have outpatient follow-up. Patient states antibiotics did not make any improvement in he started having worsening pain. He is having some nausea and some slight chills. The pressure continues to build up in the perianal area. Sitting on the area or certain positions makes the pain worse. No radiation of pain. Patient has no other complaints at this time. Denies any fever sweats shortness of breath or chest pain. Allergies and Home Medications Allergies Coded Allergies: azithromycin (Verified Allergy, Intermediate, Hives, 04/15/20) Home Medications Doxycycline Hyclate 100 Mg Tablet, 100 MG PO BID Prescribed by: ELSA BARBOUR on 04/13/20 0749 Gabapentin 600 Mg Tablet, 600 MG PO TID PRN for PAIN-BREAKTHROUGH, (Reported) Lisinopril/Hydrochlorothiazide 1 Each Tablet, 1 EACH PO HS, (Reported) Naproxen Sodium 220 Mg Capsule, 220 MG PO Q8H PRN for PAIN-MILD (1-4), (Reported) Venlafaxine HCl 150 Mg Cap.er.24h, 150 MG PO HS, (Reported) Patient Home Medication List Home Medication List Reviewed: Yes Past Vcaxdes-Apneot-Sayutp Hx Reviewed Nursing Assessment Reviewed/Agree w Nursing PMH: Yes Family Medical History Significant Family History: No Pertinent Family Hx Family Medial History: Congestive heart failure 03 FATHER, Onset:20's - Family history: Asthma 09 SISTER, Onset:20s - Family history: Cardiovascular disease 03 FATHER, Onset:20's - Family history: Hypertension 03 MOTHER, Onset:40's - 50 Family history: Thyroid disorder 03 MOTHER, Onset:50's - 60 Heart disease 03 FATHER, Onset:20's - 25 History of - respiratory disease 03 MOTHER, Onset:50's - 60 Review of Systems-General Constitutional: chills EENTM: No blurred vision Respiratory: No cough, No short of breath Cardiovascular: No chest pain, No palpitations Gastrointestinal: No abdominal pain; nausea; No vomiting Genitourinary: No dysuria; other (perianal abscess) Musculoskeletal: No back pain, No joint pain, No neck pain Skin: No change in color, No change in hair/nails Psychiatric/Neurological: Denies Anxiety, Denies Depressed, Denies Emotional Problems, Denies Headache, Denies Numbness All Other Systems Reviewed Negative Unless Noted: Yes (Negative excepted noted.) Physical Exam-General Problems Physical Exam General Appearance: WD/WN, no apparent distress (Appears slightly uncomfortable), obese HEENT: PERRL/EOMI, normal ENT inspection Neck: non-tender, supple, normal inspection Respiratory: chest non-tender, no respiratory distress, no accessory muscle use Cardiovascular: regular rate, rhythm, no edema Gastrointestinal: non tender, soft, other (obese abdomen) Rectal: other (perianal abscess with erythema and tenderness, fluctuance) Back: normal inspection, no CVA tenderness Extremities: non-tender, normal inspection, no pedal edema Neurologic/Psychiatric: no motor/sensory deficits, alert, normal mood/affect, oriented x 3 Skin: normal color, warm/dry Lymphatic: no adenopathy Assessment/Plan Assessment/Plan Assessment/Plan perianal/perirectal abscess sepsis T2DM obesity Patient discussed and understands risk and benefits of incision and drainage. I&D performed at bedside in ER and packed with iodoform; pt tolerated well and noted improvement in pain wound care daily needing irrigated and packed with iodoform Continue antibiotics. Await culture and sensitivity medical management Supervisory-Addendum Brief Verification & Attestation Participated in pt care: history, MDM, physical Personally performed: exam, history, MDM, supervision of care Care discussed with: Medical Student Procedures: n/a Results interpretation: Verified all documentation Verification and Attestation of Medical Student E/M Service A medical student performed and documented this service in my presence. I reviewed and verified all information documented by the medical student and made modifications to such information, when appropriate. I personally performed the physical exam and medical decision making. Rissa Hathaway, Apr 15, 2020,22:54 LEYDI PAINTING MED STUDENT Apr 15, 2020 15:29 RISSA HATHAWAY DO Apr 15, 2020 22:41
[2020-04-15] MEDS ORDERED: FLU QUADRIvalent (3YOA+) 60 mcg/0.5 ml 2020-21 (AFLURIA) IM ONE (15:30)
--- NOTE | 2020-04-15 16:15 | NUR ---
DR. DEL TORO NOTIFIED OF NEED FOR DVT AND THAT HOME MEDS ARE RECONCILED.
[2020-04-15 16:36] VITALS: BP 100/58
[2020-04-15] MEDS ORDERED: ENOXAPARIN 40 MG/0.4 ML (LOVENOX) SYR SC SCH (18:15)
--- NOTE | 2020-04-15 18:15 | History & Physical-Hospitalist ---
History of Present Illness HPI/Chief Complaint CC: Rectal pain HPI: This is a [facility] pt who presented to the ER with rectal pain. Pt was found to have a evelio-rectal abscess and a possible fistula. He is morbidly obese, was placed on Meropenem, Vancomycin and Flagyl for antibiotic coverage. Dr. Jin performed and incision and drainage at the bedside and the pt feels much better. Source: patient Exam Limitations: no limitations Date Seen 04/15/20 Time Seen by a Provider: 12:30 Attending Physician Jayne Milligan DO PCP Kenny Estrada MD Referring Physician Date of Admission Apr 15, 2020 at 11:28 Home Medications & Allergies Home Medications Reviewed patient Home Medication Reconciliation performed by pharmacy medication reconciliations tree trimming line technician and/or nursing. Patients Allergies have been reviewed. Allergies Allergies Coded Allergies azithromycin (Verified Allergy, Intermediate, Hives, 04/15/20) Past Tdzthxc-[place] Hx Past Med/Social Hx: Reviewed Nursing Past Med/Soc Hx, Reviewed and Corrections made Patient Social History Marrital Status: single Employed/Student: unemployed Alcohol Use: Denies Use Recreational Drug Use: No Smoking Status: Never a Smoker 2nd Hand Smoke Exposure: No Physical Abuse Screen: No Sexual Abuse: No Recent Foreign Travel: No Contact w/other who traveled: No Recent Hopitalizations: No Recent Infectious Disease Expo: Yes (Covid - Feb 27, 2020) Immunizations Up To Date Tetanus Booster (TDap): Less than 5yrs Date of Pneumonia Vaccine: Mar 28, 2020 Date of Influenza Vaccine: Mar 31, 2015 Seasonal Allergies Seasonal Allergies: No Past Medical History Surgeries: Orthopedic, Rectal Respiratory: COPD, Sleep Apnea Currently Using CPAP: Yes Currently Using BIPAP: No Cardiac: Chronic Edema/Swelling, Hypertension Neurological: Neuropathy Reproductive: No Sexually Transmitted Disease: No HIV/AIDS: No Gastrointestinal: Gastroesophageal Reflux, Chronic Constipation Musculoskeletal: Arthritis Endocrine: Diabetes, Non-Insulin dep HEENT: Tonsilitis Loss of Vision: Denies Hearing Impairment: Denies Psychosocial: Anxiety Skin/Integumentary: Pruritis History of Blood Disorders: No Family History Congestive heart failure 03 FATHER, Onset:20's - 25 Family history: Asthma 09 SISTER, Onset:20's - 25 Family history: Cardiovascular disease 03 FATHER, Onset:20's - 25 Family history: Hypertension 03 MOTHER, Onset:40's - 50 Family history: Thyroid disorder 03 MOTHER, Onset:50's - 60 Heart disease 03 FATHER, Onset:20's - 25 History of - respiratory disease 03 MOTHER, Onset:50's - 60 No Pertinent Family Hx Review of Systems Constitutional: see HPI Physical Exam Physical Exam Vital Signs Vital Signs - First Documented 04/15/20 08:55 Temp 37.0 Pulse 106 Resp 24 B/P (MAP) 152/93 (112) Pulse Ox 98 O2 Delivery Room Air Capillary Refill : Less Than 3 SecondsLess Than 3 Seconds Height, Weight, BMI Height: 5'11.00" Weight: 450lbs. 0oz. 204.764340by; 63.46 BMI Method:Stated General Appearance: No Apparent Distress, Chronically ill, Obese Eyes: Right Eye Normal Inspection, Right Eye PERRL HEENT: PERRL/EOMI, Normal ENT Inspection, Pharynx Normal, Moist Mucous Membranes Neck: Full Range of Motion, Normal Inspection, Non Tender Respiratory: Chest Non Tender, Lungs Clear, Normal Breath Sounds, No Accessory Muscle Use, No Respiratory Distress Cardiovascular: Regular Rate, Rhythm, No Edema, No Gallop, No JVD, No Murmur, Normal Peripheral Pulses Gastrointestinal: Normal Bowel Sounds, No Organomegaly, No Pulsatile Mass, Non Tender, Soft Back: Normal Inspection, No CVA Tenderness, No Vertebral Tenderness Extremity: Normal Capillary Refill, Normal Inspection, Normal Range of Motion, Non Tender, No Calf Tenderness, No Pedal Edema Neurologic/Psychiatric: Alert, Oriented x3, No Motor/Sensory Deficits, Normal Mood/Affect Skin: Normal Color, Warm/Dry Lymphatic: No Adenopathy Results Results/Procedures Labs Laboratory Tests 04/15/20 10:12 Patient resulted labs reviewed. Assessment/Plan Admission Diagnosis Assessment: Perirectal abscess s/p I&D Dr Jin Morbid obesity HTN Plan: Abx Appreciate surgery Admission Status: Inpatient Order (span 2 midnights) Reason for Inpatient Admission: abscess Diagnosis/Problems Diagnosis/Problems (1) Perianal abscess Status: Acute (2) Sepsis Status: Acute Qualifiers: Sepsis type: sepsis due to unspecified organism Sepsis acute organ dysfunction status: unspecified Qualified Codes: A41.9 - Sepsis, unspecified organism (3) Morbid obesity with BMI of 60.0-69.9, adult Status: Chronic (4) DVT prophylaxis Status: Acute (5) HTN (hypertension) Status: Chronic Clinical Quality Measures DVT/VTE Risk/Contraindication: Risk Factor Score Per Nursin RFS Level Per Nursing on Admit: 4+=Very High JAYNE MILLIGAN DO Apr 15, 2020 18:15
[2020-04-15] MEDS: ENOXAPARIN 60 MG/0.6 ML (LOVENOX) SYR SC SCH (18:30)
[2020-04-15] MEDS ORDERED: GABAPENTIN 600 MG (NEURONTIN) TAB PO PRN (18:30)
[2020-04-15 19:54] VITALS: BP_SYST 101; BP_SYST 94; BP_DIAS 55
[2020-04-15] MEDS ORDERED: VENlafaxine XR 75 MG (EFFEXOR XR) CAP PO SCH (20:00)
[2020-04-15] MEDS ORDERED: lisINopril 20 MG (PRINIVIL) TABLET PO SCH (21:00)
[2020-04-15] MEDS ORDERED: NON-FORMULARY MEDICATION 1 EA EA (Lisinopril/Hydrochlorothiazide (Lisinopril-Hctz 20-25 mg PO SCH (21:00)
[2020-04-15] MEDS ORDERED: NON-FORMULARY MEDICATION 1 EA EA (Venlafaxine HCl (Venlafaxine HCl ER) 150 MG) PO SCH (21:00)
[2020-04-15] MEDS ORDERED: HYDROCHLOROTHIAZIDE 25 MG (HCTZ) TAB PO SCH (21:00)
[2020-04-16 00:21] VITALS: BP 103/67
[2020-04-16] MEDS: VANCOMYCIN 1,750 MG/NS 500 ML IVPB IV SCH ×4 (00:42→13:28)
[2020-04-16 03:50] VITALS: BP 114/58
[2020-04-16] MEDS: LACTATED RINGERS 1,000 ML IV SCH ×2 (04:00→06:07)
--- NOTE | 2020-04-16 04:59 | OPERATIVE REPORT ---
DATE OF SERVICE: 04/15/2020 PREOPERATIVE DIAGNOSIS: Perianal abscess. POSTOPERATIVE DIAGNOSIS: Perianal/perirectal abscess. PROCEDURE: Incision and drainage of perianal, perirectal abscess. SURGEON: Rissa Jin DO ANESTHESIA: None. ESTIMATED BLOOD LOSS: Minimal. COMPLICATIONS: None. INDICATIONS: The patient is a 54-year-old male with a perianal abscess. He has history of multiple abscesses. He understands risks and benefits of procedure and wishes to proceed with procedure. Consent was signed in the chart. DESCRIPTION OF PROCEDURE: The patient was placed in the right lateral recumbent position. The patient was prepped and draped in sterile fashion. Timeout was performed. A #11 blade scalpel was used to make a small skin incision over the area of fluctuance. Purulent material erupted out. Culture was obtained. A significant pocket of an abscess present. All loculations were broken up. This was located in the perianal/perirectal area. Wound was then irrigated with copious amounts of irrigation and wound was then packed with iodoform. The area was washed and dried, sterile bandage was applied. The patient tolerated procedure well without any complications. Job ID: [id number] DocumentID: [id number] Dictated Date: 04/15/2020 23:04:06 Roll Slicing Machine Tender Date: 04/16/2020 04:58:45 Dictated By: RISSA JIN DO
[2020-04-16] MEDS: ENOXAPARIN 60 MG/0.6 ML (LOVENOX) SYR SC SCH (06:07)
[2020-04-16] MEDS: metroNIDAZOLE 500 MG/100 ML IVPB (PRE-MIX) IV SCH ×2 (06:07→13:30)
[2020-04-16 07:50] VITALS: BP 112/61
--- NOTE | 2020-04-16 11:04 | Progress Note - Hospitalist ---
KATIE HARDING MED STUDENT 04/16/20 1104: Subjective HPI/CC On Admission Date Seen by Provider: Apr 16, 2020 Time Seen by Provider: 08:46 CC: Rectal pain HPI: This is a [facility] pt who presented to the ER with rectal pain. Pt was found to have a evelio-rectal abscess and a possible fistula. He is morbidly obese, was placed on Meropenem, Vancomycin and Flagyl for antibiotic coverage. Dr. Jin performed and incision and drainage at the bedside and the pt feels much better. Subjective/Events-last exam Patient states that he is feeling a lot better than he was yesterday. He states that he is hardly in any pain this morning. He states that he is not having any trouble with his incision site. He was able to eat without any difficulties. No problems using restroom LBM was 2 days ago. He gets some SOB when ambulating. He does not have any new complaints this morning, is wondering when he will go home, and what may have caused his abscess. He denies any NVD, chest pain, new SOB, Headaches, Diarrhea or constipation, new joint pain or rashes. Focused Exam Lactate Level 04/15/20 11:37: Lactic Acid Level 0.90 Objective Exam Vital Signs Vital Signs Date Time Temp Pulse Resp B/P (MAP) Pulse Ox O2 Delivery O2 Flow Rate FiO2 04/16/20 07:50 36.6 76 19 112/61 (78) 95 NIV CPAP Capillary Refill : Less Than 3 SecondsLess Than 3 Seconds General Appearance: No Apparent Distress Neck: Full Range of Motion, Non Tender Respiratory: Chest Non Tender, Lungs Clear, Normal Breath Sounds, No Accessory Muscle Use, No Respiratory Distress Cardiovascular: Regular Rate, Rhythm, No Edema, No Gallop, No JVD, No Murmur, Normal Peripheral Pulses Gastrointestinal: Normal Bowel Sounds, No Organomegaly, Non Tender, Soft Rectal: Deferred Back: Normal Inspection Extremity: Normal Capillary Refill, Non Tender Neurologic/Psychiatric: Alert, Oriented x3 Skin: Normal Color, Warm/Dry Lymphatic: No Adenopathy Results/Procedures Lab Patient resulted labs reviewed. Assessment/Plan Assessment and Plan Assess & Plan/Chief Complaint Post surgical abscess Borderline Diabetes Obesity Continue to administer ABX Watch for any new signs of pain Monitor for any incision site problems Talk with surgery on management and possible discharge date Diagnosis/Problems Diagnosis/Problems (1) Skin lesion Status: Acute (2) Knee pain Status: Acute (3) Hyperglycemia Status: Acute (4) Perianal abscess Status: Acute (5) Abscess Status: Acute (6) Morbid obesity with BMI of 60.0-69.9, adult Status: Chronic Clinical Quality Measures DVT/VTE Risk/Contraindication: Risk Factor Score Per Nursin RFS Level Per Nursing on Admit: 4+=Very High Supervisory-Addendum Brief Verification & Attestation Participated in pt care: history, physical Personally performed: exam, history Care discussed with: other Procedures: n/a JAYNE DEL TORO DO 04/17/20 0635: Objective Exam General Appearance: No Apparent Distress, WD/WN, Chronically ill, Obese Respiratory: Lungs Clear Assessment/Plan Assessment and Plan Assess & Plan/Chief Complaint DC Supervisory-Addendum Brief Verification & Attestation Participated in pt care: history, MDM, physical Personally performed: exam, history, MDM, supervision of care Care discussed with: Medical Student Procedures: n/a Results interpretation: Verified all documentation Verification and Attestation of Medical Student E/M Service A medical student performed and documented this service in my presence. I reviewed and verified all information documented by the medical student and made modifications to such information, when appropriate. I personally performed the physical exam and medical decision making. Jayne Del Toro, Apr 17, 2020,06:34 KATIE HARDING MED STUDENT Apr 16, 2020 11:04 JAYNE DEL TORO DO Apr 17, 2020 06:35
[2020-04-16 12:00] VITALS: BP 120/70
[2020-04-16] MEDS ORDERED: MEROPENEM 500 MG/SWFI 10 ML IV PUSH IV SCH ×2 (13:00)
--- NOTE | 2020-04-16 13:47 | NUR ---
CM/SS finalized discharge. Plan: Patient will discharge home with home health for wound care. Home health: The patient reports that he had [facility] at home in the past and would like to use them again. CM/SS contacted [facility] for referral. [facility] reports they will be able to see the patient both Sunday and Sunday for wound care as long as they have a following physician. CM/SS contacted Dr. Jin; he is agreeable to follow orders. CM/SS informed [facility] of following physician. CM/SS asked the patient's nurse to include wound care orders to discharge. Awaiting home health/ face to face orders. The patient reports that he has been doing okay at home. He was diagnosed with Covid in February but has not had any lasting side affects from it. 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 No further needs at this time.
--- NOTE | 2020-04-16 13:53 | D/C HH Face to Face Order ---
D/C Face to Face Orders Reconcile Patient Problems Problems Reviewed?: Yes Instructions for Patient Via [facility], Patient Instructions/FollowUp: treasure follow up Physician to follow Patient: treasure Discharge Diet for Home: No Restrictions Patient Problems: perianal abscess Patient Data-Allergies,Ht & Wt Patient Allergies: Coded Allergies: azithromycin (Verified Allergy, Intermediate, Hives, 04/15/20) Height (Feet): 5 Height (Inches): 11.00 Weight (Pounds): 450 Weight (Ounces): 0 Home Health Need/Face to Face Date of Face to Face: Apr 16, 2020 Clinical Findings: Wound infection, Non-healing wound I have seen Pt fupa-[id number]: Yes Discharged To: Home Diagnosis/Conditions: perianal abscess Patient is Homebound due to: Muscle weakness Homebound Status Due to the above stated illness, injury or surgical procedure (medical condition or diagnosis) and associated clinical findings, the patient is h omebound because of his/her inability to leave home except with aid of a supportive device and/or person AND leaving the home requires a considerable and taxing effort or is medically contraindicated. Pt req the following assistanc: [facility] Nursing Orders Home Health Services Order: Nursing Services (wound care per dr amanda) Home Health Infusion Therapy Line Start Date: Apr 15, 2020 Certify Stmt I certify that this patient is under my care and that I, a nurse practitioner or a physician; a hospital clinic assistant working with me, had a face to face encounter that - meets the physician face to face encounter requirements with this patient as dated. DIONY DEL TORO DO Apr 16, 2020 13:53
--- NOTE | 2020-04-16 13:53 | Discharge Summary ---
Discharge Summary Hospital Course Was the Problem List Reviewed?: Yes Problems/Dx: (1) Skin lesion Status: Acute (2) Knee pain Status: Acute (3) Hyperglycemia Status: Acute (4) Perianal abscess Status: Acute (5) Abscess Status: Acute (6) Morbid obesity with BMI of 60.0-69.9, adult Status: Chronic Hospital Course Date of Admission: Apr 15, 2020 at 11:28 Admission Diagnosis : Family Physician/Provider: Kenny Estrada MD Date of Discharge: 04/16/20 Discharge Diagnosis: perianal abscess Hospital Course: SHort course after admitted from ER for perianal abscess s/p I&D at bedside by Dr Jin patient was maintained on IV abx empirically and ultimately patient was ready for DC with for wound care and packing per Dr Jin. Labs and Pending Lab Test: Microbiology 04/15/20 Blood Culture - Preliminary, Resulted No growth 04/15/20 Gram Stain, Resulted Pending 04/15/20 Wound Culture - Preliminary, Resulted Mixed Bacterial Judy With Escherichia coli Home Meds Active Doxycycline Hyclate 100 Mg Tablet 100 Mg PO BID Reported Aleve (Naproxen Sodium) 220 Mg Capsule 220 Mg PO Q8H PRN Lisinopril-Hctz 20-25 mg Tab (Lisinopril/Hydrochlorothiazide) 1 Each Tablet 1 Each PO HS Gabapentin 600 Mg Tablet 600 Mg PO TID PRN Venlafaxine HCl ER (Venlafaxine HCl) 150 Mg Cap.er.24h 150 Mg PO HS Assessment/Pt Instructions [facility] 1 week HH Discharge Planning: <30 minutes discharge planning Discharge Instructions Discharge Diet: No Restrictions Discharge Physical Examination Vital Signs Vital Signs Date Time Temp Pulse Resp B/P (MAP) Pulse Ox O2 Delivery O2 Flow Rate FiO2 04/16/20 12:00 36.2 74 20 120/70 (87) 96 Room Air General Appearance: No Apparent Distress, WD/WN, Chronically ill Respiratory: Lungs Clear Neurologic/Psychiatric: Alert, Oriented x3, No Motor/Sensory Deficits, Normal Mood/Affect Allergies: Coded Allergies: azithromycin (Verified Allergy, Intermediate, Hives, 04/15/20) Discharge Summary Date of Admission Apr 15, 2020 at 11:28 Date of Discharge Discharge Date: Apr 16, 2020 Admission Diagnosis Assessment: Perirectal abscess s/p I&D Dr Jin Morbid obesity HTN Plan: Abx Appreciate surgery Discharge Diagnosis (1) Skin lesion Status: Acute (2) Knee pain Status: Acute (3) Hyperglycemia Status: Acute (4) Perianal abscess Status: Acute (5) Abscess Status: Acute (6) Morbid obesity with BMI of 60.0-69.9, adult Status: Chronic Clinical Quality Measures DVT/VTE Risk/Contraindication: Risk Factor Score Per Nursin RFS Level Per Nursing on Admit: 4+=Very High DIONY DEL TORO DO Apr 16, 2020 13:53
--- NOTE | 2020-04-16 14:37 | Progress Note - Surgery ---
LEYDI PAINTING MED STUDENT 04/16/20 1437: Subjective Date Seen by a Provider: Apr 16, 2020 Time Seen by a Provider: 07:00 Subjective/Events-last exam Pt states he is doing well today and has no complaints. States his pain is much improved after the I&D yesterday. Nurse changed dressing this morning and pt had some serosanguinous drainage. Pt on Vancomycin, Flagyl, and Meropenem. Focused Exam Lactate Level 04/15/20 11:37: Lactic Acid Level 0.90 Objective Exam Vital Signs Date Time Temp Pulse Resp B/P (MAP) Pulse Ox O2 Delivery O2 Flow Rate FiO2 04/16/20 12:00 36.2 74 20 120/70 (87) 96 Room Air 04/16/20 07:50 36.6 76 19 112/61 (78) 95 NIV CPAP 04/16/20 03:50 36.4 73 20 114/58 (76) 95 NIV CPAP 04/16/20 00:21 36.4 83 20 103/67 (79) 94 NIV CPAP 04/15/20 20:00 Room Air 04/15/20 19:54 37.1 90 22 101/55 (70) 95 NIV CPAP 04/15/20 16:36 36.2 93 22 100/58 (72) 95 Room Air 04/15/20 15:09 97 Room Air 04/15/20 14:55 35.9 100 18 101/71 97 Room Air I & O 04/16/20 07:00 Intake Total 2305 ml Balance 2305 ml Capillary Refill : Less Than 3 SecondsLess Than 3 Seconds General Appearance: No Apparent Distress, WD/WN HEENT: PERRL/EOMI, Normal ENT Inspection Neck: Normal Inspection, Supple Respiratory: Chest Non Tender, Lungs Clear, Normal Breath Sounds, No Accessory Muscle Use, No Respiratory Distress Cardiovascular: Regular Rate, Rhythm, No Edema, No Murmur Gastrointestinal: non tender, soft, other (obese abdomen) Extremity: Normal Inspection, Non Tender Neurologic/Psychiatric: Alert, Oriented x3, No Motor/Sensory Deficits, Normal Mood/Affect Skin: Normal Color, Warm/Dry, Other (dressing and packing in place over perianal abscess) Lymphatic: No Adenopathy Results Lab Microbiology 04/15/20 Blood Culture - Preliminary, Resulted No growth 04/15/20 Gram Stain, Resulted Pending 04/15/20 Wound Culture - Preliminary, Resulted Mixed Bacterial Judy With Escherichia coli Assessment/Plan Assessment/Plan Assessment/Plan perianal/perirectal abscess sepsis T2DM obesity packing removed, irrigated, repacked, and re-dressed at bedside, pt tolerated well wound care daily needing irrigated and packed with iodoform Continue antibiotics Culture showed E. coli Awaiting sensitivity medical management home health for wound care Stable for discharge from surgical standpoint-pt to follow up in office Clinical Quality Measures DVT/VTE Risk/Contraindication: Risk Factor Score Per Nursin RFS Level Per Nursing on Admit: 4+=Very High RISSA JNI DO 04/16/20 1509: Subjective Subjective/Events-last exam Doing well. Pain improved. Serosang drainage minimal. Denies n/v fever sweats chills shortness of breath or chest pain. Objective Exam General Appearance: No Apparent Distress, WD/WN, Obese HEENT: PERRL/EOMI, Normal ENT Inspection Neck: Normal Inspection, Supple Respiratory: Chest Non Tender, No Accessory Muscle Use, No Respiratory Distress Cardiovascular: Regular Rate, Rhythm, No JVD Gastrointestinal: non tender, soft Extremity: Normal Inspection, Non Tender Neurologic/Psychiatric: Alert, Oriented x3, No Motor/Sensory Deficits, Normal Mood/Affect Skin: Warm/Dry, Other (dressing and packing in place over open wound packing removed irrigated and repacked, no purulent material, less induration) Lymphatic: No Adenopathy Assessment/Plan Assessment/Plan Assessment/Plan perianal/perirectal abscess, s/p incision and drainage at bedside in ER sepsis T2DM obesity packing removed, irrigated, repacked, and re-dressed at bedside, pt tolerated well wound care daily needing irrigated and packed with iodoform Continue antibiotics Culture showed E. coli Awaiting sensitivity medical management home health for wound care Stable for discharge from surgical standpoint-pt to follow up in office Supervisory-Addendum Brief Verification & Attestation Participated in pt care: history, MDM, physical Personally performed: exam, history, MDM, supervision of care Care discussed with: Medical Student Procedures: n/a Results interpretation: Verified all documentation Verification and Attestation of Medical Student E/M Service A medical student performed and documented this service in my presence. I reviewed and verified all information documented by the medical student and made modifications to such information, when appropriate. I personally performed the physical exam and medical decision making. Rissa Jin, Apr 16, 2020,15:09 LEYDI PAINTING MED STUDENT Apr 16, 2020 14:37 RISSA JIN DO Apr 16, 2020 15:09
[2020-04-16 16:48] VITALS: BP 105/66
[2020-04-16 18:25] VITALS: BP 105/66
[2020-04-16] MEDS ORDERED: TROUGH ORDER-PHARMACY XX NR (23:00)
--- NOTE | 2020-04-19 13:16 | Physician Query Clarification ---
PQ-Uncertain Diagnosis Admission/Discharge Admission Date: Apr 15, 2020 at 11:28 Discharge Date: Apr 16, 2020 at 18:27 The medical record reflects the following clinical scenario: History/Risk Factors: Perianal abscess, Diabetes, HTN, COPD Clinical Findings: T 35.9, P 106, R 24, WBC 24.1, BP 152/93 Treatment: IV Vancomycin Question: Is Sepsis a clinically valid diagnosis? Sepsis was documented in the ER and student PN's but was not documented in the DS Please document a response in Progress Note or Discharge Summary. 1. Yes, clinically valid, condition resolved. 2. No, condition ruled out. 3. Other, with explanation of clinical findings. 4. Undetermined, no explanation for clinical findings. PHYSICIAN RESPONSE Diagnosis clinically valid: Yes, Conditon resolved Please remember a lack of response to the above will prompt a phone page by CDI/Coding staff. In responding to this query, please exercise your independent professional judgment. The purpose of this communication is to more accurately reflect the complexity of your patients condition. The fact that a question is asked does not imply that any particular answer is desired or expected. Thank you for your timely response to this clarification. Requestors name: Mona THIS PHYSICIAN QUERY FORM IS A PERMANENT PART OF THE MEDICAL RECORD MONA BENNETT Apr 19, 2020 13:16 DIONY DEL TORO DO Apr 19, 2020 20:53
== END 2020-04-16 18:27 | disposition home health service (06) | DRG 854 ==
LOC: EDUNIT# 08:52 → ER 08:56 → 4TH 11:28
PROVIDERS: ADMIT Internal Medicine; ATTEND Internal Medicine
PROC: 0D9Q0ZZ Drainage of Anus, Open Approach (ICD-10-PCS; principal; 2020-04-15)
DX: A41.9 Sepsis, unspecified organism (principal); K61.0 Anal abscess; Z68.44 Body mass index [BMI] 60.0-69.9, adult; A49.8 Other bacterial infections of unspecified site; D86.9 Sarcoidosis, unspecified; G47.30 Sleep apnea, unspecified; J44.9 Chronic obstructive pulmonary disease, unspecified; I10 Essential (primary) hypertension; E11.40 Type 2 diabetes mellitus with diabetic neuropathy, unspecified; K21.9 Gastro-esophageal reflux disease without esophagitis; M19.91 Primary osteoarthritis, unspecified site; E66.01 Morbid (severe) obesity due to excess calories; F41.9 Anxiety disorder, unspecified; Z86.19 Personal history of other infectious and parasitic diseases; Z23 Encounter for immunization
CPT/HCPCS: 36415; 71045; 80053; 83605; 85007; 85027; 85610; 85730; 86141; 87040; 87070; 87205; 90686; 96374; 96375

== ENCOUNTER 2022-02-10 05:02 | Inpatient (IN) | payer MEDICARE ==
[~2022-02-10] VITALS: Ht 180.3 cm; Wt 204.5 kg
[2022-02-10] VITALS (8 sets, daily range): BP systolic 107–139; BP diastolic 49–84
[~2022-02-10 05:02] MED LIST changes: -CIPR500T4 PO; +CIPR500T5 PO; -DOCU-238 PO; +DOCU-26 PO; +FLUC100T10 PO; -FLUC100T6 PO; -LISI1TAB26 PO; +LISI1TAB48 PO; +NF-CRES10T PO; -ROSU10TA22 PO; -SULF1TAB35 PO
[2022-02-10] MEDS ORDERED: fentaNYL INJ 100 MCG/2 ML AMP IVP ONE (05:30)
--- NOTE | 2022-02-10 05:35 | ED General ---
General Chief Complaint: Rect Problems Stated Complaint: JOHN-RECTAL ABSCESS Nursing Triage Note: C/O PERIRECTAL PAIN X2 DAYS. HX PERIRECTAL ABCESS. Source of Information: Patient, Old Records Exam Limitations: No Limitations History of Present Illness Date Seen by Provider: Feb 10, 2022 Time Seen by Provider: 05:15 Initial Comments This 56-year-old gentleman presents to the emergency room by private vehicle with complaints of probable perirectal abscess. He has a area of fullness and induration in the perineum between the scrotum and anus. This area is painful and tender. He presently rates his pain as 8/10. He complains of sweats and chills but no fever. He has increased urination and elevated blood sugars recently as well. He has history of perirectal abscess in this area treated with incision and drainage by Dr. Jin previously. 4 out of the 5 times he has had a rectal abscess incised and drained it has been performed in the o perating room. He has had surgery with Dr. Ruby Otero annual prior to Dr. Jin. Allergies and Home Medications Allergies Coded Allergies: azithromycin (Verified Allergy, Intermediate, Hives, 04/15/20) Patient Home Medication List Home Medication List Reviewed: Yes Gabapentin (Gabapentin) 600 Mg Tablet, 600 MG PO TID PRN for PAIN-BREAKTHROUGH, (Reported) Entered as Reported by: ROBBY MCKEON on 12/04/19 1004 Lisinopril/Hydrochlorothiazide (Lisinopril-Hctz 20-25 mg Tab) 1 Each Tablet, 1 EACH PO HS, (Reported) Entered as Reported by: ROBBY MCKEON on 12/04/19 1004 Naproxen Sodium (Aleve) 220 Mg Capsule, 220 MG PO Q8H PRN for PAIN-MILD (1-4), (Reported) Entered as Reported by: ROBBY MCKEON on 12/04/19 1004 Venlafaxine HCl (Venlafaxine HCl ER) 150 Mg Cap.er.24h, 150 MG PO HS, (Reported) Entered as Reported by: MADELIN CAUSEY on 03/30/15 1332 Review of Systems Review of Systems Constitutional: see HPI EENTM: no symptoms reported Respiratory: no symptoms reported Cardiovascular: no symptoms reported Gastrointestinal: no symptoms reported Genitourinary: see HPI Musculoskeletal: no symptoms reported Skin: see HPI Psychiatric/Neurological: No Symptoms Reported Hematologic/Lymphatic: No Symptoms Reported Immunological/Allergic: no symptoms reported Past Wbcucat-Rhqczw-Zhjrts Hx Patient Social History Tobacco Use?: No Substance use?: No Alcohol Use?: No Pt feels they are or have been: No Immunizations Up To Date Tetanus Booster (TDap): Less than 5yrs First/Initial COVID19 Vaccinat: X2 Seasonal Allergies Seasonal Allergies: No Past Medical History Surgery/Hospitalization HX: SARCOIDOSIS, MAGDY, COPD, HTN, PNEUMONIA, GERD, CONSTIPATION, NIDDM, ANXIETY, RECTAL ABCESS, ORTHOPEDIC. Surgeries: Yes (rectal abcess, urethral, lipoma resection) Orthopedic, Rectal Respiratory: Yes (sarcoidosis) Sleep Apnea, COPD Currently Using CPAP: Yes Currently Using BIPAP: No Cardiac: Yes Chronic Edema/Swelling, Hypertension Neurological: Yes Neuropathy Reproductive Disorders: No Sexually Transmitted Disease: No HIV/AIDS: No Genitourinary: No Gastrointestinal: Yes (h/o multiple perirectal abscesses.) Gastroesophageal Reflux, Chronic Constipation Musculoskeletal: Yes (SARCOIDOSIS) Arthritis Endocrine: Yes (morbid obesity) Diabetes, Non-Insulin dep HEENT: No Tonsilitis Loss of Vision: Denies Hearing Impairment: Denies Cancer: No Psychosocial: Yes Anxiety Integumentary: Yes (Vitiligo) Pruritis Blood Disorders: No Family Medical History Reviewed Nursing Family Hx Congestive heart failure 03 FATHER, Onset:20's - 25 Family history: Asthma 09 SISTER, Onset:20's - 25 Family history: Cardiovascular disease 03 FATHER, Onset:20's - 25 Family history: Hypertension 03 MOTHER, Onset:40's - 50 Family history: Thyroid disorder 03 MOTHER, Onset:50's - 60 Heart disease 03 FATHER, Onset:20's - 25 History of - respiratory disease 03 MOTHER, Onset:50's - 60 No Pertinent Family Hx Physical Exam Vital Signs Vital Signs - First Documented 02/10/22 05:15 Temp 36.4 Pulse 96 Resp 22 B/P (MAP) 152/98 (116) Pulse Ox 95 O2 Delivery Room Air Capillary Refill : Less Than 3 Seconds Height, Weight, BMI Height: 5'11.00" Weight: 450lbs. 0oz. [id number]; 63.00 BMI Method:Stated General Appearance: WD/WN, Mild Distress, Obese (Profound obesity) HEENT: PERRL/EOMI, Normal ENT Inspection Neck: Normal Inspection Respiratory: Lungs Clear, Normal Breath Sounds, No Accessory Muscle Use Cardiovascular: Regular Rate, Rhythm, Systolic Murmur, Other (Lower extremity) Gastrointestinal: Non Tender, Soft; No Distended Rectal: Other (Area of significant induration and fullness in the perineum. Scrotum and penis appear normal. No drainage. No heat or erythema. Area of fullness and induration is somewhat tender.) Extremity: Pedal Edema, Swelling Neurologic/Psychiatric: Alert, Oriented x3, No Motor/Sensory Deficits, Normal Mood/Affect Skin: Warm/Dry, Other (Widespread vitiligo) Focused Exam Lactate Level 02/10/22 06:05: Lactic Acid Level 0.86 Lactic Acid Level Laboratory Tests Test 02/10/22 06:05 Lactic Acid Level 0.86 MMOL/L (0.50-2.00) Progress/Results/Core Measures Suspected Sepsis SIRS Temperature: Pulse: 96 Respiratory Rate: 22 Laboratory Tests 02/10/22 05:31: White Blood Count 15.4H Blood Pressure 152 /98 Mean: 116 02/10/22 06:05: Lactic Acid Level 0.86 Laboratory Tests 02/10/22 05:31: Creatinine 1.05, Platelet Count 245, Total Bilirubin 1.1H Results/Orders Lab Results Laboratory Tests Test 02/10/22 05:31 02/10/22 06:05 Range/Units White Blood Count 15.4 H 4.3-11.0 10^3/uL Red Blood Count 4.61 4.30-5.52 10^6/uL Hemoglobin 12.2 L 13.3-17.7 g/dL Hematocrit 37 L 40-54 % Mean Corpuscular Volume 81 80-99 fL Mean Corpuscular Hemoglobin 27 25-34 pg Mean Corpuscular Hemoglobin Concent 33 32-36 g/dL Red Cell Distribution Width 13.8 10.0-14.5 % Platelet Count 245 130-400 10^3/uL Mean Platelet Volume 10.3 9.0-12.2 fL Immature Granulocyte % (Auto) 1 % Neutrophils (%) (Auto) 81 H 42-75 % Lymphocytes (%) (Auto) 9 L 12-44 % Monocytes (%) (Auto) 7 0-12 % Eosinophils (%) (Auto) 2 0-10 % Basophils (%) (Auto) 1 0-10 % Neutrophils # (Auto) 12.6 H 1.8-7.8 10^3/uL Lymphocytes # (Auto) 1.4 1.0-4.0 10^3/uL Monocytes # (Auto) 1.1 H 0.0-1.0 10^3/uL Eosinophils # (Auto) 0.3 0.0-0.3 10^3/uL Basophils # (Auto) 0.1 0.0-0.1 10^3/uL Immature Granulocyte # (Auto) 0.1 0.0-0.1 10^3/uL Neutrophils % (Manual) 79 % Lymphocytes % (Manual) 13 % Monocytes % (Manual) 6 % Eosinophils % (Manual) 2 % Blood Morphology Comment NORMAL Sodium Level 137 135-145 MMOL/L Potassium Level 3.5 L 3.6-5.0 MMOL/L Chloride Level 98 98-107 MMOL/L Carbon Dioxide Level 23 21-32 MMOL/L Anion Gap 16 H 5-14 MMOL/L Blood Urea Nitrogen 11 7-18 MG/DL Creatinine 1.05 0.60-1.30 MG/DL Estimat Glomerular Filtration Rate 84 BUN/Creatinine Ratio 10 Glucose Level 185 H 70-105 MG/DL Calcium Level 9.3 8.5-10.1 MG/DL Corrected Calcium 9.9 8.5-10.1 MG/DL Total Bilirubin 1.1 H 0.1-1.0 MG/DL Aspartate Amino Transf (AST/SGOT) 14 5-34 U/L Alanine Aminotransferase (ALT/SGPT) 13 0-55 U/L Alkaline Phosphatase 59 40-136 U/L C-Reactive Protein High Sensitivity 11.30 H 0.00-0.50 MG/DL Total Protein 7.4 6.4-8.2 GM/DL Albumin 3.3 3.2-4.5 GM/DL Lactic Acid Level 0.86 0.50-2.00 MMOL/L My Orders Orders - ANT ZAPIEN MD Cbc With Automated Diff (02/10/22 05:23) Comprehensive Metabolic Panel (02/10/22 05:23) Hs C Reactive Protein (02/10/22 05:23) Ed Iv/Invasive Line Start (02/10/22 05:23) Ua Culture If Indicated (02/10/22 05:27) Fentanyl Inj (Sublimaze Injection) (02/10/22 05:30) Manual Differential (02/10/22 05:31) Blood Culture (02/10/22 06:00) Vital Signs Adult Sepsis Patie Q15M (02/10/22 06:00) O2 (02/10/22 06:00) Remove Rings In Anticipation O (02/10/22 06:00) Lactic Acid Analyzer (02/10/22 06:00) Piperacillin Sodium/Tazobactam (Zosyn Vi (02/10/22 06:15) Medications Given in ED Current Medications Medications Dose Ordered Sig/Ceci Route Start Time Stop Time Status Last Admin Dose Admin Fentanyl Citrate 50 mcg ONCE ONCE IVP 02/10/22 05:30 02/10/22 05:31 DC 02/10/22 05:39 50 MCG Piperacillin Sod/ Tazobactam Sod 4.5 gm/Sodium Chloride 100 ml @ 200 mls/hr ONCE ONCE IV 02/10/22 06:15 02/10/22 06:44 02/10/22 06:36 200 MLS/HR Vital Signs/I&O 02/10/22 05:15 Temp 36.4 Pulse 96 Resp 22 B/P (MAP) 152/98 (116) Pulse Ox 95 O2 Delivery Room Air Capillary Refill : Less Than 3 Seconds Blood Pressure Mean: 116 Progress Note : Time: 06:14 Progress Note Patient technically meets septic criteria with leukocytosis and heart rate grea ter than 90. Antibiotics will be administered after blood cultures are drawn. We will start with Zosyn. Prior cultures from this abscess area grew typical fecal sky. I discussed with Dr. Carpenter who requested the patient be admitted to the medical service due to his comorbidities. He anticipates incision and drainage later today. CT scan cannot be performed due to patient exceeding the weight limit of the proceed. We discussed CODE STATUS and patient wishes to remain full code. Departure Communication (Admissions) Time/Spoke to Admitting Phy: 06:05 Dr. Carbajal Time/Spoke to Consulting Phy: 06:00 Dr. Carpenter Impression Primary Impression: Perianal abscess Additional Impression: Sepsis Qualified Codes: A41.9 - Sepsis, unspecified organism Disposition: ADMITTED INPATIENT Condition: Stable Admissions Decision to Admit Reason: Admit from ER (General) Decision to Admit/Date: Feb 10, 2022 Time/Decision to Admit Time: 06:00 Departure-Patient Inst. Referrals: ACE CARTER MD (PCP/Family) Primary Care Physician ANT ZAPIEN MD Feb 10, 2022 05:35
[2022-02-10 05:49] LABS: BASOPHILS # (AUTO) 0.1 10^3/uL (0.0-0.1); BASOPHILS % (AUTO) 1 % (0-10); EOSINOPHILS # (AUTO) 0.3 10^3/uL (0.0-0.3); EOSINOPHILS % (AUTO) 2 % (0-10); HEMATOCRIT 37 % (40-54); HEMOGLOBIN 12.2 g/dL (13.3-17.7); LYMPHOCYTES # (AUTO) 1.4 10^3/uL (1.0-4.0); LYMPHOCYTES % (AUTO) 9 % (12-44); MEAN CORPUSCULAR HEMOGLOBIN 27 pg (25-34); MEAN CORPUSCULAR HGB CONC 33 g/dL (32-36); MEAN CORPUSCULAR VOLUME 81 fL (80-99); MEAN PLATELET VOLUME 10.3 fL (9.0-12.2); MONOCYTES # (AUTO) 1.1 10^3/uL (0.0-1.0); MONOCYTES % (AUTO) 7 % (0-12); NEUTROPHILS # (AUTO) 12.6 10^3/uL (1.8-7.8); NEUTROPHILS % (AUTO) 81 % (42-75); PLATELET COUNT 245 10^3/uL (130-400); WHITE BLOOD COUNT 15.4 10^3/uL (4.3-11.0)
[2022-02-10 05:57] LABS: ALBUMIN 3.3 GM/DL (3.2-4.5); POTASSIUM 3.5 MMOL/L (3.6-5.0)
[2022-02-10 05:58] LABS: CALCIUM 9.3 MG/DL (8.5-10.1)
[2022-02-10 06:00] LABS: TOTAL PROTEIN 7.4 GM/DL (6.4-8.2)
[2022-02-10 06:02] LABS: BILIRUBIN,TOTAL 1.1 MG/DL (0.1-1.0)
[2022-02-10 06:03] LABS: CREATININE SERUM 1.05 MG/DL (0.60-1.30)
[2022-02-10] MEDS ORDERED: PIPERACILLIN SODIUM/TAZOBACTAM 4.5 GM in NS (IVPB) 100 ML IV ONE (06:15)
[2022-02-10 06:24] LABS: EOSINOPHILS % (MANUAL) 2 %; LYMPHOCYTES % (MANUAL) 13 %; MONOCYTES % (MANUAL) 6 %; NEUTROPHILS % (MANUAL) 79 %; RBC MORPH NORMAL
--- NOTE | 2022-02-10 08:17 | Consultation - Surgery ---
CHARLIE RHODES 02/10/22 0817: History of Present Illness History of Present Illness Patient Consulted On(fatoumata/time) 02/10/22 08:11 Date Seen by Provider: Feb 10, 2022 Time Seen by Provider: 08:11 History of Present Illness Patient is a 56 year old male with a past history of perianal abscesses, T2DM, hypertension, and sarcoidosis who presented to the ED with a 2 day history of perianal abscess. Patient has had 12-13 abscesses in this area before. Patient states that his pain has been constant and rates his pain at 8/10 before receiving pain medication. Patient describes his abscess as the size of golf ball and describes the pain as throbbing and burning with no radiation. Patient reports that sitting or applying pressure on the area makes pain worse and laying on his side makes the pain better. Patient states that he has been having 4-5 watery stools a day for the past 2 weeks but the last few days he has been having 1 loose stool a day. Patient denies any bloody or tarry stools and describes the color as yellow. Allergies and Home Medications Allergies Coded Allergies: azithromycin (Verified Allergy, Intermediate, Hives, 04/15/20) Patient Home Medication List Home Medication List Reviewed: Yes Gabapentin (Gabapentin) 600 Mg Tablet, 600 MG PO TID PRN for PAIN-BREAKTHROUGH, (Reported) Entered as Reported by: ROBBY MCKEON on 12/04/19 1004 Lisinopril/Hydrochlorothiazide (Lisinopril-Hctz 20-25 mg Tab) 1 Each Tablet, 1 EACH PO HS, (Reported) Entered as Reported by: ROBBY MCKEON on 12/04/19 1004 Naproxen Sodium (Aleve) 220 Mg Capsule, 220 MG PO Q8H PRN for PAIN-MILD (1-4), (Reported) Entered as Reported by: ROBBY MCKEON on 12/04/19 1004 Venlafaxine HCl (Venlafaxine HCl ER) 150 Mg Cap.er.24h, 150 MG PO HS, (Reported) Entered as Reported by: MADELIN CAUSEY on 03/30/15 1332 Past Uymixzg-Qplqgk-Vkqkeq Hx Patient Social History 2nd Hand Smoke Exposure: No Recent Hopitalizations: No Alcohol Use?: No Have you traveled recently?: No Immunizations Up To Date Tetanus Booster (TDap): Less than 5yrs Date of Pneumonia Vaccine: Mar 28, 2020 Date of Influenza Vaccine: Mar 31, 2015 Seasonal Allergies Seasonal Allergies: No Surgeries History of Surgeries: Yes (rectal abcess, urethral, lipoma resection) Surgeries: Orthopedic, Rectal Respiratory History of Respiratory Disorde: Yes (sarcoidosis) Respiratory Disorders: Sleep Apnea, COPD Cardiovascular History of Cardiac Disorders: Yes Cardiac Disorders: Chronic Edema/Swelling, Hypertension Neurological History of Neurological Disord: Yes Neurological Disorders: Neuropathy Reproductive System Hx Reproductive Disorders: No Sexually Transmitted Disease: No HIV/AIDS: No Genitourinary History of Genitourinary Disor: No Gastrointestinal History of Gastrointestinal Di: Yes (h/o multiple perirectal abscesses.) Gastrointestinal Disorders: Gastroesophageal Reflux, Chronic Constipation Musculoskeletal History of Musculoskeletal Dis: Yes (SARCOIDOSIS) Musculoskeletal Disorders: Arthritis Endocrine History of Endocrine Disorders: Yes (morbid obesity) Endocrine Disorders: Diabetes, Non-Insulin dep HEENT History of HEENT Disorders: No HEENT Disorders: Tonsilitis Loss of Vision: Denies Hearing Impairment: Denies Cancer History of Cancer: No Psychosocial History of Psychiatric Problem: Yes Behavioral Health Disorders: Anxiety Integumentary History of Skin or Integumenta: Yes (Vitiligo) Skin/Integumentary Disorders: Pruritis Blood Transfusions History of Blood Disorders: No Family Medical History Significant Family History: No Pertinent Family Hx Family Medial History: Congestive heart failure 03 FATHER, Onset:20's - 25 Family history: Asthma 09 SISTER, Onset:20's - 25 Family history: Cardiovascular disease 03 FATHER, Onset:20's - 25 Family history: Hypertension 03 MOTHER, Onset:40's - 50 Family history: Thyroid disorder 03 MOTHER, Onset:50's - 60 Heart disease 03 FATHER, Onset:20's - 25 History of - respiratory disease 03 MOTHER, Onset:50's - 60 Review of Systems-General Constitutional: chills, fever EENTM: blurred vision (Patient states he had a 15 minute episode of blurred vision after standing up 3-4 days ago.); No hearing loss, No eye pain Respiratory: No cough; short of breath (Pt states he has been short of breath since shyam COVID) Cardiovascular: No chest pain; edema (b/l LE edema) Gastrointestinal: No abdominal pain; diarrhea Genitourinary: frequency; No hematuria Musculoskeletal: No back pain; joint pain (sarcoidosis) Skin: change in color (vitiligo); No lesions, No lumps Psychiatric/Neurological: Denies Anxiety; Depressed Physical Exam-General Problems Physical Exam Vital Signs Vital Signs - First Documented 02/10/22 05:15 Temp 36.4 Pulse 96 Resp 22 B/P (MAP) 152/98 (116) Pulse Ox 95 O2 Delivery Room Air Capillary Refill : Less Than 3 Seconds General Appearance: no apparent distress, obese HEENT: PERRL/EOMI, normal ENT inspection Neck: supple, normal inspection Respiratory: chest non-tender, no respiratory distress Cardiovascular: normal peripheral pulses, regular rate, rhythm Gastrointestinal: non tender, soft Rectal: deferred Genital/Rectal: other (perianal abscess) Back: normal inspection, no vertebral tenderness Extremities: normal range of motion, non-tender Neurologic/Psychiatric: alert, oriented x 3 Skin: warm/dry, other (vitiligo) Lymphatic: no adenopathy Data Review Labs Laboratory Tests 02/10/22 05:31: White Blood Count 15.4H, Red Blood Count 4.61, Hemoglobin 12.2L, Hematocrit 37L, Mean Corpuscular Volume 81, Mean Corpuscular Hemoglobin 27, Mean Corpuscular Hemoglobin Concent 33, Red Cell Distribution Width 13.8, Platelet Count 245, Mean Platelet Volume 10.3, Immature Granulocyte % (Auto) 1, Neutrophils (%) (Auto) 81H, Lymphocytes (%) (Auto) 9L, Monocytes (%) (Auto) 7, Eosinophils (%) (Auto) 2, Basophils (%) (Auto) 1, Neutrophils # (Auto) 12.6H, Lymphocytes # (Auto) 1.4, Monocytes # (Auto) 1.1H, Eosinophils # (Auto) 0.3, Basophils # (Auto) 0.1, Immature Granulocyte # (Auto) 0.1, Neutrophils % (Manual) 79, Lymphocytes % (Manual) 13, Monocytes % (Manual) 6, Eosinophils % (Manual) 2, Blood Morphology Comment NORMAL, Sodium Level 137, Potassium Level 3.5L, Chloride Level 98, Carbon Dioxide Level 23, Anion Gap 16H, Blood Urea Nitrogen 11, Creatinine 1.05, Estimat Glomerular Filtration Rate 84, BUN/Creatinine Ratio 10, Glucose Level 185H, Calcium Level 9.3, Corrected Calcium 9.9, Total Bilirubin 1.1H, Aspartate Amino Transf (AST/SGOT) 14, Alanine Aminotransferase (ALT/SGPT) 13, Alkaline Phosphatase 59, C-Reactive Protein High Sensitivity 11.30H, Total Protein 7.4, Albumin 3.3 02/10/22 06:05: Lactic Acid Level 0.86 Assessment/Plan Assessment/Plan Assessment/Plan Perianal abscess Sepsis T2DM Obesity Patient started on IV zosyn. Awaiting culture. Plan on incision and drainage of abscess. Daily wound care. JOYCE SANDS DO 02/10/22 1139: History of Present Illness History of Present Illness Time Seen by Provider: 11:16 History of Present Illness Surgery asked to consult regarding evelio-anal abscess. HPI per ED:This 56-year-old gentleman presents to the emergency room by private vehicle with complaints of probable perirectal abscess. He has a area of fullness and induration in the perineum between the scrotum and anus. This area is painful and tender. He presently rates his pain as 8/10. He complains of sweats and chills but no fever. He has increased urination and elevated blood sugars recently as well. He has history of perirectal abscess in this area treated with incision and drainage by Dr. Jin previously. 4 out of the 5 times he has had a rectal abscess incised and drained it has been performed in the operating room. He has had surgery with Dr. Ruby vidales prior to Dr. Jin. When I spoke to pt he was laying in his bed and appeared very comfortable. He complained of pain near the scrotum; 8 out of 10. Stated it feels like last time, but not as bad. He is also requesting we not do this at the bedside. Allergies and Home Medications Allergies Coded Allergies: azithromycin (Verified Allergy, Intermediate, Hives, 04/15/20) Patient Home Medication List Home Medication List Reviewed: Yes Gabapentin (Gabapentin) 600 Mg Tablet, 600 MG PO TID PRN for PAIN-BREAKTHROUGH, (Reported) Entered as Reported by: ROBBY MCKEON on 12/04/19 1004 Lisinopril/Hydrochlorothiazide (Lisinopril-Hctz 20-25 mg Tab) 1 Each Tablet, 1 EACH PO HS, (Reported) Entered as Reported by: ROBBY MCKEON on 12/04/19 1004 Naproxen Sodium (Aleve) 220 Mg Capsule, 220 MG PO Q8H PRN for PAIN-MILD (1-4), (Reported) Entered as Reported by: ROBBY MCKEON on 12/04/19 1004 Venlafaxine HCl (Venlafaxine HCl ER) 150 Mg Cap.er.24h, 150 MG PO HS, (Reported) Entered as Reported by: MADELIN CAUSEY on 03/30/15 1332 Past Jnvkido-Rgkbyc-Fyfgew Hx Patient Social History Smoking Status: Never a Smoker Alcohol Use?: No Surgeries History of Surgeries: Yes Surgeries: Orthopedic, Rectal (multiple abscesses) Respiratory History of Respiratory Disorde: Yes (Sarcoidosis) Respiratory Disorders: Sleep Apnea, COPD Cardiovascular History of Cardiac Disorders: Yes Cardiac Disorders: Hypertension Neurological History of Neurological Disord: Yes Neurological Disorders: Neuropathy Genitourinary History of Genitourinary Disor: Yes (increased frequency) Gastrointestinal History of Gastrointestinal Di: Yes Gastrointestinal Disorders: Chronic Diarrhea Musculoskeletal History of Musculoskeletal Dis: Yes Musculoskeletal Disorders: Arthritis Endocrine History of Endocrine Disorders: Yes Endocrine Disorders: Diabetes, Non-Insulin dep HEENT History of HEENT Disorders: Yes Hearing Impairment: Denies Cancer History of Cancer: No Psychosocial History of Psychiatric Problem: Yes Behavioral Health Disorders: Depression Integumentary History of Skin or Integumenta: Yes (vitiligo) Family Medical History Significant Family History: Heart Disease, Hypertension, Lung Disease Family Medial History: Congestive heart failure 03 FATHER, Onset:20's - 25 Family history: Asthma 09 SISTER, Onset:20's - 25 Family history: Cardiovascular disease 03 FATHER, Onset:20's - 25 Family history: Hypertension 03 MOTHER, Onset:40's - 50 Family history: Thyroid disorder 03 MOTHER, Onset:50's - 60 Heart disease 03 FATHER, Onset:20's - 25 History of - respiratory disease 03 MOTHER, Onset:50's - 60 Review of Systems-General Constitutional: chills, fever, weakness EENTM: blurred vision (Patient states he had a 15 minute episode of blurred vision after standing up 3-4 days ago.); No hearing loss, No eye pain Respiratory: No cough; short of breath (Pt states he has been short of breath since shyam COVID) Cardiovascular: No chest pain; edema (b/l LE edema) Gastrointestinal: No abdominal pain; diarrhea; No nausea, No vomiting Genitourinary: frequency; No hematuria Musculoskeletal: No back pain; joint pain (sarcoidosis), joint swelling, muscle stiffness Skin: change in color (vitiligo); No lesions, No lumps Psychiatric/Neurological: Denies Anxiety; Depressed; Denies Seizure Physical Exam-General Problems Physical Exam General Appearance: no apparent distress, obese Eyes: Bilateral Eye PERRL, Bilateral Eye EOMI HEENT: pharynx normal; No scleral icterus (R), No scleral icterus (L) Neck: non-tender, supple Respiratory: chest non-tender, normal breath sounds, no respiratory distress Cardiovascular: normal peripheral pulses, regular rate, rhythm, no murmur Gastrointestinal: non tender, soft, other (morbidly obese) Rectal: No hemorrhoids, No mass Genital/Rectal: other (perianal abscess but possibly more scrotal) Back: no vertebral tenderness Extremities: non-tender, no pedal edema Neurologic/Psychiatric: alert, oriented x 3 Skin: warm/dry, other (vitiligo) Lymphatic: no adenopathy (neck, axilla) Assessment/Plan Assessment/Plan Assessment/Plan Perianal abscess T2DM Obesity Patient started on IV zosyn, Awaiting blood culture; will get abscess culture. Plan on incision and drainage of abscess with probable packing and then pt will need daily wound care. Strict control of DM will help with wound healing. Will get consent for I&D with possible packing. Discussed risks and benefits; not limited to pain, bleeding, infection and scar. Supervisory-Addendum Brief Verification & Attestation Participated in pt care: history, MDM, physical Personally performed: exam, history, MDM, supervision of care Care discussed with: Medical Student Procedures: n/a Verification and Attestation of Medical Student E/M Service A medical student performed and documented this service. I then reviewed and verified all information documented by the medical student and made modifications to such information, when appropriate. I personally performed a physical exam, medical decision making and then discussed any differences between the notes and made revisions as necessary to create one note. Joyce Sands , 02/10/22 , 11:44 CHARLIE RHODES Feb 10, 2022 08:17 JOYCE SANDS DO Feb 10, 2022 11:39
[2022-02-10] MEDS ORDERED: ONDANSETRON 4 MG/2 ML (SDV) Z0FRAN IVP PRN ×2 (08:30→15:15)
--- NOTE | 2022-02-10 10:53 | Diagnostic Imaging Report ---
INDICATION: PICC line. FINDINGS: Right PICC catheter tip projects over the lower SVC level in good alignment. No focal pulmonary consolidation, effusion, or pneumothorax. IMPRESSION: Right PICC has been placed in good position. No other change. Dictated by: Dictated on workstation # [id number]
--- NOTE | 2022-02-10 11:34 | History & Physical ---
ALLYSSA PIÑA 02/10/22 1134: HPI History of Present Illness: Geovanna is a 56 year old male with a past history of perianal abscesses, T2DM, HTN, HLP, sleep apnea, GERD, and sarcoidosis who presented to the ED with a 2 day history of perianal abscess. He has a history of these abscesses in the past. He states that his pain has been constant 8/10 and has been taking IBU to take he edge off the pain. He says it is the size of a golf ball and hurts worse when sitting on it, relieved with laying on his side. He states he has had staph before but is unsure if he is colonized. Source: patient Exam Limitations: no limitations Date seen by provider: Feb 10, 2022 Time Seen by Provider: 11:15 Attending Physician Kenny Estrada MD PCP Admitting Physician: Xi Carbajal MD Attending Physician: Xi Carbajal MD Consult Date of Admission Feb 10, 2022 at 06:14 Home Medications Home Medications Reviewed patient Home Medication Reconciliation performed by pharmacy medication reconciliations agricultural service technician and/or nursing. Patients Allergies have been reviewed. Allergies Coded Allergies: azithromycin (Verified Allergy, Intermediate, Hives, 04/15/20) EIF-Rkydaw-Veoaza Hx Patient Social History Smoking Status: Never a Smoker 2nd Hand Smoke Exposure: No Recent Hopitalizations: No Alcohol Use?: No Have you traveled recently?: No Immunizations Up To Date Tetanus Booster (TDap): Less than 5yrs First/Initial COVID19 Vaccinat: X2 Past Medical History HTN Morbid Obesity Chronic Pain GERD COPD Asthma Sarcoidosis MAGDY Family Medical History Significant Family History: No Pertinent Family Hx Family History: Congestive heart failure 03 FATHER, Onset:20's - 25 Family history: Asthma 09 SISTER, Onset:20's - 25 Family history: Cardiovascular disease 03 FATHER, Onset:20's - 25 Family history: Hypertension 03 MOTHER, Onset:40's - 50 Family history: Thyroid disorder 03 MOTHER, Onset:50's - 60 Heart disease 03 FATHER, Onset:20's - 25 History of - respiratory disease 03 MOTHER, Onset:50's - 60 Review of Systems (CHC) Constitutional: No chills, No diaphoresis, No dizziness, No fever EENTM: no symptoms reported; No vision loss Respiratory: orthopnea Cardiovascular: No chest pain, No palpitations Gastrointestinal: No abdominal pain, No constipation; diarrhea (reports loose stools last 4-7 days, only 1 loose stool yesterday) Genitourinary: No dysuria, No frequency, No hematuria, No hesitancy Musculoskeletal: no symptoms reported Skin: lumps (perineum) Psychiatric/Neurological: Denies Anxiety, Denies Depressed; Headache Physical Exam-([facility] Physical Exam Vital Signs VS - Last 72 Hours, by Label 02/10/22 02/10/22 02/10/22 02/10/22 05:15 06:00 06:44 08:02 Temp 36.4 36.4 37.0 Pulse 96 84 86 84 Resp 22 18 18 18 B/P (MAP) 152/98 (116) 100/59 (73) 108/62 119/53 (75) Pulse Ox 95 94 93 94 O2 Delivery Room Air Room Air Room Air Room Air 02/10/22 11:36 Temp 36.9 Pulse 80 Resp 18 B/P (MAP) 117/49 (71) Pulse Ox 94 O2 Delivery Room Air Capillary Refill : Less Than 3 Seconds General Appearance: no apparent distress HEENT: PERRL/EOMI Neck: supple Respiratory: chest non-tender, lungs clear, normal breath sounds, no respiratory distress Cardiovascular: regular rate, rhythm, no edema Gastrointestinal: normal bowel sounds, non tender, soft Genital/Rectal: other (mass in perineum, likely cystic. Non-erythematous, not open or draining, no purulence) Extremities: non-tender, normal inspection, no pedal edema, pedal edema (trace) Neurologic/Psychiatric: alert, normal mood/affect, oriented x 3 Skin: normal color, warm/dry Assessment/Plan Assessment/Plan Admission Dx Perineal abscess Assessment & Plan 1. Perirectal abscess with leukocytosis - Leukocytosis on CBC, CRP elevated, continue to monitor bp and HR - broad spectrum abx, started on Zosyn - Surgery consulted for I&D and culture, NPO now - Check staph colonization - Pain control - Zofran given for nausea 2. Normocytic anemia - likely due to inflammation - check records for routine colon cancer screening - Reticulocyte count - Consider Fe, B12, Folate studies if anemia does not improve. 3. HTN - Continue home antihypertensives 4. DM - Glu 185 - SSI - Home medications as appropriate. 5. GERD - Home medications as appropriate/. 6. MAGDY - Encourage use of CPAP. 7. Anxiety - Continue home medications. XI CARBAJAL MD 02/10/22 1451: Home Medications Allergies Coded Allergies: azithromycin (Verified Allergy, Intermediate, Hives, 04/15/20) GAD-Ctrosi-Hocttj Hx Family Medical History Family History: Congestive heart failure 03 FATHER, Onset:20's - Family history: Asthma 09 SISTER, Onset:20s - 25 Family history: Cardiovascular disease 03 FATHER, Onset:20's - Family history: Hypertension 03 MOTHER, Onset:40's - 50 Family history: Thyroid disorder 03 MOTHER, Onset:50's - 60 Heart disease 03 FATHER, Onset:20's - 25 History of - respiratory disease 03 MOTHER, Onset:50's - 60 Assessment/Plan Assessment/Plan Admission Status: Inpatient Order (span 2 midnights) Reason for Inpatient Admission: Sepsis with serous comorbidities Supervisory-Addendum Brief Verification & Attestation Participated in pt care: history, MDM, physical Personally performed: exam, history, MDM, supervision of care Care discussed with: Medical Student Procedures: n/a I personally saw and examined patient, I did not however examine his perineum/rectal area. I directed the plan of care as documented by the medical s tyler. Patient sepsis on admission, but no severe sepsis markers. ALLYSSA PIÑA Feb 10, 2022 11:34 XI CARBAJAL MD Feb 10, 2022 14:51
[2022-02-10] MEDS: LACTATED RINGERS 1,000 ML IV SCH ×3 (11:41→21:38)
[2022-02-10] MEDS ORDERED: LACTATED RINGERS 1,000 ML IV PRN (12:00)
[2022-02-10] MEDS ORDERED: LOSA100T57 PO (12:40)
[2022-02-10] MEDS ORDERED: ATOR20TA66 PO (12:40)
[2022-02-10] MEDS ORDERED: GABAPENTIN 600 MG (NEURONTIN) TAB PO PRN (12:45)
[2022-02-10] MEDS ORDERED: KETAMINE HCL 100 MG/ML 5 ML VIAL ONE (13:22)
[2022-02-10] MEDS ORDERED: ceFAZolin INJECTION 3,000 MG ONE (14:24)
[2022-02-10] MEDS ORDERED: BUP/EPI 0.5% 1:200,000 (MARCAINE) 10ML VIAL IJ ONE (14:38)
[2022-02-10] MEDS: BUP/EPI 0.5% 1:200,000 (SENSORCAINE) 30 ML VIAL INJ ONE ×2 (14:40→15:12)
[2022-02-10] MEDS ORDERED: proPOfol 200 MG/20 ML (DIPRIVAN) VIAL IV ONE (15:03)
--- NOTE | 2022-02-10 15:03 | Progress Note-Post Operative ---
Post-Operative Progess Note Surgeon (s)/Citrus Peeler (s) Surgeon JOYCE SANDS DO Citrus Peeler: MICAH Augustin Pre-Operative Diagnosis Perianal/Scrotal abscess Post-Operative Diagnosis Scrotal abscess Procedure & Operative Findings Date of Procedure 02/10/22 Procedure Performed/Findings I&D with packing Anesthesia Type IV sedation by CHIEF OPERATOR Estimated Blood Loss Estimated blood loss (mL): appx 10ml Specimens/Packing Specimens Removed abscess culture JOYCE SANDS DO Feb 10, 2022 15:02
--- NOTE | 2022-02-10 15:06 | Anesthesia-General Post-Op ---
MAC Patient Condition Mental Status/LOC: Same as Preop Cardiovascular: Satisfactory Nausea/Vomiting: Absent Respiratory: Satisfactory Pain: Controlled Complications: Absent Post Op Complications Complications None Follow Up Care/Instructions Patient Instructions None needed. Anesthesiology Discharge Order Discharge Order Patient is doing well, no complaints, stable vital signs, no apparent adverse anesthesia problems. No complications reported per nursing. KATI ZUNIGA CRNA Feb 10, 2022 15:05
[2022-02-10] MEDS ORDERED: morphine INJ 10 MG/ML 1ML (SYR OR VIAL) IVP ONE (15:15)
[2022-02-10] MEDS ORDERED: ceFAZolin INJECTION 1,000 MG VIAL IV ONE (15:15)
[2022-02-10] MEDS: morphine INJ 10 MG/ML 1ML (SYR OR VIAL) IVP PRN (17:19)
[2022-02-10] MEDS: VENlafaxine XR 75 MG (EFFEXOR XR) CAP PO SCH (17:20)
[2022-02-10] MEDS: PIPERACILLIN SODIUM/TAZOBACTAM 4.5 GM in NS (IVPB) 100 ML IV SCH ×2 (17:20→21:45)
[2022-02-10] MEDS: inSUlin ASPART (NovoLOG) 1 UNIT/0.01 ML (CHARGE PER UNIT) SC SCH ×2 (17:31→20:41)
[2022-02-10] MEDS ORDERED: NON-FORMULARY MEDICATION 1 EA EA (Venlafaxine HCl (Venlafaxine HCl ER) 150 MG) PO SCH (21:00)
--- NOTE | 2022-02-10 23:38 | OPERATIVE REPORT ---
DATE OF SERVICE: 02/10/2022 PREOPERATIVE DIAGNOSIS: Perirectal/scrotal abscess. POSTOPERATIVE DIAGNOSIS: Scrotal abscess. PROCEDURE: Incision and drainage with packing of scrotal abscess. SURGEON: Felice Carpenter DO POWER PRESS OPERATOR: Anibal Brito MS3. ANESTHESIA: IV sedation by ASSISTANT PROFESSOR OF HISTORY. SPECIMEN: Culture of the scrotal abscess. BLOOD LOSS: Approximately 10 mL. FLUIDS: Per anesthesia. POSTOPERATIVE CONDITION: Stable. INDICATION FOR PROCEDURE: The patient is a 56-year-old male who has a history of multiple abscesses in the scrotal area. He has got some pain. but did not really have any redness, very tender, looked like he had another scrotal abscess. FINDINGS: Tried to do an ultrasound and I didn't see much on the ultrasound in the area that was tender, but did look like there was some edema. PROCEDURE NOTE: After informed consent was obtained, the patient was brought to the operating room. He was left in his bed in the left lateral decubitus position. He was sterilely prepped and draped in normal fashion. Local lidocaine was used to infiltrate the skin above the area where the patient was having pain. This was right in the area of multiple scars and previous drainages, made an incision with a #15 blade, carried down through the skin and subcutaneous tissue, went pretty deep, did not get anything and then I bluntly dissected with my finger; popped into a deeper area; found a pocket and got out purulent fluid. It was foul smelling and also got out some blood clots. This was then washed out and then debrided and then I packed this with 1-inch iodoform packing. The pocket was probably three centimeters deep (after going through two centimeters of tissue), by about nine centimeters long (from scrotum up towards rectum) and about three to four centimeters wide. I roughly debrided this area with a laparotomy sponge. Area was cleaned and dried, dressing placed. The patient tolerated the procedure. Sponge and needle count correct at the end of the case. Job ID: [id number] DocumentID: [id number] Dictated Date: 02/10/2022 15:01:26 Landscape Account Manager Date: 02/10/2022 23:38:04 Dictated By: FELICE CARPENTER DO [facility]
[2022-02-11 00:09] VITALS: BP 122/57
[2022-02-11] MEDS: morphine INJ 10 MG/ML 1ML (SYR OR VIAL) IVP PRN ×2 (00:10→09:03)
[2022-02-11 03:57] VITALS: BP 109/73
[2022-02-11] MEDS: LACTATED RINGERS 1,000 ML IV SCH ×3 (04:03→17:54)
[2022-02-11] MEDS: inSUlin ASPART (NovoLOG) 1 UNIT/0.01 ML (CHARGE PER UNIT) SC SCH ×4 (05:21→21:58)
[2022-02-11] MEDS: PIPERACILLIN SODIUM/TAZOBACTAM 4.5 GM in NS (IVPB) 100 ML IV SCH ×3 (06:31→21:58)
[2022-02-11 06:45] LABS: HEMATOCRIT 35 % (40-54); HEMOGLOBIN 11.3 g/dL (13.3-17.7); MEAN CORPUSCULAR HEMOGLOBIN 26 pg (25-34); MEAN CORPUSCULAR HGB CONC 32 g/dL (32-36); MEAN CORPUSCULAR VOLUME 81 fL (80-99); MEAN PLATELET VOLUME 9.9 fL (9.0-12.2); PLATELET COUNT 239 10^3/uL (130-400); WHITE BLOOD COUNT 13.9 10^3/uL (4.3-11.0)
[2022-02-11 07:07] LABS: CALCIUM 8.9 MG/DL (8.5-10.1); CREATININE SERUM 1.01 MG/DL (0.60-1.30); POTASSIUM 3.8 MMOL/L (3.6-5.0)
--- NOTE | 2022-02-11 08:00 | Progress Note - Hospitalist ---
Subjective HPI/CC On Admission Date Seen by Provider: Feb 11, 2022 Time Seen by Provider: 06:45 Subjective/Events-last exam Patient claims he is feeling much better today. Pain at the incision site is rated a 4/10 and is much better than yesterday. The patient is ambulating to use the restroom, does not have an IS. He believes he had blood in his pee this morning. Last BM was 2 days ago. Review of Systems General: No Chills, No Night Sweats, No Fatigue HEENT: No Head Aches, No Visual Changes, No Dysphasia, No Sore Throat; Other (throat feels dry) Pulmonary: No Dyspnea, No Cough Cardiovascular: No: Chest Pain, Lt Headedness Gastrointestinal: No: Nausea, Vomiting, Abdominal Pain Genitourinary: Hematuria Musculoskeletal: No: neck pain, shoulder pain, back pain Neurological: No: Weakness, Confusion Focused Exam Lactate Level 02/10/22 06:05: Lactic Acid Level 0.86 Objective Exam Vital Signs Vital Signs Date Time Temp Pulse Resp B/P (MAP) Pulse Ox O2 Delivery O2 Flow Rate FiO2 02/11/22 03:57 36.4 75 20 109/73 (85) 95 NIV CPAP 21.00 Capillary Refill : Less Than 3 Seconds Results/Procedures Lab Laboratory Tests 02/11/22 06:35 Patient resulted labs reviewed. LUIS ALEMAN Feb 11, 2022 08:00
--- NOTE | 2022-02-11 08:04 | Progress Note - Surgery ---
LUIS ALEMAN 02/11/22 0804: Subjective Date Seen by a Provider: Feb 11, 2022 Time Seen by a Provider: 06:45 Subjective/Events-last exam Patient claims he is feeling much better today. Pain at the incision site is rated a 4/10 and is much better than yesterday. The patient is ambulating to use the restroom, does not have an IS. He believes he had blood in his pee this morning. Last BM was 2 days ago. Review of Systems General: No Chills, No Night Sweats HEENT: No Head Aches, No Visual Changes, No Dysphasia, No Sore Throat; Other (throat feels dry) Pulmonary: No Dyspnea, No Cough Cardiovascular: No: Chest Pain, Lt Headedness Gastrointestinal: Constipation; No: Nausea, Vomiting, Abdominal Pain Genitourinary: No Dysuria, No Frequency; Hematuria Musculoskeletal: No: neck pain, shoulder pain, back pain Neurological: Numbness (b/l LE, assocaited w/diabetic neuropathy); No: Weakness, Confusion Focused Exam Lactate Level 02/10/22 06:05: Lactic Acid Level 0.86 Objective Exam Vital Signs Date Time Temp Pulse Resp B/P (MAP) Pulse Ox O2 Delivery O2 Flow Rate FiO2 02/11/22 03:57 36.4 75 20 109/73 (85) 95 NIV CPAP 21.00 02/11/22 00:40 36.4 02/11/22 00:09 36.4 87 22 122/57 (78) 94 NIV CPAP 21.00 02/10/22 21:31 95 19 91 21.00 02/10/22 20:52 Room Air 02/10/22 19:38 36.6 95 22 107/58 (74) 91 Room Air 02/10/22 17:20 Room Air 02/10/22 16:00 36.1 91 18 121/71 (88) 95 Room Air 02/10/22 15:25 Room Air 02/10/22 15:20 38.2 16 123/81 (95) 95 Room Air 02/10/22 15:10 OxyMask 2.00 02/10/22 15:10 19 132/84 (100) 98 OxyMask 2.00 02/10/22 15:00 18 136/84 (101) 99 OxyMask 3.00 02/10/22 14:56 OxyMask 6.00 02/10/22 14:56 38.5 16 139/80 (99) 98 OxyMask 6.00 02/10/22 11:36 36.9 80 18 117/49 (71) 94 Room Air I & O 02/11/22 07:00 Intake Total 850 ml Output Total 1300 ml Balance -450 ml Capillary Refill : Less Than 3 Seconds General Appearance: No Apparent Distress, Chronically ill, Obese (Profound obesity) HEENT: PERRL/EOMI; No Scleral Icterus (L), No Scleral Icterus (R) Neck: Non Tender, Supple Respiratory: Lungs Clear, Normal Breath Sounds, No Accessory Muscle Use, No Respiratory Distress Cardiovascular: Regular Rate, Rhythm, No Murmur, Systolic Murmur, Other (Lower extremity) Peripheral Pulses: 1+ Dorsalis Pedis (R), 1+ Left Dors-Pedis (L); 2+ Radial Pulses (R), 2+ Radial Pulses (L) Gastrointestinal: non tender, soft Extremity: Non Tender, No Calf Tenderness, Swelling Neurologic/Psychiatric: Alert, Oriented x3, Normal Mood/Affect Skin: Warm/Dry, Other (Widespread vitiligo. Reinforcement surrounding packing has fallen off, was soaked with blood. packing still in the wound also soaked with blood. ) Lymphatic: No Adenopathy (cervical) Results Lab Laboratory Tests 02/10/22 11:26: Glucometer 159H 02/10/22 16:52: Glucometer 147H 02/10/22 20:15: Glucometer 201H 02/11/22 05:15: Glucometer 135H 02/11/22 06:35: White Blood Count 13.9H, Red Blood Count 4.30, Hemoglobin 11.3L, Hematocrit 35L, Mean Corpuscular Volume 81, Mean Corpuscular Hemoglobin 26, Mean Corpuscular Hemoglobin Concent 32, Red Cell Distribution Width 13.9, Platelet Count 239, Mean Platelet Volume 9.9, Sodium Level 139, Potassium Level 3.8, Chloride Level 102, Carbon Dioxide Level 26, Anion Gap 11, Blood Urea Nitrogen 12, Creatinine 1.01, Estimat Glomerular Filtration Rate 88, BUN/Creatinine Ratio 12, Glucose Level 145H, Calcium Level 8.9 Microbiology 02/10/22 Gram Stain, Resulted Pending 02/10/22 Anaerobic Culture, Resulted Pending 02/10/22 Surgical Culture - Preliminary, Resulted Gram Negative Hesham Assessment/Plan Assessment/Plan Assessment/Plan Perianal abscess T2DM Obesity Continue on IV zosyn, Abscess culture resulted as Gram negative hesham, await sensitivity. Change wound reinforcement daily. Pain control with 4mg IV morphine PRN. Continue on sliding scale insulin and control blood sugar to enhance wound healing. JOYCE CARPENTER DO 02/11/22 1146: Subjective Time Seen by a Provider: 10:17 Subjective/Events-last exam Pt seen and examined, lying in bed and very comfortable. States pain in scrotal/perineal area is much better. Review of Systems General: No Chills, No Night Sweats HEENT: No Head Aches; Other (throat feels dry) Pulmonary: No Dyspnea, No Cough Cardiovascular: No: Chest Pain Gastrointestinal: Constipation; No: Nausea, Vomiting, Abdominal Pain Objective Exam General Appearance: No Apparent Distress, Obese (Profound obesity) HEENT: PERRL/EOMI; No Scleral Icterus (L), No Scleral Icterus (R) Respiratory: Lungs Clear, Normal Breath Sounds, No Accessory Muscle Use, No Respiratory Distress Cardiovascular: Regular Rate, Rhythm, No Murmur Gastrointestinal: non tender, soft Neurologic/Psychiatric: Alert, Oriented x3 Skin: Other (Widespread vitiligo. Reinforcement surrounding packing has fallen off, was soaked with blood. packing still in the wound also soaked with blood. ) Assessment/Plan Assessment/Plan Assessment/Plan Perianal abscess T2DM Obesity Continue on IV zosyn, Abscess culture resulted as Gram negative hesham, await sensitivity. Will leave packing in today and change it tomorrow. Pain control with 4mg IV morphine PRN. Continue on sliding scale insulin and control blood sugar to enhance wound healing. Supervisory-Addendum Brief Verification & Attestation Participated in pt care: history, MDM, physical Personally performed: exam, history, MDM, supervision of care Care discussed with: Medical Student Procedures: n/a Verification and Attestation of Medical Student E/M Service A medical student performed and documented this service. I then reviewed and verified all information documented by the medical student and made modifications to such information, when appropriate. I personally performed a physical exam, medical decision making and then discussed any differences between the notes and made revisions as necessary to create one note. Joyce Carpenter , 02/11/22 , 11:46 LUIS ALEMAN Feb 11, 2022 08:04 JOYCE CARPENTER DO Feb 11, 2022 11:46
[2022-02-11 08:16] VITALS: BP 121/58
[2022-02-11] MEDS: LOSARTAN 100 MG (COZAAR) TABLET PO SCH (09:03)
--- NOTE | 2022-02-11 10:52 | Progress Note - Hospitalist ---
Subjective HPI/CC On Admission Date Seen by Provider: Feb 11, 2022 Time Seen by Provider: 08:30 Subjective/Events-last exam Pleasant white male who was talking on the phone upon my arrival for evaluation did not appear to be in acute distress. He has required morphine for pain control postop day 1 status post I&D with packing of a large scrotal abscess per Dr. Carpenter. Patient reports multiple as I recall may be 13 similar episodes in the past complicated by morbid obesity. He voiced no other complaints. No night sweats chills fever or shortness of breath reported. Focused Exam Lactate Level 02/10/22 06:05: Lactic Acid Level 0.86 Objective Exam Vital Signs Vital Signs Date Time Temp Pulse Resp B/P (MAP) Pulse Ox O2 Delivery O2 Flow Rate FiO2 02/11/22 08:55 93 Room Air 0.00 02/11/22 08:16 36.0 77 20 121/58 (79) Capillary Refill : Less Than 3 Seconds General Appearance: No Apparent Distress, Obese Respiratory: Chest Non Tender, Lungs Clear, Normal Breath Sounds, No Accessory Muscle Use, No Respiratory Distress Cardiovascular: Regular Rate, Rhythm, No Edema, No Gallop, No JVD, Normal Peripheral Pulses, Systolic Murmur (2/6 heard best at the second intercostal space and left lower sternal border per patient's report not a new finding.) Gastrointestinal: Non Tender, Soft Results/Procedures Lab Laboratory Tests 02/11/22 06:35 Patient resulted labs reviewed. Assessment/Plan Assessment and Plan Assess & Plan/Chief Complaint 1. Perirectal abscess with leukocytosis - Leukocytosis on CBC, CRP elevated, continue to monitor bp and HR - broad spectrum abx, started on Zosyn - Surgery consulted for I&D and culture, NPO now - Check staph colonization - Pain control - Zofran given for nausea 02/11/2022 white count decreasing no evidence for sepsis at this time growing gram-negative bruce continue Zosyn for now speciation and sensitivity pending. 2. Normocytic anemia - likely due to inflammation - check records for routine colon cancer screening - Reticulocyte count - Consider Fe, B12, Folate studies if anemia does not improve. 3. HTN - Continue home antihypertensives 4. DM - Glu 185 - SSI - Home medications as appropriate. 5. GERD - Home medications as appropriate/. 6. MAGDY - Encourage use of CPAP. 7. Anxiety - Continue home medications. BAUTISTA NICKERSON MD Feb 11, 2022 10:52
[2022-02-11 12:25] VITALS: BP 100/55
[2022-02-11 16:20] VITALS: BP 102/67
[2022-02-11] MEDS: VENlafaxine XR 75 MG (EFFEXOR XR) CAP PO SCH (17:53)
[2022-02-11 20:17] VITALS: BP 94/63
[2022-02-12] VITALS: BP 116/71
[2022-02-12 04:00] VITALS: BP 109/70
[2022-02-12] MEDS: LACTATED RINGERS 1,000 ML IV SCH ×2 (04:14→05:59)
[2022-02-12] MEDS: inSUlin ASPART (NovoLOG) 1 UNIT/0.01 ML (CHARGE PER UNIT) SC SCH ×4 (05:58→21:53)
[2022-02-12] MEDS: PIPERACILLIN SODIUM/TAZOBACTAM 4.5 GM in NS (IVPB) 100 ML IV SCH ×3 (05:58→21:53)
[2022-02-12 07:37] VITALS: BP 112/55
--- NOTE | 2022-02-12 07:49 | Progress Note - Surgery ---
LUIS ALEMAN 02/12/22 0749: Subjective Date Seen by a Provider: Feb 12, 2022 Time Seen by a Provider: 07:00 Subjective/Events-last exam Patient is doing well today. He says he is in no pain. The packing was changed yesterday afternoon and he did say that was very painful. He has been voiding normally, ambulating to the restroom. Claimed it has been 3 days since his last BM, but does endorse having flatus. Patient was wondering if he could possibly be getting an infection on his left leg because it has been itching since he got in the hospital. Review of Systems Pulmonary: No Dyspnea, No Cough Cardiovascular: No: Chest Pain, Lt Headedness Gastrointestinal: Constipation; No: Nausea, Vomiting, Abdominal Pain Genitourinary: No Dysuria, No Hematuria Focused Exam Lactate Level 02/10/22 06:05: Lactic Acid Level 0.86 Objective Exam Vital Signs Date Time Temp Pulse Resp B/P (MAP) Pulse Ox O2 Delivery O2 Flow Rate FiO2 02/12/22 07:37 35.9 67 20 112/55 (74) 93 Room Air 02/12/22 06:53 95 23 94 21.00 02/12/22 04:00 36.3 70 20 109/70 (83) 95 NIV CPAP 21.00 02/12/22 02:26 97 22 93 21.00 02/12/22 00:00 36.2 61 16 116/71 (86) 96 NIV CPAP 21.00 02/11/22 22:08 99 19 93 21.00 02/11/22 21:22 93 Room Air 0.00 02/11/22 20:17 35.9 82 16 94/63 (73) 94 Room Air 02/11/22 16:20 35.8 76 16 102/67 (79) 97 Room Air 02/11/22 12:25 36.5 81 18 100/55 (70) 95 Room Air 02/11/22 08:55 93 Room Air 0.00 02/11/22 08:16 36.0 77 20 121/58 (79) 93 Room Air I & O 02/12/22 07:00 Intake Total 3110 ml Balance 3110 ml Capillary Refill : Less Than 3 Seconds General Appearance: No Apparent Distress, Obese (Profound obesity) HEENT: PERRL/EOMI; No Scleral Icterus (L), No Scleral Icterus (R) Neck: Non Tender, Supple Respiratory: Lungs Clear, Normal Breath Sounds, No Accessory Muscle Use, No Respiratory Distress Cardiovascular: Regular Rate, Rhythm, No Murmur Peripheral Pulses: 1+ Dorsalis Pedis (R), 1+ Left Dors-Pedis (L); 2+ Radial Pulses (R), 2+ Radial Pulses (L) Gastrointestinal: non tender, soft Extremity: Non Tender, No Calf Tenderness, Swelling, Other (i examined left leg at patients request, there are multiple scabs that he said are itchy, no draining wounds, no pain present. Left LE looks the same as right LE) Neurologic/Psychiatric: Alert, Oriented x3 Skin: Warm/Dry, Other (Widespread vitiligo. Reinforcement surrounding wound is in place, no blood present. Packing was changed yesterday) Lymphatic: No Adenopathy (cervical) Results Lab Laboratory Tests 02/11/22 11:05: Glucometer 186H 02/11/22 16:09: Glucometer 143H 02/11/22 21:00: Glucometer 219H 02/12/22 05:15: Glucometer 132H Microbiology 02/10/22 Gram Stain, Resulted Pending 02/10/22 Anaerobic Culture, Resulted Pending 02/10/22 Surgical Culture - Preliminary, Resulted Gram Negative Hesham 02/10/22 Blood Culture - Preliminary, Resulted No growth Assessment/Plan Assessment/Plan Assessment/Plan Perianal abscess T2DM Obesity Continue on IV zosyn, Abscess culture resulted as Gram negative hesham, await s ensitivity. Packing was changed yesterday afternoon, will attempt to change again today. Patient requested pain meds before this is done. Switch to oral pain meds PRN, has not endorsed pain except when packing changed. Continue on sliding scale insulin and control blood sugar to enhance wound healing. JOYCE CARPENTER DO 02/12/22 1418: Subjective Time Seen by a Provider: 12:34 Subjective/Events-last exam Pt seen and examined, appears comfortable. Had packing changed yesterday and stated it really hurt. Tolerating diet and has minimal pain. Review of Systems Pulmonary: No Dyspnea, No Cough Cardiovascular: No: Chest Pain Gastrointestinal: Constipation; No: Nausea, Vomiting, Abdominal Pain Genitourinary: No Dysuria, No Hematuria Objective Exam General Appearance: No Apparent Distress, Obese (Profound obesity) HEENT: PERRL/EOMI, Scleral Icterus (R) Respiratory: Lungs Clear, Normal Breath Sounds, No Accessory Muscle Use, No Respiratory Distress Cardiovascular: Regular Rate, Rhythm, No Murmur Extremity: Swelling, Other (i examined left leg at patients request, there are multiple scabs that he said are itchy, no draining wounds, no pain present. Left LE looks the same as right LE) Neurologic/Psychiatric: Alert, Oriented x3 Skin: Other (Widespread vitiligo. Reinforcement surrounding wound is in place, no blood present. Packing was changed yesterday) Assessment/Plan Assessment/Plan Assessment/Plan Perianal abscess T2DM Obesity Screening Colonoscopy - I talked to pt and told him he is at least 5yrs overdue and also we can look for rectal fistula during colonoscopy. Continue on IV zosyn, Abscess culture resulted as Gram negative hesham, await sensitivity. Packing was changed yesterday afternoon, will attempt to change again today. Patient requested pain meds before this is done. Switch to oral pain meds PRN, has not endorsed pain except when packing changed. Continue on sliding scale insulin and control blood sugar to enhance wound healing. Supervisory-Addendum Brief Verification & Attestation Participated in pt care: history, MDM, physical Personally performed: exam, history, MDM, supervision of care Care discussed with: Medical Student Procedures: n/a Verification and Attestation of Medical Student E/M Service A medical student performed and documented this service. I then reviewed and verified all information documented by the medical student and made modificatio ns to such information, when appropriate. I personally performed a physical exam, medical decision making and then discussed any differences between the notes and made revisions as necessary to create one note. Joyce Carpenter , 02/12/22 , 14:18 LUIS ALEMAN Feb 12, 2022 07:49 JOYCE CARPENTER DO Feb 12, 2022 14:18
--- NOTE | 2022-02-12 09:40 | Progress Note - Hospitalist ---
Subjective HPI/CC On Admission Date Seen by Provider: Feb 12, 2022 Time Seen by Provider: 08:45 Subjective/Events-last exam Patient voices no complaints decreased scrotal pain at the site of I&D. Patient did reports that he has had a blistering eruption they tend to be tense he pops them over the arms and legs no oral involvement for the past several months. There have been no significant associated symptoms itching etc. He does have longstanding history of vitiligo. Focused Exam Lactate Level 02/10/22 06:05: Lactic Acid Level 0.86 Objective Exam Vital Signs Vital Signs Date Time Temp Pulse Resp B/P (MAP) Pulse Ox O2 Delivery O2 Flow Rate FiO2 02/12/22 07:37 35.9 67 20 112/55 (74) 93 Room Air 02/12/22 06:53 21.00 Capillary Refill : Less Than 3 Seconds General Appearance: No Apparent Distress, Obese Respiratory: Chest Non Tender, Lungs Clear, Normal Breath Sounds, No Accessory Muscle Use, No Respiratory Distress Cardiovascular: Regular Rate, Rhythm, No Gallop, No JVD, Systolic Murmur (2/6 over the aortic outflow tract unchanged no diastolic murmurs noted.) Skin: Other ( Diffuse patchy areas of depigmentation on the arms and legs small 4 to 6 mm areas of excoriation where previous blisters were superficial no significant ulceration) Results/Procedures Lab Patient resulted labs reviewed. Assessment/Plan Assessment and Plan Assess & Plan/Chief Complaint 1. Perirectal abscess with leukocytosis - Leukocytosis on CBC, CRP elevated, continue to monitor bp and HR - broad spectrum abx, started on Zosyn - Surgery consulted for I&D and culture, NPO now - Check staph colonization - Pain control - Zofran given for nausea 02/11/2022 white count decreasing no evidence for sepsis at this time growing gram-negative brcue continue Zosyn for now speciation and sensitivity pending. 02/12/2022 per surgery predominant scrotal abscess rather large no longer with any significant bleeding decreasing discomfort indicative of good response. There is normal sky and a gram-negative bruce on preliminary report speciation and sensitivity pending. tense small blistering eruption on arms and legs for several months per patient reports bullous eruption secondary to diabetes versus bullous pemphigoid. Patient reports most of his weight gain is been secondary to steroids taken for sarcoidosis which she is now off he is motivated to portion control and become more active to lose weight which pointed out would definitely help out overall health and if this is the underlying cause of his blisters this should improve as well. 2. Normocytic anemia - likely due to inflammation - check records for routine colon cancer screening - Reticulocyte count - Consider Fe, B12, Folate studies if anemia does not improve. 3. HTN - Continue home antihypertensives 4. DM - Glu 185 - SSI - Home medications as appropriate. 5. GERD - Home medications as appropriate/. 6. MAGDY - Encourage use of CPAP. 7. Anxiety - Continue home medications. BAUTISTA NICKERSON MD Feb 12, 2022 09:40
[2022-02-12] MEDS: LOSARTAN 100 MG (COZAAR) TABLET PO SCH (09:41)
[2022-02-12] MEDS ORDERED: polyethylene glycoL POWDER 17 GM (MIRALAX) PACK PO NR (10:00)
[2022-02-12 11:27] VITALS: BP 121/57
[2022-02-12 16:13] VITALS: BP 118/60
[2022-02-12] MEDS: VENlafaxine XR 75 MG (EFFEXOR XR) CAP PO SCH (17:17)
[2022-02-12 19:31] VITALS: BP 119/74
[2022-02-12] MEDS: polyethylene glycoL POWDER 17 GM (MIRALAX) PACK PO SCH (20:05)
[2022-02-13 00:10] VITALS: BP 112/82
[2022-02-13 03:45] VITALS: BP 132/75
[2022-02-13] MEDS: inSUlin ASPART (NovoLOG) 1 UNIT/0.01 ML (CHARGE PER UNIT) SC SCH ×4 (05:31→20:52)
[2022-02-13] MEDS: PIPERACILLIN SODIUM/TAZOBACTAM 4.5 GM in NS (IVPB) 100 ML IV SCH ×3 (05:55→22:17)
[2022-02-13 07:42] VITALS: BP 133/70
--- NOTE | 2022-02-13 08:22 | Progress Note - Surgery ---
LUIS ALEMAN 02/13/22 0822: Subjective Date Seen by a Provider: Feb 13, 2022 Time Seen by a Provider: 06:45 Subjective/Events-last exam Patient is doing well today. He is in no pain. He is anxious about the pain that will come when he has the packing changed. He had 4 BMs since yesterday afte rnoon, he is ambulating to use restroom only. He is voiding normally. Review of Systems Pulmonary: No Dyspnea, No Cough Cardiovascular: No: Chest Pain, Lt Headedness Gastrointestinal: Diarrhea; No: Nausea, Vomiting, Abdominal Pain, Melena, Hematochezia Genitourinary: No Dysuria, No Hematuria Objective Exam Vital Signs Date Time Temp Pulse Resp B/P (MAP) Pulse Ox O2 Delivery O2 Flow Rate FiO2 02/13/22 07:42 36.7 67 18 133/70 (91) 94 Room Air 02/13/22 03:45 36.2 71 18 132/75 (94) 95 NIV CPAP 21.00 02/13/22 02:15 95 23 94 21.00 02/13/22 00:10 36.2 79 18 112/82 (92) 95 NIV CPAP 21.00 02/12/22 21:55 96 Room Air 02/12/22 19:31 36.8 79 20 119/74 (89) 96 Room Air 02/12/22 16:13 37.1 76 16 118/60 (79) 92 Room Air 02/12/22 11:27 36.7 74 18 121/57 (78) 97 Room Air 02/12/22 09:40 Room Air I & O 02/13/22 07:00 Intake Total 1980 ml Output Total 1250 ml Balance 730 ml Capillary Refill : Less Than 3 Seconds General Appearance: No Apparent Distress, Obese (Profound obesity) HEENT: PERRL/EOMI; No Scleral Icterus (L), No Scleral Icterus (R) Neck: Non Tender, Supple Respiratory: Lungs Clear, Normal Breath Sounds, No Accessory Muscle Use, No Respiratory Distress Cardiovascular: Regular Rate, Rhythm, No Murmur Peripheral Pulses: 1+ Dorsalis Pedis (R), 1+ Left Dors-Pedis (L); 2+ Radial Pulses (R), 2+ Radial Pulses (L) Gastrointestinal: non tender, soft Extremity: Non Tender, No Calf Tenderness, Swelling Neurologic/Psychiatric: Alert, Oriented x3 Skin: Warm/Dry, Other (Widespread vitiligo. Reinforcement surrounding wound is in place, no blood present. Packing last changed on 02/11) Lymphatic: No Adenopathy (cervical) Results Lab Laboratory Tests 02/12/22 11:30: Glucometer 189H 02/12/22 15:41: Glucometer 174H 02/12/22 20:37: Glucometer 156H 02/13/22 05:20: Glucometer 143H Microbiology 02/10/22 Gram Stain - Final, Resulted 02/10/22 Anaerobic Culture, Resulted Pending 02/10/22 Surgical Culture - Preliminary, Resulted Gram Negative Hesham Mixed Bacterial Sky 02/10/22 Blood Culture - Preliminary, Resulted No growth Assessment/Plan Assessment/Plan Assessment/Plan Perianal abscess T2DM Obesity Screening Colonoscopy - I talked to pt and told him he is at least 5yrs overdue and also we can look for rectal fistula during colonoscopy. Continue on IV zosyn, Abscess culture resulted as Gram negative hesham as well as mixed bacterial sky. Packing to be changed by wound care today. Patient requested pain meds before this is done. Switch to oral pain meds PRN, has not endorsed pain except when packing changed. Continue on sliding scale insulin and control blood sugar to enhance wound healing. Follow up outpatient for colonoscopy scheduling. JOYCE CARPENTER DO 02/13/22 1505: Subjective Time Seen by a Provider: 11:49 Subjective/Events-last exam Pt seen and examined, no new complaints. Thanked me for "allowing them to give me morphine before changing the packing". Review of Systems Pulmonary: No Dyspnea, No Cough Cardiovascular: No: Chest Pain Gastrointestinal: Diarrhea; No: Nausea, Vomiting, Abdominal Pain, Melena Genitourinary: No Dysuria, No Hematuria Objective Exam General Appearance: No Apparent Distress, Obese (Profound obesity) HEENT: PERRL/EOMI Respiratory: Lungs Clear, Normal Breath Sounds, No Accessory Muscle Use, No Respiratory Distress Cardiovascular: Regular Rate, Rhythm, No Murmur Gastrointestinal: non tender, soft Extremity: Swelling Skin: Warm/Dry, Other (Widespread vitiligo. Reinforcement surrounding wound is in place, no blood present. Packing last changed on 02/11) Assessment/Plan Assessment/Plan Assessment/Plan Perianal abscess T2DM Obesity Screening Colonoscopy - I talked to pt and told him he is at least 5yrs overdue and also we can look for rectal fistula during colonoscopy. Continue on IV zosyn, Abscess culture resulted as Gram negative hesham as well as mixed bacterial sky. Packing to be changed by wound care today. Patient requested pain meds before this is done. Switch to oral pain meds PRN, has not endorsed pain except when packing changed. Continue on sliding scale insulin and control blood sugar to enhance wound healing. Follow up outpatient for colonoscopy scheduling. Supervisory-Addendum Brief Verification & Attestation Participated in pt care: history, MDM, physical Personally performed: exam, history, MDM, supervision of care Care discussed with: Medical Student Procedures: n/a Verification and Attestation of Medical Student E/M Service A medical student performed and documented this service. I then reviewed and verified all information documented by the medical student and made modifications to such information, when appropriate. I personally performed a physical exam, medical decision making and then discussed any differences between the notes and made revisions as necessary to create one note. Joyce Carpenter , 02/13/22 , 15:05 LUIS ALEMAN Feb 13, 2022 08:22 JOYCE CARPENTER DO Feb 13, 2022 15:05
[2022-02-13] MEDS: LOSARTAN 100 MG (COZAAR) TABLET PO SCH (09:11)
[2022-02-13] MEDS: morphine INJ 10 MG/ML 1ML (SYR OR VIAL) IVP PRN ×3 (09:36→20:53)
--- NOTE | 2022-02-13 10:00 | Wound Care Assessment ---
Wound Care Assessment Date Seen by Provider: Feb 13, 2022 Time Seen by Provider: 09:05 Chief Complaint perineal abscess HPI Geovanna Zavaleta is a 56y/o M w/ a PMH of DM type 2, HTN, sarcodiosis, vitiligo, and COPD who is being seen for a perineal abscess. He has an extensive history of abscesses in this area and reports he has had 13 episodes. Surgical I&D approximately 10 times in past as well. States that his current episodes started about 6-7 days ago when he started having pain in his perineal area. Was found to have an abscess and an I&D was done on 02/[address] Carpenter. Culture obtained and final sensitivities pending. Gram negative hesham on preliminary. Appropriately on Zosyn currently. Pt denies any recent injury to the area. Currently his pain is well controlled when the area is not being touched but the pain increases to 10/10 when wound packing is done. Denies having a fever or chills. Endorses having diarrhea. Geovanna has an interesting medical history including pulmonary sarcoidosis. He has seen pulmonology in remote past but not recently. Last on systemic steroids years ago (stopped due to patient's weight and glycemic control). Geovanna does have significant vitiligo and pruritic nodules over his upper extremities and face. He does not follow with dermatology or rheumatology. With his history of sarcoid and recurrent nature of this abscess I do think further investigation as an outpatient is warranted (perhaps with rheumatology consult). It would be ideal for Geovanna to have imaging to further characterize this area (CT or MRI) but his size procludes this in our area ( is likely the nearest location). I do plan to reach out to his PCP for discussion this week. Another on the list of differential diagnosis would be fistula or malignancy. Dr. Carpenter has already considered this and does have plans for outpatient follow up for colonoscopy. 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 Review of Systems General: No Chills; Fatigue; No Other (fevers) Gastrointestinal: Diarrhea; No: Nausea, Vomiting, Abdominal Pain Neurological: Weakness, Numbness Exam Vital Signs Date Time Temp Pulse Resp B/P (MAP) Pulse Ox O2 Delivery O2 Flow Rate FiO2 02/13/22 07:42 36.7 67 18 133/70 (91) 94 Room Air 02/13/22 03:45 21.00 Capillary Refill : Less Than 3 Seconds General Appearance: no apparent distress, obese (massive obesity) Cardiovascular: regular rate, rhythm, no murmur Respiratory: chest non-tender, lungs clear, normal breath sounds, no respiratory distress Gastrointestinal: non tender, soft Neurologic/Psychiatric: alert, normal mood/affect, oriented x 3 Skin: warm/dry, rash (vitiligo with multiple papules over upper extremities) Skin Character: abscess, other (numerous excoriations over much of body) Perineal abscess s/p I&D is 5cm x 3cm x 7.2cm, bloody purulent drainage from the area, erythema and induration around margin of wound, no granulation, small necrotic tissue, no epithelialization. There is a foul odor Results Laboratory Tests 02/12/22 11:30: Glucometer 189H 02/12/22 15:41: Glucometer 174H 02/12/22 20:37: Glucometer 156H 02/13/22 05:20: Glucometer 143H Microbiology 02/10/22 Gram Stain - Final, Resulted 02/10/22 Anaerobic Culture, Resulted Pending 02/10/22 Surgical Culture - Preliminary, Resulted Gram Negative Hesham Mixed Bacterial Sky 02/10/22 Blood Culture - Preliminary, Resulted No growth Assessment/Plan/Dx Perineal abscess -S/p I&D on 02/[address] Benz, surgery following. Agree with plan for outpatient colonoscopy for further work up -culture grow gram negative rods and mixed bacterial sky, on Zosyn. Target outpatient antibiotics appropriately with final culture -Change to vashe twice daily packing with dampened kerlix and cover with bordered foam dressing. He will likely need both home health care and outpatient wound care upon discharge. -continue pain control DM type 2 Tight glycemic control warranted. Defer to primary team Obesity Weight loss indicated. This limits our diagnostic and treatment options in this patient Anemia Defer to primary team Anxiety MAGDY -managed by medicine h/o Sarcoidosis Unclear at this time if patient's cutaneous findings are related to recurrent nature of this wound. It does warranted further investigation. CT scan and outpatient rheumatology consult should be considered. Supervisory-Addendum Brief Verification & Attestation Participated in pt care: history, MDM, physical Personally performed: exam, history, MDM, supervision of care Care discussed with: Medical Student Procedures: n/a Results interpretation: Verified all documentation JACQUE Brower MD Feb 13, 2022 10:00 GONZALES GRANGER MD Feb 13, 2022 16:11
[2022-02-13 11:02] VITALS: BP 155/67
[2022-02-13 11:20] LABS: BASOPHILS # (AUTO) 0.1 10^3/uL (0.0-0.1); BASOPHILS % (AUTO) 1 % (0-10); EOSINOPHILS # (AUTO) 0.7 10^3/uL (0.0-0.3); EOSINOPHILS % (AUTO) 7 % (0-10); HEMATOCRIT 35 % (40-54); HEMOGLOBIN 11.1 g/dL (13.3-17.7); LYMPHOCYTES # (AUTO) 1.5 10^3/uL (1.0-4.0); LYMPHOCYTES % (AUTO) 16 % (12-44); MEAN CORPUSCULAR HEMOGLOBIN 26 pg (25-34); MEAN CORPUSCULAR HGB CONC 32 g/dL (32-36); MEAN CORPUSCULAR VOLUME 82 fL (80-99); MEAN PLATELET VOLUME 9.7 fL (9.0-12.2); MONOCYTES # (AUTO) 0.5 10^3/uL (0.0-1.0); MONOCYTES % (AUTO) 5 % (0-12); NEUTROPHILS % (AUTO) 71 % (42-75); PLATELET COUNT 290 10^3/uL (130-400); WHITE BLOOD COUNT 9.9 10^3/uL (4.3-11.0)
[2022-02-13 11:40] LABS: BILIRUBIN,TOTAL 0.4 MG/DL (0.1-1.0); CALCIUM 8.9 MG/DL (8.5-10.1); CREATININE SERUM 1.1 MG/DL (0.60-1.30); POTASSIUM 4.1 MMOL/L (3.6-5.0); TOTAL PROTEIN 6.8 GM/DL (6.4-8.2)
--- NOTE | 2022-02-13 11:59 | Physical Therapy Progress Note ---
Therapy Progress Note PT observed patient perform independent bed mobility, transfers and ambulated in room. Patient declined PT intervention. No skilled PT indicated. 1 visit LEOPOLDO LANDRY PT Feb 13, 2022 11:59
--- NOTE | 2022-02-13 13:13 | Progress Note - Hospitalist ---
DORIS DELAROSA 02/13/22 1313: Subjective HPI/CC On Admission Date Seen by Provider: Feb 13, 2022 Time Seen by Provider: 13:08 Subjective/Events-last exam Patient is in good spirits, slept well Bowel movements are active, last 4 movements have been diarrhea Packing fell out last night Reports no pain at this time Eating okay Has been able to ambulate Only issue at this time is his strength, does not feel back to baseline Labs reviewed Objective Exam Vital Signs Vital Signs Date Time Temp Pulse Resp B/P (MAP) Pulse Ox O2 Delivery O2 Flow Rate FiO2 02/13/22 11:02 36.0 75 18 155/67 (96) 93 Room Air 02/13/22 03:45 21.00 Capillary Refill : Less Than 3 Seconds General Appearance: No Apparent Distress; No Anxious; Obese HEENT: PERRL/EOMI Neck: Full Range of Motion, Normal Inspection Respiratory: Chest Non Tender, Lungs Clear Cardiovascular: Regular Rate, Rhythm, No Edema, No Gallop Gastrointestinal: Normal Bowel Sounds, Non Tender, Soft Back: Normal Inspection, No CVA Tenderness Extremity: Normal Capillary Refill, Normal Inspection Neurologic/Psychiatric: Alert, Oriented x3, No Motor/Sensory Deficits Skin: Warm/Dry; No Cool; Other (Scattered Vitiligo) Lymphatic: No Adenopathy Results/Procedures Lab Laboratory Tests 02/13/22 11:10 Patient resulted labs reviewed. Assessment/Plan Assessment and Plan Assess & Plan/Chief Complaint 1. S/P Perirectal abscess I&D with leukocytosis- I & D preformed by surgery Leukocytosis on CBC Continue Zosyn Surgery consulted Wound culture- came back positive for gram negative rods Debility Consult/Start PT and OT HTN Continue home antihypertensives DM Monitor Blood Glucose/ Use sliding scale Home medications as appropriate. GERD Home medications as appropriate. MAGDY Encourage use of CPAP. Anxiety Continue home medications. Severe obesity BMI 62 JAYNE DEL TORO DO 02/14/22 0508: Subjective Subjective/Events-last exam Pt is doing a lot better Maintain on Zosyn Gram negative bruce on preliminary cultures Pain is pretty well controlled Will await surgery recommendations Review of Systems General: Fatigue, Malaise Objective Exam General Appearance: No Apparent Distress, WD/WN, Obese Respiratory: Lungs Clear, Normal Breath Sounds Cardiovascular: Regular Rate, Rhythm Assessment/Plan Assessment and Plan Assess & Plan/Chief Complaint Supportive care Supervisory-Addendum Brief Verification & Attestation Participated in pt care: history, MDM, physical Personally performed: exam, history, MDM, supervision of care Care discussed with: Medical Student Procedures: n/a Results interpretation: Verified all documentation Verification and Attestation of Medical Student E/M Service A medical student performed and documented this service in my presence. I reviewed and verified all information documented by the medical student and made modifications to such information, when appropriate. I personally performed the physical exam and medical decision making. Jayne Del Toro, Feb 14, 2022,05:07 DORIS DELAROSA Feb 13, 2022 13:13 JAYNE DEL TORO DO Feb 14, 2022 05:08
--- NOTE | 2022-02-13 13:23 | Occ Therapy Progress Note ---
Therapy Progress Note OT orders received and chart reviewed. OT visited with pt who indicates he is independent with ADLS and at his PLOF. Pt declines OT services at this time. D/C from OT, no skilled OT services indicated. 1, visit D/C [id number] ARASH CACERES OT Feb 13, 2022 13:23
[2022-02-13 15:30] VITALS: BP 120/66
[2022-02-13] MEDS: HYPOCHLOROUS ACID/NaCl (VASHE) 250 ML IR PRN ×2 (15:55→21:08)
[2022-02-13] MEDS: VENlafaxine XR 75 MG (EFFEXOR XR) CAP PO SCH (16:41)
[2022-02-13 19:41] VITALS: BP 123/57
[2022-02-13] MEDS: polyethylene glycoL POWDER 17 GM (MIRALAX) PACK PO SCH (21:08)
[2022-02-14 00:26] VITALS: BP 118/71
[2022-02-14 04:26] VITALS: BP 148/75
[2022-02-14] MEDS: inSUlin ASPART (NovoLOG) 1 UNIT/0.01 ML (CHARGE PER UNIT) SC SCH ×2 (06:02→11:15)
[2022-02-14] MEDS: PIPERACILLIN SODIUM/TAZOBACTAM 4.5 GM in NS (IVPB) 100 ML IV SCH (06:07)
[2022-02-14 06:21] LABS: BASOPHILS # (AUTO) 0.1 10^3/uL (0.0-0.1); BASOPHILS % (AUTO) 1 % (0-10); EOSINOPHILS # (AUTO) 0.7 10^3/uL (0.0-0.3); EOSINOPHILS % (AUTO) 8 % (0-10); HEMATOCRIT 35 % (40-54); LYMPHOCYTES # (AUTO) 2.1 10^3/uL (1.0-4.0); LYMPHOCYTES % (AUTO) 23 % (12-44); MEAN CORPUSCULAR HEMOGLOBIN 26 pg (25-34); MEAN CORPUSCULAR HGB CONC 31 g/dL (32-36); MEAN CORPUSCULAR VOLUME 82 fL (80-99); MEAN PLATELET VOLUME 9.7 fL (9.0-12.2); MONOCYTES # (AUTO) 0.7 10^3/uL (0.0-1.0); MONOCYTES % (AUTO) 7 % (0-12); NEUTROPHILS # (AUTO) 5.8 10^3/uL (1.8-7.8); NEUTROPHILS % (AUTO) 61 % (42-75); PLATELET COUNT 258 10^3/uL (130-400); WHITE BLOOD COUNT 9.5 10^3/uL (4.3-11.0)
[2022-02-14 06:31] LABS: POTASSIUM 3.8 MMOL/L (3.6-5.0)
[2022-02-14 06:32] LABS: CALCIUM 8.8 MG/DL (8.5-10.1)
[2022-02-14 06:33] LABS: TOTAL PROTEIN 6.8 GM/DL (6.4-8.2)
[2022-02-14 06:35] LABS: BILIRUBIN,TOTAL 0.3 MG/DL (0.1-1.0)
[2022-02-14 06:37] LABS: CREATININE SERUM 1.05 MG/DL (0.60-1.30)
[2022-02-14 07:24] VITALS: BP 124/74
--- NOTE | 2022-02-14 07:53 | Progress Note - Surgery ---
LUIS ALEMAN 02/14/22 0753: Subjective Date Seen by a Provider: Feb 14, 2022 Time Seen by a Provider: 07:30 Subjective/Events-last exam Patient is doing well. He is in no pain today. He has only endorsed pain when they change his packing. He is ambulating to use the restroom, having BMs, and tolerating a normal diet. Review of Systems Pulmonary: No Dyspnea, No Cough Cardiovascular: No: Chest Pain, Lt Headedness Gastrointestinal: Diarrhea; No: Nausea, Vomiting, Abdominal Pain Objective Exam Vital Signs Date Time Temp Pulse Resp B/P (MAP) Pulse Ox O2 Delivery O2 Flow Rate FiO2 02/14/22 07:24 35.8 59 18 124/74 (91) 92 Room Air 02/14/22 04:26 36.6 63 20 148/75 (99) 95 Room Air 02/14/22 00:26 36.3 73 19 118/71 (87) 93 Room Air 02/13/22 20:55 Room Air 02/13/22 19:41 36.4 70 19 123/57 (79) 94 Room Air 02/13/22 15:30 36.1 76 19 120/66 (84) 91 Room Air 02/13/22 11:02 36.0 75 18 155/67 (96) 93 Room Air 02/13/22 08:00 Room Air I & O 02/14/22 07:00 Intake Total 1510 ml Balance 1510 ml Capillary Refill : Less Than 3 Seconds General Appearance: No Apparent Distress, Obese HEENT: PERRL/EOMI, Moist Mucous Membranes Neck: Non Tender, Supple Respiratory: Lungs Clear, Normal Breath Sounds, No Accessory Muscle Use, No Respiratory Distress Cardiovascular: Regular Rate, Rhythm, No Murmur Peripheral Pulses: 1+ Dorsalis Pedis (R), 1+ Left Dors-Pedis (L); 2+ Radial Pulses (R), 2+ Radial Pulses (L) Gastrointestinal: non tender, soft Extremity: Non Tender, No Calf Tenderness, Swelling Neurologic/Psychiatric: Alert, Oriented x3, Normal Mood/Affect Skin: Warm/Dry, Other (Widespread vitiligo. Bandage over the wound has small amount of blood, no purulent material seen) Lymphatic: No Adenopathy (cervical) Results Lab Laboratory Tests 02/13/22 10:58: Glucometer 131H 02/13/22 11:10: White Blood Count 9.9, Red Blood Count 4.29L, Hemoglobin 11.1L, Hematocrit 35L, Mean Corpuscular Volume 82, Mean Corpuscular Hemoglobin 26, Mean Corpuscular Hemoglobin Concent 32, Red Cell Distribution Width 13.7, Platelet Count 290, Mean Platelet Volume 9.7, Immature Granulocyte % (Auto) 0, Neutrophils (%) (Auto) 71, Lymphocytes (%) (Auto) 16, Monocytes (%) (Auto) 5, Eosinophils (%) (Auto) 7, Basophils (%) (Auto) 1, Neutrophils # (Auto) 7.0, Lymphocytes # (Auto) 1.5, Monocytes # (Auto) 0.5, Eosinophils # (Auto) 0.7H, Basophils # (Auto) 0.1, Immature Granulocyte # (Auto) 0.0, Sodium Level 140, Potassium Level 4.1, Chloride Level 105, Carbon Dioxide Level 25, Anion Gap 10, Blood Urea Nitrogen 12, Creatinine 1.10, Estimat Glomerular Filtration Rate 79, BUN/Creatinine Ratio 11, Glucose Level 136H, Calcium Level 8.9, Corrected Calcium 9.7, Total B ilirubin 0.4, Aspartate Amino Transf (AST/SGOT) 18, Alanine Aminotransferase (ALT/SGPT) 25, Alkaline Phosphatase 50, Total Protein 6.8, Albumin 3.0L 02/13/22 15:34: Glucometer 176H 02/13/22 19:56: Glucometer 216H 02/14/22 05:24: Glucometer 151H 02/14/22 06:09: White Blood Count 9.5, Red Blood Count 4.25L, Hemoglobin 11.0L, Hematocrit 35L, Mean Corpuscular Volume 82, Mean Corpuscular Hemoglobin 26, Mean Corpuscular He moglobin Concent 31L, Red Cell Distribution Width 13.8, Platelet Count 258, Mean Platelet Volume 9.7, Immature Granulocyte % (Auto) 0, Neutrophils (%) (Auto) 61, Lymphocytes (%) (Auto) 23, Monocytes (%) (Auto) 7, Eosinophils (%) (Auto) 8, Basophils (%) (Auto) 1, Neutrophils # (Auto) 5.8, Lymphocytes # (Auto) 2.1, Monocytes # (Auto) 0.7, Eosinophils # (Auto) 0.7H, Basophils # (Auto) 0.1, Immature Granulocyte # (Auto) 0.0, Sodium Level 139, Potassium Level 3.8, Chloride Level 104, Carbon Dioxide Level 24, Anion Gap 11, Blood Urea Nitrogen 12, Creatinine 1.05, Estimat Glomerular Filtration Rate 84, BUN/Creatinine Ratio 11, Glucose Level 149H, Calcium Level 8.8, Corrected Calcium 9.6, Total Bilirubin 0.3, Aspartate Amino Transf (AST/SGOT) 19, Alanine Aminotransferase (ALT/SGPT) 26, Alkaline Phosphatase 44, Total Protein 6.8, Albumin 3.0L Microbiology 02/10/22 Gram Stain - Final, Resulted 02/10/22 Anaerobic Culture - Preliminary, Resulted Culture In Progress 02/10/22 Surgical Culture - Final, Resulted Gram Negative Hesham Mixed Bacterial Judy 02/10/22 Blood Culture - Preliminary, Resulted No growth Assessment/Plan Assessment/Plan Assessment/Plan Perianal abscess T2DM Obesity Screening Colonoscopy - I talked to pt and told him he is at least 5yrs overdue and also we can look for rectal fistula during colonoscopy. Discharge patient on oral antibiotics. He will be going home on discharge with home health who will assist with wound packing change. Follow up outpatient for colonoscopy scheduling. JOYCE CARPENTER DO 02/14/22 1501: Subjective Time Seen by a Provider: 13:09 Subjective/Events-last exam Pt seen and examined, states he is doing very well. Review of Systems Pulmonary: No Dyspnea, No Cough Cardiovascular: No: Chest Pain Gastrointestinal: Diarrhea; No: Nausea, Vomiting, Abdominal Pain Objective Exam General Appearance: No Apparent Distress, Obese HEENT: Moist Mucous Membranes Respiratory: Lungs Clear, Normal Breath Sounds, No Accessory Muscle Use, No Respiratory Distress Cardiovascular: Regular Rate, Rhythm, No Murmur Gastrointestinal: non tender, soft Extremity: Non Tender, No Calf Tenderness, Swelling Neurologic/Psychiatric: Alert, Oriented x3 Skin: Other (Widespread vitiligo. Bandage over the wound has small amount of blood, no purulent material seen) Assessment/Plan Assessment/Plan Assessment/Plan Perianal abscess T2DM Obesity Screening Colonoscopy - I talked to pt and told him he is at least 5yrs overdue and also we can look for rectal fistula during colonoscopy. Discharge patient on oral antibiotics. He will be going home on discharge with home health who will assist with wound packing change. Follow up outpatient for colonoscopy scheduling. Supervisory-Addendum Brief Verification & Attestation Participated in pt care: history, MDM, physical Personally performed: exam, history, MDM, supervision of care Care discussed with: Medical Student Procedures: n/a Verification and Attestation of Medical Student E/M Service A medical student performed and documented this service. I then reviewed and verified all information documented by the medical student and made modifications to such information, when appropriate. I personally performed a physical exam, medical decision making and then discussed any differences between the notes and made revisions as necessary to create one note. Joyce Carpenter , 02/14/22 , 15:01 LUIS ALEMAN Feb 14, 2022 07:53 JOYCE CARPENTER DO Feb 14, 2022 15:01
[2022-02-14] MEDS: LOSARTAN 100 MG (COZAAR) TABLET PO SCH (08:19)
[2022-02-14] MEDS ORDERED: OXC5T PO (09:59)
[2022-02-14] MEDS ORDERED: AMOX1TAB12 PO (09:59)
--- NOTE | 2022-02-14 10:00 | D/C HH Face to Face Order ---
D/C Face to Face Orders Reconcile Patient Problems Problems Reviewed?: Yes Instructions for Patient Via [facility], Patient Instructions/FollowUp: PCP [address] Carpenter as scheduled Physician to follow Patient: [facility] Discharge Diet for Home: No Restrictions Patient Problems: Perineal abscess Patient Data-Allergies,Ht & Wt Patient Allergies: Coded Allergies: azithromycin (Verified Allergy, Intermediate, Hives, 04/15/20) Height (Feet): 5 Height (Inches): 11.00 Weight (Pounds): 450 Weight (Ounces): 0 Home Health Need/Face to Face Date of Face to Face: Feb 14, 2022 Clinical Findings: Muscle weakness I have seen Pt [id number]: Yes Discharged To: Home Diagnosis/Conditions: Perineal abscess Patient is Homebound due to: Muscle weakness Homebound Status Due to the above stated illness, injury or surgical procedure (medical condition or diagnosis) and associated clinical findings, the patient is homebo und because of his/her inability to leave home except with aid of a supportive device and/or person AND leaving the home requires a considerable and taxing effort or is medically contraindicated. Pt req the following assistanc: [facility] Nursing Orders Home Health Services Order: Nursing Services, Locomotive Firer-Evaluate & Treat, Physical Therapy-Evaluate & Treat, Wound Care-Eval/Treat Home Health Infusion Therapy Line Start Date: Feb 10, 2022 Certify Stmt I certify that this patient is under my care and that I, a nurse practitioner or a physician; a clinical research assistant working with me, had a face to face encounter that - meets the physician face to face encounter requirements with this patient as dated. DIONY DEL TORO DO Feb 14, 2022 10:00
--- NOTE | 2022-02-14 10:06 | Discharge Summary ---
Discharge Summary Hospital Course Was the Problem List Reviewed?: Yes Problems/Dx: (1) Sepsis Status: Acute Qualifiers: Qualified Codes: A41.9 - Sepsis, unspecified organism (2) Perianal abscess Status: Acute Hospital Course Date of Admission: Feb 10, 2022 at 06:14 Admission Diagnosis : Family Physician/Provider: Kenny Estrada MD Date of Discharge: 02/14/22 Discharge Diagnosis: 1. S/P Perirectal abscess I&D with leukocytosis- I & D preformed by surgery Leukocytosis on CBC Continue Zosyn Surgery consulted Wound culture- came back positive for gram negative rods Debility Consult/Start PT and OT HTN Continue home antihypertensives DM Monitor Blood Glucose/ Use sliding scale Home medications as appropriate. GERD Home medications as appropriate. MAGDY Encourage use of CPAP. Anxiety Continue home medications. Severe obesity BMI 62 Hospital Course: Patient is a 56 year old obese male with a past history of perianal abscesses, T2DM, HTN, HLP, sleep apnea, GERD, and sarcoidosis who presented to the ED on 02-10-2022 with a 2 day history of perianal abscess. He has a history of these abscesses in the past, he states that they have cultured staph in past. He states that his pain was constant 8/10. It was the size of a golf ball and hurt worse when sitting on it, relieved with laying on his side. Patient was placed on broad spectrum antibiotics (Zosyn) and has remained on it. Patient had abscesses incised and drained by surgery on 02-10-2022. It was subsequently packed and managed by wound care. His wound cultures came back with for gram negative rods, thus zosyn was maintained. He has been recovering well. His blood glucose has been tightly monitored throughout stay. His pain was well managed by morphine throughout stay. He was and still recovering well, feels like his strength is coming around and able to sent home. PT and OT were consulted for evaluation. Labs and Pending Lab Test: Laboratory Tests 02/13/22 10:58: Glucometer 131H 02/13/22 11:10: White Blood Count 9.9, Red Blood Count 4.29L, Hemoglobin 11.1L, Hematocrit 35L, Mean Corpuscular Volume 82, Mean Corpuscular Hemoglobin 26, Mean Corpuscular Hemoglobin Concent 32, Red Cell Distribution Width 13.7, Platelet Count 290, Mean Platelet Volume 9.7, Immature Granulocyte % (Auto) 0, Neutrophils (%) (Auto) 71, Lymphocytes (%) (Auto) 16, Monocytes (%) (Auto) 5, Eosinophils (%) (Auto) 7, Basophils (%) (Auto) 1, Neutrophils # (Auto) 7.0, Lymphocytes # (Auto) 1.5, Monocytes # (Auto) 0.5, Eosinophils # (Auto) 0.7H, Basophils # (Auto) 0.1, Immature Granulocyte # (Auto) 0.0, Sodium Level 140, Potassium Level 4.1, Chloride Level 105, Carbon Dioxide Level 25, Anion Gap 10, Blood Urea Nitrogen 12, Creatinine 1.10, Estimat Glomerular Filtration Rate 79, BUN/Creatinine Ratio 11, Glucose Level 136H, Calcium Level 8.9, Corrected Calcium 9.7, Total Bilirubin 0.4, Aspartate Amino Transf (AST/SGOT) 18, Alanine Aminotransferase (ALT/SGPT) 25, Alkaline Phosphatase 50, Total Protein 6.8, Albumin 3.0L 02/13/22 15:34: Glucometer 176H 02/13/22 19:56: Glucometer 216H 02/14/22 05:24: Glucometer 151H 02/14/22 06:09: White Blood Count 9.5, Red Blood Count 4.25L, Hemoglobin 11.0L, Hematocrit 35L, Mean Corpuscular Volume 82, Mean Corpuscular Hemoglobin 26, Mean Corpuscular Hemoglobin Concent 31L, Red Cell Distribution Width 13.8, Platelet Count 258, Mean Platelet Volume 9.7, Immature Granulocyte % (Auto) 0, Neutrophils (%) (Auto) 61, Lymphocytes (%) (Auto) 23, Monocytes (%) (Auto) 7, Eosinophils (%) (Auto) 8, Basophils (%) (Auto) 1, Neutrophils # (Auto) 5.8, Lymphocytes # (Auto) 2.1, Monocytes # (Auto) 0.7, Eosinophils # (Auto) 0.7H, Basophils # (Auto) 0.1, Immature Granulocyte # (Auto) 0.0, Sodium Level 139, Potassium Level 3.8, Chloride Level 104, Carbon Dioxide Level 24, Anion Gap 11, Blood Urea Nitrogen 1 2, Creatinine 1.05, Estimat Glomerular Filtration Rate 84, BUN/Creatinine Ratio 11, Glucose Level 149H, Calcium Level 8.8, Corrected Calcium 9.6, Total Bilirubin 0.3, Aspartate Amino Transf (AST/SGOT) 19, Alanine Aminotransferase (ALT/SGPT) 26, Alkaline Phosphatase 44, Total Protein 6.8, Albumin 3.0L Microbiology 02/10/22 Gram Stain - Final, Resulted 02/10/22 Anaerobic Culture - Preliminary, Resulted Culture In Progress 02/10/22 Surgical Culture - Final, Resulted Gram Negative Hesham Mixed Bacterial Judy 02/10/22 Blood Culture - Preliminary, Resulted No growth Home Meds Active Oxyir Tablet (Oxycodone HCl) 5 Mg Tab 5 Mg PO Q8H Amox Tr-K Clv 875-125 mg Tab (Amoxicillin/Potassium Clav) 875 Mg-125 Mg Tablet 1 Each PO BID Reported Atorvastatin Calcium 20 Mg Tablet 20 Mg PO DAILY Losartan Potassium 100 Mg Tablet 100 Mg PO DAILY Aleve (Naproxen Sodium) 220 Mg Capsule 220 Mg PO Q8H PRN Gabapentin 600 Mg Tablet 600 Mg PO TID PRN Venlafaxine HCl ER (Venlafaxine HCl) 150 Mg Cap.er.24h 150 Mg PO HS Assessment/Pt Instructions PCP 1 week Discharge Planning: <30 minutes discharge planning Discharge Instructions Discharge Diet: No Restrictions Activity as Tolerated: Yes Discharge Physical Examination Vital Signs Vital Signs Date Time Temp Pulse Resp B/P (MAP) Pulse Ox O2 Delivery O2 Flow Rate FiO2 02/14/22 09:04 Room Air 02/14/22 07:24 35.8 59 18 124/74 (91) 92 02/13/22 03:45 21.00 General Appearance: No Apparent Distress, WD/WN, Chronically ill, Obese Allergies: Coded Allergies: azithromycin (Verified Allergy, Intermediate, Hives, 04/15/20) Discharge Summary Date of Admission Feb 10, 2022 at 06:14 Date of Discharge Discharge Date: Feb 14, 2022 Discharge Diagnosis Supportive care DIONY DEL TORO DO Feb 14, 2022 10:06
[2022-02-14 11:34] VITALS: BP 127/75
--- NOTE | 2022-02-14 11:40 | Progress Note - Hospitalist ---
DORIS DELAROSA 02/14/22 1140: Subjective HPI/CC On Admission Date Seen by Provider: Feb 14, 2022 Time Seen by Provider: 11:24 Geovanna is a 56 year old male with a past history of perianal abscesses, T2DM, HTN, HLP, sleep apnea, GERD, and sarcoidosis who presented to the ED with a 2 day history of perianal abscess. He has a history of these abscesses in the past. He states that his pain has been constant 8/10 and has been taking IBU to take he edge off the pain. He says it is the size of a golf ball and hurts worse when sitting on it, relieved with laying on his side. He states he has had staph before but is unsure if he is colonized. Subjective/Events-last exam Patient is a 56 year old obese male with a past history of perianal abscesses, T2DM, HTN, HLP, sleep apnea, GERD, and sarcoidosis who presented to the ED on 02-10-2022 with a 2 day history of perianal abscess. He has a history of these abscesses in the past, he states that they have cultured staph in past. He states that his pain was constant 8/10. It was the size of a golf ball and hurt worse when sitting on it, relieved with laying on his side. Patient was placed on broad spectrum antibiotics (Zosyn) and has remained on it. Patient had abscesses incised and drained by surgery on 02-10-2022. It was subsequently packed and managed by wound care. His wound cultures came back with for gram negative rods, thus zosyn was maintained. He has been recovering well. His blood glucose has been tightly monitored throughout stay. His pain was well managed by morphine throughout stay. He was and still recovering well, feels like his strength is coming around and able to sent home. PT and OT were consulted for evaluation. Encounter 02-14-2022: Patient is good spirits,eating well, slept well is in room Reports no pain, no complaints Has been ambulating okay Bowel movements are still diarrhea Labs Reviewed Incision repacked Objective Exam Vital Signs Vital Signs Date Time Temp Pulse Resp B/P (MAP) Pulse Ox O2 Delivery O2 Flow Rate FiO2 02/14/22 09:04 Room Air 02/14/22 07:24 35.8 59 18 124/74 (91) 92 02/13/22 03:45 21.00 Capillary Refill : Less Than 3 Seconds General Appearance: No Apparent Distress, WD/WN, Obese HEENT: PERRL/EOMI Neck: Full Range of Motion, Normal Inspection Respiratory: Chest Non Tender, Lungs Clear Cardiovascular: Regular Rate, Rhythm, No Edema, No Gallop Gastrointestinal: Normal Bowel Sounds, Non Tender, Soft Rectal: Deferred Back: Normal Inspection, No CVA Tenderness Extremity: Normal Capillary Refill, Normal Inspection Neurologic/Psychiatric: Alert, Oriented x3 Skin: Normal Color, Warm/Dry Lymphatic: No Adenopathy Results/Procedures Lab Laboratory Tests 02/14/22 06:09 Patient resulted labs reviewed. Assessment/Plan Assessment and Plan Assess & Plan/Chief Complaint S/P Perirectal abscess I&D with leukocytosis- I & D preformed by surgery Continue Zosyn Surgery consulted Wound culture- came back positive for gram negative rods Debility Consult/Start PT and OT Ambulating well HTN Continue home antihypertensives DM Monitor Blood Glucose/ Use sliding scale Home medications as appropriate. GERD Home medications as appropriate. MAGDY Encourage use of CPAP. Anxiety Continue home medications. Severe obesity BMI 62 JAYNE DEL TORO DO 02/15/22 0548: Supervisory-Addendum Brief Verification & Attestation Participated in pt care: history, MDM, physical Personally performed: exam, history, MDM, supervision of care Care discussed with: Medical Student Procedures: n/a Results interpretation: Verified all documentation Verification and Attestation of Medical Student E/M Service A medical student performed and documented this service in my presence. I reviewed and verified all information documented by the medical student and made modifications to such information, when appropriate. I personally performed the physical exam and medical decision making. Jayne Del Toro, Feb 15, 2022,05:48 DORIS DELAROSA Feb 14, 2022 11:40 JAYNE DEL TORO DO Feb 15, 2022 05:48
[2022-02-14] MEDS: morphine INJ 10 MG/ML 1ML (SYR OR VIAL) IVP PRN (13:28)
[2022-02-14] MEDS ORDERED: morphine INJ 4 MG/ML 1 ML (VIAL/SYRINGE) IVP PRN (13:30)
[2022-02-14 15:45] VITALS: BP 127/75
== END 2022-02-14 15:45 | disposition home health service (06) | DRG 854 ==
LOC: EDUNIT# 05:02 → ER 05:06 → 4TH 06:14
PROVIDERS: ADMIT Family Medicine; ATTEND Internal Medicine
PROC: 0V950ZZ Drainage of Scrotum, Open Approach (ICD-10-PCS; principal; 2022-02-10 14:27)
DX: A41.50 Gram-negative sepsis, unspecified (principal); Z68.44 Body mass index [BMI] 60.0-69.9, adult; R65.20 Severe sepsis without septic shock; N49.2 Inflammatory disorders of scrotum; E66.01 Morbid (severe) obesity due to excess calories; D86.9 Sarcoidosis, unspecified; G47.33 Obstructive sleep apnea (adult) (pediatric); J44.9 Chronic obstructive pulmonary disease, unspecified; I10 Essential (primary) hypertension; K21.9 Gastro-esophageal reflux disease without esophagitis; K59.00 Constipation, unspecified; E11.40 Type 2 diabetes mellitus with diabetic neuropathy, unspecified; F41.9 Anxiety disorder, unspecified; M19.91 Primary osteoarthritis, unspecified site; D64.9 Anemia, unspecified; L80 Vitiligo; Z87.01 Personal history of pneumonia (recurrent); Z88.1 Allergy status to other antibiotic agents; Z83.6 Family history of other diseases of the respiratory system; Z82.49 Family history of ischemic heart disease and other diseases of the circulatory system
CPT/HCPCS: 36415; 36569; 71045; 76937; 80048; 80053; 82947; 83605; 85007; 85025; 85027; 86141; 87040; 87070; 87075; 87076; 87185; 87205; 94660

== ENCOUNTER → 2022-02-20 | Outpatient (CLI) | payer MEDICARE ==
[~2022-02-20] MED LIST changes: +AMOX1TAB12 PO; +ATOR20TA66 PO; +LOSA100T57 PO; +OXC5T PO
== END ==
LOC: WOUNDCARE 08:54
PROVIDERS: ATTEND Family Medicine
DX: L02.215 Cutaneous abscess of perineum (principal); A49.9 Bacterial infection, unspecified; E11.65 Type 2 diabetes mellitus with hyperglycemia; E11.622 Type 2 diabetes mellitus with other skin ulcer; E66.01 Morbid (severe) obesity due to excess calories; D86.3 Sarcoidosis of skin; E44.0 Moderate protein-calorie malnutrition; Z68.44 Body mass index [BMI] 60.0-69.9, adult
CPT/HCPCS: 11104; G0463

== ENCOUNTER → 2022-02-24 | Outpatient (CLI) | payer MEDICARE ==
[~2022-02-24] MED LIST changes: +CATHETER FLUSH 10 ML SYR IV PRN; +HOLD METFORMIN - RECEIVED CONTRAST 20 ML VIAL IV SCH; +IOHEXOL 350 MG/ML 100 ML (OMNIPAQUE 350) VIAL IV ONE; +NS 100 ML (IVPB) BAG IV ONE
--- NOTE | 2022-02-24 12:38 | Diagnostic Imaging Report ---
PROCEDURE: CT pelvis with intravenous contrast. TECHNIQUE: Axial CT images of the pelvis were obtained with intravenous contrast. Coronal and sagittal reformats were obtained and provided. All CT scans use one or more of the following dose optimizing techniques: automated exposure control, MA and/or KvP adjustment based on patient size and exam type or iterative reconstruction. Date: February 24, 2022. Indication: 56-year-old male, abscess of the perineum. Comparison: None available. Findings: There is no identified focal fluid collection or abscess. There is no identified abnormal soft tissue gas. There is no free fluid in the pelvis. The visualized portions of the intestinal tract are not distended. There is no identified abnormally enlarged lymph node in the abdomen or pelvis meeting CT size criteria for adenopathy. There is no identified cortical or aggressive bone destruction. There is no identified acute fracture. There are degenerative changes of the lower lumbar spine. Impression: 1. No identified focal fluid collection or abscess. 2. No abnormal soft tissue gas to suggest a necrotizing type infection. 3. No acute osseous abnormality. 4. No otherwise identified acute abnormality at the level of the pelvis. Dictated by: Dictated on workstation # [id number]
== END ==
LOC: RAD 11:03
PROVIDERS: ATTEND Family Medicine
DX: L02.215 Cutaneous abscess of perineum (principal); E11.65 Type 2 diabetes mellitus with hyperglycemia; E11.622 Type 2 diabetes mellitus with other skin ulcer; E66.01 Morbid (severe) obesity due to excess calories; D86.3 Sarcoidosis of skin; E44.0 Moderate protein-calorie malnutrition; A49.9 Bacterial infection, unspecified
CPT/HCPCS: 72193

== ENCOUNTER → 2022-03-02 | Outpatient (CLI) | payer MEDICARE ==
[~2022-03-02] MED LIST changes: -CATHETER FLUSH 10 ML SYR IV PRN; -HOLD METFORMIN - RECEIVED CONTRAST 20 ML VIAL IV SCH; -IOHEXOL 350 MG/ML 100 ML (OMNIPAQUE 350) VIAL IV ONE; -NS 100 ML (IVPB) BAG IV ONE
== END ==
LOC: WOUNDCARE 09:57
PROVIDERS: ATTEND Family Medicine
DX: L02.215 Cutaneous abscess of perineum (principal); E11.65 Type 2 diabetes mellitus with hyperglycemia; E11.622 Type 2 diabetes mellitus with other skin ulcer; E66.01 Morbid (severe) obesity due to excess calories; D86.3 Sarcoidosis of skin; E44.0 Moderate protein-calorie malnutrition; L20.89 Other atopic dermatitis; E11.52 Type 2 diabetes mellitus with diabetic peripheral angiopathy with gangrene
CPT/HCPCS: 11042; G0463

== ENCOUNTER → 2022-03-09 | Outpatient (CLI) | payer MEDICARE | LOC: WOUNDCARE 09:25 | PROVIDERS: ATTEND Family Medicine | DX: L02.215 Cutaneous abscess of perineum (principal); E11.65 Type 2 diabetes mellitus with hyperglycemia; E11.622 Type 2 diabetes mellitus with other skin ulcer; E66.01 Morbid (severe) obesity due to excess calories; D86.3 Sarcoidosis of skin; E44.0 Moderate protein-calorie malnutrition; L20.89 Other atopic dermatitis; Z68.44 Body mass index [BMI] 60.0-69.9, adult | CPT/HCPCS: 11042; G0463 ==

== ENCOUNTER → 2022-03-16 | Outpatient (CLI) | payer MEDICARE | LOC: WOUNDCARE 09:36 | PROVIDERS: ATTEND Family Medicine | DX: L02.215 Cutaneous abscess of perineum (principal); E11.65 Type 2 diabetes mellitus with hyperglycemia; E11.622 Type 2 diabetes mellitus with other skin ulcer; E66.01 Morbid (severe) obesity due to excess calories; D86.3 Sarcoidosis of skin; E46 Unspecified protein-calorie malnutrition; L20.9 Atopic dermatitis, unspecified | CPT/HCPCS: 11042; G0463 ==

== ENCOUNTER → 2022-03-23 | Outpatient (CLI) | payer MEDICARE | LOC: WOUNDCARE 09:29 | PROVIDERS: ATTEND Family Medicine | DX: L02.215 Cutaneous abscess of perineum (principal); E11.65 Type 2 diabetes mellitus with hyperglycemia; E11.621 Type 2 diabetes mellitus with foot ulcer; E66.01 Morbid (severe) obesity due to excess calories; D86.3 Sarcoidosis of skin; E44.0 Moderate protein-calorie malnutrition; L20.89 Other atopic dermatitis | CPT/HCPCS: 11042; G0463 ==

== ENCOUNTER → 2022-04-06 | Outpatient (CLI) | payer MEDICARE ==
[~2022-04-06] MED LIST changes: +ALBU8.5H6 IH; -RT-ALBUINH IH
== END ==
LOC: WOUNDCARE 09:24
PROVIDERS: ATTEND Family Medicine
DX: L02.215 Cutaneous abscess of perineum (principal); E11.65 Type 2 diabetes mellitus with hyperglycemia; E11.622 Type 2 diabetes mellitus with other skin ulcer; E66.01 Morbid (severe) obesity due to excess calories; D86.3 Sarcoidosis of skin; E44.0 Moderate protein-calorie malnutrition; L20.89 Other atopic dermatitis
CPT/HCPCS: 99213

== ENCOUNTER → 2022-04-13 | Outpatient (CLI) | payer MEDICARE | LOC: WOUNDCARE 09:31 | PROVIDERS: ATTEND Family Medicine | DX: E11.65 Type 2 diabetes mellitus with hyperglycemia (principal); E11.622 Type 2 diabetes mellitus with other skin ulcer; L02.215 Cutaneous abscess of perineum; D86.3 Sarcoidosis of skin; E66.01 Morbid (severe) obesity due to excess calories; E44.0 Moderate protein-calorie malnutrition; L20.89 Other atopic dermatitis; Z68.44 Body mass index [BMI] 60.0-69.9, adult | CPT/HCPCS: 99213 ==

== ENCOUNTER → 2022-04-18 | Outpatient (CLI) | payer MEDICARE | LOC: WOUNDCARE 09:08 | PROVIDERS: ATTEND Family Medicine | DX: L02.215 Cutaneous abscess of perineum (principal); E11.65 Type 2 diabetes mellitus with hyperglycemia; E11.622 Type 2 diabetes mellitus with other skin ulcer; E66.01 Morbid (severe) obesity due to excess calories; D86.3 Sarcoidosis of skin; E44.0 Moderate protein-calorie malnutrition; L20.89 Other atopic dermatitis | CPT/HCPCS: 99213 ==

== ENCOUNTER → 2022-04-19 | Outpatient (CLI) | payer MEDICARE ==
[~2022-04-19] MED LIST changes: +CATHETER FLUSH 10 ML SYR IV PRN; +HOLD METFORMIN - RECEIVED CONTRAST 20 ML VIAL IV SCH; +IOHEXOL 350 MG/ML 100 ML (OMNIPAQUE 350) VIAL IV ONE; +NS 100 ML (IVPB) BAG IV ONE
[2022-04-19 11:09] LABS: CALCIUM 9.7 MG/DL (8.5-10.1); CREATININE SERUM 1.09 MG/DL (0.60-1.30); POTASSIUM 4.1 MMOL/L (3.6-5.0)
--- NOTE | 2022-04-19 15:48 | Diagnostic Imaging Report ---
PROCEDURE: CT pelvis with contrast. TECHNIQUE: Oral and intravenous contrast were administered with pelvic CT performed. Auto Exposure Controls were utilized during the CT exam to meet ALARA standards for radiation dose reduction. INDICATION: History of a pelvic abscess and surgical treatment. It is compared with pelvic CT 02/24/2022. FINDINGS: No intraperitoneal or retroperitoneal pelvic fluid collection. There is some thickening of the skin along the right greater than left scrotum but no gas or fluid collection. No finding of residual or recurrent abscess. No bony destructive process. Unopacified urinary bladder unremarkable. The pelvic bowel loops unobstructed, nonfocal and nonacute. No adverse development. IMPRESSION: There is scrotal skin thickening but no gas, fluid collection, abscess or findings to suggest osteomyelitis. Intraperitoneal and extraperitoneal pelvis normal. Dictated by: Dictated on workstation # [id number]
== END ==
LOC: RAD 09:58
PROVIDERS: ATTEND Family Medicine
DX: L02.215 Cutaneous abscess of perineum (principal); E11.65 Type 2 diabetes mellitus with hyperglycemia; E11.622 Type 2 diabetes mellitus with other skin ulcer; E66.01 Morbid (severe) obesity due to excess calories; D86.3 Sarcoidosis of skin; E44.0 Moderate protein-calorie malnutrition; L20.89 Other atopic dermatitis
CPT/HCPCS: 36415; 72193; 80048

== ENCOUNTER 2022-04-24 05:34 | Outpatient (CLI) | payer MEDICARE ==
[~2022-04-24] VITALS: Ht 180.3 cm; Wt 201.8 kg
[~2022-04-24 05:34] MED LIST changes: -CATHETER FLUSH 10 ML SYR IV PRN; -HOLD METFORMIN - RECEIVED CONTRAST 20 ML VIAL IV SCH; -IOHEXOL 350 MG/ML 100 ML (OMNIPAQUE 350) VIAL IV ONE; -NS 100 ML (IVPB) BAG IV ONE
== END 2022-04-24 12:00 | disposition home or self-care (01) ==
LOC: PREOP 05:34
PROVIDERS: ATTEND Surgery
DX: Z01.818 Encounter for other preprocedural examination (principal)

== ENCOUNTER → 2022-04-27 | Outpatient (CLI) | payer MEDICARE | LOC: WOUNDCARE 09:30 | PROVIDERS: ATTEND Family Medicine | DX: E11.65 Type 2 diabetes mellitus with hyperglycemia (principal); E11.622 Type 2 diabetes mellitus with other skin ulcer; E66.01 Morbid (severe) obesity due to excess calories; E44.0 Moderate protein-calorie malnutrition; D86.3 Sarcoidosis of skin; L20.89 Other atopic dermatitis; Z68.44 Body mass index [BMI] 60.0-69.9, adult | CPT/HCPCS: 99213 ==

== ENCOUNTER 2022-05-01 08:07 | Day surgery (SDC) | payer MEDICARE ==
[~2022-05-01] VITALS: Ht 180.3 cm; Wt 201.8 kg
[2022-05-01] MEDS ORDERED: LACTATED RINGERS 1,000 ML IV STA (08:10)
[2022-05-01] MEDS ORDERED: KETAMINE 50 MG/5 ML SYRINGE ONE (08:12)
[2022-05-01] MEDS ORDERED: PROPOFOL INJECTION 50 ML IV ONE (08:12)
[2022-05-01 08:20] VITALS: BP 117/89
--- NOTE | 2022-05-01 08:33 | Progress Note-Pre Operative ---
Pre-Operative Progress Note Date of Available H&P: Apr 13, 2022 Date H&P Reviewed: May 01, 2022 Time H&P Reviewed: 08:27 History & Physical: H&P Reviewed, Patient Examed, No changes noted Pre-Operative Diagnosis: screening JOYCE SANDS DO May 01, 2022 08:33
[2022-05-01] MEDS ORDERED: LIRA0.6P SQ (08:39)
[2022-05-01 09:06] VITALS: BP 101/56
[2022-05-01 09:10] VITALS: BP 93/54
--- NOTE | 2022-05-01 09:13 | Progress Note-Post Operative ---
Post-Operative Progess Note Surgeon (s)/Film Cutter (s) Surgeon JOYCE SANDS DO Film Cutter: MICAH Wolf Pre-Operative Diagnosis screening Post-Operative Diagnosis polyps diverticula int hemorrhoids Procedure & Operative Findings Date of Procedure 05/01/22 Procedure Performed/Findings Colonoscopy with hot biopsy PROCEDURE NOTE: After informed consent was obtained, the patient was brought to the endoscopy suite, placed in bed in left lateral decubitus position. He was administered IV sedation by the DESKTOP ARCHITECT who then monitored his vitals the entire time, heart rate, blood pressure and pulse ox and the scope was inserted, pushed all the way to about 150 cm and pushed into the cecum. Took a picture of appendiceal john fice and noted the ileocecal valve. Then slowly withdrew the scope insufflating to look circumferentially at the nieto starting in the cecum, up the ascending colon to the hepatic flexure, then down the transverse colon. In the tranverse colon found a polyp and elected to do a hot biopsy to remove it. Continued to the splenic flexure, into the descending colon and down into the sigmoid. In the sigmoid I found a number of polyps, took a picture and then removed three of them by hot biopsy. Finally into the rectal vault and retroflexed the scope. Took a picture of the internal hemorrhoids. I had also noted some diverticula on the left side of the colon and the right; took a picture. Finally removed the scope. The patient tolerated the procedure. He was recovered in endoscopy suite. Recommended for repeat colonoscopy in 3-5 years, depending on pathology. Anesthesia Type IV sedation by DESKTOP ARCHITECT Estimated Blood Loss Estimated blood loss (mL): scant Specimens/Packing Specimens Removed transverse polyp sigmoid polyp x 3 JOYCE SANDS DO May 01, 2022 09:13
--- NOTE | 2022-05-01 09:14 | Endoscopy Discharge Instruct ---
Endo Procedure/Findings Findings 1.: Polyp 2.: Diverticulosis 3.: Internal Hemorrhoids Discharge Instructions - Activity: You might feel a little sleepy until tomorrow. This is due to the medicine you received to relax you. Until tomorrow, you should: NOT drive a car, operate machinery or power tools. NOT drink any alcoholic beverages. NOT make any important decisions or sign importortant papers. Do not return to work until tomorrow, unless otherwise instructed. Resume previous activities tomorrow. Diet: Start by taking liquids. If you tolerate liquids, advance to solid food. 1.: Colonscopy in 3 years Notify Physician - If you experience excessive bleeding, unusual abdominal pain, fever, or chest pain, contact your doctor immediately. JOYCE SANDS DO May 01, 2022 09:14
[2022-05-01 09:37] VITALS: BP 102/55
--- NOTE | 2022-05-01 11:48 | Anesthesia-General Post-Op ---
MAC Patient Condition Mental Status/LOC: Same as Preop Cardiovascular: Satisfactory Nausea/Vomiting: Absent Respiratory: Satisfactory Pain: Controlled Complications: Absent Post Op Complications Complications None Follow Up Care/Instructions Patient Instructions None needed. Anesthesiology Discharge Order Discharge Order Patient is doing well, no complaints, stable vital signs, no apparent adverse anesthesia problems. No complications reported per nursing. KEVAN ACOSTA CRNA May 01, 2022 11:48
== END 2022-05-01 09:48 | disposition home or self-care (01) ==
LOC: ENDO 08:07
PROVIDERS: ATTEND Surgery
DX: Z12.11 Encounter for screening for malignant neoplasm of colon (principal); D12.3 Benign neoplasm of transverse colon; K63.5 Polyp of colon; K57.30 Diverticulosis of large intestine without perforation or abscess without bleeding; K64.8 Other hemorrhoids; E66.01 Morbid (severe) obesity due to excess calories; Z68.44 Body mass index [BMI] 60.0-69.9, adult; G47.33 Obstructive sleep apnea (adult) (pediatric); E11.40 Type 2 diabetes mellitus with diabetic neuropathy, unspecified
CPT/HCPCS: 82947; 88305

== ENCOUNTER → 2022-05-04 | Outpatient (CLI) | payer MEDICARE | LOC: WOUNDCARE 09:35 | PROVIDERS: ATTEND Family Medicine | DX: L02.215 Cutaneous abscess of perineum (principal); E11.65 Type 2 diabetes mellitus with hyperglycemia; E11.622 Type 2 diabetes mellitus with other skin ulcer; E66.01 Morbid (severe) obesity due to excess calories; D86.3 Sarcoidosis of skin; E44.0 Moderate protein-calorie malnutrition; L20.89 Other atopic dermatitis | CPT/HCPCS: 99212 ==

== ENCOUNTER 2022-07-03 22:12 | Inpatient (IN) | payer MEDICARE ==
[~2022-07-03] VITALS: Ht 180 cm; Wt 193.7 kg
--- NOTE | 2022-07-03 23:28 | ED General ---
General Chief Complaint: Skin/Wound Problems Stated Complaint: ABSCESS Nursing Triage Note: PT AMB TO [facility] 6 WITH C/O ABSCESS ON BUTTOCK SINCE SUNDAY. PT STATES HE COULD NOT TAKE THE PAIN ANY LONGER SO HE CAME TO THE ER Source of Information: Patient, Old Records Exam Limitations: No Limitations History of Present Illness Date Seen by Provider: Jul 03, 2022 Time Seen by Provider: 23:22 Initial Comments This 56-year-old gentleman presents to the emergency room with complaints of increasing pain and swelling in the perineum where he has had multiple abscesses previously. He has been afebrile. He has required surgical incision and drainage under sedation previously for these abscesses. Allergies and Home Medications Allergies Coded Allergies: azithromycin (Verified Allergy, Intermediate, Hives, 04/24/22) Patient Home Medication List Home Medication List Reviewed: Yes Atorvastatin Calcium (Atorvastatin Calcium) 20 Mg Tablet, 20 MG PO DAILY, (Reported) Entered as Reported by: XI WORTHINGTON on 02/10/22 1240 Gabapentin (Gabapentin) 600 Mg Tablet, 600 MG PO TID PRN for PAIN-BREAKTHROUGH, (Reported) Entered as Reported by: ROBBY MCKEON on 12/04/19 1004 Liraglutide (Victoza 2-Satnam) 0.6 Mg/0.1 Ml (18 Mg/3 Ml) Pen.injctr, 0.6 MG SQ DAILY, (Reported) Entered as Reported by: THEODORA WIN on 05/01/22 0839 Losartan Potassium (Losartan Potassium) 100 Mg Tablet, 100 MG PO DAILY, (Reported) Entered as Reported by: XI WORTHINGTON on 02/10/22 1240 Naproxen Sodium (Aleve) 220 Mg Capsule, 220 MG PO Q8H PRN for PAIN-MILD (1-4), (Reported) Entered as Reported by: ROBBY MCKEON on 12/04/19 1004 Venlafaxine HCl (Venlafaxine HCl ER) 150 Mg Cap.er.24h, 150 MG PO HS, (Reported) Entered as Reported by: MADELIN CAUSEY on 03/30/15 1332 Review of Systems Review of Systems Constitutional: no symptoms reported EENTM: no symptoms reported Respiratory: no symptoms reported Cardiovascular: no symptoms reported Gastrointestinal: see HPI Genitourinary: see HPI Musculoskeletal: no symptoms reported Skin: see HPI Psychiatric/Neurological: No Symptoms Reported Hematologic/Lymphatic: No Symptoms Reported Immunological/Allergic: no symptoms reported Past Hcbyekc-Cxhbsv-Afjjbw Hx Patient Social History Tobacco Use?: No Use of E-Cig and/or Vaping dev: No Substance use?: No Alcohol Use?: No Pt feels they are or have been: No Immunizations Up To Date Tetanus Booster (TDap): Less than 5yrs Influenza Vaccine Up-to-Date: Yes; Up-to-Date First/Initial COVID19 Vaccinat: 2020 Second COVID19 Vaccination Humberto: 2020 Third COVID19 Vaccination Date: 03/2022 Seasonal Allergies Seasonal Allergies: No Past Medical History Surgery/Hospitalization HX: SARCOIDOSIS, MAGDY, COPD, HTN, PNEUMONIA, GERD, CONSTIPATION, NIDDM, ANXIETY, RECTAL ABCESS, ORTHOPEDIC. Surgeries: Yes (Perineal and perianal abscess incision and drainage) Orthopedic, Rectal Respiratory: Yes (Sarcoidosis) Sleep Apnea, COPD Currently Using CPAP: Yes Currently Using BIPAP: No Cardiac: Yes Heart Murmur, High Cholesterol, Hypertension Neurological: Yes Neuropathy Reproductive Disorders: No Sexually Transmitted Disease: No HIV/AIDS: No Genitourinary: Yes (increased frequency) Gastrointestinal: Yes (Constipation) Gastroesophageal Reflux, Chronic Diarrhea Musculoskeletal: Yes Arthritis Endocrine: Yes Diabetes, Non-Insulin dep HEENT: Yes Tonsilitis Loss of Vision: Denies Hearing Impairment: Denies Cancer: No Psychosocial: Yes Anxiety, Depression Integumentary: Yes (vitiligo) Pruritis Blood Disorders: No Family Medical History Congestive heart failure 03 FATHER, Onset:20's - 25 Family history: Asthma 09 SISTER, Onset:20's - 25 Family history: Cardiovascular disease 03 FATHER, Onset:20's - 25 Family history: Hypertension 03 MOTHER, Onset:40's - 50 Family history: Thyroid disorder 03 MOTHER, Onset:50's - 60 Heart disease 03 FATHER, Onset:20's - 25 History of - respiratory disease 03 MOTHER, Onset:50's - 60 Heart Disease, Hypertension, Lung Disease Physical Exam Vital Signs Vital Signs - First Documented 07/03/22 22:26 Temp 36.0 Pulse 108 Resp 22 B/P (MAP) 164/105 (124) Capillary Refill : Height, Weight, BMI Height: 5'11.00" Weight: 450lbs. 0oz. 204.050396jd; 62.07 BMI Method:Stated General Appearance: WD/WN, Mild Distress, Obese HEENT: Normal ENT Inspection Neck: Normal Inspection Respiratory: Lungs Clear, Normal Breath Sounds, No Accessory Muscle Use Cardiovascular: No Edema, No Murmur, Tachycardia (Mild) Gastrointestinal: Non Tender, Soft Genital/Rectal: Other (Large tender area of fullness in the right perineum with no active drainage, but suspected large abscess) Extremity: Non Tender Neurologic/Psychiatric: Alert, Oriented x3, No Motor/Sensory Deficits, Normal Mood/Affect Skin: Normal Color, Warm/Dry Focused Exam Lactate Level 07/04/22 01:39: Lactic Acid Level 0.99 Lactic Acid Level Laboratory Tests Test 07/04/22 01:39 Lactic Acid Level 0.99 MMOL/L (0.50-2.00) Progress/Results/Core Measures Suspected Sepsis SIRS Temperature: Pulse: 108 Respiratory Rate: 22 Laboratory Tests 07/04/22 00:14: White Blood Count 18.1H Blood Pressure 164 /105 Mean: 124 07/04/22 01:39: Lactic Acid Level 0.99 Laboratory Tests 07/04/22 00:14: Creatinine 1.09, INR Comment 1.0, Platelet Count 226, Total Bilirubin 1.0 Results/Orders Lab Results Laboratory Tests Test 07/04/22 00:14 07/04/22 01:39 Range/Units White Blood Count 18.1 H 4.3-11.0 10^3/uL Red Blood Count 5.35 4.30-5.52 10^6/uL Hemoglobin 13.6 13.3-17.7 g/dL Hematocrit 43 40-54 % Mean Corpuscular Volume 79 L 80-99 fL Mean Corpuscular Hemoglobin 25 25-34 pg Mean Corpuscular Hemoglobin Concent 32 32-36 g/dL Red Cell Distribution Width 13.5 10.0-14.5 % Platelet Count 226 130-400 10^3/uL Mean Platelet Volume 10.6 9.0-12.2 fL Immature Granulocyte % (Auto) 0 % Neutrophils (%) (Auto) 83 H 42-75 % Lymphocytes (%) (Auto) 8 L 12-44 % Monocytes (%) (Auto) 6 0-12 % Eosinophils (%) (Auto) 3 0-10 % Basophils (%) (Auto) 0 0-10 % Neutrophils # (Auto) 15.0 H 1.8-7.8 10^3/uL Lymphocytes # (Auto) 1.4 1.0-4.0 10^3/uL Monocytes # (Auto) 1.1 H 0.0-1.0 10^3/uL Eosinophils # (Auto) 0.5 H 0.0-0.3 10^3/uL Basophils # (Auto) 0.1 0.0-0.1 10^3/uL Immature Granulocyte # (Auto) 0.1 0.0-0.1 10^3/uL Neutrophils % (Manual) 84 % Lymphocytes % (Manual) 8 % Monocytes % (Manual) 6 % Eosinophils % (Manual) 2 % Blood Morphology Comment NORMAL Prothrombin Time 14.2 12.2-14.7 SEC INR Comment 1.0 0.8-1.4 Activated Partial Thromboplast Time 35 24-35 SEC Sodium Level 137 135-145 MMOL/L Potassium Level 3.9 3.6-5.0 MMOL/L Chloride Level 101 98-107 MMOL/L Carbon Dioxide Level 24 21-32 MMOL/L Anion Gap 12 5-14 MMOL/L Blood Urea Nitrogen 15 7-18 MG/DL Creatinine 1.09 0.60-1.30 MG/DL Estimat Glomerular Filtration Rate 80 BUN/Creatinine Ratio 14 Glucose Level 134 H 70-105 MG/DL Calcium Level 10.1 8.5-10.1 MG/DL Corrected Calcium 10.5 H 8.5-10.1 MG/DL Total Bilirubin 1.0 0.1-1.0 MG/DL Aspartate Amino Transf (AST/SGOT) 15 5-34 U/L Alanine Aminotransferase (ALT/SGPT) 13 0-55 U/L Alkaline Phosphatase 64 40-136 U/L C-Reactive Protein High Sensitivity 12.22 H 0.00-0.50 MG/DL Total Protein 7.9 6.4-8.2 GM/DL Albumin 3.5 3.2-4.5 GM/DL Lactic Acid Level 0.99 0.50-2.00 MMOL/L My Orders Orders - ANT ZAPIEN MD Cbc With Automated Diff (07/03/22 23:28) Comprehensive Metabolic Panel (07/03/22 23:28) Hs C Reactive Protein (07/03/22 23:28) Ed Iv/Invasive Line Start (07/03/22 23:28) Fentanyl Inj (Sublimaze Injection) (07/03/22 23:30) Ct Pelvis W (07/04/22 00:01) Manual Differential (07/04/22 00:14) Iohexol Injection (Omnipaque 350 Mg/Ml 1 (07/04/22 01:00) Received Contrast (Hold Metformin- Contr (07/04/22 01:00) Ns (Ivpb) (Sodium Chloride 0.9% Ivpb Bag (07/04/22 01:00) Blood Culture (07/04/22 01:40) Urinalysis (07/04/22 01:40) Urine Culture (07/04/22 01:40) Protime With Inr (07/04/22 01:40) Partial Thromboplastin Time (07/04/22 01:40) Chest 1 View, Ap/Pa Only (07/04/22 01:40) Vital Signs Adult Sepsis Patie Q15M (07/04/22 01:40) O2 (07/04/22 01:40) Remove Rings In Anticipation O (07/04/22 01:40) Lactic Acid Analyzer (07/04/22 01:40) Piperacillin Sodium/Tazobactam (Zosyn Vi (07/04/22 01:45) Vancomycin Injection (Vancomycin Injecti (07/04/22 02:00) Medications Given in ED Current Medications Medications Dose Ordered Sig/Ceci Route Start Time Stop Time Status Last Admin Dose Admin Fentanyl Citrate 75 mcg ONCE ONCE IVP 07/03/22 23:30 07/03/22 23:31 DC 07/04/22 00:13 75 MCG Iohexol 100 ml ONCE ONCE IV 07/04/22 01:00 07/04/22 01:01 DC 07/04/22 00:51 100 ML Piperacillin Sod/ Tazobactam Sod 4.5 gm/Sodium Chloride 100 ml @ 200 mls/hr ONCE ONCE IV 07/04/22 01:45 07/04/22 02:14 DC 07/04/22 02:12 200 MLS/HR Sodium Chloride 100 ml ONCE ONCE IV 07/04/22 01:00 07/04/22 01:01 DC 07/04/22 00:51 80 ML Vital Signs/I&O 07/03/22 22:26 Temp 36.0 Pulse 108 Resp 22 B/P (MAP) 164/105 (124) Capillary Refill : Blood Pressure Mean: 124 Progress Note : Progress Note Pain was treated with fentanyl. Labs were obtained revealing leukocytosis and elevated CRP. In context of infection and tachycardia, patient appears septic. CT was obtained revealing a large perineal abscess. Dr. Carpenter who has addressed abscesses for Mr. Boggs in the past was consulted. Patient was started on Zosyn and vancomycin blood cultures were obtained. Diagnostic Imaging Diagonstic Imaging: CT Plain Films/CT/US/NM/MRI: abdomen, pelvis Comments NAME: REYNOLD BOGGS [facility] REC#: [id number] PT STATUS: ADM IN : 1965 PHYSICIAN: ANT ZAPIEN MD ADMIT DATE: 07/04/22 Draft Date of Exam:07/04/22 CT PELVIS W PROCEDURE: CT pelvis with contrast. TECHNIQUE: Oral and intravenous contrast were administered with pelvic CT performed. Auto Exposure Controls were utilized during the CT exam to meet ALARA standards for radiation dose reduction. INDICATION: Perineal abscess. COMPARISON: CT pelvis with IV contrast 04/19/2022. FINDINGS: New fluid collection in the subcutaneous gluteal cleft along the midline measuring approximately 6.2 x 4.1 cm. No soft tissue gas is identified. The sagittal and coronal reformats do not include the entire [id number]. It is unclear if this fluid collection communicates with the anus. Mild colonic diverticulosis without evidence of active diverticulitis. No free intraperitoneal air or fluid in the pelvis. No acute osseous findings. IMPRESSION: New fluid collection in the subcutaneous tissues of the gluteal cleft measuring up to 6.2 cm. No soft tissue gas is identified. This fluid collection may communicate with the anus or rectum. Agree with preliminary interpretation. Dictated on workstation # [id number] Dict: 07/04/22 0749 Trans: 07/04/22 0801 JIHAN [id number] Interpreted by: DIMITRIOS PHILIP MD Diagonstic Imaging: Xray Plain Films/CT/US/NM/MRI: chest Comments NAME: REYNOLD BOGGS MED REC#: [id number] PT STATUS: ADM IN : 1965 PHYSICIAN: ANT ZAPIEN MD ADMIT DATE: 07/04/22 Draft Date of Exam:07/04/22 CHEST 1 VIEW, AP/PA ONLY EXAM: CHEST 1 VIEW, AP/PA ONLY INDICATION: Sepsis. Peroneal abscess. COMPARISON: 02/10/2022. FINDINGS/ IMPRESSION: Nondiagnostic examination due to low lung volumes and underpenetration Dictated on workstation # [id number] Dict: 07/04/2237 Trans: 07/04/22 0743 [facility] [phone] Interpreted by: DIMITRIOS PHILIP MD Departure Communication (Admissions) Time/Spoke to Admitting Phy: 01:50 Dr. Milligan Time/Spoke to Consulting Phy: 01:45 Dr. Carpenter Impression Primary Impression: Sepsis Qualified Codes: A41.9 - Sepsis, unspecified organism Additional Impression: Perineal abscess Disposition: ADMITTED INPATIENT Condition: Stable Admissions Decision to Admit Reason: Admit from ER (General) Decision to Admit/Date: Jul 04, 2022 Time/Decision to Admit Time: 01:45 Departure-Patient Inst. Referrals: ACE CARTER MD (PCP/Family) Primary Care Physician ANT ZAPIEN MD Jul 03, 2022 23:28
[2022-07-03] MEDS ORDERED: fentaNYL INJ 100 MCG/2 ML AMP IVP ONE (23:30)
[2022-07-04] VITALS (14 sets, daily range): BP systolic 80–127; BP diastolic 48–73
[2022-07-04 00:28] LABS: BASOPHILS # (AUTO) 0.1 10^3/uL (0.0-0.1); BASOPHILS % (AUTO) 0 % (0-10); EOSINOPHILS # (AUTO) 0.5 10^3/uL (0.0-0.3); EOSINOPHILS % (AUTO) 3 % (0-10); HEMATOCRIT 43 % (40-54); HEMOGLOBIN 13.6 g/dL (13.3-17.7); LYMPHOCYTES # (AUTO) 1.4 10^3/uL (1.0-4.0); LYMPHOCYTES % (AUTO) 8 % (12-44); MEAN CORPUSCULAR HEMOGLOBIN 25 pg (25-34); MEAN CORPUSCULAR HGB CONC 32 g/dL (32-36); MEAN CORPUSCULAR VOLUME 79 fL (80-99); MEAN PLATELET VOLUME 10.6 fL (9.0-12.2); MONOCYTES # (AUTO) 1.1 10^3/uL (0.0-1.0); MONOCYTES % (AUTO) 6 % (0-12); NEUTROPHILS % (AUTO) 83 % (42-75); PLATELET COUNT 226 10^3/uL (130-400); WHITE BLOOD COUNT 18.1 10^3/uL (4.3-11.0)
[2022-07-04 00:47] LABS: ALBUMIN 3.5 GM/DL (3.2-4.5); POTASSIUM 3.9 MMOL/L (3.6-5.0)
[2022-07-04 00:50] LABS: TOTAL PROTEIN 7.9 GM/DL (6.4-8.2)
[2022-07-04 00:53] LABS: CREATININE SERUM 1.09 MG/DL (0.60-1.30)
[2022-07-04] MEDS ORDERED: HOLD METFORMIN - RECEIVED CONTRAST 20 ML VIAL IV SCH ×2 (01:00→04:45)
[2022-07-04] MEDS ORDERED: NS 100 ML (IVPB) BAG IV ONE ×2 (01:00→04:45)
[2022-07-04] MEDS ORDERED: IOHEXOL 350 MG/ML 100 ML (OMNIPAQUE 350) VIAL IV ONE ×2 (01:00→04:45)
[2022-07-04] MEDS ORDERED: PIPERACILLIN SODIUM/TAZOBACTAM 4.5 GM in NS (IVPB) 100 ML IV ONE (01:45)
[2022-07-04 01:57] LABS: CALCIUM 10.1 MG/DL (8.5-10.1)
[2022-07-04 02:08] LABS: EOSINOPHILS % (MANUAL) 2 %; LYMPHOCYTES % (MANUAL) 8 %; MONOCYTES % (MANUAL) 6 %; NEUTROPHILS % (MANUAL) 84 %; RBC MORPH NORMAL
[2022-07-04 02:37] LABS: PROTHROMBIN TIME PATIENT 14.2 SEC (12.2-14.7)
[2022-07-04] MEDS ORDERED: ONDANSETRON 4 MG/2 ML (SDV) Z0FRAN IV PRN (03:15)
[2022-07-04] MEDS: VANCOMYCIN INJECTION 1,000 MG in NS (IVPB) 250 ML IV SCH ×2 (03:21→03:22)
[2022-07-04] MEDS: LACTATED RINGERS 1,000 ML IV SCH ×3 (03:29→16:18)
[2022-07-04] MEDS: morphine INJ 4 MG/ML 1 ML (VIAL/SYRINGE) IV PRN ×4 (03:30→16:20)
--- NOTE | 2022-07-04 07:44 | Diagnostic Imaging Report ---
EXAM: CHEST 1 VIEW, AP/PA ONLY INDICATION: Sepsis. Peroneal abscess. COMPARISON: 02/10/2022. FINDINGS/ IMPRESSION: Nondiagnostic examination due to low lung volumes and underpenetration Dictated by: Dictated on workstation # [id number]
--- NOTE | 2022-07-04 08:01 | Diagnostic Imaging Report ---
PROCEDURE: CT pelvis with contrast. TECHNIQUE: Oral and intravenous contrast were administered with pelvic CT performed. Auto Exposure Controls were utilized during the CT exam to meet ALARA standards for radiation dose reduction. INDICATION: Perineal abscess. COMPARISON: CT pelvis with IV contrast 04/19/2022. FINDINGS: New fluid collection in the subcutaneous gluteal cleft along the midline measuring approximately 6.2 x 4.1 cm. No soft tissue gas is identified. The sagittal and coronal reformats do not include the entire [id number]. It is unclear if this fluid collection communicates with the anus. Mild colonic diverticulosis without evidence of active diverticulitis. No free intraperitoneal air or fluid in the pelvis. No acute osseous findings. IMPRESSION: New fluid collection in the subcutaneous tissues of the gluteal cleft measuring up to 6.2 cm. No soft tissue gas is identified. This fluid collection may communicate with the anus or rectum. Agree with preliminary interpretation. Dictated by: Dictated on workstation # [id number]
[2022-07-04] MEDS: PIPERACILLIN SODIUM/TAZOBACTAM 4.5 GM in NS (IVPB) 100 ML IV SCH ×2 (08:38→16:19)
--- NOTE | 2022-07-04 09:01 | Consultation - Surgery ---
WARREN VU 07/04/22 0901: History of Present Illness History of Present Illness Patient Consulted On(fatoumata/time) 07/04/22 08:56 Date Seen by Provider: Jul 04, 2022 Time Seen by Provider: 08:30 Reason for Visit: Perineal abscess History of Present Illness Our patient is a 56 year old M presenting with a perineal abscess that he noticed Sunday morning. He states that the pain began Sunday morning after having a large bowel movement and has continually worsened since then. He states that the abscess is located on the right side of the anal opening and has grown larger for the past few days. Pain is currently a 6/10, constant, sharp and burning. He states that the pain was a 10/10 at its worst just before he came into the ER. He's tried aleve that took the edge off the pain. Lying on his left side also helps. Pressing on the ulcer, lying on his right side, and sitting wor sen the pain. Previously had an abscess in February that was incised and drained as well as treated with antibiotics. He indicates that he had chills, diaphoresis, and felt feverish on arrival yesterday evening. Denies nausea, vomiting, and headache. Allergies and Home Medications Allergies Coded Allergies: azithromycin (Verified Allergy, Intermediate, Hives, 04/24/22) Patient Home Medication List Atorvastatin Calcium (Atorvastatin Calcium) 20 Mg Tablet, 20 MG PO HS, (Reported) Entered as Reported by: XI WORTHINGTON on 02/10/22 1240 Last Action: Reviewed Gabapentin (Gabapentin) 600 Mg Tablet, 600 MG PO HS, (Reported) Entered as Reported by: ROBBY MCKEON on 12/04/19 1004 Last Action: Reviewed Liraglutide (Victoza 2-Satnam) 0.6 Mg/0.1 Ml (18 Mg/3 Ml) Pen.injctr, 1.8 MG SQ HS, (Reported) Entered as Reported by: THEODORA WIN on 05/01/22 0839 Last Action: Reviewed Lisinopril/Hydrochlorothiazide (Lisinopril-Hctz 20-25 mg Tab) 20 Mg-25 Mg Tablet, 1 EACH PO HS, (Reported) Entered as Reported by: ROBBY MCKEON on 07/04/22 1037 Last Action: Reviewed Naproxen Sodium (Aleve) 220 Mg Capsule, 220 MG PO Q8H PRN for PAIN-MILD (1-4), (Reported) Entered as Reported by: ROBBY MCKEON on 12/04/19 1004 Last Action: Reviewed Venlafaxine HCl (Venlafaxine HCl ER) 150 Mg Cap.er.24h, 150 MG PO HS, (Reported) Entered as Reported by: MADELIN CAUSEY on 03/30/15 1332 Last Action: Reviewed [Balance Of Nature] , 2 EA PO HS, (Reported) Entered as Reported by: ROBBY MCKEON on 07/04/22 1037 Last Action: Reviewed Discontinued Medications Losartan Potassium (Losartan Potassium) 100 Mg Tablet, 100 MG PO DAILY, (Reported) Discontinued Reason: No Longer Taking Entered as Reported by: XI WORTHINGTON on 02/10/22 1240 Last Action: Discontinued Past Rlhcvbt-Jatieq-Uwaswd Hx Patient Social History Smoking Status: Never a Smoker 2nd Hand Smoke Exposure: No Recent Hopitalizations: No Alcohol Use?: Yes (Drinks once a year) Have you traveled recently?: No Immunizations Up To Date Tetanus Booster (TDap): Less than 5yrs Date of Pneumonia Vaccine: Mar 28, 2020 Date of Influenza Vaccine: Apr 12, 2022 Seasonal Allergies Seasonal Allergies: No Surgeries History of Surgeries: Yes (Perineal and perianal abscess incision and drainage) Surgeries: Orthopedic, Rectal Respiratory History of Respiratory Disorde: Yes (Sarcoidosis) Respiratory Disorders: Sleep Apnea, COPD Cardiovascular History of Cardiac Disorders: Yes Cardiac Disorders: Heart Murmur, High Cholesterol, Hypertension Neurological History of Neurological Disord: Yes Neurological Disorders: Neuropathy Reproductive System Hx Reproductive Disorders: No Sexually Transmitted Disease: No HIV/AIDS: No Genitourinary History of Genitourinary Disor: Yes (increased frequency) Gastrointestinal History of Gastrointestinal Di: Yes (Constipation) Gastrointestinal Disorders: Gastroesophageal Reflux, Chronic Diarrhea Musculoskeletal History of Musculoskeletal Dis: Yes Musculoskeletal Disorders: Arthritis Endocrine History of Endocrine Disorders: Yes Endocrine Disorders: Diabetes, Non-Insulin dep HEENT History of HEENT Disorders: Yes HEENT Disorders: Tonsilitis Loss of Vision: Denies Hearing Impairment: Denies Cancer History of Cancer: No Psychosocial History of Psychiatric Problem: Yes Behavioral Health Disorders: Anxiety, Depression Integumentary History of Skin or Integumenta: Yes (vitiligo) Skin/Integumentary Disorders: Pruritis Blood Transfusions History of Blood Disorders: No Family Medical History Significant Family History: Heart Disease, Hypertension, Lung Disease Family Medial History: Congestive heart failure 03 FATHER, Onset: Family history: Asthma 09 SISTER, Onset: Family history: Cardiovascular disease 03 FATHER, Onset: Family history: Hypertension 03 MOTHER, Onset:40's - 50 Family history: Thyroid disorder 03 MOTHER, Onset:50's - 60 Heart disease 03 FATHER, Onset: History of - respiratory disease 03 MOTHER, Onset:50's - 60 Review of Systems-General Constitutional: chills (upon arrival to ER), diaphoresis (On arrival to ER), fever, malaise EENTM: blurred vision (blurry when he first stands up), nose congestion (mild nasal congestion); No double vision, No throat pain Respiratory: cough (Chronic), short of breath Cardiovascular: No chest pain, No palpitations Gastrointestinal: No abdominal pain, No constipation, No diarrhea, No heartburn, No nausea, No vomiting Genitourinary: frequency; No hematuria; incontinence Musculoskeletal: No back pain; joint pain (Related to sarcoidosis) Skin: change in color (Vitiligo), dryness (Chronic dry skin); No hx of skin cancer Psychiatric/Neurological: Anxiety, Headache, Numbness (Fingers and toes), Tingling (In fingers and toes from neuropathy) Physical Exam-General Problems Physical Exam Vital Signs Vital Signs - First Documented 07/03/22 07/04/22 07/04/22 22:26 02:38 08:15 Temp 36.0 Pulse 108 Resp 22 B/P (MAP) 164/105 (124) Pulse Ox 94 O2 Delivery Room Air O2 Flow Rate 3.00 Capillary Refill : General Appearance: mild distress, obese HEENT: PERRL/EOMI; No scleral icterus (R), No scleral icterus (L) Neck: non-tender, supple; No carotid bruit, No lymphadenopathy (R), No lymphadenopathy (L), No thyromegaly Respiratory: chest non-tender, no respiratory distress; No crackles, No wheezing Cardiovascular: normal peripheral pulses, no gallop, systolic murmur (holosystolic, blowing murmur 1+); No gallop/S3, No irregularly irregular Peripheral Pulses: 2+ Radial Pulses (R), 2+ Radial Pulses (L) Gastrointestinal: non tender, soft; No no organomegaly, No distended, No guarding, No rebound Rectal: tenderness (Tenderness to palpation at left anal verge, perineal abscess about detention through the anus and the testicles that is draining a clear, yellow fluid. Light colored lesion on the left side of the anus. The entirety of the perineum is tight and swollen.) Genital/Rectal: tenderness (Tenderness to palpation at the left side of the anus), other (Perineal abscess is around two and a half inches in diameter, draining a clear yellow fluid, tender to palpation) Back: no CVA tenderness Extremities: no calf tenderness, normal capillary refill; No calf tenderness; other (Chronic venous stasis changes in lower legs bilaterally) Neurologic/Psychiatric: alert, normal mood/affect, oriented x 3 Skin: warm/dry, other (Vitiligo) Lymphatic: No axilla node tender (R), No axilla node tender (L) Data Review Labs Laboratory Tests 07/04/22 00:14: White Blood Count 18.1H, Red Blood Count 5.35, Hemoglobin 13.6, Hematocrit 43, Mean Corpuscular Volume 79L, Mean Corpuscular Hemoglobin 25, Mean Corpuscular Hemoglobin Concent 32, Red Cell Distribution Width 13.5, Platelet Count 226, Mean Platelet Volume 10.6, Immature Granulocyte % (Auto) 0, Neutrophils (%) (Auto) 83H, Lymphocytes (%) (Auto) 8L, Monocytes (%) (Auto) 6, Eosinophils (%) (Auto) 3, Basophils (%) (Auto) 0, Neutrophils # (Auto) 15.0H, Lymphocytes # (Auto) 1.4, Monocytes # (Auto) 1.1H, Eosinophils # (Auto) 0.5H, Basophils # (Auto) 0.1, Immature Granulocyte # (Auto) 0.1, Neutrophils % (Manual) 84, Lymphocytes % (Manual) 8, Monocytes % (Manual) 6, Eosinophils % (Manual) 2, Blood Morphology Comment NORMAL, Prothrombin Time 14.2, INR Comment 1.0, Activated Partial Thromboplast Time 35, Sodium Level 137, Potassium Level 3.9, Chloride Level 101, Carbon Dioxide Level 24, Anion Gap 12, Blood Urea Nitrogen 15, Creatinine 1.09, Estimat Glomerular Filtration Rate 80, BUN/Creatinine Ratio 14, Glucose Level 134H, Calcium Level 10.1, Corrected Calcium 10.5H, Total Bilirubin 1.0, Aspartate Amino Transf (AST/SGOT) 15, Alanine Aminotransferase (ALT/SGPT) 13, Alkaline Phosphatase 64, C-Reactive Protein High Sensitivity 12.22H, Total Protein 7.9, Albumin 3.5 07/04/22 01:39: Lactic Acid Level 0.99 07/04/22 05:31: Glucometer 125H Radiology Date of Exam:07/04/22 CHEST 1 VIEW, AP/PA ONLY EXAM: CHEST 1 VIEW, AP/PA ONLY INDICATION: Sepsis. Peroneal abscess. COMPARISON: 02/10/2022. FINDINGS/ IMPRESSION: Nondiagnostic examination due to low lung volumes and underpenetration Dictated by: Dictated on workstation # [id number] Dict: 07/04/2237 Trans: 07/04/22 0854 JIHAN [id number] Interpreted by: DIMITRIOS PHILIP MD Electronically signed by: DIMITRIOS PHILIP MD 07/04/2254 Date of Exam:07/04/22 CT PELVIS W PROCEDURE: CT pelvis with contrast. TECHNIQUE: Oral and intravenous contrast were administered with pelvic CT performed. Auto Exposure Controls were utilized during the CT exam to meet ALARA standards for radiation dose reduction. INDICATION: Perineal abscess. COMPARISON: CT pelvis with IV contrast 04/19/2022. FINDINGS: New fluid collection in the subcutaneous gluteal cleft along the midline measuring approximately 6.2 x 4.1 cm. No soft tissue gas is identified. The sagittal and coronal reformats do not include the entire [id number]. It is unclear if this fluid collection communicates with the anus. Mild colonic diverticulosis without evidence of active diverticulitis. No free intraperitoneal air or fluid in the pelvis. No acute osseous findings. IMPRESSION: New fluid collection in the subcutaneous tissues of the gluteal cleft measuring up to 6.2 cm. No soft tissue gas is identified. This fluid collection may communicate with the anus or rectum. Agree with preliminary interpretation. Dictated by: Dictated on workstation # [id number] Dict: 07/04/22 0749 Trans: 07/04/22 0855 JIHAN [id number] Interpreted by: DIMITRIOS PHILIP MD Electronically signed by: DIMITRIOS PHILIP MD 07/04/22 0855 Assessment/Plan Assessment/Plan Admission Melvigonsirma Perineal abscess Assessment/Plan Perineal abscess - incision and drainage of abscess may be required. Continue antibiotic therapy with vancomycin and piperacillin tazobactam Perianal abscess - perianal pain may be due to a communicating fistula between the anus and the perineal abscess Sepsis - patient did not appear septic at the time of the examination. Not tachycardic or tachypneic. White count was high at 18.1. Will wait for culture results. Positional IV - patient may need a picc line placed as he is a difficult stick and at risk for losing IV access Hypertension - continue medical management Sarcoidosis - continue medical management Type II diabetes - liraglutide Anxiety - venlafaxine Heart Murmur - continue observation JOYCE SANDS DO 07/04/22 1215: History of Present Illness History of Present Illness Time Seen by Provider: 11:50 History of Present Illness Surgery asked to consult regarding Gluteal/evelio-rectal abscess. HPI per ED: This 56-year-old gentleman presents to the emergency room with complaints of increasing pain and swelling in the perineum where he has had multiple abscesses previously. He has been afebrile. He has required surgical incision and drainage under sedation previously for these abscesses. Pt is well known to me, I actually have done previous I&D in this area January 2022. In fact, he has had multiple other I&D of this area. Pt states pain is constant, "just like last time I needed it drained" and he is ready for surgery. Pain meds help the pain and any contact with that area makes the pain worse. Allergies and Home Medications Allergies Coded Allergies: azithromycin (Verified Allergy, Intermediate, Hives, 04/24/22) Patient Home Medication List Home Medication List Reviewed: Yes Atorvastatin Calcium (Atorvastatin Calcium) 20 Mg Tablet, 20 MG PO HS, (Reported) Entered as Reported by: XI WORTHINGTON on 02/10/22 1240 Last Action: Reviewed Gabapentin (Gabapentin) 600 Mg Tablet, 600 MG PO HS, (Reported) Entered as Reported by: ROBBY MCKEON on 12/04/19 1004 Last Action: Reviewed Liraglutide (Victoza 2-Satnam) 0.6 Mg/0.1 Ml (18 Mg/3 Ml) Pen.injctr, 1.8 MG SQ HS, (Reported) Entered as Reported by: THEODORA WIN on 05/01/22 0839 Last Action: Reviewed Lisinopril/Hydrochlorothiazide (Lisinopril-Hctz 20-25 mg Tab) 20 Mg-25 Mg Tablet, 1 EACH PO HS, (Reported) Entered as Reported by: ROBBY MCKEON on 07/04/22 1037 Last Action: Reviewed Naproxen Sodium (Aleve) 220 Mg Capsule, 220 MG PO Q8H PRN for PAIN-MILD (1-4), (Reported) Entered as Reported by: ROBBY MCKEON on 12/04/19 1004 Last Action: Reviewed Venlafaxine HCl (Venlafaxine HCl ER) 150 Mg Cap.er.24h, 150 MG PO HS, (Reported) Entered as Reported by: MADELIN CAUSEY on 03/30/15 1332 Last Action: Reviewed [Balance Of Nature] , 2 EA PO HS, (Reported) Entered as Reported by: ROBBY MCKEON on 07/04/22 1037 Last Action: Reviewed Discontinued Medications Losartan Potassium (Losartan Potassium) 100 Mg Tablet, 100 MG PO DAILY, (Reported) Discontinued Reason: No Longer Taking Entered as Reported by: XI WORTHINGTON on 02/10/22 1240 Last Action: Discontinued Past Qfnerku-Egejnn-Csshmj Hx Patient Social History Smoking Status: Never a Smoker Alcohol Use?: Yes (Drinks once a year) Surgeries History of Surgeries: Yes Surgeries: Orthopedic, Rectal Respiratory History of Respiratory Disorde: Yes (Sarcoidosis) Respiratory Disorders: Sleep Apnea, COPD Cardiovascular History of Cardiac Disorders: Yes Cardiac Disorders: Heart Murmur, High Cholesterol, Hypertension Neurological History of Neurological Disord: Yes Neurological Disorders: Neuropathy Genitourinary History of Genitourinary Disor: Yes (increased frequeency) Gastrointestinal History of Gastrointestinal Di: Yes Gastrointestinal Disorders: Gastroesophageal Reflux, Chronic Constipation, Chronic Diarrhea Musculoskeletal History of Musculoskeletal Dis: Yes Musculoskeletal Disorders: Arthritis Endocrine History of Endocrine Disorders: Yes Endocrine Disorders: Diabetes, Non-Insulin dep HEENT History of HEENT Disorders: Yes HEENT Disorders: Tonsilitis Loss of Vision: Denies Hearing Impairment: Denies Cancer History of Cancer: No Psychosocial Behavioral Health Disorders: Anxiety, Depression Integumentary History of Skin or Integumenta: Yes Family Medical History Significant Family History: Asthma, Heart Disease, Hypertension Family Medial History: Congestive heart failure 03 FATHER, Onset:'s Family history: Asthma 09 SISTER, Onset:20 Family history: Cardiovascular disease 03 FATHER, Onset: Family history: Hypertension 03 MOTHER, Onset:40's - 50 Family history: Thyroid disorder 03 MOTHER, Onset:50's - 60 Heart disease 03 FATHER, Onset:'s History of - respiratory disease 03 MOTHER, Onset:50's - 60 Review of Systems-General Constitutional: chills (upon arrival to ER), diaphoresis (On arrival to ER), fever, malaise EENTM: blurred vision (blurry when he first stands up), nose congestion (mild nasal congestion); No double vision, No throat pain Respiratory: cough (Chronic), short of breath Cardiovascular: No chest pain, No palpitations Gastrointestinal: No abdominal pain, No constipation, No diarrhea, No heartburn, No nausea, No vomiting Genitourinary: frequency; No hematuria; incontinence Musculoskeletal: No back pain; joint pain (Related to sarcoidosis), joint swelling, muscle stiffness Skin: change in color (Vitiligo), dryness (Chronic dry skin); No hx of skin cancer Psychiatric/Neurological: Anxiety, Headache, Numbness (Fingers and toes), Tingling (In fingers and toes from neuropathy) Physical Exam-General Problems Physical Exam General Appearance: mild distress (secondary to pain), obese (super morbidly) Eyes: Bilateral Eye PERRL, Bilateral Eye EOMI HEENT: pharynx normal; No scleral icterus (R), No scleral icterus (L) Neck: non-tender, supple; No thyromegaly Respiratory: lungs clear, normal breath sounds, no respiratory distress, no accessory muscle use Cardiovascular: normal peripheral pulses, systolic murmur (holosystolic, blowing murmur 1+) Peripheral Pulses: 2+ Radial Pulses (R), 2+ Radial Pulses (L) Gastrointestinal: non tender, soft, no organomegaly, hernia (very small umbilical hernia) Rectal: tenderness (Tenderness to palpation at left anal verge, perineal abscess about detention through the anus and the testicles that is draining a clear, yellow fluid. Light colored lesion on the left side of the anus. The entirety of the perineum is tight and swollen.) Genital/Rectal: tenderness (Tenderness to palpation at the left side of the anus), other (Perineal abscess is around two and a half inches in diameter, draining a clear yellow fluid, tender to palpation) Extremities: no calf tenderness, normal capillary refill, other (Chronic venous stasis changes in lower legs bilaterally) Neurologic/Psychiatric: alert, normal mood/affect, oriented x 3 Skin: warm/dry, other (Vitiligo) Lymphatic: no adenopathy (neck, axilla or groin) Assessment/Plan Assessment/Plan Assessment/Plan Perineal abscess - incision and drainage of abscess will be done today, continue antibiotic therapy with vancomycin and piperacillin tazobactam. Will get consent, pt hasn't eaten since 14:00 yesterday Leukocytosis - was high at 18.1. Will wait for culture results. Venous insufficiency- patient will need a picc line placed, ordered Hypertension - resume home meds Sarcoidosis Type II diabetes - liraglutide Anxiety - venlafaxine I discussed the surgery with pt, risks and complications not limited to pain, bleeding, infection, scar and need for further procedure. All questions answered to his satisfaction. Supervisory-Addendum Brief Verification & Attestation Participated in pt care: history, MDM, physical Personally performed: exam, history, MDM, supervision of care Care discussed with: Medical Student Procedures: n/a Verification and Attestation of Medical Student E/M Service A medical student performed and documented this service. I then reviewed and verified all information documented by the medical student and made modifications to such information, when appropriate. I personally performed a physical exam, medical decision making and then discussed any differences between the notes and made revisions as necessary to create one note. Joyce Sands , 07/04/22 , 12:20 WARREN VU Jul 04, 2022 09:01 JOYCE SANDS DO Jul 04, 2022 12:15
[2022-07-04] MEDS ORDERED: VANCOMYCIN 1,750 MG/NS 500 ML IVPB IV SCH ×2 (10:00)
[2022-07-04] MEDS ORDERED: BALANCE OF NATURE PO (10:37)
[2022-07-04] MEDS ORDERED: LISI1TAB48 PO (10:37)
[2022-07-04] MEDS ORDERED: LIDOCAINE PF 2% 5 ML (XYLOCAINE) VIAL ONE (12:13)
[2022-07-04] MEDS ORDERED: ONDANSETRON 4 MG/2 ML (SDV) Z0FRAN ONE (12:13)
[2022-07-04] MEDS ORDERED: MIDAZOLAM 2 MG/2 ML (VERSED) VIAL ONE (12:13)
[2022-07-04] MEDS ORDERED: proPOfol 200 MG/20 ML (DIPRIVAN) VIAL IV ONE ×2 (12:13→14:22)
[2022-07-04] MEDS ORDERED: fentaNYL INJ 100 MCG/2 ML AMP ONE (12:13)
[2022-07-04] MEDS ORDERED: LACTATED RINGERS 1,000 ML IV PRN ×2 (13:30→14:45)
[2022-07-04] MEDS ORDERED: BUP/EPI 0.5% 1:200,000 (SENSORCAINE) 30 ML VIAL ONE (14:09)
[2022-07-04] MEDS ORDERED: PHENYLEPHRINE 100 MCG/ML 10 ML (ANESTHESIA) SYR ONE (14:22)
[2022-07-04] MEDS ORDERED: SUCCINYLCHOLINE INJ 20 MG/1 ML 10 ML VIAL ONE (14:22)
[2022-07-04] MEDS ORDERED: ROCURONIUM 50 MG/5 ML (ZEMURON) VIAL IV ONE (14:22)
[2022-07-04] MEDS ORDERED: DESFLURANE (SUPRANE) 15 ML INHAL SOLN ONE (14:24)
[2022-07-04] MEDS ORDERED: SEVOFLURANE (ULTANE) 15 ML INHAL SOLN ONE (14:24)
--- NOTE | 2022-07-04 14:37 | Anesthesia-General Post-Op ---
General Patient Condition Mental Status/LOC: Same as Preop Cardiovascular: Satisfactory Nausea/Vomiting: Absent Respiratory: Satisfactory Pain: Controlled Complications: Absent Post Op Complications Complications None Follow Up Care/Instructions Patient Instructions None needed. Anesthesia/Patient Condition Patient Condition Patient is doing well, no complaints, stable vital signs, no apparent adverse anesthesia problems. No complications reported per nursing. SUSAN ROCK CRNA Jul 04, 2022 14:37
[2022-07-04] MEDS ORDERED: fentaNYL INJ 100 MCG/2 ML AMP IVP ONE (14:45)
[2022-07-04] MEDS ORDERED: ONDANSETRON 4 MG/2 ML (SDV) Z0FRAN IVP PRN (14:45)
--- NOTE | 2022-07-04 15:26 | Progress Note-Post Operative ---
Post-Operative Progess Note Surgeon (s)/Lamp Cleaner (s) Surgeon JOYCE SANDS DO Lamp Cleaner: MICAH Friedn Pre-Operative Diagnosis Janneth-rectal abscess Post-Operative Diagnosis Perineal/Scrotal abscess Procedure & Operative Findings Date of Procedure 07/04/22 Procedure Performed/Findings Incision and Drainage with packing Anesthesia Type GET Estimated Blood Loss Estimated blood loss (mL): appx 50ml Specimens/Packing Specimens Removed abscess culture Packin JOYCE SANDS DO Jul 04, 2022 15:26
--- NOTE | 2022-07-04 15:57 | History & Physical-Hospitalist ---
MIGUEL-RICHARD HODGSON 07/04/22 1557: History of Present Illness HPI/Chief Complaint CC: Perineal abscess Geovanna Zavaleta is a 56 yo male with a history of Sarcoidosis, COPD, MAGDY, T2DM, neuropathy, and severe morbid obesity, who presents for evaluation and manage ment of a perineal abscess. He states that he noticed the pain, which is stinging and burning in character, on Sunday morning after a large bowel movement, which has continued to worsen. He rates the pain a 6/10, which has decreased from the 10/10 pain he presented with. He reports that Alleve and L lateral recumbent positioning alleviates the pain, while any pressure on the ulcer will cause it to worsen. The abscess is approximately 5 x 5 cm, and is located to the right of his rectum. He states that it has gradually enlarged over the past several days. Geovanna states that he has had multiple similar abscesses in the past that required antibiotic and I&D. Patient denies nausea, vomiting, headache or chills at the time of my visit. He states that his appetite is gone, and that he has not had a bowel movement since admission. Geovanna is talkative and pleasant. Source: patient Date Seen 07/04/22 Attending Physician Kenny Estrada MD PCP Admitting Physician: Jayne Del Toro DO Attending Physician: Jayne Del Toro DO Referring Physician Date of Admission Jul 04, 2022 at 01:55 Home Medications & Allergies Home Medications Reviewed patient Home Medication Reconciliation performed by pharmacy medication reconciliations sheet metal technician and/or nursing. Patients Allergies have been reviewed. Allergies Allergies Coded Allergies azithromycin (Verified Allergy, Intermediate, Hives, 04/24/22) Past Jzchuvu-Raeqot-Cbbequ Hx Patient Social History Marrital Status: Tobacco Use?: No Smoking Status: Never a Smoker Smokeless Tobacco Frequency: Never a User Use of E-Cig and/or Vaping dev: No Substance use?: No Alcohol Use?: Yes (Drinks once a year) Alcohol Frequency: Once in a while Pt feels they are or have been: No Immunizations Up To Date Date of Influenza Vaccine: Apr 12, 2022 First/Initial COVID19 Vaccinat: 2020 Second COVID19 Vaccination Humberto: 2020 Tetanus Booster (TDap): Less Than 5 Years Date of Pneumonia Vaccine: Mar 28, 2020 Seasonal Allergies Seasonal Allergies: No Current Status Advance Directives: No Communicates: Verbally Primary Language: Colombian Preferred Spoken Language: Colombian Is interpretation needed?: No Sensory deficits: Vision impairment Past Medical History Surgeries: Orthopedic, Rectal Sleep Apnea, COPD Currently Using CPAP: No Currently Using BIPAP: No Heart Murmur, High Cholesterol, Hypertension Neuropathy Sexually Transmitted Disease: No HIV/AIDS: No Gastroesophageal Reflux, Chronic Constipation, Chronic Diarrhea Arthritis Diabetes, Non-Insulin dep Tonsilitis Loss of Vision: Denies Hearing Impairment: Denies Anxiety, Depression Pruritis Blood Disorders: No HTN Morbid Obesity Chronic Pain GERD COPD Asthma Sarcoidosis MAGDY Family Medical History Congestive heart failure 03 FATHER, Onset:20's - Family history: Asthma 09 SISTER, Onset:20's - 25 Family history: Cardiovascular disease 03 FATHER, Onset:20s - Family history: Hypertension 03 MOTHER, Onset:40's - 50 Family history: Thyroid disorder 03 MOTHER, Onset:50's - 60 Heart disease 03 FATHER, Onset:20s - 25 History of - respiratory disease 03 MOTHER, Onset:50's - 60 Asthma, Heart Disease, Hypertension Review of Systems Constitutional: No chills, No diaphoresis; malaise EENTM: No hearing loss, No ear pain Respiratory: No cough, No dyspnea on exertion Cardiovascular: No chest pain, No palpitations Gastrointestinal: No abdominal pain; loss of appetite; No nausea, No vomiting Genitourinary: No decreased output, No discharge Musculoskeletal: No back pain, No gout Skin: No change in color, No change in hair/nails Psychiatric/Neurological: Denies Anxiety, Denies Depressed Physical Exam Physical Exam Vital Signs Vital Signs - First Documented 07/03/22 07/04/22 07/04/22 22:26 02:38 08:15 Temp 36.0 Pulse 108 Resp 22 B/P (MAP) 164/105 (124) Pulse Ox 94 O2 Delivery Room Air O2 Flow Rate 3.00 Capillary Refill : Less Than 3 Seconds Height, Weight, BMI Height: 5'11.00" Weight: 450lbs. 0oz. 204.925886pb; 59.78 BMI Method:Stated General Appearance: No Apparent Distress, WD/WN, Obese Eyes: Bilateral Eye Normal Inspection, Bilateral Eye PERRL HEENT: PERRL/EOMI, TMs Normal, Normal ENT Inspection, Pharynx Normal Neck: Full Range of Motion, Normal Inspection, Non Tender, Supple Respiratory: Chest Non Tender, Lungs Clear, Normal Breath Sounds, No Accessory Muscle Use, No Respiratory Distress Cardiovascular: Regular Rate, Rhythm, Normal Peripheral Pulses Gastrointestinal: Normal Bowel Sounds, Non Tender, Soft Rectal: Other (Perineal abscess with scant sero-sang drainage) Extremity: Normal Capillary Refill, Normal Inspection, Other (Stasis dermatitis bilaterally) Neurologic/Psychiatric: Alert, Oriented x3, No Motor/Sensory Deficits, Normal Mood/Affect Skin: Normal Color, Warm/Dry Results Results/Procedures Labs Laboratory Tests 07/04/22 00:14 Patient resulted labs reviewed. Imaging: Reviewed Imaging Report Imaging Date of Exam:07/04/22 CHEST 1 VIEW, AP/PA ONLY EXAM: CHEST 1 VIEW, AP/PA ONLY INDICATION: Sepsis. Peroneal abscess. COMPARISON: 02/10/2022. FINDINGS/ IMPRESSION: Nondiagnostic examination due to low lung volumes and underpenetration Date of Exam:07/04/22 CT PELVIS W PROCEDURE: CT pelvis with contrast. TECHNIQUE: Oral and intravenous contrast were administered with pelvic CT performed. Auto Exposure Controls were utilized during the CT exam to meet ALARA standards for radiation dose reduction. INDICATION: Perineal abscess. COMPARISON: CT pelvis with IV contrast 04/19/2022. FINDINGS: New fluid collection in the subcutaneous gluteal cleft along the midline measuring approximately 6.2 x 4.1 cm. No soft tissue gas is identified. The sagittal and coronal reformats do not include the entire [id number]. It is unclear if this fluid collection communicates with the anus. Mild colonic diverticulosis without evidence of active diverticulitis. No free intraperitoneal air or fluid in the pelvis. No acute osseous findings. IMPRESSION: New fluid collection in the subcutaneous tissues of the gluteal cleft measuring up to 6.2 cm. No soft tissue gas is identified. This fluid collection may communicate with the anus or rectum. Assessment/Plan Admission Diagnosis Perineal abscess Admission Status: Inpatient Order (span 2 midnights) Reason for Inpatient Admission: IV antibiotics, sepsis Assessment and Plan Sepsis Perineal Abscess, S/P incision and drainage CT abd/pelvis on demonstrated 6.2 cm fluid collection in subcutaneous tissue of gluteal cleft Abscess contents sent for culture WBC is presently 18.1 On Vancomycin, Pip/Tazo Pain control, PRN Zofran Fluids Sarcoidosis COPD MAGDY On 2 L O2 via Nasal Cannula T2DM Viktoza Diabetic diet Neuropathy Gabapentin Hypertension Lisinopril/HCTZ Hyperlipidemia Lipitor JAYNE DEL TORO DO 07/05/22 0515: History of Present Illness Source: patient Time Seen by a Provider: 11:00 Past Soihiyd-Fevcus-Yuafri Hx Patient Social History Marrital Status: Smoking Status: Former Smoker Past Medical History High Cholesterol, Hypertension Family Medical History Congestive heart failure 03 FATHER, Onset:s Family history: Asthma 09 SISTER, Onset: - Family history: Cardiovascular disease 03 FATHER, Onset:20 Family history: Hypertension 03 MOTHER, Onset:40's - 50 Family history: Thyroid disorder 03 MOTHER, Onset:50s - 60 Heart disease 03 FATHER, Onset: History of - respiratory disease 03 MOTHER, Onset:50s - Review of Systems Constitutional: see HPI Physical Exam Physical Exam General Appearance: No Apparent Distress, Chronically ill, Obese Respiratory: Lungs Clear, Normal Breath Sounds Cardiovascular: Regular Rate, Rhythm Neurologic/Psychiatric: Alert, Oriented x3 Assessment/Plan Admission Diagnosis Perineal abscess needs I&D Admission Status: Inpatient Order (span 2 midnights) Reason for Inpatient Admission: abscess Supervisory-Addendum Brief Verification & Attestation Participated in pt care: history, MDM, physical Personally performed: exam, history, MDM, supervision of care Care discussed with: Medical Student Procedures: n/a Results interpretation: Verified all documentation Verification and Attestation of Medical Student E/M Service A medical student performed and documented this service in my presence. I reviewed and verified all information documented by the medical student and made modifications to such information, when appropriate. I personally performed the physical exam and medical decision making. Jayne Del Toro, Jul 05, 2022,05:15 RICHARD PHILLIPS Jul 04, 2022 15:57 JAYNE DEL TORO DO Jul 05, 2022 05:15
[2022-07-04] MEDS: VANCOMYCIN 1,750 MG/NS 500 ML IVPB IV SCH ×2 (16:39)
--- NOTE | 2022-07-04 23:14 | OPERATIVE REPORT ---
DATE OF SERVICE: 07/04/2022 PREOPERATIVE DIAGNOSIS: Perirectal abscess. POSTOPERATIVE DIAGNOSIS: Perineal/scrotal abscess. SURGEON: Felice Carpenter DO ANESTHESIOLOGIST: [ ] MS3 and Kris Fung MS3. PROCEDURE: Incision and drainage with packing of perineal/scrotal abscess. ANESTHESIA: General endotracheal tube. SPECIMEN: Abscess culture. BLOOD LOSS: Approximately 50 mL. FLUIDS: Per anesthesia. POSTOPERATIVE CONDITION: Stable. INDICATIONS FOR PROCEDURE: The patient is a 56-year-old male who came in with a perineal perirectal pain. CT of the pelvis was performed, showed an abscess. The patient has had multiple abscesses in this area. FINDINGS: The patient had an abscess that was really perineal and scrotal, but did go to just above the rectum. The patient had purulent fluid in this. DESCRIPTION OF PROCEDURE: After informed consent was obtained, the patient was brought to the operating room and placed on the table in the lithotomy position. He was sterilely prepped and draped in normal fashion. This abscess was really more perineal and scrotal, was just below the base of the scrotum and the perineum, just anterior to the rectum, infiltrated the skin with local. This was right along the place where the patient had previous I and Ds, right through the old scar in this perineal/scrotal area, after infiltrating local, made incision with #11 blade, carried down through skin and subcutaneous tissue, immediately got out foul-smelling grayish purple fluid, got a culture and then opened this up and got out a lot more clots came out. I opened this a little bit more. Actually, I thought was stuck in another finger into the rectum and I could feel both my finger from the other side. I did not feel that there was a connection, but this was almost like a perirectal abscess that went up above the ischiorectal area and above the anal sphincter. It was about 4 cm deep, about 8 cm superior to anterior and then 9 cm transversely. There was some bleeding. This was controlled with Bovie electrocautery, also copiously irrigated with approximately half liter of normal saline, able to control almost all the bleeding and then packed this area with a whole bottle of 1-inch iodoform packing. Area was cleaned and dried, dressings placed. The patient tolerated the procedure and was transferred to recovery room in stable condition. Sponge and needle counts were correct at the end of the case. Job ID: [id number] DocumentID: [id number] Dictated Date: 07/04/2022 15:29:26 Sheriffs Detective Date: 07/04/2022 23:12:00 Dictated By: FELICE CARPENTER DO
[2022-07-05] MEDS: PIPERACILLIN SODIUM/TAZOBACTAM 4.5 GM in NS (IVPB) 100 ML IV SCH ×4 (00:37→23:15)
[2022-07-05] MEDS: LACTATED RINGERS 1,000 ML IV SCH ×2 (00:37→05:17)
[2022-07-05 04:09] VITALS: BP 94/52
[2022-07-05] MEDS: VANCOMYCIN 1,750 MG/NS 500 ML IVPB IV SCH ×2 (05:14)
[2022-07-05] MEDS: morphine INJ 4 MG/ML 1 ML (VIAL/SYRINGE) IV PRN (05:14)
[2022-07-05] MEDS ORDERED: DOCUSATE SODIUM 100 MG (COLACE) CAP PO PRN (06:45)
[2022-07-05] MEDS ORDERED: ONDANSETRON 4 MG/2 ML (SDV) Z0FRAN IVP PRN (06:45)
[2022-07-05] MEDS ORDERED: MENTHOL/ZINC OXIDE (CALMOSEPTINE) 113 GM TUBE TP PRN (06:45)
[2022-07-05] MEDS ORDERED: LACTULOSE SYRUP 10GM/15ML (ENULOSE) 30ML UDC PO PRN (06:45)
[2022-07-05] MEDS ORDERED: diphenhydrAMINE 25 MG TAB (BENADRYL) PO PRN ×2 (06:45)
[2022-07-05] MEDS ORDERED: ALPRAZolam 0.25 MG (XANAX) TAB PO PRN (06:45)
[2022-07-05] MEDS ORDERED: ACETAMINOPHEN 500 MG TAB (TYLENOL) PO PRN (06:45)
[2022-07-05] MEDS ORDERED: CALCIUM CARBONATE 500 MG (TUMS) TAB.CHEW PO PRN (06:45)
[2022-07-05] MEDS ORDERED: BISACODYL 10 MG SUPP (DULCOLAX) PR PRN (06:45)
[2022-07-05] MEDS ORDERED: ONDANSETRON 4 MG (ZOFRAN) ORAL DISSOLVE TAB PO PRN (06:45)
[2022-07-05] MEDS ORDERED: NAPROXEN 250 MG (NAPROSYN) TABLET PO PRN (07:00)
[2022-07-05 07:28] LABS: BASOPHILS # (AUTO) 0.1 10^3/uL (0.0-0.1); BASOPHILS % (AUTO) 1 % (0-10); EOSINOPHILS # (AUTO) 0.8 10^3/uL (0.0-0.3); EOSINOPHILS % (AUTO) 5 % (0-10); HEMATOCRIT 37 % (40-54); HEMOGLOBIN 11.7 g/dL (13.3-17.7); LYMPHOCYTES # (AUTO) 1.4 10^3/uL (1.0-4.0); LYMPHOCYTES % (AUTO) 9 % (12-44); MEAN CORPUSCULAR HEMOGLOBIN 26 pg (25-34); MEAN CORPUSCULAR HGB CONC 32 g/dL (32-36); MEAN CORPUSCULAR VOLUME 82 fL (80-99); MEAN PLATELET VOLUME 10.4 fL (9.0-12.2); MONOCYTES # (AUTO) 1.1 10^3/uL (0.0-1.0); MONOCYTES % (AUTO) 7 % (0-12); NEUTROPHILS # (AUTO) 12.6 10^3/uL (1.8-7.8); NEUTROPHILS % (AUTO) 79 % (42-75); PLATELET COUNT 220 10^3/uL (130-400)
--- NOTE | 2022-07-05 07:30 | Anesthesia-General Post-Op ---
General Patient Condition Mental Status/LOC: Same as Preop Cardiovascular: Satisfactory Nausea/Vomiting: Absent Respiratory: Satisfactory Pain: Controlled Complications: Absent Post Op Complications Complications None Follow Up Care/Instructions Patient Instructions None needed. Anesthesia/Patient Condition Patient Condition Patient is doing well, no complaints, stable vital signs, no apparent adverse anesthesia problems. No complications reported per nursing. SUSAN ROCK CRNA Jul 05, 2022 07:29
[2022-07-05 07:38] LABS: ALBUMIN 2.9 GM/DL (3.2-4.5); POTASSIUM 3.9 MMOL/L (3.6-5.0)
[2022-07-05 07:39] LABS: CALCIUM 8.7 MG/DL (8.5-10.1)
[2022-07-05 07:40] LABS: TOTAL PROTEIN 6.5 GM/DL (6.4-8.2)
[2022-07-05 07:44] LABS: CREATININE SERUM 1.6 MG/DL (0.60-1.30)
--- NOTE | 2022-07-05 07:59 | Progress Note - Surgery ---
WARREN VU 07/05/22 0759: Subjective Date Seen by a Provider: Jul 05, 2022 Time Seen by a Provider: 07:52 Subjective/Events-last exam Our patient is a 56 year old s/p incision and drainage of perineal abscess day 1. He states that he is feeling sore this morning and rates his pain at around a 2 or 3/10, constant but worsened by movement. Says his pain is well-controlled on morphine. He hasn't had a bowel movement yet but has been passing gas. He is up and ambulating this morning. He denies SOB, chest pain, nausea, vomiting, chills, night sweats, weakness, dysuria, frequency, or headache. He states that he doesn't have much of an appetite and hasn't had the urge to have a BM. He notes that his urine had a tinge of orange when he used the restroom this morning. Review of Systems General: No Chills, No Night Sweats HEENT: No Head Aches, No Visual Changes Pulmonary: No Dyspnea, No Cough Cardiovascular: No: Chest Pain, Palpitations, Lt Headedness Gastrointestinal: No: Nausea, Vomiting, Abdominal Pain Genitourinary: No Dysuria, No Frequency; Other (Notes an orange tinge in his urine) Neurological: No: Weakness, Numbness, Confusion Focused Exam Lactate Level 07/04/22 01:39: Lactic Acid Level 0.99 Objective Exam Vital Signs Date Time Temp Pulse Resp B/P (MAP) Pulse Ox O2 Delivery O2 Flow Rate FiO2 07/05/22 04:09 35.8 70 18 94/52 (66) 94 Nasal Cannula 2.00 07/04/22 23:38 36.0 75 20 93/51 (65) 96 Nasal Cannula 2.00 07/04/22 20:55 Nasal Cannula 2.00 07/04/22 20:00 36.7 82 20 127/56 (79) 92 Nasal Cannula 2.00 07/04/22 16:43 115/65 (82) 07/04/22 16:01 35.9 88 18 80/48 (59) 95 Nasal Cannula 2.00 07/04/22 15:30 36.8 20 94/68 (77) 96 Nasal Cannula 2.00 07/04/22 15:30 Nasal Cannula 2.00 07/04/22 15:20 20 94/68 (77) 97 Nasal Cannula 2.00 07/04/22 15:15 Nasal Cannula 2.00 07/04/22 15:10 20 98/62 (74) 96 Nasal Cannula 2.00 07/04/22 15:00 Nasal Cannula 2.00 07/04/22 15:00 20 103/67 (79) 97 Nasal Cannula 2.00 07/04/22 14:50 20 103/67 (79) 96 OxyMask 3.00 07/04/22 14:45 OxyMask 4.00 07/04/22 14:40 20 106/66 (79) 96 OxyMask 4.00 07/04/22 14:32 37.0 20 108/73 (85) 97 OxyMask 4.00 07/04/22 14:32 OxyMask 4.00 07/04/22 11:40 36.8 89 18 101/59 (73) 93 Room Air 07/04/22 08:15 36.8 90 18 97/54 (68) 95 Nasal Cannula 3.00 07/04/22 08:00 Room Air I & O 07/05/22 07:00 Intake Total 1030 ml Balance 1030 ml Capillary Refill : Less Than 3 Seconds General Appearance: No Apparent Distress, Chronically ill, Obese HEENT: PERRL/EOMI; No Moist Mucous Membranes (Mucous membranes are dry), No Scleral Icterus (L), No Scleral Icterus (R) Neck: Non Tender, Supple; No Carotid Bruit, No Lymphadenopathy (L), No Lymphadenopathy (R), No Thyromegaly Respiratory: Chest Non Tender, No Accessory Muscle Use, No Respiratory Distress, Decreased Breath Sounds, Wheezing (Upper airway wheeze noted on auscultation) Cardiovascular: Regular Rate, Rhythm, No Gallop, Systolic Murmur (Holosystolic murmur present) Peripheral Pulses: 2+ Radial Pulses (R), 2+ Radial Pulses (L) Gastrointestinal: non tender, soft, no organomegaly; No distended, No guarding, No rebound; hernia (very small umbilical hernia) Extremity: Normal Capillary Refill (less than 3 seconds); No Calf Tenderness, No Slow Capillary Refill; Other (Stasis dermatitis bilaterally) Neurologic/Psychiatric: Alert, Oriented x3 Skin: Warm/Dry, Other (Patient has widespread vitiligo) Lymphatic: No Axilla Node Tender (L), No Axilla Node Tender (R) Results Lab Laboratory Tests 07/04/22 11:19: Glucometer 133H 07/04/22 17:55: Glucometer 121H 07/04/22 20:06: Glucometer 110 07/04/22 23:44: Glucometer 113H 07/05/22 05:20: Glucometer 123H 07/05/22 07:20: White Blood Count 16.0H, Red Blood Count 4.51, Hemoglobin 11.7L, Hematocrit 37L, Mean Corpuscular Volume 82, Mean Corpuscular Hemoglobin 26, Mean Corpuscular Hemoglobin Concent 32, Red Cell Distribution Width 13.5, Platelet Count 220, Mean Platelet Volume 10.4, Immature Granulocyte % (Auto) 0, Neutrophils (%) (Auto) 79H, Lymphocytes (%) (Auto) 9L, Monocytes (%) (Auto) 7, Eosinophils (%) (Auto) 5, Basophils (%) (Auto) 1, Neutrophils # (Auto) 12.6H, Lymphocytes # (Auto) 1.4, Monocytes # (Auto) 1.1H, Eosinophils # (Auto) 0.8H, Basophils # (Auto) 0.1, Immature Granulocyte # (Auto) 0.1, Sodium Level 137, Potassium Level 3.9, Chloride Level 103, Carbon Dioxide Level 25, Anion Gap 9, Blood Urea Nitrogen 21H, Creatinine 1.60H, Estimat Glomerular Filtration Rate 51, BUN/Creatinine Ratio 13, Glucose Level 114H, Calcium Level 8.7, Corrected Calcium 9.6, Total Bilirubin 1.0, Aspartate Amino Transf (AST/SGOT) 19, Alanine Aminotransferase (ALT/SGPT) 19, Alkaline Phosphatase 53, Total Protein 6.5, Albumin 2.9L Assessment/Plan Assessment/Plan Admission Diagonsis Perineal Abscess Assessment/Plan Perineal Abscess - abscess was incised and drained on 07/04/2022. Cultures were collected, still awaiting results. Continue antibiotic treatment and daily or as-needed wound repacking. Leukocytosis - WBC count has dropped to 16.0 today from 18.1 yesterday. Acute drop in eGFR - possibly due to vancomycin toxicity, may need a vanc trough to assess levels DVT prophylaxis - lovenox administered COPD - continue oxygen therapy, monitor for signs of pneumoniae. Hypertension - continue medical management Sarcoidosis - continue medical management Type II Diabetes - liraglutide Anxiety - venlafaxine Venous insufficiency - picc line was placed yesterday prior to surgery FELICE CARPENTER DO 07/06/22 1158: Subjective Time Seen by a Provider: 12:39 Subjective/Events-last exam Pt seen and examined, no new complaints today pain well controlled. Review of Systems Pulmonary: No Dyspnea, No Cough Cardiovascular: No: Chest Pain, Palpitations Gastrointestinal: Other (has pain at incision); No: Nausea, Vomiting, Abdominal Pain Genitourinary: Other (Notes an orange tinge in his urine) Objective Exam General Appearance: No Apparent Distress, Chronically ill HEENT: PERRL/EOMI, Scleral Icterus (R) Neck: Carotid Bruit Respiratory: Chest Non Tender, No Accessory Muscle Use, No Respiratory Distress, Decreased Breath Sounds, Wheezing (Upper airway wheeze noted on auscultation) Cardiovascular: Regular Rate, Rhythm, Systolic Murmur (Holosystolic murmur present) Gastrointestinal: non tender, soft, hernia (very small umbilical hernia) Extremity: Other (Stasis dermatitis bilaterally) Skin: Other (Patient has widespread vitiligo) Lymphatic: Other (left perineal packing and bandage in place) Assessment/Plan Assessment/Plan Assessment/Plan Perineal Abscess - abscess was incised and drained on 07/04/2022. Cultures were collected, still awaiting results. Continue antibiotic treatment and daily or as-needed wound repacking. Leukocytosis - WBC count has dropped to 16.0 today from 18.1 yesterday. Acute drop in eGFR - possibly due to vancomycin toxicity, may need a vanc trough to assess levels DVT prophylaxis - lovenox administered COPD - continue oxygen therapy, monitor for signs of pneumoniae. Hypertension - continue medical management Sarcoidosis - continue medical management Type II Diabetes - liraglutide Anxiety - venlafaxine Venous insufficiency - picc line was placed yesterday prior to surgery Change packing tomorrow. Supervisory-Addendum Brief Verification & Attestation Participated in pt care: history, MDM, physical Personally performed: exam, history, MDM, supervision of care Care discussed with: Medical Student Procedures: n/a Verification and Attestation of Medical Student E/M Service A medical student performed and documented this service. I then reviewed and verified all information documented by the medical student and made modifications to such information, when appropriate. I personally performed a physical exam, medical decision making and then discussed any differences between the notes and made revisions as necessary to create one note. Felice Carpenter , 07/06/22 , 11:57 WARREN VU Jul 05, 2022 07:59 FELICE CARPENTER DO Jul 06, 2022 11:58
[2022-07-05 08:21] VITALS: BP 113/55
[2022-07-05] MEDS ORDERED: TROUGH ORDER-PHARMACY XX ONE (09:00)
[2022-07-05] MEDS: ENOXAPARIN 60 MG/0.6 ML (LOVENOX) SYR SC SCH ×2 (09:29→22:25)
[2022-07-05] MEDS: SENNA W/DOCUSATE (SENOKOT S) TABLET PO SCH ×2 (09:29→19:38)
[2022-07-05] MEDS: HYDROcodone/APAP 5 MG/325 MG (LORTAB) TAB PO PRN ×2 (09:29→19:39)
[2022-07-05 12:03] VITALS: BP 111/57
--- NOTE | 2022-07-05 12:55 | Progress Note - Hospitalist ---
RICHARD PHILLIPS 07/05/22 1255: Subjective HPI/CC On Admission CC: Perineal abscess Geovanna Zavaleta is a 56 yo male with a history of Sarcoidosis, COPD, MAGDY, T2DM, neuropathy, and severe morbid obesity, who presents for evaluation and management of a perineal abscess. He states that he noticed the pain, which is stinging and burning in character, on Sunday morning after a large bowel movement, which has continued to worsen. He rates the pain a 6/10, which has decreased from the 10/10 pain he presented with. He reports that Alleve and L lateral recumbent positioning alleviates the pain, while any pressure on the ulcer will cause it to worsen. The abscess is approximately 5 x 5 cm, and is located to the right of his rectum. He states that it has gradually enlarged over the past several days. Geovanna states that he has had multiple similar abscesses in the past that required antibiotic and I&D. Patient denies nausea, vomiting, headache or chills at the time of my visit. He states that his appetite is gone, and that he has not had a bowel movement since admission. Geovanna is talkative and pleasant. Subjective/Events-last exam Upon follow-up for perineal abscess, SP incision and drainage, Geovanna was laying supine in bed. He states that the surgical site is quite sore, rated at a 3/10; he states that urinating further irritates the area. However, he states that the pain is well managed with pain medication. He further states he is able to ambulate to the bathroom with no issues. He denies any bowel movements, and states his appetite has not returned. Geovanna further denies any nausea, vomiting, fevers, or chills. Review of Systems General: No Chills, No Night Sweats, No Appetite HEENT: No Head Aches, No Visual Changes Pulmonary: No Dyspnea, No Cough Cardiovascular: No: Chest Pain, Palpitations, Orthopnea Gastrointestinal: Other; No: Nausea, Vomiting, Abdominal Pain Genitourinary: No Dysuria, No Frequency Musculoskeletal: No: neck pain, shoulder pain Neurological: No: Weakness, Numbness Focused Exam Lactate Level 07/04/22 01:39: Lactic Acid Level 0.99 Objective Exam Vital Signs Vital Signs Date Time Temp Pulse Resp B/P (MAP) Pulse Ox O2 Delivery O2 Flow Rate FiO2 07/05/22 12:03 36.6 76 18 111/57 (75) 96 Room Air 07/05/22 04:09 2.00 Capillary Refill : Less Than 3 Seconds General Appearance: No Apparent Distress, WD/WN, Obese HEENT: PERRL/EOMI, TMs Normal, Normal ENT Inspection, Pharynx Normal Neck: Full Range of Motion, Normal Inspection, Non Tender, Supple Respiratory: Chest Non Tender, Lungs Clear, Normal Breath Sounds, No Accessory Muscle Use, No Respiratory Distress Cardiovascular: Regular Rate, Rhythm, Normal Peripheral Pulses Gastrointestinal: Normal Bowel Sounds, Non Tender, Soft Rectal: Deferred, Other (patient has healing surgical site packed with guaze near r side of rectum) Extremity: Normal Capillary Refill, Normal Inspection, Normal Range of Motion, Non Tender Neurologic/Psychiatric: Alert, Oriented x3, No Motor/Sensory Deficits Skin: Normal Color, Warm/Dry Results/Procedures Lab Laboratory Tests 07/05/22 07:20 Patient resulted labs reviewed. Assessment/Plan Assessment and Plan Assess & Plan/Chief Complaint Sepsis Perineal Abscess, S/P incision and drainage CT abd/pelvis on demonstrated 6.2 cm fluid collection in subcutaneous tissue of gluteal cleft Abscess contents sent for culture WBC is presently 16, which is improved from yesterday On Vancomycin, Pip/Tazo Pain control, PRN Zofran Fluids Sarcoidosis COPD MAGDY On 2 L O2 via Nasal Cannula T2DM Viktoza Diabetic diet Neuropathy Gabapentin Hypertension Lisinopril/HCTZ Hyperlipidemia Lipitor JAYNE DEL TORO DO 07/06/22 0442: Supervisory-Addendum Brief Verification & Attestation Participated in pt care: history, MDM, physical Personally performed: exam, history, MDM, supervision of care Care discussed with: Medical Student Procedures: n/a Results interpretation: Verified all documentation Verification and Attestation of Medical Student E/M Service A medical student performed and documented this service in my presence. I reviewed and verified all information documented by the medical student and made modifications to such information, when appropriate. I personally performed the physical exam and medical decision making. Jayne Del Toro, Jul 06, 2022,04:42 RICHARD PHILLIPS Jul 05, 2022 12:55 JAYNE DEL TORO DO Jul 06, 2022 04:42
[2022-07-05] MEDS ORDERED: TROUGH ORDER-PHARMACY XX NR (15:30)
[2022-07-05 16:06] VITALS: BP 128/79
[2022-07-05] MEDS: lisINopril 20 MG (PRINIVIL) TABLET PO SCH (19:37)
[2022-07-05] MEDS: MELATONIN 3 MG TABLET PO PRN (19:37)
[2022-07-05] MEDS: GABAPENTIN 600 MG (NEURONTIN) TAB PO SCH (19:37)
[2022-07-05] MEDS: VENlafaxine XR 75 MG (EFFEXOR XR) CAP PO SCH (19:38)
[2022-07-05 19:40] VITALS: BP 122/67
[2022-07-05] MEDS ORDERED: NON-FORMULARY MEDICATION 1 EA EA (Lisinopril/Hydrochlorothiazide (Lisinopril-Hctz 20-25 mg PO SCH (21:00)
[2022-07-05] MEDS ORDERED: NON-FORMULARY MEDICATION 1 EA EA (Liraglutide (Victoza 2-Pak) 1.8 MG) SQ SCH (21:00)
[2022-07-05 23:09] VITALS: BP 119/53
[2022-07-06] MEDS: HYDROcodone/APAP 5 MG/325 MG (LORTAB) TAB PO PRN ×3 (02:37→20:32)
[2022-07-06 03:18] VITALS: BP 119/61
[2022-07-06 06:15] LABS: BASOPHILS # (AUTO) 0.1 10^3/uL (0.0-0.1); BASOPHILS % (AUTO) 1 % (0-10); EOSINOPHILS % (AUTO) 8 % (0-10); HEMATOCRIT 38 % (40-54); HEMOGLOBIN 11.9 g/dL (13.3-17.7); LYMPHOCYTES # (AUTO) 1.9 10^3/uL (1.0-4.0); LYMPHOCYTES % (AUTO) 15 % (12-44); MEAN CORPUSCULAR HEMOGLOBIN 26 pg (25-34); MEAN CORPUSCULAR HGB CONC 32 g/dL (32-36); MEAN CORPUSCULAR VOLUME 81 fL (80-99); MEAN PLATELET VOLUME 10.6 fL (9.0-12.2); MONOCYTES # (AUTO) 0.9 10^3/uL (0.0-1.0); MONOCYTES % (AUTO) 7 % (0-12); NEUTROPHILS # (AUTO) 8.6 10^3/uL (1.8-7.8); NEUTROPHILS % (AUTO) 69 % (42-75); PLATELET COUNT 227 10^3/uL (130-400); WHITE BLOOD COUNT 12.4 10^3/uL (4.3-11.0)
[2022-07-06 06:44] LABS: CALCIUM 9.3 MG/DL (8.5-10.1)
[2022-07-06 06:46] LABS: TOTAL PROTEIN 6.8 GM/DL (6.4-8.2)
[2022-07-06 06:47] LABS: BILIRUBIN,TOTAL 0.6 MG/DL (0.1-1.0)
[2022-07-06 06:49] LABS: CREATININE SERUM 1.34 MG/DL (0.60-1.30)
--- NOTE | 2022-07-06 07:40 | Progress Note - Surgery ---
WARREN VU 07/06/22 0740: Subjective Date Seen by a Provider: Jul 06, 2022 Time Seen by a Provider: 07:34 Subjective/Events-last exam Our patient is a 56 year old man s/p incision and drainage of perineal abscess day 2. He states that his pain is better today than it was yesterday and is no l onger constant. He rates it as a 5/10, intermittent, and agitated by moving around. He denies headache, nausea, vomiting, worsening SOB, chest pain, palpitations, dysuria, and frequency. He notes that he has yet to have a bowel movement as he is afraid of the pain that might come with it though he is passing flatus. He has been up and ambulating to and from the restroom without assistance and notes no frequency or painful urination. His dressing has not yet been changed and he has transitioned to oral medications for the time being. Review of Systems General: No Chills, No Night Sweats; Fatigue (Feels worn out) HEENT: No Head Aches, No Visual Changes; Sore Throat Pulmonary: Dyspnea (He states that his breathing problems are no worse than normal), Cough Cardiovascular: No: Chest Pain, Palpitations, Lt Headedness Gastrointestinal: No: Nausea, Vomiting, Abdominal Pain Genitourinary: No Dysuria, No Frequency Musculoskeletal: No: back pain Neurological: No: Weakness, Confusion Focused Exam Lactate Level 07/04/22 01:39: Lactic Acid Level 0.99 Objective Exam Vital Signs Date Time Temp Pulse Resp B/P (MAP) Pulse Ox O2 Delivery O2 Flow Rate FiO2 07/06/22 07:26 Nasal Cannula 2.00 07/06/22 03:18 36.9 75 20 119/61 (80) 95 Nasal Cannula 2.00 07/05/22 23:09 37.1 89 20 119/53 (75) 93 Nasal Cannula 2.00 07/05/22 19:40 37.3 86 18 122/67 (85) 93 Room Air 07/05/22 19:40 Nasal Cannula 2.00 07/05/22 16:06 36.7 83 16 128/79 (95) 90 Room Air 07/05/22 12:03 36.6 76 18 111/57 (75) 96 Room Air 07/05/22 08:21 36.9 74 18 113/55 (74) 94 Room Air 07/05/22 08:00 Room Air I & O 07/06/22 07:00 Intake Total 1460 ml Output Total 1100 ml Balance 360 ml Capillary Refill : Less Than 3 Seconds General Appearance: No Apparent Distress, Obese HEENT: PERRL/EOMI, Moist Mucous Membranes; No Scleral Icterus (L), No Scleral Icterus (R) Neck: Non Tender, Supple; No Carotid Bruit, No Lymphadenopathy (L), No Lymphadenopathy (R), No Thyromegaly Respiratory: Chest Non Tender, No Accessory Muscle Use, No Respiratory Distress; No Crackles; Decreased Breath Sounds; No Rales; Wheezing (Upper airway) Cardiovascular: Regular Rate, Rhythm, No Gallop, Normal Peripheral Pulses, Systolic Murmur (Holosystolic) Peripheral Pulses: 2+ Radial Pulses (R), 2+ Radial Pulses (L) Gastrointestinal: non tender, soft, no organomegaly; No distended, No guarding, No rebound; hernia (very small umbilical hernia) Extremity: Normal Capillary Refill (Less than 3 seconds), Non Tender; No Calf Tenderness Neurologic/Psychiatric: Alert, Oriented x3, Normal Mood/Affect Skin: Warm/Dry; No Diaphoresis; Other (Chronic venous stasis changes in lower legs) Lymphatic: No Axilla Node Tender (L), No Axilla Node Tender (R) Results Lab Laboratory Tests 07/05/22 11:24: Glucometer 146H 07/05/22 16:45: Vancomycin Level Trough 20.1H 07/05/22 17:36: Glucometer 121H 07/05/22 20:50: Glucometer 151H 07/06/22 05:43: Glucometer 129H 07/06/22 05:50: White Blood Count 12.4H, Red Blood Count 4.66, Hemoglobin 11.9L, Hematocrit 38L, Mean Corpuscular Volume 81, Mean Corpuscular Hemoglobin 26, Mean Corpuscular Hemoglobin Concent 32, Red Cell Distribution Width 13.3, Platelet Count 227, Mean Platelet Volume 10.6, Immature Granulocyte % (Auto) 0, Neutrophils (%) (Auto) 69, Lymphocytes (%) (Auto) 15, Monocytes (%) (Auto) 7, Eosinophils (%) (Auto) 8, Basophils (%) (Auto) 1, Neutrophils # (Auto) 8.6H, Lymphocytes # (Auto) 1.9, Monocytes # (Auto) 0.9, Eosinophils # (Auto) 1.0H, Basophils # (Auto) 0.1, Immature Granulocyte # (Auto) 0.1, Sodium Level 136, Potassium Level 4.0, Chloride Level 103, Carbon Dioxide Level 24, Anion Gap 9, Blood Urea Nitrogen 19H, Creatinine 1.34H, Estimat Glomerular Filtration Rate 63, BUN/Creatinine Ratio 14, Glucose Level 117H, Calcium Level 9.3, Corrected Calcium 10.1, Total Bilirubin 0.6, Aspartate Amino Transf (AST/SGOT) 23, Alanine Aminotransferase (ALT/SGPT) 30, Alkaline Phosphatase 57, Total Protein 6.8, Albumin 3.0L Microbiology 07/04/22 Blood Culture - Preliminary, Resulted No growth Assessment/Plan Assessment/Plan Admission Diagonsis Perineal Abscess Assessment/Plan Perineal Abscess - abscess was incised and drained on 07/04/2022. Cultures were collected, preliminary cultures show strep. galolyticus as well as e. coli. Patient can transition to oral antibiotics as well as wound repacking as needed. Patient pain continues to improve and he is up and ambulating without assistance. One of his two peripheral blood cultures grew staphylococcus hominis but this is possibly due to culture contamination as the patient is unlikely to be septic. Leukocytosis - WBC count continues to drop, 12.4 this morning down from 16 yesterday. Acute drop in eGFR - eGFR has improved since discontinuing his IV vancomycin and piperacillin tazobactam. DVT prophylaxis - lovenox administered COPD - continue oxygen therapy, monitor for signs of pneumoniae. Hypertension - continue medical management Sarcoidosis - continue medical management Type II Diabetes - liraglutide, diabetic diet Anxiety - venlafaxine Venous insufficiency - picc line is still in place FELICE CARPENTER DO 07/06/22 1254: Subjective Time Seen by a Provider: 10:18 Subjective/Events-last exam Pt seen and examined, states pain is a little better and denies drainage. Review of Systems Pulmonary: Dyspnea (He states that his breathing problems are no worse than normal), Cough Cardiovascular: No: Chest Pain, Palpitations Gastrointestinal: No: Nausea, Vomiting, Abdominal Pain Objective Exam General Appearance: No Apparent Distress, Obese HEENT: Moist Mucous Membranes Respiratory: Chest Non Tender, No Accessory Muscle Use, No Respiratory Distress, Decreased Breath Sounds, Wheezing (Upper airway) Cardiovascular: Regular Rate, Rhythm, Systolic Murmur (Holosystolic) Gastrointestinal: non tender, soft, no organomegaly Extremity: Other (Chronic venous stasis changes in lower legs) Neurologic/Psychiatric: Alert, Oriented x3 Skin: Other (Vitiligo, Dressing changed no necrotic tissue found, scant oozing of blood from tissues) Assessment/Plan Assessment/Plan Assessment/Plan Perineal Abscess - Iodophor dressing removed and wound repacked, should start doing that daily now. Leukocytosis - WBC count continues to drop, 12.4 this morning down from 16 yesterday. Acute drop in eGFR - eGFR has improved since discontinuing his IV vancomycin and piperacillin tazobactam. DVT prophylaxis - lovenox administered COPD - continue oxygen therapy, monitor for signs of pneumoniae. Hypertension Sarcoidosis Type II Diabetes - liraglutide, diabetic diet Anxiety - venlafaxine Venous insufficiency - picc line is still in place Supervisory-Addendum Brief Verification & Attestation Participated in pt care: history, MDM, physical Personally performed: exam, history, MDM, supervision of care Care discussed with: Medical Student Procedures: n/a Verification and Attestation of Medical Student E/M Service A medical student performed and documented this service. I then reviewed and verified all information documented by the medical student and made modifications to such information, when appropriate. I personally performed a physical exam, medical decision making and then discussed any differences between the notes and made revisions as necessary to create one note. Felice Carpenter , 07/06/22 , 12:54 WARREN VU Jul 06, 2022 07:40 FELICE CARPENTER DO Jul 06, 2022 12:54
[2022-07-06] MEDS: ENOXAPARIN 60 MG/0.6 ML (LOVENOX) SYR SC SCH ×2 (08:17→20:32)
[2022-07-06] MEDS: PIPERACILLIN SODIUM/TAZOBACTAM 4.5 GM in NS (IVPB) 100 ML IV SCH ×3 (08:17→23:34)
[2022-07-06] MEDS: SENNA W/DOCUSATE (SENOKOT S) TABLET PO SCH ×2 (08:17→20:33)
[2022-07-06 08:19] VITALS: BP 114/56
[2022-07-06] MEDS ORDERED: TROUGH ORDER-PHARMACY XX NR (09:00)
[2022-07-06] MEDS: morphine INJ 4 MG/ML 1 ML (VIAL/SYRINGE) IV PRN (10:13)
[2022-07-06] MEDS ORDERED: VANCOMYCIN 1500 MG/NS 500 ML IVPB IV SCH ×2 (11:00)
[2022-07-06 11:27] VITALS: BP 115/55
--- NOTE | 2022-07-06 12:12 | Progress Note - Hospitalist ---
Subjective HPI/CC On Admission Date Seen by Provider: Jul 06, 2022 Time Seen by Provider: 12:00 CC: Perineal abscess Geovanna Zavaleta is a 56 yo male with a history of Sarcoidosis, COPD, MAGDY, T2DM, neuropathy, and severe morbid obesity, who presents for evaluation and management of a perineal abscess. He states that he noticed the pain, which is stinging and burning in character, on Sunday morning after a large bowel movement, which has continued to worsen. He rates the pain a 6/10, which has decreased from the 10/10 pain he presented with. He reports that Alleve and L lateral recumbent positioning alleviates the pain, while any pressure on the ulcer will cause it to worsen. The abscess is approximately 5 x 5 cm, and is located to the right of his rectum. He states that it has gradually enlarged over the past several days. Geovanna states that he has had multiple similar abscesses in the past that required antibiotic and I&D. Patient denies nausea, vomiting, headache or chills at the time of my visit. He states that his ap petite is gone, and that he has not had a bowel movement since admission. Geovanna is talkative and pleasant. Subjective/Events-last exam Doing better No pain currently Removed packing Labs reviewed Focused Exam Lactate Level Objective Exam Vital Signs Vital Signs Date Time Temp Pulse Resp B/P (MAP) Pulse Ox O2 Delivery O2 Flow Rate FiO2 07/07/22 03:08 36.4 70 18 95/58 (70) 96 Nasal Cannula 2.00 Capillary Refill : Less Than 3 Seconds General Appearance: No Apparent Distress, WD/WN, Chronically ill Respiratory: Lungs Clear, Normal Breath Sounds Neurologic/Psychiatric: Alert, Oriented x3 Results/Procedures Lab Laboratory Tests 07/06/22 05:50 Patient resulted labs reviewed. Assessment/Plan Assessment and Plan Assess & Plan/Chief Complaint Sepsis Perineal Abscess, S/P incision and drainage CT abd/pelvis on demonstrated 6.2 cm fluid collection in subcutaneous tissue of gluteal cleft Abscess contents sent for culture WBC is presently 16, which is improved from yesterday On Vancomycin, Pip/Tazo Pain control, PRN Zofran Fluids Sarcoidosis COPD MAGDY On 2 L O2 via Nasal Cannula T2DM Viktoza Diabetic diet Neuropathy Gabapentin Hypertension Lisinopril/HCTZ Hyperlipidemia Lipitor DIONY DEL TORO DO Jul 06, 2022 12:12
[2022-07-06 15:36] VITALS: BP 132/94
[2022-07-06 19:26] VITALS: BP 114/51
[2022-07-06] MEDS: lisINopril 20 MG (PRINIVIL) TABLET PO SCH (20:32)
[2022-07-06] MEDS: VENlafaxine XR 75 MG (EFFEXOR XR) CAP PO SCH (20:32)
[2022-07-06] MEDS: MELATONIN 3 MG TABLET PO PRN (20:32)
[2022-07-06] MEDS: GABAPENTIN 600 MG (NEURONTIN) TAB PO SCH (20:33)
[2022-07-06 23:26] VITALS: BP_SYST 105; BP_SYST 82; BP_DIAS 48; BP_DIAS 67
[2022-07-07 03:08] VITALS: BP 95/58
[2022-07-07] MEDS: HYDROcodone/APAP 5 MG/325 MG (LORTAB) TAB PO PRN (03:12)
[2022-07-07 06:26] LABS: BASOPHILS # (AUTO) 0.1 10^3/uL (0.0-0.1); BASOPHILS % (AUTO) 1 % (0-10); EOSINOPHILS # (AUTO) 1.1 10^3/uL (0.0-0.3); EOSINOPHILS % (AUTO) 12 % (0-10); HEMATOCRIT 37 % (40-54); HEMOGLOBIN 11.5 g/dL (13.3-17.7); LYMPHOCYTES # (AUTO) 1.8 10^3/uL (1.0-4.0); LYMPHOCYTES % (AUTO) 19 % (12-44); MEAN CORPUSCULAR HEMOGLOBIN 25 pg (25-34); MEAN CORPUSCULAR HGB CONC 31 g/dL (32-36); MEAN CORPUSCULAR VOLUME 81 fL (80-99); MEAN PLATELET VOLUME 10.4 fL (9.0-12.2); MONOCYTES # (AUTO) 0.6 10^3/uL (0.0-1.0); MONOCYTES % (AUTO) 6 % (0-12); NEUTROPHILS # (AUTO) 5.8 10^3/uL (1.8-7.8); NEUTROPHILS % (AUTO) 62 % (42-75); PLATELET COUNT 226 10^3/uL (130-400); WHITE BLOOD COUNT 9.3 10^3/uL (4.3-11.0)
[2022-07-07 06:39] LABS: ALBUMIN 2.9 GM/DL (3.2-4.5); POTASSIUM 3.8 MMOL/L (3.6-5.0)
[2022-07-07 06:40] LABS: CALCIUM 9.1 MG/DL (8.5-10.1)
[2022-07-07 06:42] LABS: TOTAL PROTEIN 6.8 GM/DL (6.4-8.2)
[2022-07-07 06:43] LABS: BILIRUBIN,TOTAL 0.3 MG/DL (0.1-1.0)
[2022-07-07 06:45] LABS: CREATININE SERUM 1.18 MG/DL (0.60-1.30)
[2022-07-07 07:52] VITALS: BP 97/51
[2022-07-07] MEDS: PIPERACILLIN SODIUM/TAZOBACTAM 4.5 GM in NS (IVPB) 100 ML IV SCH (08:42)
[2022-07-07] MEDS: SENNA W/DOCUSATE (SENOKOT S) TABLET PO SCH (08:43)
[2022-07-07] MEDS: ENOXAPARIN 60 MG/0.6 ML (LOVENOX) SYR SC SCH (08:46)
--- NOTE | 2022-07-07 09:17 | Progress Note - Surgery ---
WARREN VU 07/07/22 0917: Subjective Date Seen by a Provider: Jul 07, 2022 Time Seen by a Provider: 09:11 Subjective/Events-last exam Patient is a 56 year old M s/p incision and drainage of perineal abscess Day 3. He states that he is feeling better this morning than he was yesterday. He is not currently in any pain unless he moves around. He had a BM last night without pain, soft in consistency. He denies nausea, vomiting, dysuria, frequency, lightheadedness, diaphoresis, or chills. He notes SOB and wheezing that is worse than it was yesterday. He notes that he is concerned about returning to work and would like to know how long he should be out for. He is up and ambulating without assistance but notes that he easily gets short of breath. Review of Systems General: No Chills, No Night Sweats HEENT: No Head Aches, No Visual Changes, No Sore Throat Pulmonary: Dyspnea (Feels short of breath and wheezy), Cough Cardiovascular: No: Chest Pain, Palpitations, Lt Headedness Gastrointestinal: No: Nausea, Vomiting, Abdominal Pain, Constipation Genitourinary: No Dysuria, No Frequency Musculoskeletal: No: neck pain, back pain Neurological: No: Weakness, Confusion Objective Exam Vital Signs Date Time Temp Pulse Resp B/P (MAP) Pulse Ox O2 Delivery O2 Flow Rate FiO2 07/07/22 07:52 36.5 67 18 97/51 (66) 91 Room Air 07/07/22 03:08 36.4 70 18 95/58 (70) 96 Nasal Cannula 2.00 07/06/22 23:26 37.0 77 18 105/67 (80) 95 Nasal Cannula 2.00 07/06/22 20:00 Room Air 07/06/22 19:26 36.8 76 20 114/51 (72) 94 Room Air 07/06/22 15:36 36.5 71 20 132/94 (107) 93 Room Air 07/06/22 11:27 36.3 65 18 115/55 (75) 93 Room Air I & O 07/07/22 07:00 Intake Total 2980 ml Balance 2980 ml Capillary Refill : Less Than 3 Seconds General Appearance: No Apparent Distress, Obese HEENT: PERRL/EOMI, Moist Mucous Membranes; No Scleral Icterus (L), No Scleral Icterus (R) Neck: Non Tender, Supple; No Carotid Bruit, No Lymphadenopathy (L), No Lymphadenopathy (R), No Thyromegaly Respiratory: No Accessory Muscle Use, No Respiratory Distress, Wheezing (Upper airway wheeze is audible without stethescope) Cardiovascular: Regular Rate, Rhythm, No Gallop, Systolic Murmur (Holosystolic) Peripheral Pulses: 2+ Radial Pulses (R), 2+ Radial Pulses (L) Gastrointestinal: non tender, soft, no organomegaly; No distended, No guarding, No rebound, No tenderness Extremity: Non Tender, No Calf Tenderness; No Calf Tenderness; Other (Chronic venous stasis changes in lower legs) Neurologic/Psychiatric: Alert, Oriented x3 Skin: Warm/Dry; No Diaphoresis, No Erythema; Other (Vitiligo, Dressing changed no necrotic tissue found, scant oozing of blood from tissues) Lymphatic: No Axilla Node Tender (L), No Axilla Node Tender (R); Other (left perineal packing and bandage in place) Results Lab Laboratory Tests 07/06/22 09:21: Vancomycin Level Trough 9.2L 07/06/22 11:14: Glucometer 133H 07/06/22 15:35: Glucometer 149H 07/06/22 20:08: Glucometer 163H 07/07/22 05:25: Glucometer 113H 07/07/22 05:49: White Blood Count 9.3, Red Blood Count 4.53, Hemoglobin 11.5L, Hematocrit 37L, Mean Corpuscular Volume 81, Mean Corpuscular Hemoglobin 25, Mean Corpuscular Hemoglobin Concent 31L, Red Cell Distribution Width 13.2, Platelet Count 226, Mean Platelet Volume 10.4, Immature Granulocyte % (Auto) 1, Neutrophils (%) (Auto) 62, Lymphocytes (%) (Auto) 19, Monocytes (%) (Auto) 6, Eosinophils (%) (Auto) 12H, Basophils (%) (Auto) 1, Neutrophils # (Auto) 5.8, Lymphocytes # (Auto) 1.8, Monocytes # (Auto) 0.6, Eosinophils # (Auto) 1.1H, Basophils # (Auto) 0.1, Immature Granulocyte # (Auto) 0.1, Sodium Level 137, Potassium Level 3.8, Chloride Level 101, Carbon Dioxide Level 28, Anion Gap 8, Blood Urea Nitrogen 15, Creatinine 1.18, Estimat Glomerular Filtration Rate 73, BUN/Creatinine Ratio 13, Glucose Level 114H, Calcium Level 9.1, Corrected Calci um 10.0, Total Bilirubin 0.3, Aspartate Amino Transf (AST/SGOT) 18, Alanine Aminotransferase (ALT/SGPT) 22, Alkaline Phosphatase 53, Total Protein 6.8, Albumin 2.9L Microbiology 07/04/22 Gram Stain - Final, Resulted 07/04/22 Anaerobic Culture - Preliminary, Resulted Culture In Progress 07/04/22 Surgical Culture - Preliminary, Resulted Streptococcus gallolyticus Strep anginosus No Further Testing Escherichia coli Culture In Progress 07/04/22 Blood Culture - Preliminary, Resulted No growth Assessment/Plan Assessment/Plan Assessment/Plan Perineal Abscess - wound was unpacked and repacked yesterday with iodophor dressing, continue daily packing and unpacking to assist in proper wound healing. Continue piperacillin/tazobactam, currently on bag . Wound culture grew strep gallolyticus (moderate amount), strep anginosus (few), and rare e. coli. Leukocytosis - WBC count continues to drop, 9.3 this morning down from 12.4 yesterday. Acute drop in eGFR - eGFR has improved since discontinuing his IV vancomycin. eGFR now back up to 73 from 63 yesterday DVT prophylaxis - lovenox therapy continued COPD - patient oxygen restarted at 2 L NC, monitor for signs of pneumoniae, may need albuterol if wheeze continues. Hypertension - well-controlled on lisinopril Type II Diabetes - continue liraglutide and diabetic diet Anxiety - well-controlled on venlafaxine FELICE CARPENTER DO 07/07/22 1249: Subjective Time Seen by a Provider: 12:39 Subjective/Events-last exam Pt seen and examined, states pain is ok. Review of Systems Pulmonary: Dyspnea (Feels short of breath and wheezy), Cough Cardiovascular: No: Chest Pain, Palpitations Gastrointestinal: No: Nausea, Vomiting, Abdominal Pain Objective Exam General Appearance: No Apparent Distress, Obese Respiratory: No Accessory Muscle Use, No Respiratory Distress, Wheezing (Upper airway wheeze is audible without stethescope) Cardiovascular: Regular Rate, Rhythm, Systolic Murmur (Holosystolic) Gastrointestinal: non tender, soft, no organomegaly Extremity: No Calf Tenderness, Other (Chronic venous stasis changes in lower legs) Skin: Other (Vitiligo, Dressing changed no necrotic tissue found, scant oozing of blood from tissues) Assessment/Plan Assessment/Plan Assessment/Plan Perineal Abscess - wound was unpacked and repacked today with iodophor dressing, Wound culture grew strep gallolyticus (moderate amount), strep anginosus (few), and rare e. coli. Leukocytosis - WBC count continues to drop, 9.3 this morning down from 12.4 yesterday. Acute drop in eGFR - eGFR has improved since discontinuing his IV vancomycin. eGFR now back up to 73 from 63 yesterday DVT prophylaxis - lovenox therapy continued COPD - patient oxygen restarted at 2 L NC, monitor for signs of pneumoniae, may need albuterol if wheeze continues. Hypertension - well-controlled on lisinopril Type II Diabetes - continue liraglutide and diabetic diet Anxiety - well-controlled on venlafaxine Pt being switched to oral ABX, can f/u in my offc Sunday for dressing change and will make sure he is set up to get wound care f/u Supervisory-Addendum Brief Verification & Attestation Participated in pt care: history, MDM, physical Personally performed: exam, history, MDM, supervision of care Care discussed with: Medical Student Procedures: n/a Verification and Attestation of Medical Student E/M Service A medical student performed and documented this service. I then reviewed and verified all information documented by the medical student and made modifications to such information, when appropriate. I personally performed a physical exam, medical decision making and then discussed any differences between the notes and made revisions as necessary to create one note. Felice Carpenter , 07/07/22 , 12:49 WARREN VU Jul 07, 2022 09:17 FELICE CARPENTER DO Jul 07, 2022 12:49
[2022-07-07] MEDS ORDERED: TROUGH ORDER-PHARMACY XX ONE (10:00)
[2022-07-07 11:23] VITALS: BP 100/56
[2022-07-07] MEDS ORDERED: AMOX1TAB12 PO (11:47)
[2022-07-07] MEDS ORDERED: ACHD5005 PO (11:47)
--- NOTE | 2022-07-07 11:49 | Discharge Summary ---
Discharge Summary Hospital Course Was the Problem List Reviewed?: Yes Problems/Dx: (1) Perineal abscess Status: Acute (2) Sepsis Status: Acute Qualifiers: Qualified Codes: A41.9 - Sepsis, unspecified organism Hospital Course Date of Admission: Jul 04, 2022 at 01:55 Admission Diagnosis : Family Physician/Provider: Kenny Estrada MD Date of Discharge: 07/07/22 Discharge Diagnosis: [ ] Hospital Course: CC: Perineal abscess Geovanna Zavaleta is a 56 yo male with a history of Sarcoidosis, COPD, MAGDY, T2DM, neuropathy, and severe morbid obesity, who presents for evaluation and management of a perineal abscess. He states that he noticed the pain, which is stinging and burning in character, on Sunday morning after a large bowel movement, which has continued to worsen. He rates the pain a 6/10, which has decreased from the 10/10 pain he presented with. He reports that Alleve and L lateral recumbent positioning alleviates the pain, while any pressure on the ulcer will cause it to worsen. The abscess is approximately 5 x 5 cm, and is lo cated to the right of his rectum. He states that it has gradually enlarged over the past several days. Geovanna states that he has had multiple similar abscesses in the past that required antibiotic and I&D. Patient denies nausea, vomiting, headache or chills at the time of my visit. He states that his appetite is gone, and that he has not had a bowel movement since admission. Geovanna is talkative and pleasant. Subjective/Events-last exam Upon follow-up for perineal abscess, S/P I&D, Geovanna is laying supine in bed. He states that his pain is minimal, and has had a bowel movement with no issues. 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 Since he has a history of multiple perineal abscesses, he wants to ensure he does not develop another one. He denies any nausea, vomiting, fevers or chills. Geovanna is pleasant and conversational. Hospital Course: Geovanna Zavaleta is a 56 yo male with a history of Sarcoidosis, COPD, MAGDY, T2DM, neuropathy, and severe morbid obesity, who presents for evaluation and management of a perineal abscess. 07/04/22: ED: This 56-year-old gentleman presents to the emergency room with complaints of increasing pain and swelling in the perineum where he has had multiple abscesses previously. He has been afebrile. He has required surgical incision and drainage under sedation previously for these abscesses. HPI: Geovanna Zavaleta is a 56 yo male with a history of Sarcoidosis, COPD, MAGDY, T2DM, neuropathy, and severe morbid obesity, who presents for evaluation and management of a perineal abscess. He states that he noticed the pain, which is stinging and burning in character, on Sunday morning after a large bowel movement, which has continued to worsen. He rates the pain a 6/10, which has decreased from the 10/10 pain he presented with. He reports that Alleve and L lateral recumbent positioning alleviates the pain, while any pressure on the [facility] er will cause it to worsen. The abscess is approximately 5 x 5 cm, and is located to the right of his rectum. He states that it has gradually enlarged over the past several days. Geovanna states that he has had multiple similar abscesses in the past that required antibiotic and I&D. Patient denies nausea, vomiting, headache or chills at the time of my visit. He states that his appetit e is gone, and that he has not had a bowel movement since admission. Geovanna is talkative and pleasant. 07/04/22: General Surgery Consult: -Incision and Drainage procedure CXR: Nondiagnostic examination due to low lung volumes and underpenetration CT Pelvis: New fluid collection in the subcutaneous tissues of the gluteal cleft measuring up to 6.2 cm. No soft tissue gas is identified. This fluid collection may communicate with the anus or rectum 07/05/22-07/07/22: Uneventful; surgical recovery, IV antibiotics and pain control. Patient to be discharged (07/07/22) to home with home health and outpatient wound care. Labs and Pending Lab Test: Laboratory Tests 07/06/22 15:35: Glucometer 149H 07/06/22 20:08: Glucometer 163H 07/07/22 05:25: Glucometer 113H 07/07/22 05:49: White Blood Count 9.3, Red Blood Count 4.53, Hemoglobin 11.5L, Hematocrit 37L, Mean Corpuscular Volume 81, Mean Corpuscular Hemoglobin 25, Mean Corpuscular Hemoglobin Concent 31L, Red Cell Distribution Width 13.2, Platelet Count 226, Mean Platelet Volume 10.4, Immature Granulocyte % (Auto) 1, Neutrophils (%) (Auto) 62, Lymphocytes (%) (Auto) 19, Monocytes (%) (Auto) 6, Eosinophils (%) (Auto) 12H, Basophils (%) (Auto) 1, Neutrophils # (Auto) 5.8, Lymphocytes # (Auto) 1.8, Monocytes # (Auto) 0.6, Eosinophils # (Auto) 1.1H, Basophils # (Auto) 0.1, Immature Granulocyte # (Auto) 0.1, Sodium Level 137, Potassium Level 3.8, Chloride Level 101, Carbon Dioxide Level 28, Anion Gap 8, Blood Urea Nitrogen 15, Creatinine 1.18, Estimat Glomerular Filtration Rate 73, BUN/Creatinine Ratio 13, Glucose Level 114H, Calcium Level 9.1, Corrected Calcium 10.0, Total Bilirubin 0.3, Aspartate Amino Transf (AST/SGOT) 18, Alanine Aminotransferase (ALT/SGPT) 22, Alkaline Phosphatase 53, Total Protein 6.8, Albumin 2.9L 07/07/22 11:15: Glucometer 135H Microbiology 07/04/22 Gram Stain - Final, Resulted 07/04/22 Anaerobic Culture - Preliminary, Resulted Culture In Progress 07/04/22 Surgical Culture - Preliminary, Resulted Streptococcus gallolyticus Strep anginosus No Further Testing Escherichia coli Culture In Progress 07/04/22 Blood Culture - Preliminary, Resulted No growth Home Meds Active Amox Tr-K Clv 875-125 mg Tab (Amoxicillin/Potassium Clav) 875 Mg-125 Mg Tablet 1 Each PO BID Hydrocodone-Acetamin 5-325 mg (Hydrocodone/Acetaminophen) 5 Mg-325 Mg Tablet 1 Ea PO Q4H PRN Reported [Balance Of Nature] 2 Ea PO HS Lisinopril-Hctz 20-25 mg Tab (Lisinopril/Hydrochlorothiazide) 20 Mg-25 Mg Tablet 1 Each PO HS Victoza 2-Satnam (Liraglutide) 0.6 Mg/0.1 Ml (18 Mg/3 Ml) Pen.injctr 1.8 Mg SQ HS Atorvastatin Calcium 20 Mg Tablet 20 Mg PO HS Aleve (Naproxen Sodium) 220 Mg Capsule 220 Mg PO Q8H PRN Gabapentin 600 Mg Tablet 600 Mg PO HS Venlafaxine HCl ER (Venlafaxine HCl) 150 Mg Cap.er.24h 150 Mg PO HS Assessment/Pt Instructions CC: Perineal abscess Geovanna aZvaleta is a 56 yo male with a history of Sarcoidosis, COPD, MAGDY, T2DM, neuropathy, and severe morbid obesity, who presents for evaluation and management of a perineal abscess. He states that he noticed the pain, which is stinging and burning in character, on Sunday morning after a large bowel movement, which has continued to worsen. He rates the pain a 6/10, which has decreased from the 10/10 pain he presented with. He reports that Alleve and L lateral recumbent positioning alleviates the pain, while any pressure on the ulcer will cause it to worsen. The abscess is approximately 5 x 5 cm, and is located to the right of his rectum. He states that it has gradually enlarged over the past several days. Geovanna states that he has had multiple similar abscesses in the past that required antibiotic and I&D. Patient denies nausea, vomiting, headache or chills at the time of my visit. He states that his appetite is gone, and that he has not had a bowel movement since admission. Geovanna is talkative and pleasant. Subjective/Events-last exam Upon follow-up for perineal abscess, S/P I&D, Geovanna is laying supine in bed. He states that his pain is minimal, and has had a bowel movement with no issues. 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 Since he has a history of multiple perineal abscesses, he wants to ensure he does not develop another one. He denies any nausea, vomiting, fevers or chills. Geovanna is pleasant and conversational. Hospital Course: Geovanna Zavaleta is a 56 yo male with a history of Sarcoidosis, COPD, MAGDY, T2DM, neuropathy, and severe morbid obesity, who presents for evaluation and management of a perineal abscess. 07/04/22: ED: This 56-year-old gentleman presents to the emergency room with complaints of increasing pain and swelling in the perineum where he has had multiple abscesses previously. He has been afebrile. He has required surgical incision and drainage under sedation previously for these abscesses. HPI: Geovanna Zavaleta is a 56 yo male with a history of Sarcoidosis, COPD, MAGDY, T2DM, neuropathy, and severe morbid obesity, who presents for evaluation and management of a perineal abscess. He states that he noticed the pain, which is stinging and burning in character, on Sunday morning after a large bowel movement, which has continued to worsen. He rates the pain a 6/10, which has decreased from the 10/10 pain he presented with. He reports that Alleve and L lateral recumbent positioning alleviates the pain, while any pressure on the ulcer will cause it to worsen. The abscess is approximately 5 x 5 cm, and is located to the right of his rectum. He states that it has gradually enlarged over the past several days. Geovanna states that he has had multiple similar abscesses in the past that required antibiotic and I&D. Patient denies nausea, vomiting, headache or chills at the time of my visit. He states that his appetite is gone, and that he has not had a bowel movement since admission. Geovanna is talkative and pleasant. 07/04/22: General Surgery Consult: -Incision and Drainage procedure CXR: Nondiagnostic examination due to low lung volumes and underpenetration CT Pelvis: New fluid collection in the subcutaneous tissues of the gluteal cleft measuring up to 6.2 cm. No soft tissue gas is identified. This fluid collection may communicate with the anus or rectum 07/05/22-07/07/22: Uneventful; surgical recovery, IV antibiotics and pain control. Patient to be discharged (07/07/22) to home with home health and outpatient wound care. Discharge Planning: <30 minutes discharge planning Discharge Instructions Discharge Diet: No Restrictions Discharge Physical Examination Vital Signs Vital Signs Date Time Temp Pulse Resp B/P (MAP) Pulse Ox O2 Delivery O2 Flow Rate FiO2 07/07/22 11:23 36.6 65 18 100/56 (71) 92 Room Air 07/07/22 03:08 2.00 General Appearance: No Apparent Distress, WD/WN, Chronically ill Respiratory: Lungs Clear, Normal Breath Sounds Cardiovascular: Regular Rate, Rhythm Neurologic/Psychiatric: Alert, Oriented x3 Allergies: Coded Allergies: azithromycin (Verified Allergy, Intermediate, Hives, 04/24/22) Discharge Summary Date of Admission Jul 04, 2022 at 01:55 Date of Discharge Discharge Date: Jul 07, 2022 Admission Diagnosis Perineal abscess needs I&D Discharge Diagnosis Sepsis Perineal Abscess, S/P incision and drainage CT abd/pelvis on demonstrated 6.2 cm fluid collection in subcutaneous tissue of gluteal cleft Abscess contents sent for culture WBC is presently 16, which is improved from yesterday On Vancomycin, Pip/Tazo Pain control, PRN Zofran Fluids Sarcoidosis COPD MAGDY On 2 L O2 via Nasal Cannula T2DM Viktoza Diabetic diet Neuropathy Gabapentin Hypertension Lisinopril/HCTZ Hyperlipidemia Lipitor DIONY DEL TORO DO Jul 07, 2022 11:49
[2022-07-07] MEDS: morphine INJ 4 MG/ML 1 ML (VIAL/SYRINGE) IV PRN (12:49)
--- NOTE | 2022-07-07 13:24 | D/C HH Face to Face Order ---
D/C Face to Face Orders Reconcile Patient Problems Problems Reviewed?: Yes Instructions for Patient Via [facility], Patient Instructions/FollowUp: pcp 1 week Physician to follow Patient: chc Discharge Diet for Home: No Restrictions Patient Problems: Perianal abscess Patient Data-Allergies,Ht & Wt Patient Allergies: Coded Allergies: azithromycin (Verified Allergy, Intermediate, Hives, 04/24/22) Height (Feet): 5 Height (Inches): 11.00 Weight (Pounds): 450 Weight (Ounces): 0 Home Health Need/Face to Face Date of Face to Face: Jul 07, 2022 Clinical Findings: Generalized weakness and fatigue, Muscle weakness I have seen Pt [id number]: Yes Discharged To: Home Diagnosis/Conditions: Debility Patient is Homebound due to: Lurdes fall risk due to instabilty, Muscle weakness Homebound Status Due to the above stated illness, injury or surgical procedure (medical condition or diagnosis) and associated clinical findings, the patient is homebound because of his/her inability to leave home except with aid of a supportive device and/or person AND leaving the home requires a considerable and taxing effort or is medically contraindicated. Pt req the following assistanc: [facility] Nursing Orders Home Health Services Order: Nursing Services, Hydraulic Design Engineer-Evaluate & Treat, Physical Therapy-Evaluate & Treat, Wound Care-Eval/Treat Home Health Infusion Therapy Line Start Date: Jul 04, 2022 Certify Stmt I certify that this patient is under my care and that I, a nurse practitioner or a physician; a accounting administrative assistant working with me, had a face to face encounter that - meets the physician face to face encounter requirements with this patient as dated. DIONY DEL TORO DO Jul 07, 2022 13:24
--- NOTE | 2022-07-07 13:59 | Progress Note - Hospitalist ---
JACQUELINEWMRICHARD 07/07/22 1359: Subjective HPI/CC On Admission Date Seen by Provider: Jul 07, 2022 Time Seen by Provider: 08:00 CC: Perineal abscess Geovanna Zavaleta is a 56 yo male with a history of Sarcoidosis, COPD, MAGDY, T2DM, neuropathy, and severe morbid obesity, who presents for evaluation and management of a perineal abscess. He states that he noticed the pain, which is stinging and burning in character, on Sunday morning after a large bowel movement, which has continued to worsen. He rates the pain a 6/10, which has decreased from the 10/10 pain he presented with. He reports that Alleve and L lateral recumbent positioning alleviates the pain, while any pressure on the ulcer will cause it to worsen. The abscess is approximately 5 x 5 cm, and is located to the right of his rectum. He states that it has gradually enlarged over the past several days. Geovanna states that he has had multiple similar abscesses in the past that required antibiotic and I&D. Patient denies nausea, vomiting, headache or chills at the time of my visit. He states that his appetite is gone, and that he has not had a bowel movement since admission. Geovanna is talkative and pleasant. Subjective/Events-last exam Upon follow-up for perineal abscess, S/P I&D, Geovanna is laying supine in bed. He states that his pain is minimal, and has had a bowel movement with no issues. 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 Since he has a history of multiple perineal abscesses, he wants to ensure he does not develop another one. He denies any nausea, vomiting, fevers or chills. Geovanna is pleasant and conversational. Hospital Course: Geovanna Zavaleta is a 56 yo male with a history of Sarcoidosis, COPD, MAGDY, T2DM, neuropathy, and severe morbid obesity, who presents for evaluation and management of a perineal abscess. 07/04/22: ED: This 56-year-old gentleman presents to the emergency room with complaints of increasing pain and swelling in the perineum where he has had multiple abscesses previously. He has been afebrile. He has required surgical incision and drainage under sedation previously for these abscesses. HPI: Geovanna Zavaleta is a 56 yo male with a history of Sarcoidosis, COPD, MAGDY, T2DM, neuropathy, and severe morbid obesity, who presents for evaluation and management of a perineal abscess. He states that he noticed the pain, which is stinging and burning in character, on Sunday morning after a large bowel movement, which has continued to worsen. He rates the pain a 6/10, which has decreased from the 10/10 pain he presented with. He reports that Alleve and L lateral recumbent positioning alleviates the pain, while any pressure on the ulcer will cause it to worsen. The abscess is approximately 5 x 5 cm, and is located to the right of his rectum. He states that it has gradually enlarged over the past several days. Geovanna states that he has had multiple similar abscesses in the past that required antibiotic and I&D. Patient denies nausea, vomiting, headache or chills at the time of my visit. He states that his appetite is gone, and that he has not had a bowel movement since admission. Geovanna is talkative and pleasant. 07/04/22: General Surgery Consult: -Incision and Drainage procedure CXR: Nondiagnostic examination due to low lung volumes and underpenetration CT Pelvis: New fluid collection in the subcutaneous tissues of the gluteal cleft measuring up to 6.2 cm. No soft tissue gas is identified. This fluid collection may communicate with the anus or rectum 07/05/22-07/07/22: Uneventful; surgical recovery, IV antibiotics and pain control. Patient to be discharged (07/07/22) to home with home health and outpatient wound care. Review of Systems General: No Chills, No Night Sweats HEENT: No Head Aches, No Visual Changes Pulmonary: No Dyspnea, No Cough Cardiovascular: No: Chest Pain, Palpitations Gastrointestinal: No: Nausea, Vomiting, Abdominal Pain Genitourinary: No Dysuria, No Frequency Musculoskeletal: No: neck pain, shoulder pain Neurological: No: Weakness, Numbness Focused Exam Respiratory: Chest Non Tender, Lungs Clear, Normal Breath Sounds, No Accessory Muscle Use, No Respiratory Distress Cardiovascular: Regular Rate, Rhythm, No Edema, No Gallop, No JVD, No Murmur, Normal Peripheral Pulses Capillary Refill: Less Than 3 Seconds Peripheral Pulses: 2+ Radial Pulses (R), 2+ Radial Pulses (L) Skin: normal color, warm/dry Objective Exam Vital Signs Vital Signs Date Time Temp Pulse Resp B/P (MAP) Pulse Ox O2 Delivery O2 Flow Rate FiO2 07/07/22 13:45 07/07/22 11:23 36.6 65 18 92 Room Air 07/07/22 03:08 2.00 Capillary Refill : Less Than 3 Seconds General Appearance: No Apparent Distress, WD/WN HEENT: PERRL/EOMI, TMs Normal, Normal ENT Inspection Neck: Normal Inspection, Non Tender, Supple Respiratory: Chest Non Tender, Lungs Clear, Normal Breath Sounds, No Accessory Muscle Use, No Respiratory Distress, Wheezing (occassional wheezing) Cardiovascular: Regular Rate, Rhythm, No Gallop, No Murmur, Normal Peripheral Pulses Gastrointestinal: Normal Bowel Sounds, Non Tender, Soft Rectal: Deferred Extremity: Normal Capillary Refill, Normal Inspection Neurologic/Psychiatric: Alert, Oriented x3, No Motor/Sensory Deficits, Normal Mood/Affect, 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 Assessment/Plan Assessment and Plan Assess & Plan/Chief Complaint Sepsis, resolved Perineal Abscess, S/P incision and drainage CT abd/pelvis on demonstrated 6.2 cm fluid collection in subcutaneous tissue of gluteal cleft Abscess pocket is packed with Iodoform gauze Abscess contents sent for culture -Resulted with strep spp Leukocytosis has resolved On Pip/Tazo Pain control, PRN Zofran, Fluids Patient received note to take time off of work to heal Sarcoidosis COPD MAGDY On 2 L O2 via Nasal Cannula T2DM Viktoza Diabetic diet Neuropathy Gabapentin Hypertension Lisinopril/HCTZ Hyperlipidemia Lipitor JAYNE DEL TORO DO 07/08/22 0707: Supervisory-Addendum Brief Verification & Attestation Participated in pt care: history, MDM, physical Personally performed: exam, history, MDM, supervision of care Care discussed with: Medical Student Procedures: n/a Results interpretation: Verified all documentation Verification and Attestation of Medical Student E/M Service A medical student performed and documented this service in my presence. I reviewed and verified all information documented by the medical student and made modifications to such information, when appropriate. I personally performed the physical exam and medical decision making. Jayne Del Toro, Jul 08, 2022,07:07 RICHARD PHILLIPS Jul 07, 2022 13:59 JAYNE DEL TORO DO Jul 08, 2022 07:07
== END 2022-07-07 14:00 | disposition home health service (06) | DRG 854 ==
LOC: EDUNIT# 22:12 → ER 22:14 → 4TH 07-04 01:55
PROVIDERS: ADMIT Internal Medicine; ATTEND Internal Medicine
PROC: 0D9P0ZZ Drainage of Rectum, Open Approach (ICD-10-PCS; principal; 2022-07-04 13:43)
DX: A41.9 Sepsis, unspecified organism (principal); K61.0 Anal abscess; L02.215 Cutaneous abscess of perineum; K61.1 Rectal abscess; D86.9 Sarcoidosis, unspecified; G47.33 Obstructive sleep apnea (adult) (pediatric); J44.9 Chronic obstructive pulmonary disease, unspecified; I10 Essential (primary) hypertension; K21.9 Gastro-esophageal reflux disease without esophagitis; F41.9 Anxiety disorder, unspecified; E78.00 Pure hypercholesterolemia, unspecified; M19.90 Unspecified osteoarthritis, unspecified site; F32.A Depression, unspecified; G89.29 Other chronic pain; E11.40 Type 2 diabetes mellitus with diabetic neuropathy, unspecified; Z87.891 Personal history of nicotine dependence; E66.01 Morbid (severe) obesity due to excess calories; R01.1 Cardiac murmur, unspecified; N49.2 Inflammatory disorders of scrotum
CPT/HCPCS: 36410; 36415; 71045; 72193; 76937; 80053; 80202; 82947; 83605; 85007; 85025; 85027; 85610; 85730; 86141; 87040; 87070; 87075; 87076; 87077; 87185; 87186; 87205